=== PATIENT | female | born 1945 | race Caucasian/White ===

== ENCOUNTER 2016-04-22 11:14 | Inpatient (IN) | payer OTHER, MEDICARE ==
[~2016-04-22] VITALS: Ht 162.6 cm; Wt 59.0 kg
[~2016-04-22 11:14] MED LIST: ALBUTEROL0.09 MG/A1 INH; AMOXIL 875 MG875 MG PO; ATIVAN0.5 MG PO; ATORVASTATIN CA20 MG PO; CALCIUM CARBO1250 MG PO; CAPOTEN12.5 MG PO; CARDIZEM 180 M180 MG PO; CEFAZOLIN1 GM IV; COUMADIN 5 MG TA5 MG PO; FARXIGA10 MG PO; GLUCOPHAGE500 MG PO; K-DUR 20MEQ TA20 MEQ PO; LANOXIN-DIGO0.125 MG PO; MAGNESIUM OXID400 MG PO; MORPHINE ER PO; MS CONTIN15 M1 PO; ONGLYZA5 MG PO; PERCOCET 325 MG1 TA2 PO; PERCOCET 325 MG1 TAB PO; PHOS-NAK1 PDR PO; PREDNISONE 10MG10 M1 PO; PRINIVIL 5MG5 MG PO; REQUIP1 M1 PO; ROCALTROL0.25 MCG PO; SPIRIVA 18 MCG18 MCG INH; TESSALON PERLE100 MG PO; TOPCARE OMEPRAZ20 MG PO; TYLENOL TAB 32325 MG PO; VITAMIN D1000 IU PO
--- NOTE | 2016-04-22 11:32 | NUR ---
PT STATES SHE FELL FROM BED TO FLOOR AT EARLY THIS AM, (0400), UNABLE TO GET UP DUE TO EXTREME WEAKNESS. ALSO C/O SORE THROAT. 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 HAS IMPLANTED PORT IN R CHEST, CURRENTLY RECEIVING CHEMOTHERAPY AT [facility]. ON 02 AT 3L NASAL CANULA.
--- NOTE | 2016-04-22 11:46 | NUR ---
PT TO ROOM, ASSISTED TO CHANGE AND ONTO STRETCHER, PT STATES THAT SHE HAS NO COMPLAINTS BESIDES SHE FEELS VERY WEAK. PT GOES TO CHEMO EVERY THURSDAY, DENIES GETTING HURT WHEN SHE FELL THIS AM. IS O2 DEPENDENT ON 3L AND O2 SAT IS 100 % ON NASAL CANULA. FAMILY WITH PT .
--- NOTE | 2016-04-22 11:48 | NUR ---
DENIES CP/ABD/URINARY SYMPTOMS.
--- NOTE | 2016-04-22 11:56 | ED GENERAL ADULT ---
History of Present Illness General Chief Complaint: Fall Stated Complaint: FALL; SORE THROAT Source: patient, family Exam Limitations: no limitations Vital Signs & Intake/Output Vital Signs & Intake/Output Vital Signs Date Time Temp Pulse Resp B/P Pulse O2 O2 Flow FiO2 Ox Delivery Rate 04/22 1417 100.8 108 20 113/67 97 Nasal 2.0L Cannula 04/22 1415 101.8 04/22 1415 97 Nasal 3.0L Cannula 04/22 1135 99.7 127 24 105/67 94 Nasal 2.0L Cannula Allergies Coded Allergies: adhesive tape (BLISTERS 05/17/15) heparin (UNKNOWN 05/17/15) Reconcile Medications Acetaminophen (Tylenol Arthritis) 650 MG TABLET.ER 1 TAB PO PRN PAIN ( Reported) Albuterol Sulfate (Proair Hfa) 90 MCG HFA.AER.AD 2 PUF INH Q4-6 PRN PRN SOB ( Reported) Atorvastatin Calcium (Lipitor) 20 MG TABLET 1 TAB PO DAILY CHOLESTEROL ( Reported) Calcitriol 0.25 MCG CAPSULE 1 CAP PO DAILY LOW VIT D AND CALCIUM (Reported) Calcium Carbonate (Calcium) 600 MG (1,500 MG) TABLET 1 TAB PO DAILY SUPPLEMENT (Reported) Cholecalciferol (Vitamin D3) (Vitamin D3) 2,000 UNIT CAPSULE 1 CAP PO DAILY SUPPLEMENT (Reported) Dapagliflozin Propanediol (Farxiga) 10 MG TABLET 1 TAB PO DAILY DM (Reported) Fentanyl 50 MCG/HOUR PATCH.TD72 1 PAT TOP Q3D PAIN (Reported) Hydrocodone/Chlorphen P-Stirex (Hydrocodone-Chlorphen ER Susp) 10 MG-8 MG/5 ML MANDO.ER.12H 5 ML PO Q6H PRN COUGH (Reported) Lisinopril 5 MG TABLET 1 TAB PO DAILY BP (Reported) Lorazepam 0.5 MG TABLET 1 TAB PO TID PRN SLEEP (Reported) Metformin HCl 1,000 MG TABLET 1 TAB PO BID DM (Reported) Morphine Sulfate (Ms Contin) 15 MG TABLET.ER 1 TAB PO BID PAIN (Reported) Naproxen Sodium (Aleve) 220 MG CAPSULE 2 CAP PO PRN PAIN (Reported) Oxycodone HCl/Acetaminophen (Oxycodone-Acetaminophen 10-325) 10 MG-325 MG TABLET 1 TAB PO Q6H PRN PAIN (Reported) Pantoprazole Sodium 40 MG TABLET.DR 1 TAB PO DAILY GI (Reported) Potassium Chloride 20 MEQ TAB.ER.PRT 1 TAB PO DAILY LOW POTASSIUM (Reported) Ropinirole HCl (Requip) 1 MG TABLET 1 TAB PO BID RESTLESS LEGS (Reported) Saxagliptin (Onglyza) 5 MG TABLET 1 TAB PO DAILY DM (Reported) Tiotropium [place] (Spiriva) 18 MCG CAP.W.DEV 1 CAP INH DAILY COPD (Reported) Triage Note: PT STATES SHE FELL FROM BED TO FLOOR AT EARLY THIS AM, (0400), UNABLE TO GET UP DUE TO EXTEMEM WEAKNESS. PMH: STAGE 4 LUNG CA WITH METS TO BONE AND LIVER. Triage Nurses Notes Reviewed? yes Onset: Gradual Duration: day(s): (3) Timing: remote history Injury Environment: home Severity: moderate Severity Numbers: 6 No Modifying Factors: none HPI: Patient is a 70-year-old female with history of lung cancer currently undergoing chemotherapy therapy presenting to the emergency department with chief complaint of generalized weakness, fall out of bed early this morning and sore throat. She reports that she's been feeling achy and weak over the past 3 days. She reports positive chills, unsure about any fevers. Denies any nausea or vomiting. No abdominal pain. She works as she got up to use the bathroom early this morning and isn't sure if she just tripped and fell or if she slid down and fell. She couldn't get up for 3 hours. Her family member found her on the ground. Denies any head injury or loss of consciousness. Denies any upper or lower extremity pain. She reports that she just felt too weak to get off the ground. Her throat has been achy for the past several days. Worse with swallowing. Denies taking anything to help with the sore throat besides Tylenol. This Tylenol doesn't help the sore throat or the weakness. Denies any diarrhea. Slight decrease in by mouth intake. Denies any urinary symptoms. (ELADIO STOKES) Past History Travel History Traveled to [place] past 21 day No Medical History Any Pertinent Medical History? 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 No (ELADIO STOKES) Review of Systems Review of Systems Constitutional: Reports: see HPI, chills, malaise, weakness. Comments Review of systems: See HPI, All other systems negative. Constitutional, no weight loss HEENT: No visual changes no congestion Cardiovascular: No chest pain ,palpitation , orthopnea or ankle swelling Skin, no jaundice no rashes Respiratory: No dyspnea cough sputum or hemoptysis GI: No nausea no vomiting : No dysuria No hematuria Muscle skeletal: no back pain, no neck pain, Neurologic: No numbness no confusion, no headaches Psych: No stress anxiety or depression,. Heme/endocrine: No bruising no bleeding no polyuria or polydipsia Immunology: No splenectomy or history of AIDS (ELADIO STOKES) Physical Exam Physical Exam General Appearance: alert, awake, comfortable, thin, fatigued Comments: Well-developed well-nourished person in no acute distress HEENT: extraocular motion intact, no nystagmus. Pupils equally round and reactive to light and accommodation. Nose is atraumatic. External auditory canal and Tympanic membranes clear. Pharynx moderately erythematous with injection, mild tonsillar enlargement without exudate. Pharynx secretions without difficulty. Uvula midline.. No swelling or edema. No pain to palpation over entire scalp. No step-off or bogginess noted to palpation. Neck: Supple, mild anterior cervical lymphadenopathy, normal range of motion without pain or tenderness, no C-spine tenderness fall range of motion. Back: Nontender, no CVA tenderness. Full range of motion Cardiovascular: Regular rate and rhythms no murmurs rubs or gallops, normal JVP Respiratory: Chest nontender. No respiratory distress.diminished lung sounds on the left, diminished lung sounds on the right base to auscultation Abdomen: Soft, nontender nondistended, no appreciable organomegaly. Normal bowel sounds. No ascites, no rebound or guarding. Extremity: No edema, no calf tenderness to palpation, normal and equal pulses. Full range of motion of all extremities without difficulty. Muscular strength is 3 out of 5 while laying in the stretcher. Neuro: Alert oriented x3, motor sensory normal, cranial nerves II through XII grossly intact. Cerebellar testing is unremarkable. Skin: No appreciable rash on exposed skin, skin is warm and dry. Psych: Mood and affect is normal, memory and judgment is normal. Core Measures ACS in differential dx? Yes CVA/TIA Diagnosis: No Severe Sepsis Present: No BC x2: Yes NS/LR Started: Yes Septic Shock Present: No (LETICIA DIAL,ELADIO) Progress Differential Diagnoses I considered the following diagnoses in my evaluation of the patient: Strep, viral syndrome, influenza, dehydration, pneumonia, bronchitis, sinusitis, dehydration Plan of Care: Orders Procedure Date/time Status Regular Diet 04/23 D Active OXYGEN SETUP (GEN) 04/22 1457 Active Saline Lock 04/22 1457 Active Admit to inpatient 04/22 1457 Active Vital Signs 04/22 1457 Active Activity/Ambulation 04/22 1457 Active Code Status 04/22 1457 Active Patient Data 04/22 1438 Active PT Evaluate & Treat 04/22 1346 Active BLOOD CULTURE 04/22 1326 Active Intake & Output 04/22 1241 Active MISTAKE 04/22 1156 Active Telemetry/Postdoctoral Scholar 04/22 1156 Active RAPID VIRAL INFLUENZA A 04/22 1156 Complete THROAT CULTURE W/QUICK STREP 04/22 1156 Complete URINALYSIS 04/22 1156 Complete TROPONIN LEVEL 04/22 1156 Complete COMPREHENSIVE METABOLIC PANEL 04/22 1156 Complete CREATINE PHOSPHOKINASE 04/22 1156 Complete CBC WITHOUT DIFFERENTIAL 04/22 1156 Complete EKG 04/22 1139 Active Laboratory Tests 04/22/16 1456: Urinalysis MOD H, Urine Color YEL, Urine Clarity CLEAR, Urine pH 6.0, Ur Specific [place] 1.025, Urine Protein TRACE H, Urine Ketones 15 H, Urine Nitrite NEG, Urine Bilirubin NEG@ICTO, Urine Urobilinogen 1.0, Ur Leukocyte Esterase NEG, Ur Microscopic SEDIMENT EXAMINED, Urine RBC RARE, Ur Epithelial Cells MOD H, Urine Mucus FEW, Urine Hemoglobin TRACE-INTACT, Urine Glucose 250 H 04/22/16 1231: Anion Gap 10, Estimated GFR > 60, BUN/Creatinine Ratio 31.7 H, Glucose 176 H, Calcium 7.1 L, Total Bilirubin 3.1 H, AST 31, ALT 31, Alkaline Phosphatase 288 H, Creatine Kinase 45, Troponin I 0.02, Total Protein 5.9 L, Albumin 2.7 L, Globulin 3.2, Albumin/Globulin Ratio 0.8 L, CBC w Diff MAN DIFF ORDERED, RBC 2.88 L, MCV 93.5, MCH 32.3 H, RDW 19.1 H, MPV 8.8, Gran % 74.1, Lymphocytes % 7.1 L, Monocytes % 3.0, Eosinophils % 15.2 H, Basophils % 0.6, Absolute Granulocytes 1.3 L, Segmented Neutrophils 60, Band Neutrophils 10 H, Absolute Lymphocytes 0.1 L, Lymphocytes 12 L, Monocytes 2, Absolute Monocytes 0.1 L, Eosinophils 15 H, Absolute Eosinophils 0.3, Absolute Basophils 0, Metamyelocytes 1, Platelet Estimate DECREASED, Hypochromic-Microcytic 2+, Poikilocytosis 2+, Anisocytosis 2+, PUBS MCHC 34.5 Microbiology 04/22 1435 BLOOD: Blood Culture - RECD 04/22 1432 BLOOD: Blood Culture - RECD Diagnostic Imaging: Viewed by Me: Radiology Read. Discussed w/RAD: Radiology Read. Radiology Impression: PATIENT: LUDY QUEEN PRESENT AGE: 70 PATIENT ACCOUNT NO: [id number] : 47 LOCATION: [facility] ORDERING PHYSICIAN: ELADIO DIAL SERVICE DATE: 04/22/16 EXAM TYPE: RAD - XRY-PORTABLE CHEST XRAY EXAMINATION: XR PORTABLE CHEST CLINICAL INFORMATION: Syncope. History of bronchogenic small cell cancer. COMPARISON: PET/CT 02/05/2016. TECHNIQUE: Portable AP view of the chest was obtained. FINDINGS: There is a new rounded 7 cm maximal dimension mass identified in the left upper lung field laterally with associated volume loss and shift of the mediastinum towards the left. The potential includes rounded consolidation and evolving pneumonia and/or atelectasis, however given the patient's history a recurrent soft tissue mass is also possible. CT imaging preferably with intravenous contrast would be helpful versus bronchoscopy to further evaluate, possibly a mucous plug with associated atelectasis. Right lung is mildly hyperexpanded and clear. There is more of a patchy opacity involving the remaining left lung field with subtle blunting of the left costophrenic angle also etiology indeterminate. No aggressive appearing osseous lesions are seen. A single-lumen implantable catheter is identified on the right side with its tip at the SVC right atrial junction unchanged compared with the previous PET scan. IMPRESSION: Volume loss of left hemithorax with a 7 cm rounded density in the left upper lung field. PA and lateral views versus and or CT imaging or bronchoscopy is recommended to further evaluate. Initial ED EKG: sinus tachycardia at 125 bpm Comments: 04/22/2016 1:18:26 PMOn arrival patient started on IV hydration, she appears to be dry. Will assess for influenza, strep. bloodwork drawn.. Patient resting comfortably. currently undergoing chemotherapy, patient is immune compromised. 04/22/2016 2:09:23 PM patient and family members informed of bloodwork results. Patient is a max assist of 2 to sit up bedside which is lower than baseline. PT consult ordered. Spoke with physical therapist, which they are unsure if she will be evaluated today. Started on by mouth amoxicillin for positive strep throat. 04/22/2016 3:18:47 PM patient informed of all of her results, imaging studies. She was informed about the new density noted on chest x-ray. Patient is likely septic, neutropenic and has bandemia, patient will be admitted for IV and a back , IV hydration. Blood cultures needs return. (ELADIO STOKES) Departure Departure Time of Disposition: 6 Disposition: STILL A PATIENT Condition: Stable Clinical Impression Primary Impression: Neutropenic Qualifiers: Neutropenia type: unspecified Qualified Code: D70.9 - Neutropenia, unspecified Secondary Impressions: Bandemia, Strep throat Referrals: MARY KNOX MD (PCP/Family) Departure Forms: Customer Survey General Discharge Information Admission Note Spoke With: MARY KNOX MD Documentation of Exam: Documentation of any treatments & extenuating circumstances including Concerns Regarding Discharge (functional status, medication knowledge or non-compliance, living conditions, etc.) that warrant an admission rather than observation: Patient meets criteria for sepsis, requiring antibiotics, blood cultures return, IV hydration, physical therapy consultation secondary to weakness. Discharge at this time would be medically harmful. Patient is immunocompromised. (ELADIO STOKES) PA/FAMILY PROGRAM SPECIALIST Co-Sign Statement Statement: ED Attending supervision documentation- x I saw and evaluated the patient. I have also reviewed all the pertinent lab results and diagnostic results. I agree with the findings and the plan of care as documented in the PA's/FAMILY PROGRAM SPECIALIST's documentation. [] I have reviewed the ED Record and agree with the PA's/FAMILY PROGRAM SPECIALIST's documentation. [] Additions or exceptions (if any) to the PAs/FAMILY PROGRAM SPECIALIST's note and plan are summarized below: [] (CHIDI OWENS,JOE) Critical Care Note Critical Care Note Critical Care Time: 30-74 min (ELADIO STOKES)
[2016-04-22 12:38] LABS: ABSOLUTE BASOPHIL COUNT 0 /CUMM (0.0-0.2); ABSOLUTE EOSINOPHIL COUNT 0.3 /CUMM (0.0-0.7); ABSOLUTE GRANULOCYTE CT 1.3 /CUMM (1.4-6.5); ABSOLUTE LYMPH COUNT 0.1 /CUMM (1.2-3.4); ABSOLUTE MONOCYTE COUNT 0.1 /CUMM (0.10-0.60); BASOPHIL % 0.6 % (0.0-2.0); EOSINOPHIL % 15.2 % (0-5); GRANULOCYTE % 74.1 % (42.2-75.2); MEAN CORPUSCULAR HGB 32.3 PG (27.0-31.0); MEAN CORPUSCULAR HGB CONC 34.5 G/DL (33.0-37.0); MEAN CORPUSCULAR VOLUME 93.5 FL (81.0-99.0); MEAN PLATELET VOLUME 8.8 FL (7.4-10.4); PLATELET COUNT 70 /CUMM (130-400); RBC DISTRIBUTION WIDTH 19.1 % (11.5-14.5); RED BLOOD CELL CT 2.88 /CUMM (4.20-5.40); WHITE BLOOD CELL COUNT 1.7 /CUMM (4.8-10.8)
--- NOTE | 2016-04-22 12:42 | NUR ---
PORT CATH ACCESS TO RIGHT CHEST WALL WITH 0.75 INCH NEEDED. FLUIDS INFUSING, THROAT CULTURE AND FLU SWAB SENT
[2016-04-22] MEDS ORDERED: CALCIUM600 M2 PO (12:53)
[2016-04-22] MEDS ORDERED: METFORMIN HCL1000 M1 PO (12:57)
[2016-04-22] MEDS ORDERED: LORAZEPAM0.5 M1 PO (12:57)
[2016-04-22] MEDS ORDERED: FARXIGA10 M1 PO (12:58)
[2016-04-22] MEDS ORDERED: HYDROCODONE-CH115 ML PO (12:58)
[2016-04-22] MEDS ORDERED: PANTOPRAZOLE SO40 M1 PO (12:59)
[2016-04-22] MEDS ORDERED: OXYCODONE-ACET1 EAC1 PO (12:59)
[2016-04-22] MEDS ORDERED: FENTANYL1 EAC3 TOP (12:59)
[2016-04-22] MEDS ORDERED: ONGLYZA5 M1 PO (13:00)
[2016-04-22] MEDS ORDERED: TYLENOL ARTHRI650 M1 PO (13:01)
[2016-04-22] MEDS ORDERED: PROAIR HFA8.5 GM INH (13:02)
[2016-04-22] MEDS ORDERED: LIPITOR20 M2 PO (13:02)
[2016-04-22] MEDS ORDERED: ALEVE220 M1 PO (13:02)
[2016-04-22] MEDS ORDERED: CALCITRIOL0.25 MC1 PO (13:03)
[2016-04-22] MEDS ORDERED: MS CONTIN15 M2 PO (13:04)
[2016-04-22] MEDS ORDERED: VITAMIN D32000 UNIT PO (13:04)
[2016-04-22] MEDS ORDERED: LISINOPRIL5 M1 PO (13:04)
[2016-04-22] MEDS ORDERED: POTASSIUM CHLO20 ME2 PO (13:05)
[2016-04-22] MEDS ORDERED: SPIRIVA18 MCG INH (13:05)
--- NOTE | 2016-04-22 13:27 | RADIOLOGY REPORT ---
EXAMINATION: XR PORTABLE CHEST CLINICAL INFORMATION: Syncope. History of bronchogenic small cell cancer. COMPARISON: PET/CT 02/05/2016. TECHNIQUE: Portable AP view of the chest was obtained. FINDINGS: There is a new rounded 7 cm maximal dimension mass identified in the left upper lung field laterally with associated volume loss and shift of the mediastinum towards the left. The potential includes rounded consolidation and evolving pneumonia and/or atelectasis, however given the patient's history a recurrent soft tissue mass is also possible. CT imaging preferably with intravenous contrast would be helpful versus bronchoscopy to further evaluate, possibly a mucous plug with associated atelectasis. Right lung is mildly hyperexpanded and clear. There is more of a patchy opacity involving the remaining left lung field with subtle blunting of the left costophrenic angle also etiology indeterminate. No aggressive appearing osseous lesions are seen. A single-lumen implantable catheter is identified on the right side with its tip at the SVC right atrial junction unchanged compared with the previous PET scan. IMPRESSION: Volume loss of left hemithorax with a 7 cm rounded density in the left upper lung field. PA and lateral views versus and or CT imaging or bronchoscopy is recommended to further evaluate.
--- NOTE | 2016-04-22 14:18 | NUR ---
PT ASSISTED UP ON STRETCHER, AWARE THAT SHE IS BEING ADMITTED, PT TESTED POSITIVE FOR STREP THROAT, COMPLAINS OF HEADACHE AT THIS TIME, TEMP 100.8. MEDICATED WITH 650 MG PO TYLENOL PER ORDER AND AMOXIL 500 MG PO.
--- NOTE | 2016-04-22 15:39 | NUR ---
ASSUMED CARE OF PT AT THIS TIME. PT ASSISTED UP TO BEDSIDE COMMODE, PT HAS SOFT FORMED BOWEL MOVMENT. PT ASSISTED BACK INTO BED. PT OFFERS NO OTHER COMPLAINTS AT THIS TIME. PT SINUS TACH ON MONITOR.
--- NOTE | 2016-04-22 15:46 | History & Physical ---
See Addendum HEATH OWENS,SHAUN 04/22/16 1545: General Information and HPI MD Statement: I have seen and personally examined LUDY QUEEN and documented this H&P. The patient is a 70 year old F who presented with a patient stated chief complaint of fall and weakness. 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 Patient reports that for the past few days she has felt increased weakness, and stated that today when she had a mechanical fall she was not able to pick herself up. Patient denies any palpitation, diaphoresis, seizure-like activity, vertigo, tinnitus headache, loss of consciousness, postictal confusion, focal neurological deficit or bladder from/urinary incontinence. She reports a 3 day history of sore throat, increased weakness, decreased appetite and chills. She reports that her grandson recently in the past week had an upper respiratory infection which she believes was a sore throat. Patient also reports intermittent episodes of diarrhea or denies any blood in stool. Patient also denies any chest pain, increased shortness of breath, cough , nausea, vomiting, abdominal pain, joint pain or dysuria. Of note patient is followed by Dr. Lucero (oncology) and her next chemotherapy session. was scheduled for . Allergies/Medications Allergies: Coded Allergies: adhesive tape (BLISTERS 05/17/15) heparin (UNKNOWN 05/17/15) Home Med list Acetaminophen (Tylenol Arthritis) 650 MG TABLET.ER 1 TAB PO PRN PAIN ( Reported) Albuterol Sulfate (Proair Hfa) 90 MCG HFA.AER.AD 2 PUF INH Q4-6 PRN PRN SOB ( Reported) Atorvastatin Calcium (Lipitor) 20 MG TABLET 1 TAB PO DAILY CHOLESTEROL ( Reported) Calcitriol 0.25 MCG CAPSULE 1 CAP PO DAILY LOW VIT D AND CALCIUM (Reported) Calcium Carbonate (Calcium) 600 MG (1,500 MG) TABLET 1 TAB PO DAILY SUPPLEMENT (Reported) Cholecalciferol (Vitamin D3) (Vitamin D3) 2,000 UNIT CAPSULE 1 CAP PO DAILY SUPPLEMENT (Reported) Dapagliflozin Propanediol (Farxiga) 10 MG TABLET 1 TAB PO DAILY DM (Reported) Fentanyl 50 MCG/HOUR PATCH.TD72 1 PAT TOP Q3D PAIN (Reported) Hydrocodone/Chlorphen P-Stirex (Hydrocodone-Chlorphen ER Susp) 10 MG-8 MG/5 ML MANDO.ER.12H 5 ML PO Q6H PRN COUGH (Reported) Lisinopril 5 MG TABLET 1 TAB PO DAILY BP (Reported) Lorazepam 0.5 MG TABLET 1 TAB PO TID PRN SLEEP (Reported) Metformin HCl 1,000 MG TABLET 1 TAB PO BID DM (Reported) Morphine Sulfate (Ms Contin) 15 MG TABLET.ER 1 TAB PO BID PAIN (Reported) Naproxen Sodium (Aleve) 220 MG CAPSULE 2 CAP PO PRN PAIN (Reported) Oxycodone HCl/Acetaminophen (Oxycodone-Acetaminophen 10-325) 10 MG-325 MG TABLET 1 TAB PO Q6H PRN PAIN (Reported) Pantoprazole Sodium 40 MG TABLET.DR 1 TAB PO DAILY GI (Reported) Potassium Chloride 20 MEQ TAB.ER.PRT 1 TAB PO DAILY LOW POTASSIUM (Reported) Ropinirole HCl (Requip) 1 MG TABLET 1 TAB PO BID RESTLESS LEGS (Reported) Saxagliptin (Onglyza) 5 MG TABLET 1 TAB PO DAILY DM (Reported) Tiotropium [place] (Spiriva) 18 MCG CAP.W.DEV 1 CAP INH DAILY COPD (Reported) Past History Travel History Traveled to [place] past 21 day No Medical History Neurological: NONE EENT: NONE Cardiovascular: hypertension Respiratory: COPD, O2 DEPENDENT AT 3L Gastrointestinal: diverticulitis, GERD, SMALL BOWEL OBSTRUCTION Hepatic: NONE Renal: NONE Musculoskeletal: NONE Psychiatric: NONE Endocrine: diabetes Blood Disorders: NONE Cancer(s): history of left upper lobectomy for adenocarcinoma in 2012, with recurrence diagnosed in December 2014 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 Needs Assist: dressing, bathing. Ambulation: walker Review of Systems Review of Systems Constitutional: Reports: see HPI. EENTM: Denies: double vision, visual changes. Cardiovascular: Denies: palpitations, peripheral edema, syncope. Respiratory: Denies: cough, hemoptysis, wheezing. GI: Reports: diarrhea. Denies: constipation, distention. Genitourinary: Denies: dysuria, frequency, hematuria. Musculoskeletal: Denies: joint pain. Skin: Denies: erythema. Neurological/Psychological: Denies: depressed, dementia, emotional problems. Hematologic/Endocrine: Denies: bleeding, polyuria, polydipsia. Immunologic/Allergic: Reports: no symptoms. Exam & Diagnostic Data Last 24 Hrs of Vital Signs/I&O Vital Signs Date Time Temp Pulse Resp B/P Pulse O2 O2 Flow FiO2 Ox Delivery Rate 04/22 1921 Nasal 3.0L Cannula 04/22 1900 93 Nasal 3.0L Cannula 04/22 1806 Nasal 3.0L Cannula 04/22 1805 99.1 124 20 110/62 92 04/22 1717 100.7 121 16 110/65 95 Nasal 3.0L Cannula 04/22 1601 100.7 04/22 1547 100.7 04/22 1417 100.8 108 20 113/67 97 Nasal 2.0L Cannula 04/22 1415 101.8 04/22 1415 97 Nasal 3.0L Cannula 04/22 1135 99.7 127 24 105/67 94 Nasal 2.0L Cannula Intake & Output 04/22 1600 04/22 0800 04/22 0000 Intake Total 1000 Output Total Balance 1000 Intake, IV 1000 Patient 58.967 kg Weight Physical Exam General Appearance Alert, Oriented X3, Cooperative Skin No Significant Lesion HEENT EOMI, Mucous Membr. moist/pink, mild sclera icterus Neck Supple, No JVD Lymphatic Cervical nl Cardiovascular Regular Rate, Normal S1, Normal S2 Lungs decreased breath sounds on the right lung sanchez Abdomen Normal Bowel Sounds, Soft Neurological Normal Speech, Strength at 5/5 X4 Ext, Normal Tone, Sensation Intact Extremities No Clubbing, No Cyanosis, brisk capillary refill of extremities Vascular Pulses Symmetrical Assessment/Plan Assessment: This is a 70-year-old lady with a past medical history of adenocarcinoma status post left lobectomy and on chemotherapy therapy presents after a mechanical fall and is found to have a positive strep throat result. Prior to the mechanical fall patient's head about 3 days history of weakness chills and sore throat. Impression and plan #Sepsis Patient meets criteria for sepsis (tachycardic, febrile, with an identifiable source of infection from her throat). These is always a concern for MRSA with Port-A-Cath patient presenting with sepsis, however there is no sign of exit site infection during inspection and we do have an identifiable source of infection (group A strep). This is a chemotherapy patient therefore neutropenic fever as well as a concern. Patient is currently not neutropenic, therefore no coverage for gram-negative Pseudomonas, or Neupogen is warranted. Plan We'll start IV Unasyn for group A strep coverage, no need for a broader coverage as the source of infection is known. Neutropenic droplet precaution for 24 hours Will monitor for any impending neutropenia via CBC in the morning Will trend lactic levels Will follow-up with blood cultures Adequate IV hydration, with strict ins and outs to prevent any pulmonary edema as patient is a high risk due to lobectomy. ID on board (appreciated) #Acute pharyngitis Secondary to strep infection as evidenced by positive test, throat pain and fevers, Plan Unasyn antibiotic #Mechanical fall Most likely secondary to increased weakness due to 3 day history of bacterial infection. Will consider PT eval tomorrow morning #History of lung malignancy Patient scheduled for therapy on . oncology office is already aware of patient's admission and will follow with the consult. #Pancytopenia Most likely secondary to chemotherapy. We'll continue to trend CBC. Will avoid heparin in the setting of the thrombocytopenia #COPD TRC nebs O2 supplementation to keep sats above 90% #Transaminitis possibly secondary to sepsis or liver metastases #Elevated bilirubin Possibly secondary to liver metastases #History of hypertension Will hold off oral medications for now #History of diabetes NovoLog sliding scale Accu-Cheks 3 times a day and attempt As Ranked By This Provider Problem List: 1. Strep throat Core Measures/Miscellaneous Acute Coronary Syndrome ACS Diagnosis: No Cerebrovascular Accident CVA/TIA Diagnosis: No Congestive Heart Failure CHF Diagnosis: No Venous Thromboembolism VTE Risk Factors: Acute medical illness, Age > 40 VTE Prophylaxis Ordered Inpt: Mechanical (ALPS/TEDS) No Mech VTE prophylaxis d/t: No contraindications No VTE Pharm Prophylaxis d/t: VTE low risk (thrombocytopenia) VTE Diagnosis: No VTE Type: NONE VTE Confirmed by (Test): NONE Severe Sepsis Severe Sepsis Present: No BC x2: Yes Lactic Acid x2: Yes NS/LR Started: Yes Septic Shock Septic Shock Present: No Miscellaneous Documentation Attending Case Discussed With: MARY KNOX MD Primary Care Physician: MARY KNOX MD Patient sees these Specialists oncology Level of Patient Care: Telemetry Consults Needed: Consulting Specialty: Hematology/Oncology (heme) NICHOLEABE 04/22/16 1642: Resident Review Statement Resident Statement: examined this patient, discussed with seo intern, agreed with seo intern, reviewed images, amended to note Other Findings: 70 year with past medical history of stage IV lung cancer with metastasis to the liver continue on chemotherapy 3 weeks on 1 week off, hypertension, hyperlipidemia, COPD on 2 L oxygen, GERD and hospital with chief complaint of weakness and fall. She reported that in the morning she fell near her bed due to extreme weakness and could not stand up. Patient also reports of sore throat since Thursday, her grandson was [place] at that time. Patient denies any fever but reports chills. She has intermittent diarrhea. She denies chest pain, nausea, vomiting, joint pain, ear pain. Vital signs on admission fever of 101, DC 127, RR 24, BP 105/67, saturation 94% on 2 L Alert and oriented 3 Skin : No redness in the Port-A-Cath on the right side HEENT Atraumatic, PERRLA, EOMI, possible oral thrush on the tongue Neck Supple, No JVD, No thryomegaly Lymphatic Cervical nl Cardiovascular tachycardia, Normal S1, Normal S2 Lungs severely decreased breath sound on the right side Abdomen Normal Bowel Sounds, Soft, No Tenderness, No Hepatospenomegaly, No Masses Neurological Normal Gait, Normal Speech, Strength at 5/5 X4 Ext, Sensation Intact Extremities No Clubbing, No Cyanosis, No Edema,Normal Pulses WBC 1.7(ANC mopre than 1100),20% bands, hemoglobin 9.3, platelets 70, bilirubin 3, elevated alkaline phosphatase, troponin within normal limits EKG showed sinus tachycardia, no acute ST-T changes(RDI monitoring showed continuous trigemy) CXR did not show any acute pneumonia Flu negative Rapid strep positive Assessment and plan #moderate Neutropenia with sepsis due to strep infection/tachycardia -Patient received amoxicillin oral we will continue with Unasyn IV -Check lactic acid now and 3 hours later -1 liter normal saline and IV hydration 100 mL/h -Follow-up blood cultures and urine cultures -Neutropenic precausions if pateint more severe neutropenia -CBC daily -Admit to telemetry due to tachycardia with cardiology consult -ID consult -Acetaminophen for fever #Lung cancer stage IV on chemotherapy -She gets chemotherapy every -Oncology is notified #COPD -TRC nebs -keep O2 saturation over 92% #Elevated bilirubin/LFTS -Possible due to mass versus sepsis -INR and increase tomorrow -Watch for bleeding #Pancytopenia -Possibly due to chemotherapy -DVT prophylaxis only Alps for now #Hypertension/diabetes -No oral medications for now -Sliding scale insulin, diabetic diet, fingersticks Chronic pain from the cancer and the back -Continue fentanyl patch and oxycodone unwitnessed fall and being on the floor for long time -check CPK DVT prophylaxis Alps, full code, diabetic diet, fentanyl patch and oxycodone for pain
--- NOTE | 2016-04-22 15:48 | NUR ---
PHARMACY CALLED FOR MEDS
--- NOTE | 2016-04-22 15:52 | NUR ---
BED CANCEL DUE TO CHANGE OF FLOOR
--- NOTE | 2016-04-22 16:03 | NUR ---
CONSISTENT CARB 3 TRAY ORDERED FOR PT AT THIS TIME
--- NOTE | 2016-04-22 16:54 | NUR ---
PT MEDICATED PER EMAR AT THIS TIME. PT DOES NOT WANT FENANTLY PATCH AT THIS TIME.
--- NOTE | 2016-04-22 17:24 | NUR ---
DR HORN AT BEDSIDE FOR EVAL. PER . PT WILL BE ON DROPLET PERCAUTIONS FOR [address] NURSE ON [address] [place] [address] AWARE AND REPORT GIVEN.
--- NOTE | 2016-04-22 17:33 | NUR ---
[facility] CALLED FOR PT TRANSPORT
--- NOTE | 2016-04-22 17:39 | Cons- Cardiology ---
General Information and HPI Consulting Request Date of Consult: 04/22/16 Requested By: MARY KNOX MD Reason for Consult: premature ventricular contractions History of Present Illness: The patient is a 70-year-old female with history of metastatic lung cancer who presented with complaint of recent sore throat with weakness, aches, and poor p.o. intake. Earlier this morning she fell out of bed. She was brought to the emergency department where she was found to have evidence of streptococcal pharyngitis and possible sepsis. She was noted to have frequent premature ventricular contractions, with episodes of trigeminy. She had a recurrence of metastatic lung cancer 15 months prior to admission, which was treated with radiation and chemotherapy. She continues to receive chemotherapy on a 3 week on/off regimen via a Port-A-Cath. She is noted to be febrile, and to have sinus tachycardia. No chest pain. No palpitations. No syncope. No orthopnea. Allergies/Medications Allergies: Coded Allergies: adhesive tape (BLISTERS 05/17/15) heparin (UNKNOWN 05/17/15) Home Med List: Acetaminophen (Tylenol Arthritis) 650 MG TABLET.ER 1 TAB PO PRN PAIN ( Reported) Albuterol Sulfate (Proair Hfa) 90 MCG HFA.AER.AD 2 PUF INH Q4-6 PRN PRN SOB ( Reported) Atorvastatin Calcium (Lipitor) 20 MG TABLET 1 TAB PO DAILY CHOLESTEROL ( Reported) Calcitriol 0.25 MCG CAPSULE 1 CAP PO DAILY LOW VIT D AND CALCIUM (Reported) Calcium Carbonate (Calcium) 600 MG (1,500 MG) TABLET 1 TAB PO DAILY SUPPLEMENT (Reported) Cholecalciferol (Vitamin D3) (Vitamin D3) 2,000 UNIT CAPSULE 1 CAP PO DAILY SUPPLEMENT (Reported) Dapagliflozin Propanediol (Farxiga) 10 MG TABLET 1 TAB PO DAILY DM (Reported) Fentanyl 50 MCG/HOUR PATCH.TD72 1 PAT TOP Q3D PAIN (Reported) Hydrocodone/Chlorphen P-Stirex (Hydrocodone-Chlorphen ER Susp) 10 MG-8 MG/5 ML MANDO.ER.12H 5 ML PO Q6H PRN COUGH (Reported) Lisinopril 5 MG TABLET 1 TAB PO DAILY BP (Reported) Lorazepam 0.5 MG TABLET 1 TAB PO TID PRN SLEEP (Reported) Metformin HCl 1,000 MG TABLET 1 TAB PO BID DM (Reported) Morphine Sulfate (Ms Contin) 15 MG TABLET.ER 1 TAB PO BID PAIN (Reported) Naproxen Sodium (Aleve) 220 MG CAPSULE 2 CAP PO PRN PAIN (Reported) Oxycodone HCl/Acetaminophen (Oxycodone-Acetaminophen 10-325) 10 MG-325 MG TABLET 1 TAB PO Q6H PRN PAIN (Reported) Pantoprazole Sodium 40 MG TABLET.DR 1 TAB PO DAILY GI (Reported) Potassium Chloride 20 MEQ TAB.ER.PRT 1 TAB PO DAILY LOW POTASSIUM (Reported) Ropinirole HCl (Requip) 1 MG TABLET 1 TAB PO BID RESTLESS LEGS (Reported) Saxagliptin (Onglyza) 5 MG TABLET 1 TAB PO DAILY DM (Reported) Tiotropium [place] (Spiriva) 18 MCG CAP.W.DEV 1 CAP INH DAILY COPD (Reported) Current Medications: Current Medications Sig/Olga Start time Last Medication Dose Route Stop Time Status Admin Acetaminophen 650 MG ONCE ONE 04/22 2114 UNVr 04/22 PO 04/22 2115 211 Acetaminophen 500 MG Q6P PRN 04/22 1545 AC PO Acetaminophen 0 .STK-MED ONE 04/22 1411 DC PO Acetaminophen 650 MG ONCE ONE 04/22 1345 DC 04/22 PO 04/22 1346 1415 Albuterol Sulfate 3 ML Q4P PRN 04/22 1930 AC INH Amoxicillin 0 .STK-MED ONE 04/22 1422 DC PO Amoxicillin 500 MG ONCE ONE 04/22 1415 DC 04/22 PO 04/22 1416 1423 Ampicillin Sodium/ 0 .STK-MED ONE 04/22 1639 DC Sulbactam Sodium .ROUTE Ampicillin Sodium/ 1,500 MG Q6 04/22 1600 AC 04/22 Sulbactam Sodium IV 1654 Sodium Chloride 100 ML Atorvastatin Calcium 20 MG DAILY@1700 04/23 1700 AC PO Calcitriol 0.25 MCG DAILY 04/23 1000 AC PO Calcium Carbonate 1,250 MG DAILY 04/23 1000 AC PO Fentanyl Citrate 50 MCG Q3D 04/22 1545 AC TOP Guaifenesin 10 ML Q6P PRN 04/22 1545 AC PO Influenza Virus 0.5 ML ONCE ONE 04/22 1830 DC Vaccine IM 04/22 1831 Insulin Aspart 0 TIDAC 04/22 1700 AC SC Lorazepam 0.5 MG TID PRN 04/22 1545 AC PO 04/29 1544 Morphine Sulfate 15 MG BID 04/22 1542 AC 04/22 PO 2105 Nystatin 5 ML 4 TIMES/DAY 04/22 1559 AC 04/22 PO 1654 Omeprazole 40 MG DAILY AC 04/23 0700 AC PO Oxycodone/ 1 TAB Q6P PRN 04/22 1545 AC Acetaminophen PO Ropinirole HCl 1 MG BID 04/22 2200 AC PO Sodium Chloride 250 ML BOLUS ONE 04/22 2115 UNVr 04/22 IV 04/22 2214 2112 Sodium Chloride 1,000 ML Q10H 04/22 1600 AC 04/22 IV 1804 Sodium Chloride 500 ML BOLUS ONE 04/22 1600 DC 04/22 IV 04/22 1659 1654 Sodium Chloride 1,000 ML BOLUS ONE 04/22 1430 DC 04/22 IV 04/22 1629 1445 Sodium Chloride 1,000 ML BOLUS ONE 04/22 1200 DC 04/22 IV 04/22 1359 1236 Review of Systems Review of Systems: No rash. No tremor. No melena. No hemoptysis. All other systems are reviewed and are noted to be negative. 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 Needs Assist: dressing, bathing. Ambulation: walker Exam & Diagnostic Data Vital Signs and I&O Vital Signs Date Time Temp Pulse Resp B/P Pulse O2 O2 Flow FiO2 Ox Delivery Rate 04/22 2111 102.0 04/22 192 Nasal 3.0L Cannula 04/22 190 93 Nasal 3.0L Cannula 04/22 1805 Nasal 3.0L Cannula 04/22 1804 99.1 124 20 110/62 92 04/22 1717 100.7 121 16 110/65 95 Nasal 3.0L Cannula 04/22 1601 100.7 04/22 1547 100.7 04/22 1417 100.8 108 20 113/67 97 Nasal 2.0L Cannula 04/22 1415 101.8 04/22 1415 97 Nasal 3.0L Cannula 04/22 1135 99.7 127 24 105/67 94 Nasal 2.0L Cannula Intake & Output 04/22 1600 04/22 0800 04/22 0000 04/21 1600 04/21 0800 04/21 0000 Intake Total 1000 Output Total Balance 1000 Intake, IV 1000 Patient 130 lb Weight Physical Exam: Gen: The patient is in no acute distress HEENT: Normal nose, ears, and oropharynx. Pupils equal bilaterally. Conjunctiva normal. Neck: Supple with no JVD, no masses, and no thyromegaly Lungs: Clear to auscultation with normal respiratory effort Heart: tachycardic, S1, S2, 1/6 systolic murmur. 1+ peripheral edema, 2+ pulses in the lower extremities bilaterally Abdomen: Soft, nontender, no masses. No hepatomegaly. No splenomegaly Extremities: No clubbing or cyanosis. Normal muscle strength in the upper and lower extremities. Skin: Normal skin turgor with no skin ulcers or lesions noted. Neuro: Cranial nerves intact. Sensation intact Psych: Alert and oriented 3 with appropriate affect Labs/Madhu Results: Laboratory Tests 04/22 04/22 1553 1456 Chemistry Lactic Acid (0.7 - 2.1 mmol/L) 1.3 Urines Urinalysis MOD H Urine Color (YEL,AMB,STR) YEL Urine Clarity (CLEAR) CLEAR Urine pH (5.0 - 8.0) 6.0 Ur Specific [place] (1.001 - 1.035) 1.025 Urine Protein (NEG,<30 MG/DL) TRACE H Urine Ketones (NEG) 15 H Urine Nitrite (NEG) NEG Urine Bilirubin (NEG) NEG@ICTO Urine Urobilinogen (0.1 - 1.0 EU/dl) 1.0 Ur Leukocyte Esterase (NEG) NEG Ur Microscopic SEDIMENT EXAMINED Urine RBC (0 - 5 /HPF) RARE Ur Epithelial Cells (NONE,FEW) MOD H Urine Mucus (FEW,NONE) FEW Urine Hemoglobin (NEG) TRACE-INTACT Urine Glucose (N MG/DL) 250 H 04/22 1231 Chemistry Sodium (137 - 145 mmol/L) 139 Potassium (3.5 - 5.1 mmol/L) 4.1 Chloride (98 - 107 mmol/L) 102 Carbon Dioxide (22 - 30 mmol/L) 27 Anion Gap (5 - 16) 10 BUN (7 - 17 mg/dL) 19 H Creatinine (0.5 - 1.0 mg/dL) 0.6 Estimated GFR (>60 ml/min) > 60 BUN/Creatinine Ratio (7 - 25 %) 31.7 H Glucose (65 - 99 mg/dL) 176 H Calcium (8.4 - 10.2 mg/dL) 7.1 L Total Bilirubin (0.2 - 1.3 mg/dL) 3.1 H AST (14 - 36 U/L) 31 ALT (9 - 52 U/L) 31 Alkaline Phosphatase (<127 U/L) 288 H Creatine Kinase (30 - 135 U/L) 45 Troponin I (< 0.11 ng/ml) 0.02 Total Protein (6.3 - 8.2 g/dL) 5.9 L Albumin (3.5 - 5.0 g/dL) 2.7 L Globulin (1.9 - 4.2 gm/dL) 3.2 Albumin/Globulin Ratio (1.1 - 2.2 %) 0.8 L Hematology CBC w Diff MAN DIFF ORDERED WBC (4.8 - 10.8 /CUMM) 1.7 L RBC (4.20 - 5.40 /CUMM) 2.88 L Hgb (12.0 - 16.0 G/DL) 9.3 L Hct (37 - 47 %) 27.0 L MCV (81.0 - 99.0 FL) 93.5 MCH (27.0 - 31.0 PG) 32.3 H RDW (11.5 - 14.5 %) 19.1 H Plt Count (130 - 400 /CUMM) 70 L MPV (7.4 - 10.4 FL) 8.8 Gran % (42.2 - 75.2 %) 74.1 Lymphocytes % (20.5 - 51.1 %) 7.1 L Monocytes % (1.7 - 9.3 %) 3.0 Eosinophils % (0 - 5 %) 15.2 H Basophils % (0.0 - 2.0 %) 0.6 Absolute Granulocytes (1.4 - 6.5 /CUMM) 1.3 L Segmented Neutrophils (42.2 - 75.2 %) 60 Band Neutrophils (0.0 - 5.0 %) 10 H Absolute Lymphocytes (1.2 - 3.4 /CUMM) 0.1 L Lymphocytes (20.5 - 51.1 %) 12 L Monocytes (1.7 - 9.3 %) 2 Absolute Monocytes (0.10 - 0.60 /CUMM) 0.1 L Eosinophils (0 - 5.0 %) 15 H Absolute Eosinophils (0.0 - 0.7 /CUMM) 0.3 Absolute Basophils (0.0 - 0.2 /CUMM) 0 Metamyelocytes (0.0 - 1.0 %) 1 Platelet Estimate (ADEQUATE) DECREASED Hypochromic-Microcytic 2+ Poikilocytosis 2+ Anisocytosis 2+ PUBS MCHC (33.0 - 37.0 G/DL) 34.5 Diagnostic Data EKG Results EKG tracing from April 22, 2016 is independently reviewed, and reveals sinus tachycardia 124 with low voltage CXR Results chest x-ray April 22, 2016: Volume loss of left hemithorax with a 7 cm rounded density in the left upper lung field. PA and lateral views versus and or CT imaging or bronchoscopy is recommended to further evaluate. Other Results echocardiogram April 09, 2015: Normal size left ventricle. Normal left ventricular ejection fraction visually estimated at >55 Trace mitral regurgitation. Mild aortic stenosis. Mild aortic stenosis. Mild tricuspid regurgitation. Right ventricular systolic pressure estimated to be elevated at 62 mmHg. Assessment/Plan Assessment/Plan Assessment: 1. Metastatic lung cancer 2. Hypertension 3. Neutropenia 4. Streptococcal pharyngitis with possible sepsis 5. sinus tachycardia, likely secondary to sepsis 6. Premature ventricular contractions recommendations: * Antibiotic therapy as per ID * IV fluid * Sinus tachycardia is likely secondary to sepsis and infection. would treat with IV fluids and avoid medical therapy at this time. * Check a magnesium level, and supplement if needed. * No treatment is needed for premature ventricular contractions Consult Acknowledgment - Thank you for your consult request.
[2016-04-22 18:05] VITALS: BP 110/62
--- NOTE | 2016-04-22 18:13 | Admission Certification ---
Admission Certification Certification Statement - As attending physician, I certify that at the time of - admission, based on clinical presentation, severity of - symptoms, need for further diagnostic testing and - therapeutic interventions, and risk of adverse outcomes - without in-hospital treatment, in my clinical assessment, - this patient requires an acute hospital stay for a minimum - of two nights or longer. I have also considered psychsocial - factors such as support system, advanced age, financial - issues, cognitive issues, and failed out-patient treatments, - past re-admission history, safety of patient, and lack of - compliance as applicable. Specific rationale supporting this admission is: Weakness, fall, sore throat with strep in a patient with a low white count secondary to the chemotherapy, anemia, failure to thrive
--- NOTE | 2016-04-22 18:15 | Cons- Infect Disease ---
General Information and HPI Consulting Request Date of Consult: 04/22/16 Requested By: MARY KNOX MD Reason for Consult: Positive strep throat Source of Information: patient, family, old records History of Present Illness: This is a 70-year-old woman with COPD, maintained on 3 L of oxygen, adenocarcinoma of the lung, status post left upper lobectomy 3 years prior to admission, with a recurrence 15 months prior to admission, treated with radiation therapy and chemotherapy, which she continues to receive, currently on a three week on/one week off regimen, most recently 5 days prior to admission, via a Port-A-Cath that was inserted in her right upper chest at the time of her recurrence, with a PET scan 3 months prior to admission revealing enlarging mediastinal adenopathy, enlarging hepatic masses, abnormal upper retroperitoneal lymph nodes and abnormal nodularity in the left adrenal gland, all suspicious for metastatic disease, last hospitalized one year prior to admission with pneumococcal/Staph aureus pneumonia, treated with a four-week course of IV Cefazolin, admitted today after a fall at home this morning, from which she could not get up, and a three-day history of sore throat, decreased po intake and increased weakness without any increased shortness of breath, cough, chest pain, GI or symptoms. On admission she was febrile to 101.8. Laboratory data revealed a white blood cell of 1.7, with 1300 neutrophils, with some polys containing vacuoles, H&H 9 and 27, platelets 70,000, BUN/creatinine 19 and 0.6, bilirubin 3.1, alk phosphatase 288. Urinalysis rare RBCs. Chest x-ray revealed a new rounded 7 cm mass in the left upper lung field with associated volume loss and shift of the mediastinum towards the left, with a patchy opacity involving the remaining left lung field. She was given a dose of Amoxicillin and then changed to Unasyn. Presently she notes improvement in her sore throat. She does note increased respiratory distress with exertion and when her oxygen is off but denies any chest pain or cough. She does report diarrhea which is a chronic problem and pruritus which has been a problem "on and off". Allergies/Medications Allergies: Coded Allergies: adhesive tape (BLISTERS 05/17/15) heparin (UNKNOWN 05/17/15) Home Med List: Acetaminophen (Tylenol Arthritis) 650 MG TABLET.ER 1 TAB PO PRN PAIN ( Reported) Albuterol Sulfate (Proair Hfa) 90 MCG HFA.AER.AD 2 PUF INH Q4-6 PRN PRN SOB ( Reported) Atorvastatin Calcium (Lipitor) 20 MG TABLET 1 TAB PO DAILY CHOLESTEROL ( Reported) Calcitriol 0.25 MCG CAPSULE 1 CAP PO DAILY LOW VIT D AND CALCIUM (Reported) Calcium Carbonate (Calcium) 600 MG (1,500 MG) TABLET 1 TAB PO DAILY SUPPLEMENT (Reported) Cholecalciferol (Vitamin D3) (Vitamin D3) 2,000 UNIT CAPSULE 1 CAP PO DAILY SUPPLEMENT (Reported) Dapagliflozin Propanediol (Farxiga) 10 MG TABLET 1 TAB PO DAILY DM (Reported) Fentanyl 50 MCG/HOUR PATCH.TD72 1 PAT TOP Q3D PAIN (Reported) Hydrocodone/Chlorphen P-Stirex (Hydrocodone-Chlorphen ER Susp) 10 MG-8 MG/5 ML MANDO.ER.12H 5 ML PO Q6H PRN COUGH (Reported) Lisinopril 5 MG TABLET 1 TAB PO DAILY BP (Reported) Lorazepam 0.5 MG TABLET 1 TAB PO TID PRN SLEEP (Reported) Metformin HCl 1,000 MG TABLET 1 TAB PO BID DM (Reported) Morphine Sulfate (Ms Contin) 15 MG TABLET.ER 1 TAB PO BID PAIN (Reported) Naproxen Sodium (Aleve) 220 MG CAPSULE 2 CAP PO PRN PAIN (Reported) Oxycodone HCl/Acetaminophen (Oxycodone-Acetaminophen 10-325) 10 MG-325 MG TABLET 1 TAB PO Q6H PRN PAIN (Reported) Pantoprazole Sodium 40 MG TABLET.DR 1 TAB PO DAILY GI (Reported) Potassium Chloride 20 MEQ TAB.ER.PRT 1 TAB PO DAILY LOW POTASSIUM (Reported) Ropinirole HCl (Requip) 1 MG TABLET 1 TAB PO BID RESTLESS LEGS (Reported) Saxagliptin (Onglyza) 5 MG TABLET 1 TAB PO DAILY DM (Reported) Tiotropium Mertzon (Spiriva) 18 MCG CAP.W.DEV 1 CAP INH DAILY COPD (Reported) Past History Travel History Traveled to [place] past 21 day No Medical History Neurological: NONE EENT: NONE Cardiovascular: hypertension Respiratory: COPD, O2 DEPENDENT AT 3L Gastrointestinal: diverticulitis, GERD, SMALL BOWEL OBSTRUCTION Hepatic: NONE Renal: NONE Musculoskeletal: NONE Psychiatric: NONE Endocrine: diabetes Blood Disorders: NONE Cancer(s): adenocarcinoma in 2012, with recurrence diagnosed in December 2014 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 Needs Assist: dressing, bathing. Ambulation: walker Review of Systems Review of Systems Constitutional: Reports: weakness. Denies: chills. EENTM: Reports: epistaxis. Cardiovascular: Denies: chest pain, peripheral edema. Respiratory: Reports: short of breath. Denies: cough. GI: Reports: diarrhea. Denies: abdominal pain, nausea, vomiting. Genitourinary: Reports: no symptoms. Skin: Reports: rash. All Other Systems: Reviewed and Negative Exam & Diagnostic Data Last 24 Hrs of Vital Signs/I&O Vital Signs Date Time Temp Pulse Resp B/P Pulse O2 O2 Flow FiO2 Ox Delivery Rate 04/22 1717 100.7 121 16 110/65 95 Nasal 3.0L Cannula 04/22 1601 100.7 04/22 1547 100.7 04/22 1417 100.8 108 20 113/67 97 Nasal 2.0L Cannula 04/22 1415 101.8 04/22 1415 97 Nasal 3.0L Cannula 04/22 1135 99.7 127 24 105/67 94 Nasal 2.0L Cannula Intake & Output 04/22 1600 04/22 0800 02 0000 Intake Total 1000 Output Total Balance 1000 Intake, IV 1000 Patient 130 lb Weight Physical Exam Other Physical Findings: She is awake and alert, chronically ill-appearing, but in no acute distress. MAXIMUM TEMPERATURE 101.8. Skin reveals excoriations over the left upper quadrant. HEENT exam mild erythema of the uvula and pharynx, with no exudate; inner lip laceration with no vesicles or ulcerations. Neck is supple with no adenopathy. Lungs decreased breath sounds on the left. Heart regular rhythm with a 1/6 systolic ejection murmur. Abdomen is soft, nontender with positive bowel sounds. Back no CVA tenderness. Extremities 1+ edema both lower extremities. Neuro is without focality. Last 24 Hours of Lab Results: Laboratory Tests 04/22 04/22 1553 1456 Chemistry Lactic Acid (0.7 - 2.1 mmol/L) 1.3 Urines Urinalysis MOD H Urine Color (YEL,AMB,STR) YEL Urine Clarity (CLEAR) CLEAR Urine pH (5.0 - 8.0) 6.0 Ur Specific [place] (1.001 - 1.035) 1.025 Urine Protein (NEG,<30 MG/DL) TRACE H Urine Ketones (NEG) 15 H Urine Nitrite (NEG) NEG Urine Bilirubin (NEG) NEG@ICTO Urine Urobilinogen (0.1 - 1.0 EU/dl) 1.0 Ur Leukocyte Esterase (NEG) NEG Ur Microscopic SEDIMENT EXAMINED Urine RBC (0 - 5 /HPF) RARE Ur Epithelial Cells (NONE,FEW) MOD H Urine Mucus (FEW,NONE) FEW Urine Hemoglobin (NEG) TRACE-INTACT Urine Glucose (N MG/DL) 250 H 04/22 1231 Chemistry Sodium (137 - 145 mmol/L) 139 Potassium (3.5 - 5.1 mmol/L) 4.1 Chloride (98 - 107 mmol/L) 102 Carbon Dioxide (22 - 30 mmol/L) 27 Anion Gap (5 - 16) 10 BUN (7 - 17 mg/dL) 19 H Creatinine (0.5 - 1.0 mg/dL) 0.6 Estimated GFR (>60 ml/min) > 60 BUN/Creatinine Ratio (7 - 25 %) 31.7 H Glucose (65 - 99 mg/dL) 176 H Calcium (8.4 - 10.2 mg/dL) 7.1 L Total Bilirubin (0.2 - 1.3 mg/dL) 3.1 H AST (14 - 36 U/L) 31 ALT (9 - 52 U/L) 31 Alkaline Phosphatase (<127 U/L) 288 H Creatine Kinase (30 - 135 U/L) 45 Troponin I (< 0.11 ng/ml) 0.02 Total Protein (6.3 - 8.2 g/dL) 5.9 L Albumin (3.5 - 5.0 g/dL) 2.7 L Globulin (1.9 - 4.2 gm/dL) 3.2 Albumin/Globulin Ratio (1.1 - 2.2 %) 0.8 L Hematology CBC w Diff MAN DIFF ORDERED WBC (4.8 - 10.8 /CUMM) 1.7 L RBC (4.20 - 5.40 /CUMM) 2.88 L Hgb (12.0 - 16.0 G/DL) 9.3 L Hct (37 - 47 %) 27.0 L MCV (81.0 - 99.0 FL) 93.5 MCH (27.0 - 31.0 PG) 32.3 H RDW (11.5 - 14.5 %) 19.1 H Plt Count (130 - 400 /CUMM) 70 L MPV (7.4 - 10.4 FL) 8.8 Gran % (42.2 - 75.2 %) 74.1 Lymphocytes % (20.5 - 51.1 %) 7.1 L Monocytes % (1.7 - 9.3 %) 3.0 Eosinophils % (0 - 5 %) 15.2 H Basophils % (0.0 - 2.0 %) 0.6 Absolute Granulocytes (1.4 - 6.5 /CUMM) 1.3 L Segmented Neutrophils (42.2 - 75.2 %) 60 Band Neutrophils (0.0 - 5.0 %) 10 H Absolute Lymphocytes (1.2 - 3.4 /CUMM) 0.1 L Lymphocytes (20.5 - 51.1 %) 12 L Monocytes (1.7 - 9.3 %) 2 Absolute Monocytes (0.10 - 0.60 /CUMM) 0.1 L Eosinophils (0 - 5.0 %) 15 H Absolute Eosinophils (0.0 - 0.7 /CUMM) 0.3 Absolute Basophils (0.0 - 0.2 /CUMM) 0 Metamyelocytes (0.0 - 1.0 %) 1 Platelet Estimate (ADEQUATE) DECREASED Hypochromic-Microcytic 2+ Poikilocytosis 2+ Anisocytosis 2+ PUBS MCHC (33.0 - 37.0 G/DL) 34.5 Last 24 Hours of Madhu Results: Quick strep April 22 positive Rapid flu swab April 22 negative Blood cultures 2 April 22 pending Diagnostic Data Recent Imaging Findings: Chest x-ray, personally reviewed, reveals a new rounded 7 cm mass in the left upper lung field with associated volume loss and shift of the mediastinum towards the left, with a patchy opacity involving the remaining left lung field. Assessment/Plan Assessment/Plan Impression: This is a 70-year-old woman with metastatic adenocarcinoma of the lung, to the liver and bone, on chemotherapy for the past year and last given 5 days prior to admission, admitted after a fall at home this morning with a history of several days of sore throat, decreased po intake and weakness, found to be febrile with leukopenia, but not neutropenia, with a positive quick strep and with a chest x- ray revealing volume loss of left hemithorax with a 7 cm rounded density in the left upper lung field. Her fever is likely secondary to strep pharyngitis, and her fall is likely secondary to weakness due to her fever and decreased po intake. She is not currently neutropenic, now 5 days status post chemotherapy, but her white blood cell count will need to be followed closely as she may become so. The chest x-ray findings suggest the possibility of a recurrence, though her recent PET scan did not suggest this; therefore pneumonia must also be considered. Her elevated bilirubin may be secondary to sepsis, with the elevated alkaline phosphatase possibly secondary to metastatic disease in the liver or bone, with no GI symptoms or abdominal tenderness to suggest a biliary process. Her thrombocytopenia is likely secondary to the recent chemotherapy, but could also be second to infection. Suggestion: 1. Would recommend a CT of the chest with IV contrast (and include the abdomen and pelvis as this was apparently planned in the next few weeks) 2. Droplet precautions for 24 hours 3. Would continue Unasyn at a dose of 1.5 g IV every 8 hours Consult Acknowledgment - Thank you for your consult request.
--- NOTE | 2016-04-22 18:17 | PN- Att Addend ---
Attending Addendum Attending Brief Note 70-year-old white female with metastatic lung cancer on chemotherapy and has been feeling well for a few days, weak achy old not eating or drinking much. Earlier this morning she fell off the bed and she was brought after to the emergency room for evaluation and she has strep throat when she has leukopenia she was tachycardic also little anemic has a fever. All cultures were obtained even check the lactic acid. Patient was admitted to telemetry to monitor her heart rate would have also cardiology consultation and infectious disease consultation to assess antibiotic treatment in a patient who is immunocompromised. Chest x-ray showed her abnormal chest mass. Laboratory Tests 04/22 04/22 1553 1456 Chemistry Lactic Acid (0.7 - 2.1 mmol/L) 1.3 Urines Urinalysis MOD H Urine Color (YEL,AMB,STR) YEL Urine Clarity (CLEAR) CLEAR Urine pH (5.0 - 8.0) 6.0 Ur Specific [place] (1.001 - 1.035) 1.025 Urine Protein (NEG,<30 MG/DL) TRACE H Urine Ketones (NEG) 15 H Urine Nitrite (NEG) NEG Urine Bilirubin (NEG) NEG@ICTO Urine Urobilinogen (0.1 - 1.0 EU/dl) 1.0 Ur Leukocyte Esterase (NEG) NEG Ur Microscopic SEDIMENT EXAMINED Urine RBC (0 - 5 /HPF) RARE Ur Epithelial Cells (NONE,FEW) MOD H Urine Mucus (FEW,NONE) FEW Urine Hemoglobin (NEG) TRACE-INTACT Urine Glucose (N MG/DL) 250 H 04/22 1231 Chemistry Sodium (137 - 145 mmol/L) 139 Potassium (3.5 - 5.1 mmol/L) 4.1 Chloride (98 - 107 mmol/L) 102 Carbon Dioxide (22 - 30 mmol/L) 27 Anion Gap (5 - 16) 10 BUN (7 - 17 mg/dL) 19 H Creatinine (0.5 - 1.0 mg/dL) 0.6 Estimated GFR (>60 ml/min) > 60 BUN/Creatinine Ratio (7 - 25 %) 31.7 H Glucose (65 - 99 mg/dL) 176 H Calcium (8.4 - 10.2 mg/dL) 7.1 L Total Bilirubin (0.2 - 1.3 mg/dL) 3.1 H AST (14 - 36 U/L) 31 ALT (9 - 52 U/L) 31 Alkaline Phosphatase (<127 U/L) 288 H Creatine Kinase (30 - 135 U/L) 45 Troponin I (< 0.11 ng/ml) 0.02 Total Protein (6.3 - 8.2 g/dL) 5.9 L Albumin (3.5 - 5.0 g/dL) 2.7 L Globulin (1.9 - 4.2 gm/dL) 3.2 Albumin/Globulin Ratio (1.1 - 2.2 %) 0.8 L Hematology CBC w Diff MAN DIFF ORDERED WBC (4.8 - 10.8 /CUMM) 1.7 L RBC (4.20 - 5.40 /CUMM) 2.88 L Hgb (12.0 - 16.0 G/DL) 9.3 L Hct (37 - 47 %) 27.0 L MCV (81.0 - 99.0 FL) 93.5 MCH (27.0 - 31.0 PG) 32.3 H RDW (11.5 - 14.5 %) 19.1 H Plt Count (130 - 400 /CUMM) 70 L MPV (7.4 - 10.4 FL) 8.8 Gran % (42.2 - 75.2 %) 74.1 Lymphocytes % (20.5 - 51.1 %) 7.1 L Monocytes % (1.7 - 9.3 %) 3.0 Eosinophils % (0 - 5 %) 15.2 H Basophils % (0.0 - 2.0 %) 0.6 Absolute Granulocytes (1.4 - 6.5 /CUMM) 1.3 L Segmented Neutrophils (42.2 - 75.2 %) 60 Band Neutrophils (0.0 - 5.0 %) 10 H Absolute Lymphocytes (1.2 - 3.4 /CUMM) 0.1 L Lymphocytes (20.5 - 51.1 %) 12 L Monocytes (1.7 - 9.3 %) 2 Absolute Monocytes (0.10 - 0.60 /CUMM) 0.1 L Eosinophils (0 - 5.0 %) 15 H Absolute Eosinophils (0.0 - 0.7 /CUMM) 0.3 Absolute Basophils (0.0 - 0.2 /CUMM) 0 Metamyelocytes (0.0 - 1.0 %) 1 Platelet Estimate (ADEQUATE) DECREASED Hypochromic-Microcytic 2+ Poikilocytosis 2+ Anisocytosis 2+ PUBS MCHC (33.0 - 37.0 G/DL) 34.5
--- NOTE | 2016-04-22 22:59 | NUR ---
Discussed with patient regarding the flu shot, pt believes we should ask Oncologist. Asked pt about using port, Patient states it is "ok for us to continue to use".
[2016-04-23 00:02] VITALS: BP 96/46
[2016-04-23 08:00] VITALS: BP 100/50
--- NOTE | 2016-04-23 08:04 | PN- Housestaff ---
Subjective Follow-up For: Streptococcal throat infection Neutropenia Hyperbilirubinemia Hypomagnesemia Complaints: no complaints Tele-Events Since Last Visit: Normal sinus rhythm, tachycardia, bigeminy, trigeminy, PVCs Subjective: Patient is seen and examined at the bedside. She was not having any active complaints. She was feeling comfortable, denies of any fever,, nausea, vomiting, abdominal pain. Review of Systems Constitutional: Reports: weakness. Denies: fever. EENTM: Denies: no symptoms. Cardiovascular: Denies: chest pain, edema, orthopena, palpitations, peripheral edema. Respiratory: Denies: cough, hemoptysis, orthopnea, short of breath, sputum production. Gastrointestinal: Denies: abdominal pain, bloating, constipation, diarrhea, distention, bowel incontinence, melena, nausea. Genitourinary: Denies: discharge, dysuria, frequency, hematuria, hesitation, nocturia. Musculoskeletal: Denies: back pain, gout, joint pain, joint swelling, muscle pain, muscle stiffness. Skin: Denies: no symptoms. Neurological/Psychological: Reports: anxiety, depressed. Objective Last 24 Hrs of Vital Signs/I&O Vital Signs Date Time Temp Pulse Resp B/P Pulse O2 O2 Flow FiO2 Ox Delivery Rate 04/23 0804 94 Nasal 4.0L Cannula 04/23 799 95 Nasal 4.0L Cannula 04/23 799 98.2 112 18 100/50 92 Nasal 5.0L Cannula 04/23 0621 89 Nasal 3.0L Cannula 04/23 0002 98.3 60 16 96/46 94 Nasal 3.0L Cannula 04/23 0000 Nasal 3.0L Cannula 04/22 2230 99.7 04/22 2112 102.0 04/22 1921 Nasal 3.0L Cannula 04/22 1900 93 Nasal 3.0L Cannula 04/22 1806 Nasal 3.0L Cannula 04/22 1805 99.1 124 20 110/62 92 04/22 1717 100.7 121 16 110/65 95 Nasal 3.0L Cannula 04/22 1601 100.7 04/22 1547 100.7 Intake & Output 04/23 1600 04/23 0800 04/23 0000 Intake Total 800 Output Total 150 Balance 800 -150 Intake, IV 800 Output, Urine 150 Patient 58.967 kg Weight Physical Exam General Appearance: Alert, Oriented X3, Cooperative, No Acute Distress Skin: No Rashes, No Breakdown, lost of hair on forehead HEENT: Atraumatic, PERRLA, EOMI Neck: Supple, No JVD, No thryomegaly Cardiovascular: Normal S1, Normal S2, tachycardia, irregular Lungs: bilateral crepts and decrease air entry, sign of lobectomy scar on left side Abdomen: Soft, No Tenderness Neurological: Normal Speech Extremities: No Clubbing, No Cyanosis, No Edema Vascular: Normal Pulses, Pulses Symmetrical Assessment/Plan Assessment: Patient is a 70-year-old female with a history that is significant past medical history of COPD on 3 liters of oxygen , adenocarcinoma of lung, status post left upper lobectomy 3 years prior to the admission with a recurrence 15 months prior to admission, treated with radiation therapy and chemotherapy, which she continues to receive, currently on a three week on/one week off regimen, most recently 5 days prior to admission, via a Port-A-Cath that was inserted in her right upper chest at the time of her recurrence, with a PET scan 3 months prior to admission revealing enlarging mediastinal adenopathy, enlarging hepatic masses, abnormal upper retroperitoneal lymph nodes and abnormal nodularity in the left adrenal gland, all suspicious for metastatic disease, last hospitalized one year prior to admission with pneumococcal/Staph aureus pneumonia, treated with a four-week course of IV Cefazolin, admitted with hx of sore throat, poor PO intake, fall at home and increased weakness. Vital Signs -temperature 98.2, pulse 112, respiration 18, blood pressure 100/50, SPO 92% Problem list - Streptococcal throat infection Neutropenia with fever Pancytopenia Adenocarcinoma of the lung, status post left upper lung lobectomy, with IV chemotherapy for 3 weeks/ 1 week off. Hypomagnesemia Pertinent labs- WBC-0.9,Mg -1.6, Calcium -7.1,alb- 2.3 Plan - * It seems that the patient is developing neutropenia and probably she comes with a neutropenia with fever. * Follow up blood cultures are negative * We will repeat blood culture if patient develop fever again * Disccussed with ID, we may need to epps antibiotics to treat grm neg for Neutropenic fever. * We placed the consult for Oncology and updated about the results of CT chest and Abd. * Discussed with Dr. Lucero, we started patient on the Neupogen 5mcg/kg- 300mcg IV daily. * We will discuss the finding of CT abd to radiologist to know exactly the cause of hyperbilirubinemia, we are suspecting it can be intrahepatic or extrahepatic obstruction of CBD, if she really needs stenting. * DVt PPX -ALPS * Code status - full code Problem List: 1. Strep throat 2. Neutropenic 3. Lung cancer Pain Ratin Pain Location: none Pain Goal: Remain pain free Pain Plan: mild Tomorrow's Labs & Rationales: cbc,bep, magnisium DVT/Prophylaxis: mechanical Consulting Request: Consulting Specialty: Hematology/Oncology (heme)
--- NOTE | 2016-04-23 08:40 | NUR ---
Physical Therapy. PT consult received and chart reviewed. Pt currently CELINE at CT scan. PT will f/u as appropriate.
[2016-04-23 08:54] LABS: ABSOLUTE BASOPHIL COUNT 0 /CUMM (0.0-0.2); ABSOLUTE EOSINOPHIL COUNT 0.1 /CUMM (0.0-0.7); ABSOLUTE GRANULOCYTE CT 0.7 /CUMM (1.4-6.5); ABSOLUTE LYMPH COUNT 0.1 /CUMM (1.2-3.4); ABSOLUTE MONOCYTE COUNT 0.1 /CUMM (0.10-0.60); BASOPHIL % 0 % (0.0-2.0); EOSINOPHIL % 9.2 % (0-5); GRANULOCYTE % 74.7 % (42.2-75.2); HEMATOCRIT 23.8 % (37-47); MEAN CORPUSCULAR HGB 32.2 PG (27.0-31.0); MEAN CORPUSCULAR VOLUME 94.5 FL (81.0-99.0); MEAN PLATELET VOLUME 10.1 FL (7.4-10.4); RBC DISTRIBUTION WIDTH 19.2 % (11.5-14.5); RED BLOOD CELL CT 2.52 /CUMM (4.20-5.40)
[2016-04-23 09:02] LABS: PLATELET COUNT 44 /CUMM (130-400); WHITE BLOOD CELL COUNT 0.9 /CUMM (4.8-10.8)
--- NOTE | 2016-04-23 10:10 | PN- Cardiology ---
Subjective Subjective: The patient just returned from CT scan. She remains asymptomatic from a cardiac standpoint. He continues to have mild resting sinus tachycardia. Continued ventricular ectopy noted. Objective Vital Signs and I&Os Vital Signs Date Time Temp Pulse Resp B/P Pulse O2 O2 Flow FiO2 Ox Delivery Rate 04/23 803 94 Nasal 4.0L Cannula 04/23 799 98.2 112 18 100/50 92 Nasal 5.0L Cannula 04/23 620 89 Nasal 3.0L Cannula 04/23 0002 98.3 60 16 96/46 94 Nasal 3.0L Cannula 04/23 0000 Nasal 3.0L Cannula 04/22 2230 99.7 04/22 2111 102.0 04/22 1921 Nasal 3.0L Cannula 04/22 1900 93 Nasal 3.0L Cannula 04/22 1806 Nasal 3.0L Cannula 04/22 180 99.1 124 20 110/62 92 04/22 1717 100.7 121 16 110/65 95 Nasal 3.0L Cannula 04/22 1601 100.7 04/22 1547 100.7 04/22 1417 100.8 108 20 113/67 97 Nasal 2.0L Cannula 04/22 1415 101.8 04/22 1415 97 Nasal 3.0L Cannula 04/22 1135 99.7 127 24 105/67 94 Nasal 2.0L Cannula Intake & Output 04/23 1600 04/23 0700 04/23 0000 04/22 1600 04/22 0804/22 0000 Intake Total 800 1000 Output Total 150 Balance 800 -150 1000 Intake, IV 800 1000 Output, Urine 150 Patient 130 lb 130 lb Weight Physical Exam: General: Frail appearing elderly female. No acute distress. Alert and oriented HEENT: Normal Neck: Supple with no JVD, no masses, and no thyromegaly, carotids normal bilaterally Lungs: Clear to auscultation and percussion bilaterally Heart: tachycardic, S1, S2, 1/6 systolic murmur. Abdomen: Soft, nontender, no masses. No hepatomegaly. No splenomegaly Extremities: No clubbing or cyanosis. Trace 1+ edema Skin: Normal Neuro: Nonfocal Current Medications: Current Medications Sig/Olga Start time Last Medication Dose Route Stop Time Status Admin Acetaminophen 650 MG ONCE ONE 04/22 2114 DC 04/22 PO 02/07 2116 2112 Acetaminophen 500 MG Q6P PRN 04/22 1545 AC PO Acetaminophen 0 .STK-MED ONE 04/22 1411 DC PO Acetaminophen 650 MG ONCE ONE 04/22 1345 DC 04/22 PO 04/22 1346 1415 Albuterol Sulfate 3 ML Q4P PRN 04/22 1930 AC 04/23 INH 0620 Amoxicillin 0 .STK-MED ONE 04/22 1422 DC PO Amoxicillin 500 MG ONCE ONE 04/22 1415 DC 04/22 PO 04/22 1416 1423 Ampicillin Sodium/ 0 .STK-MED ONE 04/22 1639 DC Sulbactam Sodium .ROUTE Ampicillin Sodium/ 1,500 MG Q6 04/22 1600 AC 04/23 Sulbactam Sodium IV 0600 Sodium Chloride 100 ML Atorvastatin Calcium 20 MG DAILY@1700 04/23 1700 AC PO Calcitriol 0.25 MCG DAILY 04/23 1000 AC 04/23 PO 0935 Calcium Carbonate 1,250 MG DAILY 04/23 1000 AC 04/23 PO 0935 Fentanyl Citrate 50 MCG Q3D 04/22 1545 AC TOP Guaifenesin 10 ML Q6P PRN 04/22 1545 AC PO Influenza Virus 0.5 ML ONCE ONE 04/22 1830 DC Vaccine IM 04/22 1831 Insulin Aspart 0 TIDAC 04/22 1700 AC SC Lorazepam 0.5 MG TID PRN 04/22 1545 AC PO 04/29 1544 Magnesium Sulfate 1 GM ONCE ONE 04/23 0145 DC 04/23 N/A 1 UNIT IV 04/23 0344 0300 Magnesium Sulfate 1 GM ONCE ONE 04/22 2345 DC 04/23 N/A 1 UNIT IV 04/23 0144 0025 Magnesium Sulfate 2 GM ONCE ONE 04/22 2330 CAN Dextrose/Water 250 ML IV 04/23 0329 Morphine Sulfate 15 MG BID 04/22 1542 AC 04/23 PO 0937 Nystatin 5 ML 4 TIMES/DAY 04/22 1559 AC 04/23 PO 0933 Omeprazole 40 MG DAILY AC 04/23 0700 AC 04/23 PO 0726 Oxycodone/ 1 TAB Q6P PRN 04/22 1545 AC Acetaminophen PO Ropinirole HCl 1 MG BID 04/22 2200 AC PO Sodium Chloride 250 ML BOLUS ONE 04/22 2115 DC 04/22 IV 04/22 2214 2112 Sodium Chloride 1,000 ML Q10H 04/22 1600 AC 04/23 IV 0300 Sodium Chloride 500 ML BOLUS ONE 04/22 1600 DC 04/22 IV 04/22 1659 1654 Sodium Chloride 1,000 ML BOLUS ONE 04/22 1430 DC / IV 04/22 1629 1445 Sodium Chloride 1,000 ML BOLUS ONE 04/22 1200 DC / IV 04/22 1359 1236 Results Last 48 Hrs of Labs/Mics: Laboratory Tests 04/23/16 0800: Anion Gap 12, Estimated GFR > 60, BUN/Creatinine Ratio 26.3 H, Total Bilirubin 2.2 H, Direct Bilirubin 1.8 H, AST 22, ALT 32, Alkaline Phosphatase 216 H, Total Protein 5.2 L, Albumin 2.3 L, PT 25.0 H, INR 2.40 H, CBC w Diff MAN DIFF ORDERED, RBC 2.52 L, MCV 94.5, MCH 32.2 H, RDW 19.2 H, MPV 10.1, Gran % 74.7, Lymphocytes % 9.7 L, Monocytes % 6.4, Eosinophils % 9.2 H, Basophils % 0 L, Absolute Granulocytes 0.7 L, Segmented Neutrophils 50, Band Neutrophils 6 H, Absolute Lymphocytes 0.1 L, Lymphocytes 22, Monocytes 14 H, Absolute Monocytes 0.1 L, Eosinophils 8 H, Absolute Eosinophils 0.1, Absolute Basophils 0, Platelet Estimate DECREASED, Normocytic RBCs VERIFIED, Normochromic RBCs VERIFIED, PUBS MCHC 34.0 04/23/16 0014: Lactic Acid 1.6 04/22/16 1553: Lactic Acid 1.3 04/22/16 1456: Urinalysis MOD H, Urine Color YEL, Urine Clarity CLEAR, Urine pH 6.0, Ur Specific [place] 1.025, Urine Protein TRACE H, Urine Ketones 15 H, Urine Nitrite NEG, Urine Bilirubin NEG@ICTO, Urine Urobilinogen 1.0, Ur Leukocyte Esterase NEG, Ur Microscopic SEDIMENT EXAMINED, Urine RBC RARE, Ur Epithelial Cells MOD H, Urine Mucus FEW, Urine Hemoglobin TRACE-INTACT, Urine Glucose 250 H 04/22/16 1231: Anion Gap 10, Estimated GFR > 60, BUN/Creatinine Ratio 31.7 H, Glucose 176 H, Calcium 7.1 L, Magnesium 0.6 *L, Total Bilirubin 3.1 H, AST 31, ALT 31, Alkaline Phosphatase 288 H, Creatine Kinase 45, Troponin I 0.02, Total Protein 5.9 L, Albumin 2.7 L, Globulin 3.2, Albumin/Globulin Ratio 0.8 L, CBC w Diff MAN DIFF ORDERED, RBC 2.88 L, MCV 93.5, MCH 32.3 H, RDW 19.1 H, MPV 8.8, Gran % 74.1, Lymphocytes % 7.1 L, Monocytes % 3.0, Eosinophils % 15.2 H, Basophils % 0.6, Absolute Granulocytes 1.3 L, Segmented Neutrophils 60, Band Neutrophils 10 H, Absolute Lymphocytes 0.1 L, Lymphocytes 12 L, Monocytes 2, Absolute Monocytes 0.1 L, Eosinophils 15 H, Absolute Eosinophils 0.3, Absolute Basophils 0, Metamyelocytes 1, Platelet Estimate DECREASED, Hypochromic- Microcytic 2+, Poikilocytosis 2+, Anisocytosis 2+, PUBS MCHC 34.5 Assessment/Plan Assessment/Plan Assessment: 1. Ventricular ectopy 2. Resting sinus tachycardia 2. Lung cancer with metastatic disease 4. Hypertension 5. Neutropenia, anemia, thrombocytopenia 6. Streptococcal pharyngitis with possible sepsis 7. Marked hypomagnesemia-aggressively replete, recheck levels today. Recommendations: -Continue current supportive medical care -Continue on telemetry for now. -Aggressively replete magnesium with follow-up levels today -Further plans after magnesium repleted Continue telemetry? Yes
--- NOTE | 2016-04-23 13:03 | CT SCAN REPORT ---
EXAMINATION: CT CHEST, ABDOMEN AND PELVIS WITH CONTRAST CLINICAL INFORMATION: Sepsis. Neutropenia. COMPARISON: Chest x-ray 04/22/2016. CT scan of the chest, abdomen and pelvis 09/27/2015. TECHNIQUE: Multidetector volumetric imaging was performed from the thoracic inlet through the pubic symphysis following administration of 94 mL of Optiray 320 intravenous contrast. Sagittal and coronal reformatted images were obtained on the technologist's workstation. Axial MIP volume rendering provided. DLP: 364.74 mGy-cm. FINDINGS: CHEST: BLENDER: There are surgical clips in the left suprahilar region. There is new opacity in the left mid and upper zones compared to the prior CT scan, and demonstrated on the more recent plain films. There is volume loss with mediastinal shift to the left. LUNGS: There is extensive consolidation/mass in the left hemithorax, particularly in the left upper zone, extending to the hilum. There are suture lines and clips consistent with prior left upper lobectomy. There are new ground-glass opacities in the right upper lobe in multiple regions. MEDIASTINUM: The mediastinum is slightly shifted to the left secondary to left upper lobectomy. There is a Port-A-Cath from the right anterior chest wall, with tip at the right atrium. The central airways are patent. The thyroid gland appears normal. There has been interval increase in the size of the precarinal lymph node, now measuring 1.8 cm, increased from 0.9 cm on the prior study. More superiorly there has been interval increase in size up to 0.7 cm lymph node which now measures 1.6 cm in transverse diameter. The right epicardial lymph node is unchanged in size. There is trace pericardial effusion. PLEURA: There is a small left pleural effusion, new compared to the prior CT scan. CHEST WALL/AXILLA: There is new increased density in the subcutaneous soft tissues diffusely in the chest. There has also been loss of subcutaneous fat diffusely. ABDOMEN/PELVIS: LIVER, GALLBLADDER, BILIARY TREE: There has been significant interval increase in the areas of heterogenous density in both lobes of the liver, consistent with worsening metastatic disease. The liver is increased in size compared the prior study. The gallbladder is contracted and surrounded by fluid. PANCREAS: Unremarkable. SPLEEN: The spleen has homogenous density. ADRENAL GLANDS: There has been interval increase in the size of the adrenal glands bilaterally. KIDNEYS AND URETERS: The kidneys are normal in size, shape, and attenuation. No hydronephrosis or hydroureter or calculi seen. There is mild perinephric fluid around the right kidney. BLADDER: The bladder is poorly visualized due to significant beam hardening artifact from the right total hip replacement. GASTROINTESTINAL TRACT: The stomach and small bowel are unremarkable. The appendix is not discretely identified. The study redemonstrates extensive diverticulosis changes in the sigmoid colon. ABDOMINAL WALL: There are sequelae of prior laparotomy. There is increased density in the subcutaneous fat diffusely. There has also been loss of subcutaneous fat. LYMPH NODES: There is increase in the retroperitoneal lymphadenopathy. There is increased density in the mesenteric and intra-abdominal fat, consistent with ascitic changes. VASCULAR: There are atheromatous calcifications of the aorta. PELVIC VISCERA: There is some free fluid in the pelvis. The pelvis is not well visualized due to beam hardening artifact from the right total hip replacement. OSSEOUS STRUCTURES: There has been slight interval increase in the sclerotic focus in the right iliac bone, now measuring 2.2 cm. There are stable changes from the right total hip arthroplasty. There are multilevel degenerative changes in the thoracic and lumbar spine. IMPRESSION: 1. There is a large area of opacity in the left upper lobe, which may be consistent with infiltrate or large mass. There is a small pleural effusion. 2. There has been interval increase in the size of multiple mediastinal lymph nodes. 3. There are new ground-glass opacities in the right upper lobe in multiple areas, most likely related to small airways associated inflammation/infection. 4. There has been interval increase in the size of the liver with increase in the areas of heterogenous density, consistent with worsening metastatic disease. 5. There is now diffuse increased density in the subcutaneous and intra-abdominal fat, consistent with developing anasarca. 6. There has been interval increase in the size of the adrenal lesions bilaterally, and increase in the right iliac bone area of sclerosis consistent with metastases.
--- NOTE | 2016-04-23 15:19 | PN- Infect Dx ---
Subjective Subjective: MAXIMUM TEMPERATURE 102. She still complains of a sore throat but is able to eat. She notes minimal hemoptysis with no complaints of shortness of breath or chest pain. She has no GI or symptoms. Objective Last 24 Hrs of Vital Signs/I&O Vital Signs Date Time Temp Pulse Resp B/P Pulse O2 O2 Flow FiO2 Ox Delivery Rate 04/23 803 94 Nasal 4.0L Cannula 04/23 799 95 Nasal 4.0L Cannula 04/23 799 98.2 112 18 100/50 92 Nasal 5.0L Cannula 04/23 0621 89 Nasal 3.0L Cannula 04/23 0002 98.3 60 16 96/46 94 Nasal 3.0L Cannula 04/23 0000 Nasal 3.0L Cannula 04/22 2230 99.7 04/22 2112 102.0 04/22 1921 Nasal 3.0L Cannula 04/22 1900 93 Nasal 3.0L Cannula 04/22 1806 Nasal 3.0L Cannula 04/22 1805 99.1 124 20 110/62 92 04/22 1717 100.7 121 16 110/65 95 Nasal 3.0L Cannula 04/22 1601 100.7 04/22 1547 100.7 Intake & Output 04/23 1600 04/23 0000 Intake Total 800 Output Total 150 Balance 800 -150 Intake, IV 800 Output, Urine 150 Patient 130 lb Weight Physical Exam Other Physical Findings: She appears comfortable in no acute distress HEENT decreased erythema of the pharynx with no exudate Lungs rhonchi on the right and crackles on the left Heart regular rhythm with 1/6 systolic ejection murmur Abdomen is soft, nontender with positive bowel sounds Extremities trace edema both lower extremities Results Last 24 Hours of Lab Results: Laboratory Tests 04/23 04/23 04/22 08 0014 1553 Chemistry Sodium (137 - 145 mmol/L) 142 Potassium (3.5 - 5.1 mmol/L) 3.8 Chloride (98 - 107 mmol/L) 106 Carbon Dioxide (22 - 30 mmol/L) 24 Anion Gap (5 - 16) 12 BUN (7 - 17 mg/dL) 21 H Creatinine (0.5 - 1.0 mg/dL) 0.8 Estimated GFR (>60 ml/min) > 60 BUN/Creatinine Ratio (7 - 25 %) 26.3 H Lactic Acid (0.7 - 2.1 mmol/L) 1.6 1.3 Magnesium (1.6 - 2.3 mg/dL) 1.6 Total Bilirubin (0.2 - 1.3 mg/dL) 2.2 H Direct Bilirubin (< 0.4 mg/dL) 1.8 H AST (14 - 36 U/L) 22 ALT (9 - 52 U/L) 32 Alkaline Phosphatase (<127 U/L) 216 H Total Protein (6.3 - 8.2 g/dL) 5.2 L Albumin (3.5 - 5.0 g/dL) 2.3 L Coagulation PT (9.4 - 12.5 SEC) 25.0 H INR (0.90 - 1.19) 2.40 H Hematology CBC w Diff MAN DIFF ORDERED WBC (4.8 - 10.8 /CUMM) 0.9 *L RBC (4.20 - 5.40 /CUMM) 2.52 L Hgb (12.0 - 16.0 G/DL) 8.1 L Hct (37 - 47 %) 23.8 L MCV (81.0 - 99.0 FL) 94.5 MCH (27.0 - 31.0 PG) 32.2 H RDW (11.5 - 14.5 %) 19.2 H Plt Count (130 - 400 /CUMM) 44 L MPV (7.4 - 10.4 FL) 10.1 Gran % (42.2 - 75.2 %) 74.7 Lymphocytes % (20.5 - 51.1 %) 9.7 L Monocytes % (1.7 - 9.3 %) 6.4 Eosinophils % (0 - 5 %) 9.2 H Basophils % (0.0 - 2.0 %) 0 L Absolute Granulocytes (1.4 - 6.5 /CUMM) 0.7 L Segmented Neutrophils (42.2 - 75.2 %) 50 Band Neutrophils (0.0 - 5.0 %) 6 H Absolute Lymphocytes (1.2 - 3.4 /CUMM) 0.1 L Lymphocytes (20.5 - 51.1 %) 22 Monocytes (1.7 - 9.3 %) 14 H Absolute Monocytes (0.10 - 0.60 /CUMM) 0.1 L Eosinophils (0 - 5.0 %) 8 H Absolute Eosinophils (0.0 - 0.7 /CUMM) 0.1 Absolute Basophils (0.0 - 0.2 /CUMM) 0 Platelet Estimate (ADEQUATE) DECREASED Normocytic RBCs VERIFIED Normochromic RBCs VERIFIED PUBS MCHC (33.0 - 37.0 G/DL) 34.0 04/22 1456 Urines Urinalysis MOD H Urine Color (YEL,AMB,STR) YEL Urine Clarity (CLEAR) CLEAR Urine pH (5.0 - 8.0) 6.0 Ur Specific [place] (1.001 - 1.035) 1.025 Urine Protein (NEG,<30 MG/DL) TRACE H Urine Ketones (NEG) 15 H Urine Nitrite (NEG) NEG Urine Bilirubin (NEG) NEG@ICTO Urine Urobilinogen (0.1 - 1.0 EU/dl) 1.0 Ur Leukocyte Esterase (NEG) NEG Ur Microscopic SEDIMENT EXAMINED Urine RBC (0 - 5 /HPF) RARE Ur Epithelial Cells (NONE,FEW) MOD H Urine Mucus (FEW,NONE) FEW Urine Hemoglobin (NEG) TRACE-INTACT Urine Glucose (N MG/DL) 250 H Last 24 Hours of [place] Results: Blood cultures April 22 negative Recent Imaging Studies: CT of the chest, abdomen and pelvis with IV contrast from today reveals extensive consolidation/mass in the left hemithorax, particularly the left upper zone, with new ground glass opacities in the right upper lobe; interval increase in the size of multiple mediastinal lymph nodes; new small left pleural effusion ; significant increase in the size of the liver with increase in the areas of heterogeneous density consistent with worsening metastatic disease; contracted gallbladder surrounded by fluid; interval increase in the size of the adrenal lesions bilaterally and increase in the right iliac bone area of sclerosis Assessment/Plan Impression: Stable on Unasyn Day 1 of treatment for strep pharyngitis, with temperatures down so far today but with white blood cell count also decreased, now neutropenic, with H&H and platelets also decreased secondary to her recent chemotherapy (last given 5 days prior to admission). Her CT findings suggest progression of her metastatic disease, with the left upper lobe consolidation/ mass noted, though cannot rule out a component of pneumonia. If her fevers recur her antibiotic regimen will need to be broadened as she is now neutropenic. Her bilirubin and alkaline phosphatase remain elevated, but are decreased from admission, and are of unclear significance with no GI symptoms and with CT scan negative for any obvious biliary process. Suggestion: 1. Await Oncology evaluation 2. Obtain a sputum culture if possible 3. Discontinue droplet precautions 4. Continue Unasyn, but if spikes a fever will need to cover her more broadly, for example with Vancomycin and Ceftazidime, and consider further evaluation, for example right upper quadrant ultrasound, to further evaluate the biliary tree
[2016-04-23 15:30] VITALS: BP 102/46; BP 82/58
--- NOTE | 2016-04-23 17:14 | Cons- Oncology ---
General Information and HPI Consulting Request Date of Consult: 04/23/16 Requested By: MARY KNOX MD Reason for Consult: neutropenic fever Source of Information: patient, old records Exam Limitations: no limitations History of Present Illness: Mrs. Francois is a 70-year-old female with metastatic small cell lung cancer, COPD on 3L NC normally, who presented to the hospital after a fall, weakness, and sore throat. She states she has been feeling relatively stable until about 3 days ago when she had more weakness and fatigue. She started having some sore throat resulting in decreased appetite and oral intake. After she fell, she presented to the hospital for further evaluation. On admission, her blood work revealed WBC of 1.7 with 1300 for her ANC. He had a hemoglobin of 9 with hematocrit of 27. She was febrile with temperature of 101.8. CXR demonstrated volume loss of left hemithorax with a 7 cm rounded density in the left upper lung field. CT of the chest, abdomen, pelvis demonstrate "large area of opacity in the left upper lobe, which may be consistent with infiltrate or large mass. There is a small pleural effusion. There has been interval increase in the size of multiple mediastinal lymph nodes. There are new ground-glass opacities in the right upper lobe in multiple areas, most likely related to small airways associated inflammation/infection. There has been interval increase in the size of the liver with increase in the areas of heterogenous density, consistent with worsening metastatic disease. There is now diffuse increased density in the subcutaneous and intra-abdominal fat, consistent with developing anasarca. There has been interval increase in the size of the adrenal lesions bilaterally, and increase in the right iliac bone area of sclerosis consistent with metastases." She was admitted and treated with IVF and Unasyn. She is now afebrile. Her WBC has decrease to 0.9. Her hemoglobin is 8.1. Platelet count is 44,000. Allergies/Medications Allergies: Coded Allergies: adhesive tape (BLISTERS 05/17/15) heparin (UNKNOWN 05/17/15) Home Med List: Acetaminophen (Tylenol Arthritis) 650 MG TABLET.ER 1 TAB PO PRN PAIN ( Reported) Albuterol Sulfate (Proair Hfa) 90 MCG HFA.AER.AD 2 PUF INH Q4-6 PRN PRN SOB ( Reported) Atorvastatin Calcium (Lipitor) 20 MG TABLET 1 TAB PO DAILY CHOLESTEROL ( Reported) Calcitriol 0.25 MCG CAPSULE 1 CAP PO DAILY LOW VIT D AND CALCIUM (Reported) Calcium Carbonate (Calcium) 600 MG (1,500 MG) TABLET 1 TAB PO DAILY SUPPLEMENT (Reported) Cholecalciferol (Vitamin D3) (Vitamin D3) 2,000 UNIT CAPSULE 1 CAP PO DAILY SUPPLEMENT (Reported) Dapagliflozin Propanediol (Farxiga) 10 MG TABLET 1 TAB PO DAILY DM (Reported) Fentanyl 50 MCG/HOUR PATCH.TD72 1 PAT TOP Q3D PAIN (Reported) Hydrocodone/Chlorphen P-Stirex (Hydrocodone-Chlorphen ER Susp) 10 MG-8 MG/5 ML MANDO.ER.12H 5 ML PO Q6H PRN COUGH (Reported) Lisinopril 5 MG TABLET 1 TAB PO DAILY BP (Reported) Lorazepam 0.5 MG TABLET 1 TAB PO TID PRN SLEEP (Reported) Metformin HCl 1,000 MG TABLET 1 TAB PO BID DM (Reported) Morphine Sulfate (Ms Contin) 15 MG TABLET.ER 1 TAB PO BID PAIN (Reported) Naproxen Sodium (Aleve) 220 MG CAPSULE 2 CAP PO PRN PAIN (Reported) Oxycodone HCl/Acetaminophen (Oxycodone-Acetaminophen 10-325) 10 MG-325 MG TABLET 1 TAB PO Q6H PRN PAIN (Reported) Pantoprazole Sodium 40 MG TABLET.DR 1 TAB PO DAILY GI (Reported) Potassium Chloride 20 MEQ TAB.ER.PRT 1 TAB PO DAILY LOW POTASSIUM (Reported) Ropinirole HCl (Requip) 1 MG TABLET 1 TAB PO BID RESTLESS LEGS (Reported) Saxagliptin (Onglyza) 5 MG TABLET 1 TAB PO DAILY DM (Reported) Tiotropium [place] (Spiriva) 18 MCG CAP.W.DEV 1 CAP INH DAILY COPD (Reported) Current Medications: Current Medications Sig/Olga Start time Last Medication Dose Route Stop Time Status Admin Acetaminophen 650 MG ONCE ONE 04/22 2114 DC 04/22 PO 04/22 Acetaminophen 500 MG Q6P PRN 04/22 1545 AC PO Albuterol Sulfate 3 ML Q4P PRN 04/22 1930 AC 04/23 INH 0620 Ampicillin Sodium/ 1,500 MG Q6 04/22 1600 AC 04/23 Sulbactam Sodium IV 1255 Sodium Chloride 100 ML Atorvastatin Calcium 20 MG DAILY@1700 04/23 1700 AC PO Calcitriol 0.25 MCG DAILY 04/23 1000 AC 04/23 PO 0935 Calcium Carbonate 1,250 MG DAILY 04/23 1000 AC 04/23 PO 0935 Fentanyl Citrate 50 MCG Q3D 04/22 1545 AC TOP Filgrastim 300 MCG DAILY 04/24 1000 AC SC Filgrastim 300 MCG DAILY 04/23 1515 DC IV Guaifenesin 10 ML Q6P PRN 04/22 1545 AC PO Influenza Virus 0.5 ML ONCE ONE 04/22 1830 DC Vaccine IM 04/22 1831 Insulin Aspart 0 TIDAC 04/22 1700 AC 04/23 SC 1255 Lorazepam 0.5 MG TID PRN 04/22 1545 AC PO 04/29 1544 Magnesium Sulfate 1 GM ONCE ONE 04/23 1345 AC Dextrose/Water 100 ML IV 04/23 1744 Magnesium Sulfate 1 GM ONCE ONE 04/23 0145 DC 04/23 N/A 1 UNIT IV 04/23 0344 0300 Magnesium Sulfate 1 GM ONCE ONE 04/22 2345 DC 04/23 N/A 1 UNIT IV 04/23 0144 0025 Magnesium Sulfate 2 GM ONCE ONE 04/22 2330 CAN Dextrose/Water 250 ML IV 04/23 0329 Morphine Sulfate 15 MG BID 04/22 1542 AC 04/23 PO 0937 Nystatin 5 ML 4 TIMES/DAY 04/22 1559 AC 04/23 PO 1257 Omeprazole 40 MG DAILY AC 04/23 0700 AC 04/23 PO 0726 Oxycodone/ 1 TAB Q6P PRN 04/22 1545 AC Acetaminophen PO Ropinirole HCl 1 MG BID 04/22 2200 AC 04/23 PO 0937 Sodium Chloride 250 ML BOLUS ONE 04/22 2115 DC 04/22 IV 04/22 2214 2112 Sodium Chloride 1,000 ML Q10H 04/22 1600 AC 04/23 IV 1255 Review of Systems Review of Systems Constitutional: Reports: fever, weakness. Denies: chills. Cardiovascular: Denies: chest pain, peripheral edema. Respiratory: Reports: short of breath, wheezing. Denies: cough, hemoptysis, sputum production. GI: Reports: abdominal pain, nausea. Denies: bloating, constipation, diarrhea, distention, melena, bloody stool. Musculoskeletal: Reports: back pain. Neurological/Psychological: Reports: weakness. Denies: confusion, headache. Hematologic/Endocrine: Denies: bleeding. Immunologic/Allergic: Denies: lymphadenopathy. All Other Systems: Reviewed and Negative Past History Travel History Traveled to [place] past 21 day No Medical History Blood Transfusion Hx: Yes Neurological: NONE EENT: NONE Cardiovascular: hypertension Respiratory: COPD, O2 DEPENDENT AT 3L Gastrointestinal: diverticulitis, GERD, SMALL BOWEL OBSTRUCTION Hepatic: NONE Renal: NONE Musculoskeletal: NONE Psychiatric: NONE Endocrine: diabetes Blood Disorders: NONE Cancer(s): adenocarcinoma in 2012, with recurrence diagnosed in December 2014 [employer]ICE [employer]SEM[employer]ER/Reproductive: NONE Surgical History Surgical History: hip replacement (right hip September 2013), hysterectomy, status post left upper lobectomy December 2012 status post lysis of adhesions for small bowel obstruction March 2012 Family History Relations & Conditions If Any: Relation not specified for: Diabetes mellitus FH: breast cancer Psychosocial History Where Do You Live? Home Services at Home: None Smoking Status: Former Smoker ETOH Use: denies use Functional Ability ADLs Independent: eating, toileting. Needs Assist: dressing, bathing. Ambulation: walker Exam & Diagnostic Data Vital Signs and I&O Vital Signs Date Time Temp Pulse Resp B/P Pulse O2 O2 Flow FiO2 Ox Delivery Rate 04/23 1530 98.3 114 20 102/46 93 Nasal 4.0L Cannula 04/23 0804 94 Nasal 4.0L Cannula 04/23 08 95 Nasal 4.0L Cannula 04/23 08 98.2 112 18 100/50 92 Nasal 5.0L Cannula 04/23 0621 89 Nasal 3.0L Cannula 04/23 0002 98.3 60 16 96/46 94 Nasal 3.0L Cannula 04/23 0000 Nasal 3.0L Cannula 04/22 2230 99.7 04/22 2112 102.0 04/22 1921 Nasal 3.0L Cannula 04/22 1900 93 Nasal 3.0L Cannula 04/22 1806 Nasal 3.0L Cannula 04/22 1805 99.1 124 20 110/62 92 04/22 1717 100.7 121 16 110/65 95 Nasal 3.0L Cannula Intake & Output 04/23 1600 04/23 0800 04/23 0000 Intake Total 1400 800 Output Total 450 150 Balance 950 800 -150 Intake, IV 800 800 Intake, Oral 600 Output, Urine 450 150 Patient 58.967 kg Weight Physical Exam General Appearance: no apparent distress, alert, awake, comfortable Head: atraumatic Eyes: Bilateral: PERRL, pale conjunctivae. Ears, Nose, Throat: normal pharynx, normal ENT inspection Neck: normal inspection Respiratory: chest non-tender, decreased breath sounds (MARISELA) Cardiovascular: regular rate/rhythm, murmur Gastrointestinal: normal bowel sounds, soft, non-tender, no organomegaly Back: normal inspection Extremities: pedal edema (1+) Neurologic/Psych: alert, oriented x 3 Skin: warm/dry Lymphatic: no anterior cervical rancho Last 48 Hours of Lab Results: Laboratory Tests 04/23 04/23 04/22 0800 0014 1553 Chemistry Sodium (137 - 145 mmol/L) 142 Potassium (3.5 - 5.1 mmol/L) 3.8 Chloride (98 - 107 mmol/L) 106 Carbon Dioxide (22 - 30 mmol/L) 24 Anion Gap (5 - 16) 12 BUN (7 - 17 mg/dL) 21 H Creatinine (0.5 - 1.0 mg/dL) 0.8 Estimated GFR (>60 ml/min) > 60 BUN/Creatinine Ratio (7 - 25 %) 26.3 H Lactic Acid (0.7 - 2.1 mmol/L) 1.6 1.3 Magnesium (1.6 - 2.3 mg/dL) 1.6 Total Bilirubin (0.2 - 1.3 mg/dL) 2.2 H Direct Bilirubin (< 0.4 mg/dL) 1.8 H AST (14 - 36 U/L) 22 ALT (9 - 52 U/L) 32 Alkaline Phosphatase (<127 U/L) 216 H Total Protein (6.3 - 8.2 g/dL) 5.2 L Albumin (3.5 - 5.0 g/dL) 2.3 L Coagulation PT (9.4 - 12.5 SEC) 25.0 H INR (0.90 - 1.19) 2.40 H Hematology CBC w Diff MAN DIFF ORDERED WBC (4.8 - 10.8 /CUMM) 0.9 *L RBC (4.20 - 5.40 /CUMM) 2.52 L Hgb (12.0 - 16.0 G/DL) 8.1 L Hct (37 - 47 %) 23.8 L MCV (81.0 - 99.0 FL) 94.5 MCH (27.0 - 31.0 PG) 32.2 H RDW (11.5 - 14.5 %) 19.2 H Plt Count (130 - 400 /CUMM) 44 L MPV (7.4 - 10.4 FL) 10.1 Gran % (42.2 - 75.2 %) 74.7 Lymphocytes % (20.5 - 51.1 %) 9.7 L Monocytes % (1.7 - 9.3 %) 6.4 Eosinophils % (0 - 5 %) 9.2 H Basophils % (0.0 - 2.0 %) 0 L Absolute Granulocytes (1.4 - 6.5 /CUMM) 0.7 L Segmented Neutrophils (42.2 - 75.2 %) 50 Band Neutrophils (0.0 - 5.0 %) 6 H Absolute Lymphocytes (1.2 - 3.4 /CUMM) 0.1 L Lymphocytes (20.5 - 51.1 %) 22 Monocytes (1.7 - 9.3 %) 14 H Absolute Monocytes (0.10 - 0.60 /CUMM) 0.1 L Eosinophils (0 - 5.0 %) 8 H Absolute Eosinophils (0.0 - 0.7 /CUMM) 0.1 Absolute Basophils (0.0 - 0.2 /CUMM) 0 Platelet Estimate (ADEQUATE) DECREASED Normocytic RBCs VERIFIED Normochromic RBCs VERIFIED PUBS MCHC (33.0 - 37.0 G/DL) 34.0 04/22 04/22 1456 1231 Chemistry Sodium (137 - 145 mmol/L) 139 Potassium (3.5 - 5.1 mmol/L) 4.1 Chloride (98 - 107 mmol/L) 102 Carbon Dioxide (22 - 30 mmol/L) 27 Anion Gap (5 - 16) 10 BUN (7 - 17 mg/dL) 19 H Creatinine (0.5 - 1.0 mg/dL) 0.6 Estimated GFR (>60 ml/min) > 60 BUN/Creatinine Ratio (7 - 25 %) 31.7 H Glucose (65 - 99 mg/dL) 176 H Calcium (8.4 - 10.2 mg/dL) 7.1 L Magnesium (1.6 - 2.3 mg/dL) 0.6 *L Total Bilirubin (0.2 - 1.3 mg/dL) 3.1 H AST (14 - 36 U/L) 31 ALT (9 - 52 U/L) 31 Alkaline Phosphatase (<127 U/L) 288 H Creatine Kinase (30 - 135 U/L) 45 Troponin I (< 0.11 ng/ml) 0.02 Total Protein (6.3 - 8.2 g/dL) 5.9 L Albumin (3.5 - 5.0 g/dL) 2.7 L Globulin (1.9 - 4.2 gm/dL) 3.2 Albumin/Globulin Ratio (1.1 - 2.2 %) 0.8 L Hematology CBC w Diff MAN DIFF ORDERED WBC (4.8 - 10.8 /CUMM) 1.7 L RBC (4.20 - 5.40 /CUMM) 2.88 L Hgb (12.0 - 16.0 G/DL) 9.3 L Hct (37 - 47 %) 27.0 L MCV (81.0 - 99.0 FL) 93.5 MCH (27.0 - 31.0 PG) 32.3 H RDW (11.5 - 14.5 %) 19.1 H Plt Count (130 - 400 /CUMM) 70 L MPV (7.4 - 10.4 FL) 8.8 Gran % (42.2 - 75.2 %) 74.1 Lymphocytes % (20.5 - 51.1 %) 7.1 L Monocytes % (1.7 - 9.3 %) 3.0 Eosinophils % (0 - 5 %) 15.2 H Basophils % (0.0 - 2.0 %) 0.6 Absolute Granulocytes (1.4 - 6.5 /CUMM) 1.3 L Segmented Neutrophils (42.2 - 75.2 %) 60 Band Neutrophils (0.0 - 5.0 %) 10 H Absolute Lymphocytes (1.2 - 3.4 /CUMM) 0.1 L Lymphocytes (20.5 - 51.1 %) 12 L Monocytes (1.7 - 9.3 %) 2 Absolute Monocytes (0.10 - 0.60 /CUMM) 0.1 L Eosinophils (0 - 5.0 %) 15 H Absolute Eosinophils (0.0 - 0.7 /CUMM) 0.3 Absolute Basophils (0.0 - 0.2 /CUMM) 0 Metamyelocytes (0.0 - 1.0 %) 1 Platelet Estimate (ADEQUATE) DECREASED Hypochromic-Microcytic 2+ Poikilocytosis 2+ Anisocytosis 2+ PUBS MCHC (33.0 - 37.0 G/DL) 34.5 Urines Urinalysis MOD H Urine Color (YEL,AMB,STR) YEL Urine Clarity (CLEAR) CLEAR Urine pH (5.0 - 8.0) 6.0 Ur Specific [place] (1.001 - 1.035) 1.025 Urine Protein (NEG,<30 MG/DL) TRACE H Urine Ketones (NEG) 15 H Urine Nitrite (NEG) NEG Urine Bilirubin (NEG) NEG@ICTO Urine Urobilinogen (0.1 - 1.0 EU/dl) 1.0 Ur Leukocyte Esterase (NEG) NEG Ur Microscopic SEDIMENT EXAMINED Urine RBC (0 - 5 /HPF) RARE Ur Epithelial Cells (NONE,FEW) MOD H Urine Mucus (FEW,NONE) FEW Urine Hemoglobin (NEG) TRACE-INTACT Urine Glucose (N MG/DL) 250 H Imaging/Other Studies: CT chest/abdomen/pelvis 04/23/2015: 1. There is a large area of opacity in the left upper lobe, which may be consistent with infiltrate or large mass. There is a small pleural effusion. 2. There has been interval increase in the size of multiple mediastinal lymph nodes. 3. There are new ground-glass opacities in the right upper lobe in multiple areas, most likely related to small airways associated inflammation/infection. 4. There has been interval increase in the size of the liver with increase in the areas of heterogenous density, consistent with worsening metastatic disease. 5. There is now diffuse increased density in the subcutaneous and intra- abdominal fat, consistent with developing anasarca. 6. There has been interval increase in the size of the adrenal lesions bilaterally, and increase in the right iliac bone area of sclerosis consistent with metastases. Assessment/Plan Assessment: Ms. 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 Imaging demonstrated progression of disease. She does have elevation of her bilirubin and alkaline phosphatase. This suggest a liver etiology. Less likely would be biliary obstruction. She does not seem to have ductal dilation on CT scan. She is getting ultrasound of her abdomen for evaluation of obstruction in the biliary trees. She is also noted to have fever with sore throat. She is on antibiotic with Unasyn at the moment. ID is following patient. She has been afebrile since first admitted. Sore throat is still present. Her neutropenia has worsen. She should be started on filgastrim 5 mcg/kg (300 mcg) daily until ANC >1500. Given weakness and worsening metastatic disease especially small cell, she should have MRI of the brain to rule out new metastatic disease. I have discussed that her disease has progressed and that we will need to stop current therapy and switch. She and her want to try everything. I discussed the balance between quality and quantity of her incurable disease. They want to pursue more therapy at the moment. I told her we will discuss it once she recovers and is discharged. Recommendations: 1. Start filgastrim 5 mcg/kg daily 2. Continue antibiotics as per ID 3. MRI of brain with contrast 4. Review radiology regarding any biliary involvement Problem List: 1. Bandemia 2. Strep throat 3. Sepsis 4. Neutropenic fever Other Findings/Comments: Please call [phone] with any questions or concerns. Consult Acknowledgment - Thank you for your consult request.
--- NOTE | 2016-04-23 23:14 | ULTRASOUND REPORT ---
EXAMINATION: US ABDOMEN LIMITED CLINICAL INFORMATION: Hyperbilirubinemia. Multiple metastases to the liver. Evaluate for ductal obstruction.. COMPARISON: CT from 04/23/2016. TECHNIQUE: Real-time imaging of the right upper quadrant abdominal viscera. FINDINGS: PANCREAS: Normal. LIVER: Multiple masses are again seen throughout the liver. This corresponds to the appearance on CT, consistent with extensive metastatic disease. No intrahepatic biliary ductal dilatation. GALLBLADDER: The gallbladder is contracted. There is no evidence of stones, sludge, polyps, wall thickening or pericholecystic fluid. COMMON BILE DUCT: Normal in caliber measuring 0.3 cm in diameter. RIGHT KIDNEY: Normal. No hydronephrosis. No renal calculi or focal parenchymal lesions. The kidney measures 9.5 cm in maximum dimension. FREE FLUID: None. IMPRESSION: Metastatic lesions throughout the liver. No intrahepatic or extrahepatic biliary ductal dilatation.
[2016-04-23 23:16] VITALS: BP 83/51
--- NOTE | 2016-04-24 08:08 | PN- Housestaff ---
Subjective Follow-up For: Streptococcal throat infection Neutropenia Hyperbilirubinemia Hypomagnesemia Complaints: no complaints Tele-Events Since Last Visit: Normal sinus rhythm, tachycardia HR-113, bigeminy, trigeminy, PVCs Subjective: Patient is seen and examined at the bedside. She was not having any active complaints. On further asking, she was still anorexic, and having the pain in the throat. Review of Systems Constitutional: Reports: malaise, weakness. Denies: chills, diaphoresis, fever. EENTM: Denies: no symptoms. Cardiovascular: Reports: palpitations. Denies: chest pain, edema, orthopena, peripheral edema. Respiratory: Reports: short of breath. Denies: cough, hemoptysis, orthopnea, sputum production, stridor. Gastrointestinal: Denies: abdominal pain, bloating, constipation, diarrhea, distention, bowel incontinence, melena, nausea, bloody stool. Genitourinary: Denies: no symptoms. Musculoskeletal: Denies: no symptoms. Skin: Denies: no symptoms. Neurological/Psychological: Reports: anxiety, depressed. Objective Last 24 Hrs of Vital Signs/I&O Vital Signs Date Time Temp Pulse Resp B/P Pulse O2 O2 Flow FiO2 Ox Delivery Rate 04/24 899 98.0 118 20 82/40 94 Nasal 4.0L Cannula 04/24 805 94 Nasal 4.0L Cannula 04/24 799 93 Nasal 4.0L Cannula 04/24 0000 Nasal 3.0L Cannula 04/23 2316 98.3 110 20 83/51 94 Nasal 4.0L Cannula 04/23 1530 98.3 114 20 102/46 93 Nasal 4.0L Cannula Intake & Output 04/24 1600 04/24 0800 04/24 0000 Intake Total 1380 800 400 Output Total 400 400 Balance 1380 400 0 Intake, IV 900 700 300 Intake, Oral 480 100 100 Output, Urine 400 400 Physical Exam General Appearance: Alert, Oriented X3, Cooperative, No Acute Distress Skin: petechiae all over the body HEENT: Atraumatic, PERRLA, EOMI Neck: Supple, No JVD Cardiovascular: Normal S1, Normal S2, tachycardia and murmur Lungs: bilateral crepts both inspiratory and expiratory Abdomen: Soft, No Tenderness, hepatomegaly, hard consistensy Neurological: Normal Speech Extremities: No Clubbing, No Cyanosis, No Edema Vascular: Normal Pulses Assessment/Plan Assessment: Patient is a 70-year-old female with a history that is significant past medical history of COPD on 3 liters of oxygen , adenocarcinoma of lung, status post left upper lobectomy 3 years prior to the admission with a recurrence 15 months prior to admission, treated with radiation therapy and chemotherapy, which she continues to receive, currently on a three week on/one week off regimen, most recently 5 days prior to admission, via a Port-A-Cath that was inserted in her right upper chest at the time of her recurrence, with a PET scan 3 months prior to admission revealing enlarging mediastinal adenopathy, enlarging hepatic masses, abnormal upper retroperitoneal lymph nodes and abnormal nodularity in the left adrenal gland, all suspicious for metastatic disease, last hospitalized one year prior to admission with pneumococcal/Staph aureus pneumonia, treated with a four-week course of IV Cefazolin, admitted with hx of sore throat, poor PO intake, fall at home and increased weakness. Vital Signs -temperature 98.0, pulse 118, respiration 20, blood pressure 82/40, SPO 94% Recheck blood pressure-right arm 100/60, left arm 80/50. Patient does not have any symptoms of dizziness, nausea and vomiting, chest pain Problem list - Streptococcal throat infection Neutropenia with fever Pancytopenia Adenocarcinoma of the lung, status post left upper lung lobectomy, with IV chemotherapy for 3 weeks/ 1 week off. Hypomagnesemia Pertinent labs- WBC-3.6,Mg -1.4, K-3.5 Plan - * Discussed with oncologist, according to him, if CBC show rising trends than we can discharge pt and he will follow up her as an outpatient * According to Dr Jung, we will keep her, as patient is still feeling anorexic, weak and having pain in throat. * Follow up blood cultures are negative * We will repeat blood culture if patient develop fever again * we will watch for fever. * we replaced Mg and K by 800mg MgO2 and 80 Meq of K. * USg showed no any signs of cholestatsis. * We will repeat CBC, BEp, Mg,K tmr. * we will follow MRI brain * DVt PPX -ALPS * Code status - full code Problem List: 1. Strep throat 2. Diabetes mellitus type 2 3. Lung cancer Pain Ratin Pain Location: none Pain Goal: Remain pain free Pain Plan: mild Tomorrow's Labs & Rationales: cbc,bep, mag DVT/Prophylaxis: mechanical, pharmacological Consulting Request: Consulting Specialty: Hematology/Oncology (heme) Consulting Specialty: Hematology/Oncology (heme)
[2016-04-24 09:00] VITALS: BP 82/40
[2016-04-24 09:18] LABS: ABSOLUTE BASOPHIL COUNT 0 /CUMM (0.0-0.2); ABSOLUTE EOSINOPHIL COUNT 0.4 /CUMM (0.0-0.7); ABSOLUTE GRANULOCYTE CT 2.6 /CUMM (1.4-6.5); ABSOLUTE LYMPH COUNT 0.3 /CUMM (1.2-3.4); ABSOLUTE MONOCYTE COUNT 0.3 /CUMM (0.10-0.60); BASOPHIL % 0 % (0.0-2.0); EOSINOPHIL % 11.4 % (0-5); HEMATOCRIT 24.5 % (37-47); MEAN CORPUSCULAR HGB 32.6 PG (27.0-31.0); MEAN CORPUSCULAR HGB CONC 33.9 G/DL (33.0-37.0); MEAN CORPUSCULAR VOLUME 95.9 FL (81.0-99.0); MEAN PLATELET VOLUME 10.3 FL (7.4-10.4); PLATELET COUNT 61 /CUMM (130-400); RBC DISTRIBUTION WIDTH 20.1 % (11.5-14.5); RED BLOOD CELL CT 2.56 /CUMM (4.20-5.40)
--- NOTE | 2016-04-24 09:22 | PN- Oncology ---
Subjective Subjective: She feels a little better today. She denies any new symptoms. She has no fever or chills. Review of Systems: Constitutional: Reports: fever, weakness. Denies: chills. Cardiovascular: Denies: chest pain, peripheral edema. Respiratory: Reports: short of breath, wheezing. Denies: cough, hemoptysis, sputum production. GI: Reports: abdominal pain, nausea. Musculoskeletal: Reports: back pain. Neurological/Psychological: Reports: weakness. Hematologic/Endocrine: Denies: bleeding. Immunologic/Allergic: Denies: lymphadenopathy. All Other Systems: Reviewed and Negative Objective Vital Signs and I&Os Vital Signs Date Time Temp Pulse Resp B/P Pulse O2 O2 Flow FiO2 Ox Delivery Rate 04/24 899 98.0 118 20 82/40 94 Nasal 4.0L Cannula 04/24 805 94 Nasal 4.0L Cannula 04/24 799 93 Nasal 4.0L Cannula 04/24 0000 Nasal 3.0L Cannula 04/23 2316 98.3 110 20 83/51 94 Nasal 4.0L Cannula 04/23 1530 98.3 114 20 102/46 93 Nasal 4.0L Cannula Intake & Output 04/24 1600 04/24 0800 04/24 0000 04/23 1600 04/23 0800 04/23 0000 Intake Total 387 980 4487 800 Output Total 400 400 450 150 Balance 400 0 950 800 -150 Intake, IV 700 300 800 800 Intake, Oral 100 100 600 Output, Urine 400 400 450 150 Patient 58.967 kg Weight Physical Exam: General Appearance: no apparent distress, alert, awake, comfortable Head: atraumatic Eyes: Bilateral: PERRL, pale conjunctivae. Respiratory: chest non-tender, decreased breath sounds (MARISELA) Cardiovascular: regular rate/rhythm, murmur Gastrointestinal: normal bowel sounds, soft, non-tender, no organomegaly Back: normal inspection Extremities: pedal edema (1+) Neurologic/Psych: alert, oriented x 3 Skin: warm/dry Lymphatic: no anterior cervical rancho Current Medications: Current Medications Sig/Olga Start time Last Medication Dose Route Stop Time Status Admin Acetaminophen 500 MG Q6P PRN 04/22 1545 AC PO Albuterol Sulfate 3 ML Q4P PRN 04/22 1930 AC 04/24 INH 0804 Ampicillin Sodium/ 1,500 MG Q6 04/22 1600 AC 04/24 Sulbactam Sodium IV 0600 Sodium Chloride 100 ML Atorvastatin Calcium 20 MG DAILY@1700 04/23 1700 AC 04/23 PO 2153 Calcitriol 0.25 MCG DAILY 04/23 1000 AC 04/23 PO 0935 Calcium Carbonate 1,250 MG DAILY 04/23 1000 AC 04/23 PO 0935 Fentanyl Citrate 50 MCG Q3D 04/22 1545 AC TOP Filgrastim 300 MCG DAILY 04/24 1000 AC SC Filgrastim 300 MCG DAILY 04/23 1515 DC IV Guaifenesin 10 ML Q6P PRN 04/22 1545 AC PO Insulin Aspart 0 TIDAC 04/22 1700 AC 04/23 SC 1255 Lorazepam 0.5 MG TID PRN 04/22 1545 AC PO 04/29 1544 Magnesium Sulfate 1 GM ONCE ONE 04/23 1345 DC 04/23 Dextrose/Water 100 ML IV 04/23 1744 1725 Morphine Sulfate 15 MG BID 04/22 1542 AC 04/23 PO 2154 Nystatin 5 ML 4 TIMES/DAY 04/22 1559 AC 04/23 PO 2154 Omeprazole 40 MG DAILY AC 04/23 0700 AC 04/24 PO 0652 Oxycodone/ 1 TAB Q6P PRN 04/22 1545 AC Acetaminophen PO Ropinirole HCl 1 MG BID 04/22 2200 AC 04/23 PO 2152 Sodium Chloride 1,000 ML Q10H 04/22 1600 AC 04/24 IV 0823 Results Last 24 Hours of Lab Results: Laboratory Tests 04/24 04/23 0828 1800 Chemistry Sodium Pending Potassium Pending Chloride Pending Carbon Dioxide Pending Anion Gap Pending BUN Pending Creatinine Pending BUN/Creatinine Ratio Pending Magnesium Pending Cancelled Hematology CBC w Diff Pending WBC Pending RBC Pending Hgb Pending Hct Pending MCV Pending MCH Pending RDW Pending Plt Count Pending MPV Pending PUBS MCHC Pending Recent Imaging Studies: US abdomen 04/23/2016: Metastatic lesions throughout the liver. No intrahepatic or extrahepatic biliary ductal dilatation. Assessment/Plan Assessment/Recommendations: Ms. 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 Imaging demonstrated progression of disease. US of the abdomen demonstrated no intra- or extrahepatic ductal dilatation. She is on Unasyn and filgastrim. She is overall improving. ANC is pending today. This should be continued until ANC >1500. Recommendations: 1. Continue filgastrim 5 mcg/kg daily until ANC >1500 2. Continue antibiotics as per ID 3. MRI of brain with contrast pending 4. Follow up after discharge to discuss next option Problem List: 1. Neutropenic fever 2. Lung cancer 3. COPD (chronic obstructive pulmonary disease)
--- NOTE | 2016-04-24 09:22 | NUR ---
0015 PT SLEEPING WOKE UP AGITATED . WANTS TO LEAVE AGAINST MEDICAL ADVICE.HAS IV NS SALINE ON GOING AT 100ML/HR.PATIENT TOOK IV OUT.NOT IN DISTRESS AT THIS TIME.PATIENT REMOVED BUSINESS INFORMATION ANALYST AND TREW IT.FLATBED OWNER OPERATOR PAOLO AND SECURITY CALLED.ORDERS GIVEN FOR IM ATIVAN 2MG.ATIVAN GIVEN WITH GOOD EFFECT.A SITTER SENT BY NURSING IMAGING CLERK.STEP FATHER CAME IN AT 0100 AND STAYED WITH PATIENT FOR [id number]. 0630 PATIENT FULLY AWAKE, AGITATED WANTS LEAVE AGAINST MEDICAL ADVICE.RESIDENT KAYLEN CAME TO SEE PATIENT EXPLAINED TO RISK INVOLVED WITH LEAVING A.M.A.NEW ORDERS GIVEN FOR ORAL ANTIBIOTICS.PATIENT LEFT THE FLOOR WITH SECURITY AT 0705
[2016-04-24 09:48] LABS: WHITE BLOOD CELL COUNT 3.6 /CUMM (4.8-10.8)
--- NOTE | 2016-04-24 10:36 | PN- Cardiology ---
Subjective Subjective: The patient reports that she is feeling mostly well. No chest pain. No palpitations. No diaphoresis. No lightheadedness or dizziness. No nausea or vomiting. She was noted to have severe hypomagnesemia, which has been repleted. She continues to have frequent premature ventricular contractions on telemetry. Objective Vital Signs and I&Os Vital Signs Date Time Temp Pulse Resp B/P Pulse O2 O2 Flow FiO2 Ox Delivery Rate 04/24 899 98.0 118 20 82/40 94 Nasal 4.0L Cannula 04/24 805 94 Nasal 4.0L Cannula 04/24 799 93 Nasal 4.0L Cannula 04/24 0000 Nasal 3.0L Cannula 04/23 2316 98.3 110 20 83/51 94 Nasal 4.0L Cannula 04/23 1530 98.3 114 20 102/46 93 Nasal 4.0L Cannula Intake & Output 04/24 1600 04/24 0800 04/24 0000 04/23 1600 04/23 0000 Intake Total 004 797 3015 800 Output Total 400 400 450 150 Balance 400 0 950 800 -150 Intake, IV 700 300 800 800 Intake, Oral 100 100 600 Output, Urine 400 400 450 150 Patient 130 lb Weight Physical Exam: Gen: The patient is in no acute distress HEENT: Normal nose, ears, and oropharynx. Pupils equal bilaterally. Conjunctiva normal. Neck: Supple with no JVD, no masses, and no thyromegaly Lungs: Clear to auscultation with normal respiratory effort Heart: tachycardic, S1, S2, 1/6 systolic murmur. 1+ peripheral edema, 2+ pulses in the lower extremities bilaterally Abdomen: Soft, nontender, no masses. No hepatomegaly. No splenomegaly Extremities: No clubbing or cyanosis. Normal muscle strength in the upper and lower extremities. Skin: Normal skin turgor with no skin ulcers or lesions noted. Neuro: Cranial nerves intact. Sensation intact Current Medications: Current Medications Sig/Olga Start time Last Medication Dose Route Stop Time Status Admin Acetaminophen 500 MG Q6P PRN 04/22 1545 AC PO Albuterol Sulfate 3 ML Q4P PRN 04/22 1930 AC 04/24 INH 0804 Ampicillin Sodium/ 1,500 MG Q6 04/22 1600 AC 04/24 Sulbactam Sodium IV 0600 Sodium Chloride 100 ML Atorvastatin Calcium 20 MG DAILY@1700 04/23 1700 AC 04/23 PO 2153 Calcitriol 0.25 MCG DAILY 04/23 1000 AC 04/24 PO 0922 Calcium Carbonate 1,250 MG DAILY 04/23 1000 AC 04/24 PO 0922 Fentanyl Citrate 50 MCG Q3D 04/22 1545 AC TOP Filgrastim 300 MCG DAILY 04/24 1000 AC 04/24 SC 0922 Filgrastim 300 MCG DAILY 04/23 1515 DC IV Guaifenesin 10 ML Q6P PRN 04/22 1545 AC PO Insulin Aspart 0 TIDAC 04/22 1700 AC 04/23 SC 1255 Lorazepam 0.5 MG TID PRN 04/22 1545 AC PO 04/29 1544 Magnesium Sulfate 1 GM ONCE ONE 04/23 1345 DC 04/23 Dextrose/Water 100 ML IV 04/23 1744 1725 Morphine Sulfate 15 MG BID 04/22 1542 AC 04/24 PO 0930 Nystatin 5 ML 4 TIMES/DAY 04/22 1559 AC 04/24 PO 0939 Omeprazole 40 MG DAILY AC 04/23 0700 AC 04/24 PO 0652 Oxycodone/ 1 TAB Q6P PRN 04/22 1545 AC Acetaminophen PO Ropinirole HCl 1 MG BID 04/22 2200 AC 04/24 PO 0922 Sodium Chloride 1,000 ML Q10H 04/22 1600 AC 04/24 IV 0823 Results Last 48 Hrs of Labs/Mics: Laboratory Tests 04/24/16 0828: Anion Gap 12, Estimated GFR > 60, BUN/Creatinine Ratio 31.3 H, Magnesium 1.4 L , CBC w Diff MAN DIFF ORDERED, RBC 2.56 L, MCV 95.9, MCH 32.6 H, RDW 20.1 H, MPV 10.3, Gran % 72.0, Lymphocytes % 8.6 L, Monocytes % 8.0, Eosinophils % 11.4 H, Basophils % 0 L, Absolute Granulocytes 2.6, Segmented Neutrophils 71, Band Neutrophils 1, Absolute Lymphocytes 0.3 L, Lymphocytes 8 L, Monocytes 9, Absolute Monocytes 0.3, Eosinophils 11 H, Absolute Eosinophils 0.4, Absolute Basophils 0, Platelet Estimate DECREASED, Normocytic RBCs VERIFIED, Normochromic RBCs VERIFIED, PUBS MCHC 33.9 04/23/16 1800: Magnesium Cancelled 04/23/16 0800: Anion Gap 12, Estimated GFR > 60, BUN/Creatinine Ratio 26.3 H, Magnesium 1.6, Total Bilirubin 2.2 H, Direct Bilirubin 1.8 H, AST 22, ALT 32, Alkaline Phosphatase 216 H, Total Protein 5.2 L, Albumin 2.3 L, PT 25.0 H, INR 2.40 H, CBC w Diff MAN DIFF ORDERED, RBC 2.52 L, MCV 94.5, MCH 32.2 H, RDW 19.2 H, MPV 10.1, Gran % 74.7, Lymphocytes % 9.7 L, Monocytes % 6.4, Eosinophils % 9.2 H, Basophils % 0 L, Absolute Granulocytes 0.7 L, Segmented Neutrophils 50, Band Neutrophils 6 H, Absolute Lymphocytes 0.1 L, Lymphocytes 22, Monocytes 14 H, Absolute Monocytes 0.1 L, Eosinophils 8 H, Absolute Eosinophils 0.1, Absolute Basophils 0, Platelet Estimate DECREASED, Normocytic RBCs VERIFIED, Normochromic RBCs VERIFIED, PUBS MCHC 34.0 04/23/16 0014: Lactic Acid 1.6 04/22/16 1553: Lactic Acid 1.3 04/22/16 1456: Urinalysis MOD H, Urine Color YEL, Urine Clarity CLEAR, Urine pH 6.0, Ur Specific [place] 1.025, Urine Protein TRACE H, Urine Ketones 15 H, Urine Nitrite NEG, Urine Bilirubin NEG@ICTO, Urine Urobilinogen 1.0, Ur Leukocyte Esterase NEG, Ur Microscopic SEDIMENT EXAMINED, Urine RBC RARE, Ur Epithelial Cells MOD H, Urine Mucus FEW, Urine Hemoglobin TRACE-INTACT, Urine Glucose 250 H 04/22/16 1231: Anion Gap 10, Estimated GFR > 60, BUN/Creatinine Ratio 31.7 H, Glucose 176 H, Calcium 7.1 L, Magnesium 0.6 *L, Total Bilirubin 3.1 H, AST 31, ALT 31, Alkaline Phosphatase 288 H, Creatine Kinase 45, Troponin I 0.02, Total Protein 5.9 L, Albumin 2.7 L, Globulin 3.2, Albumin/Globulin Ratio 0.8 L, CBC w Diff MAN DIFF ORDERED, RBC 2.88 L, MCV 93.5, MCH 32.3 H, RDW 19.1 H, MPV 8.8, Gran % 74.1, Lymphocytes % 7.1 L, Monocytes % 3.0, Eosinophils % 15.2 H, Basophils % 0.6, Absolute Granulocytes 1.3 L, Segmented Neutrophils 60, Band Neutrophils 10 H, Absolute Lymphocytes 0.1 L, Lymphocytes 12 L, Monocytes 2, Absolute Monocytes 0.1 L, Eosinophils 15 H, Absolute Eosinophils 0.3, Absolute Basophils 0, Metamyelocytes 1, Platelet Estimate DECREASED, Hypochromic- Microcytic 2+, Poikilocytosis 2+, Anisocytosis 2+, PUBS MCHC 34.5 Assessment/Plan Assessment/Plan Assessment: 1. Metastatic lung cancer 2. Hypertension 3. Neutropenia 4. Streptococcal pharyngitis with possible sepsis 5. Sinus tachycardia, likely secondary to sepsis 6. Premature ventricular contractions 7. Hypomagnesemia, improving plan: * Since the patient continues to have frequent premature ventricular contractions despite improving hypomagnesemia, recommend performing an echocardiogram to check left ventricular function. * Start oral magnesium supplementation. * Continue telemetry monitoring. Continue telemetry? Yes
--- NOTE | 2016-04-24 12:23 | PN- Att Addend ---
Attending Addendum Attending Brief Note Patient still weak, appetite is poor still having throat discomfort the patient is febrile her white count is up in the three thousands after started treatment recommended by oncologist. Appreciate oncology's input and recommendations, will get an MRI of the head follow-up the liver functions and CBC. Reassess in the morning is stable maybe start disposition plans. Check with infectious diseases to see how long she needs to Unasyn IV Current Medications Sig/Olga Start time Last Medication Dose Route Stop Time Status Admin Acetaminophen 500 MG Q6P PRN 04/22 1545 AC PO Albuterol Sulfate 3 ML Q4P PRN 04/22 1930 AC 04/24 INH 0804 Ampicillin Sodium/ 1,500 MG Q6 04/22 1600 AC 04/24 Sulbactam Sodium IV 1204 Sodium Chloride 100 ML Atorvastatin Calcium 20 MG DAILY@1700 04/23 1700 AC 04/23 PO 2153 Calcitriol 0.25 MCG DAILY 04/23 1000 AC 04/24 PO 0922 Calcium Carbonate 1,250 MG DAILY 04/23 1000 AC 04/24 PO 0922 Fentanyl Citrate 50 MCG Q3D 04/22 1545 AC TOP Filgrastim 300 MCG DAILY 04/24 1000 AC 04/24 SC 0922 Filgrastim 300 MCG DAILY 04/23 1515 DC IV Guaifenesin 10 ML Q6P PRN 04/22 1545 AC PO Insulin Aspart 0 TIDAC 04/22 1700 AC 04/24 SC 1203 Lorazepam 0.5 MG TID PRN 04/22 1545 AC PO 04/29 1544 Magnesium Sulfate 1 GM ONCE ONE 04/23 1345 DC 04/23 Dextrose/Water 100 ML IV 04/23 1744 1725 Morphine Sulfate 15 MG BID 04/22 1542 AC 04/24 PO 0930 Nystatin 5 ML 4 TIMES/DAY 04/22 1559 AC 04/24 PO 0939 Omeprazole 40 MG DAILY AC 04/23 0700 AC 04/24 PO 0652 Oxycodone/ 1 TAB Q6P PRN 04/22 1545 AC Acetaminophen PO Ropinirole HCl 1 MG BID 04/22 2200 AC 04/24 PO 0922 Sodium Chloride 1,000 ML Q10H 04/22 1600 AC 04/24 IV 0823 Laboratory Tests 04/24/16 0828: Anion Gap 12, Estimated GFR > 60, BUN/Creatinine Ratio 31.3 H, Magnesium 1.4 L , CBC w Diff MAN DIFF ORDERED, RBC 2.56 L, MCV 95.9, MCH 32.6 H, RDW 20.1 H, MPV 10.3, Gran % 72.0, Lymphocytes % 8.6 L, Monocytes % 8.0, Eosinophils % 11.4 H, Basophils % 0 L, Absolute Granulocytes 2.6, Segmented Neutrophils 71, Band Neutrophils 1, Absolute Lymphocytes 0.3 L, Lymphocytes 8 L, Monocytes 9, Absolute Monocytes 0.3, Eosinophils 11 H, Absolute Eosinophils 0.4, Absolute Basophils 0, Platelet Estimate DECREASED, Normocytic RBCs VERIFIED, Normochromic RBCs VERIFIED, PUBS MCHC 33.9 04/23/16 1800: Magnesium Cancelled Vital Signs Date Time Temp Pulse Resp B/P Pulse O2 O2 Flow FiO2 Ox Delivery Rate 04/24 899 98.0 118 20 82/40 94 Nasal 4.0L Cannula 04/24 805 94 Nasal 4.0L Cannula 04/24 799 93 Nasal 4.0L Cannula 04/24 0000 Nasal 3.0L Cannula 04/23 2316 98.3 110 20 83/51 94 Nasal 4.0L Cannula 04/23 1530 98.3 114 20 102/46 93 Nasal 4.0L Cannula Intake & Output 04/24 1600 04/24 0800 04/24 0000 Intake Total 800 400 Output Total 400 400 Balance 400 0 Intake, IV 700 300 Intake, Oral 100 100 Output, Urine 400 400
[2016-04-24 15:30] VITALS: BP 100/60
[2016-04-24 16:18] VITALS: BP 98/58
--- NOTE | 2016-04-24 20:31 | MRI REPORT ---
EXAMINATION: MR BRAIN WITHOUT AND WITH CONTRAST CLINICAL INFORMATION: Lung carcinoma. Metastases. Weakness and lethargy. COMPARISON: CT scan of the chest 04/05/2015. FDG PET/CT scan 02/05/2016. TECHNIQUE: MRI of the brain was obtained using routine sequences before and after the intravenous administration of 6 mL of Gadavist. FINDINGS: Patient motion degrades image quality therefore the diagnostic accuracy of this examination is limited. Postcontrast images reveal no abnormal parenchymal or leptomeningeal enhancement. There is no intracranial mass effect or midline shift. No abnormal extra-axial collection. Lateral and third ventricles are normal. No hydrocephalus. Midline structures including the cervicomedullary junction are normal. Bone marrow signal intensity is normal. There are a few scattered nonspecific foci of T2 FLAIR signal hyperintensity within the periventricular white matter. There is no acute territorial infarct. No pathological magnetic susceptibility artifact. Intracranial vascular flow voids including the major dural venous sinuses are preserved. There is no mastoid or middle ear effusion. There is trivial mucosal thickening within the ethmoid air cells. Globes and orbits are symmetric. IMPRESSION: Patient motion degrades image quality therefore the diagnostic accuracy of this examination is limited. There is no abnormal intracranial mass or enhancement to suggest the presence of intracranial metastatic disease. There are a few scattered chronic small vessel ischemic changes within the periventricular white matter. No evidence of acute territorial infarct or hemorrhage.
[2016-04-24 23:32] VITALS: BP 96/60
--- NOTE | 2016-04-25 07:27 | PN- Housestaff ---
Assessment/Plan Assessment: Patient is a 70-year-old female with a history that is significant past medical history of COPD on 3 liters of oxygen , adenocarcinoma of lung, status post left upper lobectomy 3 years prior to the admission with a recurrence 15 months prior to admission, treated with radiation therapy and chemotherapy, which she continues to receive, currently on a three week on/one week off regimen, most recently 5 days prior to admission, via a Port-A-Cath that was inserted in her right upper chest at the time of her recurrence, with a PET scan 3 months prior to admission revealing enlarging mediastinal adenopathy, enlarging hepatic masses, abnormal upper retroperitoneal lymph nodes and abnormal nodularity in the left adrenal gland, all suspicious for metastatic disease, last hospitalized one year prior to admission with pneumococcal/Staph aureus pneumonia, treated with a four-week course of IV Cefazolin, admitted with hx of sore throat, poor PO intake, fall at home and increased weakness. Vital Signs -temperature 98.0, pulse 118, respiration 20, blood pressure 82/40, SPO 94% Recheck blood pressure-right arm 100/60, left arm 80/50. Patient does not have any symptoms of dizziness, nausea and vomiting, chest pain Problem list - Streptococcal throat infection Neutropenia with fever Pancytopenia Adenocarcinoma of the lung, status post left upper lung lobectomy, with IV chemotherapy for 3 weeks/ 1 week off. Hypomagnesemia Pertinent labs- WBC-3.6,Mg -1.4, K-3.5 Plan - * Discussed with oncologist, according to him, if CBC show rising trends than we can discharge pt and he will follow up her as an outpatient * According to Dr Jung, we will keep her, as patient is still feeling anorexic, weak and having pain in throat. * Follow up blood cultures are negative * We will repeat blood culture if patient develop fever again * we will watch for fever. * we replaced Mg and K by 800mg MgO2 and 80 Meq of K. * USg showed no any signs of cholestatsis. * We will repeat CBC, BEp, Mg,K tmr. * we will follow MRI brain * DVt PPX -ALPS * Code status - full code Consulting Request: Consulting Specialty: Hematology/Oncology (heme)
[2016-04-25 08:10] LABS: ABSOLUTE BASOPHIL COUNT 0 /CUMM (0.0-0.2); ABSOLUTE EOSINOPHIL COUNT 0.4 /CUMM (0.0-0.7); ABSOLUTE LYMPH COUNT 0.2 /CUMM (1.2-3.4); ABSOLUTE MONOCYTE COUNT 0.4 /CUMM (0.10-0.60); HEMATOCRIT 20.5 % (37-47); MEAN CORPUSCULAR VOLUME 95.4 FL (81.0-99.0); MEAN PLATELET VOLUME 10.4 FL (7.4-10.4); PLATELET COUNT 53 /CUMM (130-400); RED BLOOD CELL CT 2.15 /CUMM (4.20-5.40); WHITE BLOOD CELL COUNT 3.6 /CUMM (4.8-10.8)
[2016-04-25 08:30] VITALS: BP 98/60
[2016-04-25 08:32] LABS: ABSOLUTE GRANULOCYTE CT 2.7 /CUMM (1.4-6.5); BASOPHIL % 0.1 % (0.0-2.0); EOSINOPHIL % 10.1 % (0-5); GRANULOCYTE % 73.9 % (42.2-75.2); MEAN CORPUSCULAR HGB 32.4 PG (27.0-31.0); RBC DISTRIBUTION WIDTH 20.4 % (11.5-14.5)
--- NOTE | 2016-04-25 08:43 | PN- Housestaff ---
Subjective Follow-up For: Streptococcal throat infection Neutropenia -recovered Hyperbilirubinemia Hypomagnesemia Complaints: generalized weakness, pain in the throat, Tele-Events Since Last Visit: Sinus tachycardia, Heart rate between 101-120, PVCs, bigeminy, trigeminy Subjective: Patient is seen and examined at the bedside. She was complaining of generalized weakness, pain in the throat. On examination, there was no any thrush. She denies of any fever, nausea, vomiting, shortness of breath, pain abdomen, diarrhea, dysuria Review of Systems Constitutional: Reports: malaise, weakness. Denies: chills, diaphoresis, fever. EENTM: Denies: no symptoms. Cardiovascular: Denies: chest pain, edema, orthopena, palpitations, peripheral edema. Respiratory: Denies: cough, hemoptysis, orthopnea, short of breath, sputum production, stridor. Gastrointestinal: Denies: abdominal pain, bloating, constipation, diarrhea, distention, bowel incontinence, melena, nausea, bloody stool. Genitourinary: Denies: no symptoms. Musculoskeletal: Denies: no symptoms. Skin: Denies: no symptoms. Neurological/Psychological: Reports: anxiety, depressed. Objective Last 24 Hrs of Vital Signs/I&O Vital Signs Date Time Temp Pulse Resp B/P Pulse O2 O2 Flow FiO2 Ox Delivery Rate 04/25 1622 98.2 120 20 122/72 95 Nasal 4.0L Cannula 04/25 0830 97.0 118 20 98/60 94 Nasal 4.0L Cannula 04/25 0801 95 Nasal 4.0L Cannula 04/25 0800 94 Nasal 4.0L Cannula 04/25 0000 93 Nasal 4.0L Cannula 04/24 2332 97.9 112 20 96/60 94 Nasal 4.0L Cannula 04/24 2147 94 Nasal 4.0L Cannula Intake & Output 04/25 1600 10 0800 04/25 0000 Intake Total 6123 406 7319 Output Total 200 200 Balance 1200 -80 895 Intake, Blood 200 Product Intake, IV 100 570 Intake, Oral 900 120 525 Output, Urine 200 200 Patient 58.967 kg Weight Physical Exam General Appearance: Alert, Oriented X3, Cooperative, No Acute Distress Skin: No Breakdown, generalized petechieae HEENT: Atraumatic, PERRLA, EOMI Neck: Supple, No JVD Cardiovascular: Normal S1, Normal S2, murmur, tachycardia, Lungs: bilateral crepts Abdomen: Soft, No Tenderness Neurological: Normal Speech Extremities: No Clubbing, No Cyanosis, No Edema Vascular: Normal Pulses, Pulses Symmetrical Assessment/Plan Assessment: Patient is a 70-year-old female with a history that is significant past medical history of COPD on 3 liters of oxygen , adenocarcinoma of lung, status post left upper lobectomy 3 years prior to the admission with a recurrence 15 months prior to admission, treated with radiation therapy and chemotherapy, which she continues to receive, currently on a three week on/one week off regimen, most recently 5 days prior to admission, via a Port-A-Cath that was inserted in her right upper chest at the time of her recurrence, with a PET scan 3 months prior to admission revealing enlarging mediastinal adenopathy, enlarging hepatic masses, abnormal upper retroperitoneal lymph nodes and abnormal nodularity in the left adrenal gland, all suspicious for metastatic disease, last hospitalized one year prior to admission with pneumococcal/Staph aureus pneumonia, treated with a four-week course of IV Cefazolin, admitted with hx of sore throat, poor PO intake, fall at home and increased weakness. Vital Signs -temperature 98.2, pulse 120, respiration 20, blood pressure 122/72, SPO 95% Problem list - Streptococcal throat infection Neutropenia with fever Pancytopenia Adenocarcinoma of the lung, status post left upper lung lobectomy, with IV chemotherapy for 3 weeks/ 1 week off. Hypomagnesemia Pertinent labs- WBC-3.6,Mg -1.4, K-4.3, Hb-7, Plan - * Discussed with oncologist, according to him, if CBC show rising trends than we can discharge pt and he will follow up her as an outpatient. * Today Hb-7.0, we discussed to onco/fausto, advised tranfuse 1 unit PRBC.We will recheck Hb after transfusion. * Follow up blood cultures are negative * We will repeat blood culture if patient develop fever again * we will watch for fever. * we replaced Mg, Inj Magnisium 1gm IV today, followed by MgO 400mg BID. * We will repeat CBC, BEP,LFT, Mg,K tmr. * MRI brain -There are a few scattered chronic small vessel ischemic changes within the periventricular white matter. No evidence of acute territorial infarct or hemorrhage.There is no abnormal intracranial mass or enhancement to suggest the presence of intracranial metastatic disease. * DVt PPX -ALPS * Code status - full code Problem List: 1. Diabetes mellitus type 2 2. Strep throat 3. Lung cancer Pain Ratin Pain Location: none Pain Goal: Remain pain free Pain Plan: mild Tomorrow's Labs & Rationales: cbc,bep,lft,magnisium DVT/Prophylaxis: mechanical Consulting Request: Consulting Specialty: Hematology/Oncology (heme)
--- NOTE | 2016-04-25 09:39 | PN- Oncology ---
Subjective Subjective: She continues to feel weak. Mostly generalized weakness. She has no fever or chills. Review of Systems: Constitutional: Reports: fever, weakness. Denies: chills. Cardiovascular: Denies: chest pain, peripheral edema. Respiratory: Reports: short of breath. Denies: cough, sputum production. GI: Reports: abdominal pain, nausea. Musculoskeletal: Reports: back pain. Neurological/Psychological: Reports: weakness. All Other Systems: Reviewed and Negative Objective Vital Signs and I&Os Vital Signs Date Time Temp Pulse Resp B/P Pulse O2 O2 Flow FiO2 Ox Delivery Rate 04/25 0801 95 Nasal 4.0L Cannula 04/25 08 94 Nasal 4.0L Cannula 04/25 0000 93 Nasal 4.0L Cannula 04/24 2332 97.9 112 20 96/60 94 Nasal 4.0L Cannula 04/24 2147 94 Nasal 4.0L Cannula 04/24 1618 98.1 112 20 98/58 94 Nasal 4.0L Cannula 04/24 1600 Nasal 4.0L Cannula 04/24 1530 100/60 Intake & Output 04/25 1600 04/25 0800 04/25 0000 04/24 1600 04/24 0800 04/24 0000 Intake Total 120 1095 1380 800 400 Output Total 200 200 400 400 Balance -80 895 1380 400 0 Intake, IV 570 900 700 300 Intake, Oral 120 525 480 100 100 Output, Urine 200 200 400 400 Physical Exam: General Appearance: no apparent distress, alert, awake, comfortable Eyes: Bilateral: PERRL, pale conjunctivae. Respiratory: chest non-tender, decreased breath sounds (MARISELA) Cardiovascular: regular rate/rhythm, murmur Gastrointestinal: normal bowel sounds, soft, non-tender, no organomegaly Extremities: pedal edema (1+) Neurologic/Psych: alert, oriented x 3 Current Medications: Current Medications Sig/Olga Start time Last Medication Dose Route Stop Time Status Admin Acetaminophen 500 MG Q6P PRN 04/22 1545 AC PO Albuterol Sulfate 3 ML Q4P PRN 04/22 1930 AC 04/25 INH 0800 Ampicillin Sodium/ 1,500 MG Q6 04/22 1600 AC 04/25 Sulbactam Sodium IV 0700 Sodium Chloride 100 ML Atorvastatin Calcium 20 MG DAILY@1700 04/23 1700 AC 04/24 PO 1612 Calcitriol 0.25 MCG DAILY 04/23 1000 AC 04/24 PO 0922 Calcium Carbonate 1,250 MG DAILY 04/23 1000 AC 04/24 PO 0922 Fentanyl Citrate 50 MCG Q3D 04/22 1545 AC TOP Filgrastim 300 MCG DAILY 04/24 1000 DC 04/24 SC 0922 Guaifenesin 10 ML Q6P PRN 04/22 1545 AC PO Insulin Aspart 0 TIDAC 04/22 1700 AC 04/24 SC 1617 Lorazepam 0.5 MG TID PRN 04/22 1545 AC 04/24 PO 04/29 1544 1801 Magnesium Oxide 800 MG ONCE ONE 04/24 1515 DC 04/24 PO 04/24 1516 1612 Magnesium Sulfate 1 GM Q2H 04/25 0915 AC Dextrose/Water 100 ML IV 04/25 1314 Morphine Sulfate 15 MG BID 04/22 1542 AC 04/24 PO 2216 Nystatin 5 ML 4 TIMES/DAY 04/22 1559 AC 04/24 PO 2216 Omeprazole 40 MG DAILY AC 04/23 0700 AC 04/25 PO 0825 Oxycodone/ 1 TAB Q6P PRN 04/22 1545 AC Acetaminophen PO Patient Medication 1 ED .STK-MED ONE 04/24 1341 DC Teaching ED 04/24 1342 Potassium Chloride 40 MEQ ONCE ONE 04/24 1515 DC 04/24 PO 04/24 1516 1612 Ropinirole HCl 1 MG BID 04/22 2200 AC 04/24 PO 2215 Sodium Chloride 1,000 ML Q10H 04/22 1600 DC 04/24 IV 2220 Results Last 24 Hours of Lab Results: Laboratory Tests 04/25 0700 Chemistry Sodium (137 - 145 mmol/L) 140 Potassium (3.5 - 5.1 mmol/L) 4.3 Chloride (98 - 107 mmol/L) 107 Carbon Dioxide (22 - 30 mmol/L) 27 Anion Gap (5 - 16) 6 BUN (7 - 17 mg/dL) 26 H Creatinine (0.5 - 1.0 mg/dL) 0.7 Estimated GFR (>60 ml/min) > 60 BUN/Creatinine Ratio (7 - 25 %) 37.1 H Magnesium (1.6 - 2.3 mg/dL) 1.4 L Hematology CBC w Diff MAN DIFF ORDERED WBC (4.8 - 10.8 /CUMM) 3.6 L RBC (4.20 - 5.40 /CUMM) 2.15 L Hgb (12.0 - 16.0 G/DL) 7.0 *L Hct (37 - 47 %) 20.5 L MCV (81.0 - 99.0 FL) 95.4 MCH (27.0 - 31.0 PG) 32.4 H RDW (11.5 - 14.5 %) 20.4 H Plt Count (130 - 400 /CUMM) 53 L MPV (7.4 - 10.4 FL) 10.4 Gran % (42.2 - 75.2 %) 73.9 Lymphocytes % (20.5 - 51.1 %) 4.8 L Monocytes % (1.7 - 9.3 %) 11.1 H Eosinophils % (0 - 5 %) 10.1 H Basophils % (0.0 - 2.0 %) 0.1 Absolute Granulocytes (1.4 - 6.5 /CUMM) 2.7 Absolute Lymphocytes (1.2 - 3.4 /CUMM) 0.2 L Absolute Monocytes (0.10 - 0.60 /CUMM) 0.4 Absolute Eosinophils (0.0 - 0.7 /CUMM) 0.4 Absolute Basophils (0.0 - 0.2 /CUMM) 0 Platelet Estimate (ADEQUATE) DECREASED Hypochromic-Microcytic 2+ Poikilocytosis 1+ Anisocytosis 2+ Ovalocytes 1+ PUBS MCHC (33.0 - 37.0 G/DL) 34.0 Recent Imaging Studies: MRI Brain 04/24/2016: Patient motion degrades image quality therefore the diagnostic accuracy of this examination is limited. There is no abnormal intracranial mass or enhancement to suggest the presence of intracranial metastatic disease. There are a few scattered chronic small vessel ischemic changes within the periventricular white matter. No evidence of acute territorial infarct or hemorrhage. Assessment/Plan Assessment/Recommendations: Ms. 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 Blood cultures have been negative. Imaging demonstrated progression of disease. US of the abdomen demonstrated no intra- or extrahepatic ductal dilatation. She is on Unasyn and filgastrim. ANC is improved. She can stop filgastrim. She is more anemic today. She should be transfused with pRBC. Recommendations: 1. Discontinue filgastrim 5 mcg/kg daily 2. Continue antibiotics as per ID 3. Transfuse pRBC 4. Follow up after discharge to discuss next option Please call [phone] with any questions. Problem List: 1. Neutropenic fever 2. Thrombocytopenia 3. Anemia 4. Lung cancer
--- NOTE | 2016-04-25 11:34 | PN- Cardiology ---
Subjective Subjective: Clinically, the patient seems to be doing somewhat better. She denies any new specific issues. She has had no shortness of breath, chest pain, or palpitations. On the monitor, she continues to have episodes of unifocal ventricular ectopy with brief episodes of bigeminy, etc. Objective Vital Signs and I&Os Vital Signs Date Time Temp Pulse Resp B/P Pulse O2 O2 Flow FiO2 Ox Delivery Rate 04/25 0830 97.0 118 20 98/60 94 Nasal 4.0L Cannula 04/25 0801 95 Nasal 4.0L Cannula 04/25 08 94 Nasal 4.0L Cannula 04/25 0000 93 Nasal 4.0L Cannula 04/24 2332 97.9 112 20 96/60 94 Nasal 4.0L Cannula 04/24 2147 94 Nasal 4.0L Cannula 04/24 1618 98.1 112 20 98/58 94 Nasal 4.0L Cannula 04/24 1600 Nasal 4.0L Cannula 04/24 1530 100/60 Intake & Output 04/25 1600 04/25 0800 04/25 0000 04/24 1600 04/24 0800 04/24 0000 Intake Total 120 1095 1380 800 400 Output Total 200 200 400 400 Balance -80 895 1380 400 0 Intake, IV 570 900 700 300 Intake, Oral 120 525 480 100 100 Output, Urine 200 200 400 400 Physical Exam: General: Frail appearing elderly female. No acute distress. Alert and oriented HEENT: Normal Neck: Supple with no JVD, no masses, and no thyromegaly, carotids normal bilaterally Lungs: Clear to auscultation and percussion bilaterally Heart: tachycardic, irregular, S1, S2, 1/6 systolic murmur. Abdomen: Soft, nontender, no masses. No hepatomegaly. No splenomegaly Extremities: No clubbing or cyanosis. Trace 1+ edema Skin: Normal Neuro: Nonfocal Current Medications: Current Medications Sig/Olga Start time Last Medication Dose Route Stop Time Status Admin Acetaminophen 500 MG Q6P PRN 04/22 1545 AC PO Albuterol Sulfate 3 ML Q4P PRN 04/22 1930 AC 04/25 INH 0800 Ampicillin Sodium/ 1,500 MG Q6 04/22 1600 AC 04/25 Sulbactam Sodium IV 0700 Sodium Chloride 100 ML Atorvastatin Calcium 20 MG DAILY@1700 04/23 1700 AC 04/24 PO 1612 Calcitriol 0.25 MCG DAILY 04/23 1000 AC 04/25 PO 0948 Calcium Carbonate 1,250 MG DAILY 04/23 1000 AC 04/25 PO 0948 Fentanyl Citrate 50 MCG Q3D 04/22 1545 AC TOP Filgrastim 300 MCG DAILY 04/24 1000 DC 04/24 SC 0922 Guaifenesin 10 ML Q6P PRN 04/22 1545 AC PO Insulin Aspart 0 TIDAC 04/22 1700 AC 04/24 SC 1617 Lorazepam 0.5 MG TID PRN 04/22 1545 AC 04/24 PO 04/29 1544 1801 Magnesium Oxide 800 MG ONCE ONE 04/24 1515 DC 04/24 PO 04/24 1516 1612 Magnesium Sulfate 1 GM Q2H 04/25 0915 AC Dextrose/Water 100 ML IV 04/25 1314 Morphine Sulfate 15 MG BID 04/22 1542 AC 04/25 PO 0948 Nystatin 5 ML 4 TIMES/DAY 04/22 1559 AC 04/25 PO 0948 Omeprazole 40 MG DAILY AC 04/23 0700 AC 04/25 PO 0825 Oxycodone/ 1 TAB Q6P PRN 04/22 1545 AC Acetaminophen PO Patient Medication 1 ED .STK-MED ONE 04/24 1341 DC Teaching ED 04/24 1342 Potassium Chloride 40 MEQ ONCE ONE 04/24 1515 DC 04/24 PO 04/24 1516 1612 Ropinirole HCl 1 MG BID 04/22 2200 AC 04/25 PO 0948 Sodium Chloride 1,000 ML Q10H 04/22 1600 DC 04/24 IV 2220 Results Last 48 Hrs of Labs/Mics: Laboratory Tests 04/25/16 0700: Anion Gap 6, Estimated GFR > 60, BUN/Creatinine Ratio 37.1 H, Magnesium 1.4 L, CBC w Diff MAN DIFF ORDERED, RBC 2.15 L, MCV 95.4, MCH 32.4 H, RDW 20.4 H, MPV 10.4, Gran % 73.9, Lymphocytes % 4.8 L, Monocytes % 11.1 H, Eosinophils % 10.1 H, Basophils % 0.1, Absolute Granulocytes 2.7, Absolute Lymphocytes 0.2 L , Absolute Monocytes 0.4, Absolute Eosinophils 0.4, Absolute Basophils 0, Platelet Estimate DECREASED, Hypochromic-Microcytic 2+, Poikilocytosis 1+, Anisocytosis 2+, Ovalocytes 1+, PUBS MCHC 34.0 04/24/16 0828: Anion Gap 12, Estimated GFR > 60, BUN/Creatinine Ratio 31.3 H, Magnesium 1.4 L , CBC w Diff MAN DIFF ORDERED, RBC 2.56 L, MCV 95.9, MCH 32.6 H, RDW 20.1 H, MPV 10.3, Gran % 72.0, Lymphocytes % 8.6 L, Monocytes % 8.0, Eosinophils % 11.4 H, Basophils % 0 L, Absolute Granulocytes 2.6, Segmented Neutrophils 71, Band Neutrophils 1, Absolute Lymphocytes 0.3 L, Lymphocytes 8 L, Monocytes 9, Absolute Monocytes 0.3, Eosinophils 11 H, Absolute Eosinophils 0.4, Absolute Basophils 0, Platelet Estimate DECREASED, Normocytic RBCs VERIFIED, Normochromic RBCs VERIFIED, PUBS MCHC 33.9 04/23/16 1800: Magnesium Cancelled Assessment/Plan Assessment/Plan Assessment: 1. Ventricular ectopy 2. Resting sinus tachycardia 2. Lung cancer with metastatic disease 4. Hypertension 5. Neutropenia, anemia, thrombocytopenia 6. Streptococcal pharyngitis with possible sepsis 7. Marked hypomagnesemia-aggressively replete, magnesium level today is down to 1.4. 8. Worsening anemia 9. Probable coronary artery disease with coronary artery calcification noted on chest CT Recommendations: -Continue current supportive medical care -Continue on telemetry for now. The patient's ectopy seems somewhat worse today. Likely aggravated by persistent hypomagnesemia and worsening anemia. -In view of the patient's likely underlying coronary artery disease with coronary calcification noted on chest CT previously, try to maintain hematocrit greater than or equal to 25 if possible -Aggressively replete magnesium. I agree with repeating IV magnesium today. Subsequently, I would start the patient on 400 mg of magnesium oxide twice daily. The patient's initial magnesium of 0.6 would indicate severe total body depletion and the patient will likely need close monitoring of her magnesium levels while here in the hospital and long-term supplementation. -Further plans after magnesium repleted Continue telemetry? No
--- NOTE | 2016-04-25 12:24 | PN- Infect Dx ---
Subjective Subjective: Afebrile. She complains of shakiness and weakness. She also complains of dysphagia and burning of her lips. Objective Last 24 Hrs of Vital Signs/I&O Vital Signs Date Time Temp Pulse Resp B/P Pulse O2 O2 Flow FiO2 Ox Delivery Rate 04/25 0830 97.0 118 20 98/60 94 Nasal 4.0L Cannula 04/25 0801 95 Nasal 4.0L Cannula 04/25 0800 94 Nasal 4.0L Cannula 04/25 0000 93 Nasal 4.0L Cannula 04/24 2332 97.9 112 20 96/60 94 Nasal 4.0L Cannula 04/24 2147 94 Nasal 4.0L Cannula 04/24 1618 98.1 112 20 98/58 94 Nasal 4.0L Cannula 04/24 1600 Nasal 4.0L Cannula 04/24 1530 100/60 Intake & Output 04/25 1600 04/25 0800 04/25 0000 Intake Total 120 1095 Output Total 200 200 Balance -80 895 Intake, IV 570 Intake, Oral 120 525 Output, Urine 200 200 Physical Exam Other Physical Findings: She appears weak and chronically ill but in no acute distress HEENT no pharyngeal or uvular erythema; no evidence of thrush Lungs crackles on the left and at the right base, improved from previous exam Heart regular rhythm with a 1/6 systolic ejection murmur Extremities 1-2+ edema both lower extremities Results Last 24 Hours of Lab Results: Laboratory Tests 04/25 0700 Chemistry Sodium (137 - 145 mmol/L) 140 Potassium (3.5 - 5.1 mmol/L) 4.3 Chloride (98 - 107 mmol/L) 107 Carbon Dioxide (22 - 30 mmol/L) 27 Anion Gap (5 - 16) 6 BUN (7 - 17 mg/dL) 26 H Creatinine (0.5 - 1.0 mg/dL) 0.7 Estimated GFR (>60 ml/min) > 60 BUN/Creatinine Ratio (7 - 25 %) 37.1 H Magnesium (1.6 - 2.3 mg/dL) 1.4 L Hematology CBC w Diff MAN DIFF ORDERED WBC (4.8 - 10.8 /CUMM) 3.6 L RBC (4.20 - 5.40 /CUMM) 2.15 L Hgb (12.0 - 16.0 G/DL) 7.0 *L Hct (37 - 47 %) 20.5 L MCV (81.0 - 99.0 FL) 95.4 MCH (27.0 - 31.0 PG) 32.4 H RDW (11.5 - 14.5 %) 20.4 H Plt Count (130 - 400 /CUMM) 53 L MPV (7.4 - 10.4 FL) 10.4 Gran % (42.2 - 75.2 %) 73.9 Lymphocytes % (20.5 - 51.1 %) 4.8 L Monocytes % (1.7 - 9.3 %) 11.1 H Eosinophils % (0 - 5 %) 10.1 H Basophils % (0.0 - 2.0 %) 0.1 Absolute Granulocytes (1.4 - 6.5 /CUMM) 2.7 Absolute Lymphocytes (1.2 - 3.4 /CUMM) 0.2 L Absolute Monocytes (0.10 - 0.60 /CUMM) 0.4 Absolute Eosinophils (0.0 - 0.7 /CUMM) 0.4 Absolute Basophils (0.0 - 0.2 /CUMM) 0 Platelet Estimate (ADEQUATE) DECREASED Hypochromic-Microcytic 2+ Poikilocytosis 1+ Anisocytosis 2+ Ovalocytes 1+ PUBS MCHC (33.0 - 37.0 G/DL) 34.0 Last 24 Hours of Madhu Results: Blood cultures 2 April 22 remain negative Recent Imaging Studies: MRI of the head April 24 no evidence of metastatic disease Assessment/Plan Impression: Remains weak, likely secondary to her severe anemia, status post chemotherapy, last given 8 days ago, with white blood cell count increasing on Neupogen, which is to be discontinued today. She remains afebrile on Unasyn Day 3 of treatment for strep pharyngitis, with persistent dysphagia, possibly secondary to candidiasis, for which she is on Nystatin, with no evidence for thrush at this time. Her CT findings suggest progression of her metastatic disease, with the left upper lobe consolidation/mass noted, though cannot rule out a component of pneumonia. She will need to receive a total of 10 days of treatment for the strep pharyngitis. Suggestion: 1. Repeat liver enzymes including alk phosphatase 2. Discontinue Unasyn 3. Begin Augmentin 500 mg po every 12 hours for 4 more days, after which can change to Penicillin 250 mg po every 6 hours for 3 additional days to complete her 10 day course Jennifer Sullivan MD will be covering me until May 05
[2016-04-25 16:22] VITALS: BP 122/72
[2016-04-25 20:32] LABS: ABSOLUTE BASOPHIL COUNT 0 /CUMM (0.0-0.2); ABSOLUTE EOSINOPHIL COUNT 0.8 /CUMM (0.0-0.7); ABSOLUTE GRANULOCYTE CT 3.2 /CUMM (1.4-6.5); ABSOLUTE LYMPH COUNT 0.3 /CUMM (1.2-3.4); ABSOLUTE MONOCYTE COUNT 0.4 /CUMM (0.10-0.60); BASOPHIL % 0.1 % (0.0-2.0); MEAN CORPUSCULAR HGB 31.8 PG (27.0-31.0); MEAN CORPUSCULAR HGB CONC 33.8 G/DL (33.0-37.0); MEAN CORPUSCULAR VOLUME 94.1 FL (81.0-99.0); MEAN PLATELET VOLUME 10.6 FL (7.4-10.4); PLATELET COUNT 56 /CUMM (130-400); RED BLOOD CELL CT 2.65 /CUMM (4.20-5.40); WHITE BLOOD CELL COUNT 4.7 /CUMM (4.8-10.8)
[2016-04-25 20:37] LABS: EOSINOPHIL % 16.6 % (0-5)
[2016-04-26 01:03] VITALS: BP 90/58
[2016-04-26 07:49] VITALS: BP 92/58
--- NOTE | 2016-04-26 08:38 | PN- Att Addend ---
Attending Addendum Attending Brief Note Covering Attn Note Feels lousy , weak recdeived 1 unit if PRBC ON mg supplements . Still has bigemineys S1 S2 n Lungs bilater ronchi and crackles. Plan ct with current mgt .
--- NOTE | 2016-04-26 09:24 | PN- Housestaff ---
Subjective Follow-up For: Streptococcal throat infection Neutropenia -recovered Hyperbilirubinemia Hypomagnesemia Complaints: patient is complaining of generalized weakness, sometimes difficulty in the breathing and pain in the throat Tele-Events Since Last Visit: Him that there was normal sinus rhythm with heart rate of 102 to 107, PVCs, trigeminy, bigeminy Subjective: Patient is seen and examined at the bedside. She was complaining of generalized weakness, throat pain, difficulty in the breathing. She denies of any fever, nausea, vomiting, constipation, diarrhea. Review of Systems Constitutional: Reports: weakness. Denies: chills, diaphoresis, fever, malaise. EENTM: Reports: throat pain. Cardiovascular: Denies: chest pain, edema, orthopena, palpitations, peripheral edema. Respiratory: Reports: short of breath. Denies: cough, hemoptysis, orthopnea, sputum production, stridor. Gastrointestinal: Denies: abdominal pain, bloating, constipation, diarrhea, distention, bowel incontinence, melena, nausea. Genitourinary: Denies: discharge, dysuria, frequency, hematuria, hesitation, nocturia, pain. Musculoskeletal: Denies: back pain, gout, joint pain, joint swelling, muscle pain, muscle stiffness. Skin: Denies: no symptoms. Neurological/Psychological: Reports: anxiety, depressed. Objective Last 24 Hrs of Vital Signs/I&O Vital Signs Date Time Temp Pulse Resp B/P Pulse O2 O2 Flow FiO2 Ox Delivery Rate 04/26 1347 98.1 04/26 0800 95 Nasal 4.0L Cannula 04/26 0749 98.5 107 18 92/58 95 04/26 0103 98.5 106 18 90/58 97 Nasal Cannula 04/26 0000 Nasal 4.0L Cannula 04/25 1622 98.2 120 20 122/72 95 Nasal 4.0L Cannula Intake & Output 04/26 1600 04/26 0800 04/26 0000 Intake Total 480 200 800 Output Total 200 400 Balance 280 -200 800 Intake, IV 0 200 Intake, Oral 480 200 600 Number 2 0 Bowel Movements Output, Urine 200 400 Physical Exam General Appearance: Alert, Oriented X3, Cooperative, Mild Distress Skin: Generalized red petechieae HEENT: Atraumatic, PERRLA, EOMI Neck: Supple, No JVD Cardiovascular: Normal S1, Normal S2 Lungs: bilateral crepts with decrease air entry Abdomen: Soft, No Tenderness Neurological: Normal Speech Extremities: No Clubbing, No Cyanosis, No Edema Assessment/Plan Assessment: Patient is a 70-year-old female with a history that is significant past medical history of COPD on 3 liters of oxygen , adenocarcinoma of lung, status post left upper lobectomy 3 years prior to the admission with a recurrence 15 months prior to admission, treated with radiation therapy and chemotherapy, which she continues to receive, currently on a three week on/one week off regimen, most recently 5 days prior to admission, via a Port-A-Cath that was inserted in her right upper chest at the time of her recurrence, with a PET scan 3 months prior to admission revealing enlarging mediastinal adenopathy, enlarging hepatic masses, abnormal upper retroperitoneal lymph nodes and abnormal nodularity in the left adrenal gland, all suspicious for metastatic disease, last hospitalized one year prior to admission with pneumococcal/Staph aureus pneumonia, treated with a four-week course of IV Cefazolin, admitted with hx of sore throat, poor PO intake, fall at home and increased weakness. MRI brain - There are a few scattered chronic small vessel ischemic changes within the periventricular white matter. No evidence of acute territorial infarct or hemorrhage.There is no abnormal intracranial mass or enhancement to suggest the presence of intracranial metastatic disease. Vital Signs -temperature 98.2, pulse 120, respiration 20, blood pressure 122/72, SPO 95% Problem list - Streptococcal throat infection Neutropenia with fever Pancytopenia Adenocarcinoma of the lung, status post left upper lung lobectomy, with IV chemotherapy for 3 weeks/ 1 week off. Hypomagnesemia Pertinent labs- WBC-8.3,Mg -1.2, K-3.4, Hb-9, Plan - * Discussed with oncologist, according to him, if CBC show rising trends than we can discharge pt and he will follow up her as an outpatient. * Today Hb-9.0, we will continue to monitor it. * Follow up blood cultures are negative * we will watch for fever. * We'll continue Augmentin for strep infection for total 7 days * We will repeat blood culture if patient develop fever again * we replaced Mg, Inj Magnisium 2 gm IV today, please continue MgO 400mg BID. * Alkaline phosphatase is continues to showing rising trend, probably it may be secondary to bone involvement * Today. Granulocytes are very low only 6.4 percent and monocytes are very high 71.4 percent. Patient is asymptomatic and afebrile. we'll repeat the CBC tomorrow and if still shows low granulocytes, then we will talk to oncologist * We will repeat CBC, BEP,LFT, Mg,K tmr. * DVt PPX -ALPS * Code status - full code Problem List: 1. Strep throat 2. Neutropenic 3. Bandemia 4. Lung cancer 5. COPD (chronic obstructive pulmonary disease) 6. Diabetes mellitus type 2 7. Hyperbilirubinemia Pain Ratin Pain Location: Generalized body Pain Goal: Remain pain free Pain Plan: mild - moderate Tomorrow's Labs & Rationales: cbc, BEP, magnesium DVT/Prophylaxis: mechanical, pharmacological Consulting Request: Consulting Specialty: Hematology/Oncology (heme)
[2016-04-26 14:06] LABS: ABSOLUTE BASOPHIL COUNT 0 /CUMM (0.0-0.2); ABSOLUTE EOSINOPHIL COUNT 1.5 /CUMM (0.0-0.7); ABSOLUTE GRANULOCYTE CT 0.5 /CUMM (1.4-6.5); ABSOLUTE LYMPH COUNT 0.3 /CUMM (1.2-3.4); ABSOLUTE MONOCYTE COUNT 5.9 /CUMM (0.10-0.60); BASOPHIL % 0.1 % (0.0-2.0); EOSINOPHIL % 18.2 % (0-5); HEMATOCRIT 27.6 % (37-47); MEAN CORPUSCULAR HGB 31.6 PG (27.0-31.0); MEAN CORPUSCULAR HGB CONC 33.8 G/DL (33.0-37.0); MEAN CORPUSCULAR VOLUME 93.3 FL (81.0-99.0); RBC DISTRIBUTION WIDTH 19.8 % (11.5-14.5); RED BLOOD CELL CT 2.96 /CUMM (4.20-5.40)
[2016-04-26 14:55] LABS: GRANULOCYTE % 6.4 % (42.2-75.2)
[2016-04-26 14:56] LABS: WHITE BLOOD CELL COUNT 8.3 /CUMM (4.8-10.8)
[2016-04-26 15:04] LABS: PLATELET COUNT 61 /CUMM (130-400)
[2016-04-26 16:21] VITALS: BP 108/64
[2016-04-27 00:06] VITALS: BP 100/50
[2016-04-27 08:15] LABS: ABSOLUTE BASOPHIL COUNT 0 /CUMM (0.0-0.2); ABSOLUTE EOSINOPHIL COUNT 1.6 /CUMM (0.0-0.7); ABSOLUTE GRANULOCYTE CT 9.9 /CUMM (1.4-6.5); ABSOLUTE LYMPH COUNT 0.4 /CUMM (1.2-3.4); ABSOLUTE MONOCYTE COUNT 0.2 /CUMM (0.10-0.60); BASOPHIL % 0 % (0.0-2.0); EOSINOPHIL % 13.4 % (0-5); HEMATOCRIT 27.3 % (37-47); MEAN CORPUSCULAR HGB 31.9 PG (27.0-31.0); MEAN CORPUSCULAR VOLUME 93.8 FL (81.0-99.0); RBC DISTRIBUTION WIDTH 19.6 % (11.5-14.5); RED BLOOD CELL CT 2.91 /CUMM (4.20-5.40); WHITE BLOOD CELL COUNT 12.2 /CUMM (4.8-10.8)
--- NOTE | 2016-04-27 08:18 | PN- Att Addend ---
Attending Addendum Attending Brief Note Covering attending note. Patient resting comfortably in bed. Having some loose BMs 2-3 times a day most likely secondary to magnesium No chest pain no palpitations. Vital Signs Date Time Temp Pulse Resp B/P Pulse O2 O2 Flow FiO2 Ox Delivery Rate 04/27 08 Nasal 3.0L Cannula 04/27 0006 98.8 116 18 100/50 96 Nasal 2.0L Cannula 04/27 0000 Nasal 3.0L Cannula 04/26 1825 95 Nasal 4.0L Cannula 04/26 1621 98.4 113 18 108/64 94 Nasal 4.0L Cannula 04/26 1600 94 Nasal 4.0L Cannula 04/26 1347 98.1 Intake & Output 04/27 1600 04/27 0800 04/27 0000 Intake Total 150 680 Output Total 300 350 Balance -150 330 Intake, IV 0 200 Intake, Oral 150 480 Number 0 4 Bowel Movements Output, Urine 300 350 Patient looks chronically ill neck is supple S1-S2 is normal Lungs shows crackles at both bases Abdomen is soft nontender bowel sounds are present Assessment #1 acute strep pharyngitis patient is neutropenic Recommendations start Augmentin 500 mg every 12 hours for 4 days and then change to penicillin 250 every 6 hours freshen 3 days. But to go magnesia with skipping beats patient repeated with the magnesium supplements. Progression of metastatic lung disease.
[2016-04-27 08:45] VITALS: BP 100/58
[2016-04-27 09:30] LABS: GRANULOCYTE % 81.3 % (42.2-75.2)
[2016-04-27 09:31] LABS: PLATELET COUNT 59 /CUMM (130-400)
--- NOTE | 2016-04-27 11:18 | PN- Housestaff ---
Subjective Follow-up For: Streptococcal throat infection Neutropenia -recovered Hyperbilirubinemia Hypomagnesemia Hypokalemia Resting sinus tachycardia Tele-Events Since Last Visit: Sinus tachycardia 104-120 Subjective: Patient was seen and examined this morning, vitals are stable except for the heart rate which continue to be rapid 112. Patient denied any chest pain, shortness of breath. She reported abdominal pain on and off, denied nausea or vomiting, had 3 episodes of diarrhea last night which was negative for Clostridium difficile toxin. Patient denied any urinary symptoms. Review of Systems Constitutional: Reports: see HPI. Objective Last 24 Hrs of Vital Signs/I&O Vital Signs Date Time Temp Pulse Resp B/P Pulse O2 O2 Flow FiO2 Ox Delivery Rate 04/27 1141 95 Nasal 3.0L Cannula 04/27 0845 98.8 105 20 100/58 95 Nasal 3.0L Cannula 04/27 0800 Nasal 3.0L Cannula 04/27 0006 98.8 116 18 100/50 96 Nasal 2.0L Cannula 04/27 0000 Nasal 3.0L Cannula 04/26 1825 95 Nasal 4.0L Cannula 04/26 1621 98.4 113 18 108/64 94 Nasal 4.0L Cannula 04/26 1600 94 Nasal 4.0L Cannula Intake & Output 04/27 1600 04/27 0800 04/27 0000 Intake Total 665 150 680 Output Total 240 300 350 Balance 425 -150 330 Intake, IV 0 200 Intake, Oral 665 150 480 Number 2 0 4 Bowel Movements Output, Urine 240 300 350 Physical Exam General Appearance: Alert, Oriented X3, Cooperative, No Acute Distress Skin: No Rashes HEENT: Atraumatic, PERRLA, EOMI, Mucous Membr. moist/pink Cardiovascular: Regular Rate, Normal S1, Normal S2, No Murmurs Lungs: Clear to Auscultation, Normal Air Movement Abdomen: Normal Bowel Sounds, Soft, No Tenderness Neurological: Normal Speech, Strength at 5/5 X4 Ext, Normal Tone, Sensation Intact, Cranial Nerves 3-12 NL, Reflexes 2+ Extremities: No Clubbing, No Cyanosis, Normal Pulses, +1 bilateral pitting edema Assessment/Plan Assessment: Patient is a 70-year-old female with a history that is significant past medical history of COPD on 3 liters of oxygen , adenocarcinoma of lung, status post left upper lobectomy 3 years prior to the admission with a recurrence 15 months prior to admission, treated with radiation therapy and chemotherapy, which she continues to receive, currently on a three week on/one week off regimen, most recently 5 days prior to admission, via a Port-A-Cath that was inserted in her right upper chest at the time of her recurrence, with a PET scan 3 months prior to admission revealing enlarging mediastinal adenopathy, enlarging hepatic masses, abnormal upper retroperitoneal lymph nodes and abnormal nodularity in the left adrenal gland, all suspicious for metastatic disease, last hospitalized one year prior to admission with pneumococcal/Staph aureus pneumonia, treated with a four-week course of IV Cefazolin, admitted with hx of sore throat, poor PO intake, fall at home and increased weakness. MRI brain - There are a few scattered chronic small vessel ischemic changes within the periventricular white matter. No evidence of acute territorial infarct or hemorrhage.There is no abnormal intracranial mass or enhancement to suggest the presence of intracranial metastatic disease. Problem list - Streptococcal throat infection Neutropenia with fever Pancytopenia Adenocarcinoma of the lung, status post left upper lung lobectomy, with IV chemotherapy for 3 weeks/ 1 week off. Hypomagnesemia Plan - * Continue Augmentin 5 mg twice a day to finish course of 3 days then will switch to penicillin 250 mg po every 6 hours for 3 additional days to complete her 10 day course * Patient remained to be afebrile MAXIMUM TEMPERATURE 98.8, WBC today 12.2 * Cultures pending * we will watch for fever. * We will repeat blood culture if patient develop fever again * Continue MgO 400mg BID * Magnesium today is 1.4, 1 dose of magnesium sulfate 1 g in D5 W once was ordered * Alkaline phosphatase today 415, 409, 329, continues to showing rising trend, probably it may be secondary to bone involvement * T granulocytes improved significantly 81.3 gonzalez. Granulocytes are very low only 6.4 percent and monocytes are very high 81.3 * We will repeat CBC, BEP,LFT, Mg,K tmr. * DVt PPX -ALPS * Code status - full code Problem List: 1. History of - hypertension 2. Strep throat 3. Neutropenic 4. Lung cancer Pain Ratin Pain Location: Abdominal pain Pain Goal: Pain 4 or less Pain Plan: Moderate pain pathway Tomorrow's Labs & Rationales: CBC, CMP, LFT, magnesium Consulting Request: Consulting Specialty: Hematology/Oncology (heme)
[2016-04-27 16:16] VITALS: BP 110/66
[2016-04-28 00:09] VITALS: BP 108/58
--- NOTE | 2016-04-28 07:40 | PN- Housestaff ---
Subjective Follow-up For: Streptococcal throat infection Neutropenia -recovered Hyperbilirubinemia Hypomagnesemia Complaints: generalized weakness Tele-Events Since Last Visit: Normal sinus rhythm, heart rate is between 100-120, bigeminy/trigeminy Subjective: Patient is seen and examined at the bedside. She was complaining of generalized weakness.She denies of any fever, nausea, vomiting, constipation, diarrhea. Review of Systems Constitutional: Reports: malaise, weakness. Denies: chills, diaphoresis, fever. EENTM: Denies: no symptoms. Cardiovascular: Denies: chest pain, edema, orthopena, palpitations. Respiratory: Denies: cough, hemoptysis, orthopnea, short of breath, sputum production. Gastrointestinal: Denies: abdominal pain, bloating, constipation, diarrhea, distention, bowel incontinence, melena, nausea, bloody stool. Genitourinary: Denies: discharge, dysuria, frequency, hematuria, hesitation. Musculoskeletal: Reports: back pain, joint pain, joint swelling. Denies: gout, muscle pain, muscle stiffness. Skin: Denies: no symptoms. Neurological/Psychological: Reports: anxiety, depressed, dementia. Objective Last 24 Hrs of Vital Signs/I&O Vital Signs Date Time Temp Pulse Resp B/P Pulse O2 O2 Flow FiO2 Ox Delivery Rate 04/28 0851 99 Nasal 3.0L Cannula 04/28 0813 98.0 108 18 100/56 96 Nasal 3.0L Cannula 04/28 0800 Nasal 3.0L Cannula 04/28 0009 98.5 111 18 108/58 96 Room Air 04/28 0000 94 Nasal 3.0L Cannula 04/27 2133 96 Nasal 3.0L Cannula Intake & Output 04/28 1600 04/28 0800 04/28 0000 Intake Total 612 076 4141 Output Total 300 725 575 Balance 405 -300 490 Intake, IV 125 360 Intake, Oral 705 300 705 Number 4 1 Bowel Movements Output, Urine 300 725 575 Physical Exam General Appearance: Alert, Oriented X3, Cooperative, No Acute Distress Skin: No Rashes, No Breakdown HEENT: Atraumatic, PERRLA, EOMI Neck: Supple, No JVD Cardiovascular: Normal S1, Normal S2, murmur, tachycardia Lungs: bilateral crepts Abdomen: Soft, No Tenderness Neurological: Normal Speech Extremities: No Clubbing, No Cyanosis, No Edema Vascular: Normal Pulses, Pulses Symmetrical Assessment/Plan Assessment: Patient is a 70-year-old female with a history that is significant past medical history of COPD on 3 liters of oxygen , adenocarcinoma of lung, status post left upper lobectomy 3 years prior to the admission with a recurrence 15 months prior to admission, treated with radiation therapy and chemotherapy, which she continues to receive, currently on a three week on/one week off regimen, most recently 5 days prior to admission, via a Port-A-Cath that was inserted in her right upper chest at the time of her recurrence, with a PET scan 3 months prior to admission revealing enlarging mediastinal adenopathy, enlarging hepatic masses, abnormal upper retroperitoneal lymph nodes and abnormal nodularity in the left adrenal gland, all suspicious for metastatic disease, last hospitalized one year prior to admission with pneumococcal/Staph aureus pneumonia, treated with a four-week course of IV Cefazolin, admitted with hx of sore throat, poor PO intake, fall at home and increased weakness. MRI brain - There are a few scattered chronic small vessel ischemic changes within the periventricular white matter. No evidence of acute territorial infarct or hemorrhage.There is no abnormal intracranial mass or enhancement to suggest the presence of intracranial metastatic disease. Problem list - Streptococcal throat infection Neutropenia with fever Pancytopenia Adenocarcinoma of the lung, status post left upper lung lobectomy, with IV chemotherapy for 3 weeks/ 1 week off. Hypomagnesemia Plan - * Discharge today * We will stop antibiotics as patient completed the course for 5 days and her WBC increased to 15.9. * we will watch for fever. * We will repeat blood culture if patient develop fever again * We will continue MgO 400mg BID * Magnesium today is 1.7, 1 dose of magnesium sulfate 1 g in D5 W once was given * Alkaline phosphatase is 415, 409, 329, continues to showing rising trend, probably it may be secondary to bone involvement * We will repeat CBC, BEP,LFT, Mg,K tmr. * DVt PPX -ALPS * Code status - full code Problem List: 1. Hyperbilirubinemia 2. Strep throat 3. Neutropenic Pain Ratin Pain Location: Generalized body Pain Goal: Remain pain free Pain Plan: Moderate to severe Tomorrow's Labs & Rationales: none DVT/Prophylaxis: mechanical, pharmacological Consulting Request: Consulting Specialty: Hematology/Oncology (heme)
[2016-04-28 07:52] LABS: ABSOLUTE BASOPHIL COUNT 0 /CUMM (0.0-0.2); ABSOLUTE EOSINOPHIL COUNT 1.3 /CUMM (0.0-0.7); ABSOLUTE GRANULOCYTE CT 13.8 /CUMM (1.4-6.5); ABSOLUTE LYMPH COUNT 0.5 /CUMM (1.2-3.4); ABSOLUTE MONOCYTE COUNT 0.4 /CUMM (0.10-0.60); BASOPHIL % 0 % (0.0-2.0); GRANULOCYTE % 86.7 % (42.2-75.2); HEMATOCRIT 27.5 % (37-47); MEAN CORPUSCULAR HGB 31.8 PG (27.0-31.0); MEAN CORPUSCULAR HGB CONC 33.5 G/DL (33.0-37.0); MEAN CORPUSCULAR VOLUME 94.8 FL (81.0-99.0); MEAN PLATELET VOLUME 9.4 FL (7.4-10.4); PLATELET COUNT 63 /CUMM (130-400); RBC DISTRIBUTION WIDTH 20.1 % (11.5-14.5); WHITE BLOOD CELL COUNT 15.9 /CUMM (4.8-10.8)
[2016-04-28 08:13] VITALS: BP 100/56
--- NOTE | 2016-04-28 09:10 | PN- Oncology ---
Subjective Subjective: She still feels a little weak. She has had some diarrhea since starting the magnesium. She denies any fever or chills. She has no new pain. Breathing is stable. Review of Systems Constitutional: Reports: weakness. Denies: chills, fever. EENTM: Denies: blurred vision. Cardiovascular: Denies: chest pain. Respiratory: Reports: short of breath. Gastrointestinal: Reports: diarrhea. Genitourinary: Denies: dysuria. Musculoskeletal: Reports: back pain. Skin: Denies: rash. Hematologic/Endocrine: Denies: bruising, bleeding. All Other Systems: Reviewed and Negative Objective Vital Signs and I&Os Vital Signs Date Time Temp Pulse Resp B/P Pulse O2 O2 Flow FiO2 Ox Delivery Rate 04/28 0851 99 Nasal 3.0L Cannula 04/28 08 98.0 108 18 100/56 96 Nasal 3.0L Cannula 04/28 0800 Nasal 3.0L Cannula 04/28 0009 98.5 111 18 108/58 96 Room Air 04/28 0000 94 Nasal 3.0L Cannula 04/27 2133 96 Nasal 3.0L Cannula 04/27 1616 98.3 114 20 110/66 95 Nasal 3.0L Cannula 04/27 1141 95 Nasal 3.0L Cannula Intake & Output 04/28 1600 04/28 0800 04/28 0000 04/27 1600 04/27 0800 04/27 0000 Intake Total 425 1065 665 150 680 Output Total 725 575 240 300 350 Balance -300 490 425 -150 330 Intake, IV 125 360 0 200 Intake, Oral 300 705 665 150 480 Number 1 2 0 4 Bowel Movements Output, Urine 725 575 240 300 350 Physical Exam: General Appearance: no apparent distress, alert, awake, comfortable Eyes: Bilateral: PERRL, pale conjunctivae. Respiratory: chest non-tender, decreased breath sounds (MARISELA) Cardiovascular: regular rate/rhythm, murmur Gastrointestinal: normal bowel sounds, soft, non-tender, no organomegaly Extremities: pedal edema (1+) Neurologic/Psych: alert, oriented x 3 Current Medications: Current Medications Sig/Olga Start time Last Medication Dose Route Stop Time Status Admin Acetaminophen 500 MG Q6P PRN 04/22 1545 AC PO Albuterol Sulfate 3 ML Q4P PRN 04/22 1930 AC 04/27 INH 2132 Amoxicillin/ 500 MG Q12 04/25 1359 AC 04/27 Clavulanate Potassium PO 04/28 1800 2129 Atorvastatin Calcium 20 MG DAILY@1700 04/23 1700 AC 04/27 PO 1631 Calcitriol 0.25 MCG DAILY 04/23 1000 AC 04/27 PO 0900 Calcium Carbonate 1,250 MG DAILY 04/23 1000 AC 04/27 PO 0900 Fentanyl Citrate 50 MCG Q3D 04/22 1545 AC 04/25 TOP 1549 Guaifenesin 10 ML Q6P PRN 04/22 1545 AC PO Insulin Aspart 0 TIDAC 04/22 1700 AC 04/28 SC 0821 Lorazepam 0.5 MG TID PRN 04/22 1545 AC 04/24 PO 04/29 1544 1801 Magnesium Oxide 400 MG BID 04/25 1529 AC 04/27 PO 0900 Magnesium Sulfate 1 GM ONCE ONE 04/28 0745 AC 04/28 Dextrose/Water 100 ML IV 04/28 1144 0821 Magnesium Sulfate 1 GM Q2H 04/27 2200 DC 04/28 Dextrose/Water 100 ML IV 04/28 0159 0130 Magnesium Sulfate 1 GM ONCE ONE 04/27 1445 DC 04/27 Dextrose/Water 100 ML IV 04/27 1844 1631 Morphine Sulfate 15 MG BID 04/22 1542 AC 04/25 PO 0948 Omeprazole 40 MG DAILY AC 04/23 0700 AC 04/28 PO 0618 Oxycodone/ 1 TAB Q6P PRN 04/22 1545 AC 04/27 Acetaminophen PO 2007 Potassium Chloride 40 MEQ ONCE ONE 04/27 1445 DC 04/27 PO 04/27 1446 1631 Ropinirole HCl 1 MG BID 04/22 2200 AC 04/27 PO 2129 Results Last 24 Hours of Lab Results: Laboratory Tests 04/28 0630 Chemistry Sodium (137 - 145 mmol/L) 138 Potassium (3.5 - 5.1 mmol/L) 4.0 Chloride (98 - 107 mmol/L) 102 Carbon Dioxide (22 - 30 mmol/L) 30 Anion Gap (5 - 16) 6 BUN (7 - 17 mg/dL) 13 Creatinine (0.5 - 1.0 mg/dL) 0.6 Estimated GFR (>60 ml/min) > 60 BUN/Creatinine Ratio (7 - 25 %) 21.7 Magnesium (1.6 - 2.3 mg/dL) 1.7 Total Bilirubin (0.2 - 1.3 mg/dL) 2.0 H Direct Bilirubin (< 0.4 mg/dL) 1.4 H AST (14 - 36 U/L) 24 ALT (9 - 52 U/L) 35 Alkaline Phosphatase (<127 U/L) 402 H Total Protein (6.3 - 8.2 g/dL) 4.8 L Albumin (3.5 - 5.0 g/dL) 2.1 L Hematology CBC w Diff MAN DIFF ORDERED WBC (4.8 - 10.8 /CUMM) 15.9 H RBC (4.20 - 5.40 /CUMM) 2.90 L Hgb (12.0 - 16.0 G/DL) 9.2 L Hct (37 - 47 %) 27.5 L MCV (81.0 - 99.0 FL) 94.8 MCH (27.0 - 31.0 PG) 31.8 H RDW (11.5 - 14.5 %) 20.1 H Plt Count (130 - 400 /CUMM) 63 L MPV (7.4 - 10.4 FL) 9.4 Gran % (42.2 - 75.2 %) 86.7 H Lymphocytes % (20.5 - 51.1 %) 2.9 L Monocytes % (1.7 - 9.3 %) 2.4 Eosinophils % (0 - 5 %) 8.0 H Basophils % (0.0 - 2.0 %) 0 L Absolute Granulocytes (1.4 - 6.5 /CUMM) 13.8 H Segmented Neutrophils (42.2 - 75.2 %) 78 H Band Neutrophils (0.0 - 5.0 %) 12 H Absolute Lymphocytes (1.2 - 3.4 /CUMM) 0.5 L Lymphocytes (20.5 - 51.1 %) 1 L Monocytes (1.7 - 9.3 %) 2 Absolute Monocytes (0.10 - 0.60 /CUMM) 0.4 Eosinophils (0 - 5.0 %) 4 Absolute Eosinophils (0.0 - 0.7 /CUMM) 1.3 Absolute Basophils (0.0 - 0.2 /CUMM) 0 Metamyelocytes (0.0 - 1.0 %) 2 H Myelocytes (0 - 0 %) 1 H Platelet Estimate (ADEQUATE) DECREASED Polychromasia 1+ Anisocytosis 1+ PUBS MCHC (33.0 - 37.0 G/DL) 33.5 Assessment/Plan Assessment/Recommendations: Ms. 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 Blood cultures have been negative. Imaging demonstrated progression of disease. US of the abdomen demonstrated no intra- or extrahepatic ductal dilatation. Her ANC has recovered. Platelet is improving. She is now on Augmentin. She is afebrile. Diarrhea is likely from antibiotic and magnesium. If persistent, would check C. diff. Recommendations: 1. Continue antibiotics as per ID 2. Follow up after discharge to discuss next option Please call [phone] with any questions. Problem List: 1. Neutropenic fever 2. Lung cancer 3. Thrombocytopenia
--- NOTE | 2016-04-28 09:15 | ECHOCARDIOGRAM REPORT ---
LUDY QUEEN Age: 70 : 1945 Gender: F Exam Date: 04/24/2016 16:39 Exam Location: [place] Ht (in): 64 Wt (lb): 130 BSA: 1.64 BP: 100 / 60 Ordering Physician: ALEJANDRA GONZALES M Referring Physician: Nolan Garcia MD Technologist: Yolanda Wallis RUST Room Number: [id number] Indications: ARRHYTHMIAS Rhythm: Sinus Technical Quality: Good FINDINGS Left Ventricle Normal size left ventricle. Normal left ventricular ejection fraction visually estimated at >60%. Normal left ventricular wall motion. Right Ventricle Normal right ventricular size and function. Right Atrium Normal right atrial size. Left Atrium Normal left atrial size. Mitral Valve Mitral valve thickened. Mild mitral regurgitation. Mild mitral annular calcification. Aortic Valve Diffuse thickening (sclerosis) of the aortic valve cusps without reduced excursion. Mild aortic regurgitation. Mild aortic stenosis. Tricuspid Valve Tricuspid valve not well visualized, grossly normal. Mild tricuspid regurgitation. No evidence of pulmonary hypertension. Right ventricular systolic pressure estimated to be elevated at 48 mmHg. Pulmonic Valve Pulmonic valve not well visualized, grossly normal. Trace pulmonic regurgitation. Pericardium Small pericardial effusion. Great Vessels Normal size aortic root and proximal ascending aorta. CONCLUSIONS Normal size left ventricle. Normal left ventricular ejection fraction visually estimated at > 60%. Mild mitral regurgitation. Mild aortic regurgitation. Right ventricular systolic pressure estimated to be elevated at 48 mmHg. Small pericardial effusion. Nolan Garcia M.D. (Electronically Signed) Final Date: 28 April 2016 09:14 MEASUREMENTS (Male / Female) Normal Values 2D ECHO LV Diastolic Diameter PLAX 4.9 cm 4.2 - 5.9 / 3.9 - 5.3 cm LV Systolic Diameter PLAX 2.9 cm 2.1 - 4.0 cm LV Fractional Shortening PLAX 40.8 % 25 - 46 % LV Ejection Fraction 2D Teich 71.4 % IVS Diastolic Thickness 1.0 cm LVPW Diastolic Thickness 0.8 cm LV Relative Wall Thickness 0.4 RV Internal Dim ED PLAX 2.9 cm 1.9 - 3.8 cm LVOT Diameter 1.8 cm Aortic Root Diameter 2.6 cm LA Systolic Diameter LX 3.8 cm 3.0 - 4.0 / 2.7 - 3.8 cm LA Volume 39.3 cm 18 - 58 / 22 - 52 cm LA Volume Index 24.0 cm/m 16 - 28 cm/m Ascending Aorta Diameter 2.6 cm DOPPLER AV Peak Velocity 200.0 cm/s AV Peak Gradient 16.0 mmHg AV Mean Velocity 139.0 cm/s AV Mean Gradient 9.0 mmHg AV Velocity Time Integral 37.8 cm LVOT Peak Velocity 186.0 cm/s LVOT Peak Gradient 13.8 mmHg LVOT Mean Velocity 126.0 cm/s LVOT Mean Gradient 7.0 mmHg LVOT Velocity Time Integral 32.8 cm LVOT Stroke Volume 83.5 cm AV Area Cont Eq vti 2.2 cm AV Area Cont Eq pk 2.4 cm MV Peak Velocity 129.0 cm/s MV Peak Gradient 6.7 mmHg MV Mean Velocity 85.2 cm/s MV Mean Gradient 3.0 mmHg Mitral E Point Velocity 123.0 cm/s Mitral A Point Velocity 109.0 cm/s Mitral E to A Ratio 1.1 MV PHT Velocity 125.0 cm/s MV Deceleration Summers 927.0 cm/s MV Pressure Half Time 40.5 ms MV Area PHT 5.4 cm MV Deceleration Time 166.0 ms TR Peak Velocity 327.0 cm/s TR Peak Gradient 42.8 mmHg Right Atrial Pressure 5.0 mmHg Pulmonary Artery Systolic Pressu 47.8 mmHg Right Ventricular Systolic Press 47.8 mmHg PV Peak Velocity 116.0 cm/s PV Peak Gradient 5.4 mmHg PV Mean Velocity 77.8 cm/s PV Mean Gradient 3.0 mmHg PV Velocity Time Integral 21.8 cm LV E' Lateral Velocity 14.0 cm/s Mitral E to LV E' Lateral Ratio 8.8 LV E' Septal Velocity 9.5 cm/s Mitral E to LV E' Septal Ratio 12.9
--- NOTE | 2016-04-28 10:08 | PN- Cardiology ---
Subjective Subjective: The patient reports that she is feeling well. No recent chest pain. No palpitations. He continues to have sinus tachycardia, and occasional premature ventricular contractions. Objective Vital Signs and I&Os Vital Signs Date Time Temp Pulse Resp B/P Pulse O2 O2 Flow FiO2 Ox Delivery Rate 04/28 0851 99 Nasal 3.0L Cannula 04/28 08 98.0 108 18 100/56 96 Nasal 3.0L Cannula 04/28 0800 Nasal 3.0L Cannula 04/28 0009 98.5 111 18 108/58 96 Room Air 04/28 0000 94 Nasal 3.0L Cannula 04/27 2133 96 Nasal 3.0L Cannula 04/27 1616 98.3 114 20 110/66 95 Nasal 3.0L Cannula 04/27 1141 95 Nasal 3.0L Cannula Intake & Output 04/28 1600 04/28 0800 04/28 0000 04/27 1600 04/27 0800 04/27 0000 Intake Total 425 1065 665 150 680 Output Total 725 575 240 300 350 Balance -300 490 425 -150 330 Intake, IV 125 360 0 200 Intake, Oral 300 705 665 150 480 Number 1 2 0 4 Bowel Movements Output, Urine 725 575 240 300 350 Physical Exam: Gen: The patient is in no acute distress HEENT: Normal nose, ears, and oropharynx. Pupils equal bilaterally. Conjunctiva normal. Neck: Supple with no JVD, no masses, and no thyromegaly Lungs: Clear to auscultation with normal respiratory effort Heart: tachycardic, S1, S2, 1/6 systolic murmur. 1+ peripheral edema, 2+ pulses in the lower extremities bilaterally Abdomen: Soft, nontender, no masses. No hepatomegaly. No splenomegaly Extremities: No clubbing or cyanosis. Normal muscle strength in the upper and lower extremities. Skin: Normal skin turgor with no skin ulcers or lesions noted. Neuro: Cranial nerves intact. Sensation intact Current Medications: Current Medications Sig/Olga Start time Last Medication Dose Route Stop Time Status Admin Acetaminophen 500 MG Q6P PRN 04/22 1545 AC PO Albuterol Sulfate 3 ML Q4P PRN 04/22 1930 AC 04/27 INH 2132 Amoxicillin/ 500 MG Q12 04/25 1359 AC 04/28 Clavulanate Potassium PO 04/28 1800 0936 Atorvastatin Calcium 20 MG DAILY@1700 04/23 1700 AC 04/27 PO 1631 Calcitriol 0.25 MCG DAILY 04/23 1000 AC 04/28 PO 0936 Calcium Carbonate 1,250 MG DAILY 04/23 1000 AC 04/28 PO 0936 Fentanyl Citrate 50 MCG Q3D 04/22 1545 AC 04/25 TOP 1549 Guaifenesin 10 ML Q6P PRN 04/22 1545 AC PO Insulin Aspart 0 TIDAC 04/22 1700 AC 04/28 SC 0821 Lorazepam 0.5 MG TID PRN 04/22 1545 AC 04/24 PO 04/29 1544 1801 Magnesium Oxide 400 MG BID 04/25 1529 AC 04/27 PO 0900 Magnesium Sulfate 1 GM ONCE ONE 04/28 0745 AC 04/28 Dextrose/Water 100 ML IV 04/28 1144 0821 Magnesium Sulfate 1 GM Q2H 04/27 2200 DC 04/28 Dextrose/Water 100 ML IV 04/28 0159 0130 Magnesium Sulfate 1 GM ONCE ONE 04/27 1445 DC 04/27 Dextrose/Water 100 ML IV 04/27 1844 1631 Morphine Sulfate 15 MG BID 04/22 1542 04/25 PO 0948 Omeprazole 40 MG DAILY AC 04/23 0700 AC 04/28 PO 0618 Oxycodone/ 1 TAB Q6P PRN 04/22 1545 AC 04/28 Acetaminophen PO 0939 Potassium Chloride 40 MEQ ONCE ONE 04/27 1445 DC 04/27 PO 04/27 1446 1631 Ropinirole HCl 1 MG BID 04/22 2200 AC 04/28 PO 0936 Results Last 48 Hrs of Labs/Mics: Laboratory Tests 04/28/16 0630: Anion Gap 6, Estimated GFR > 60, BUN/Creatinine Ratio 21.7, Magnesium 1.7, Total Bilirubin 2.0 H, Direct Bilirubin 1.4 H, AST 24, ALT 35, Alkaline Phosphatase 402 H, Total Protein 4.8 L, Albumin 2.1 L, CBC w Diff MAN DIFF ORDERED, RBC 2.90 L, MCV 94.8, MCH 31.8 H, RDW 20.1 H, MPV 9.4, Gran % 86.7 H, Lymphocytes % 2.9 L, Monocytes % 2.4, Eosinophils % 8.0 H, Basophils % 0 L, Absolute Granulocytes 13.8 H, Segmented Neutrophils 78 H, Band Neutrophils 12 H, Absolute Lymphocytes 0.5 L, Lymphocytes 1 L, Monocytes 2, Absolute Monocytes 0.4, Eosinophils 4, Absolute Eosinophils 1.3, Absolute Basophils 0, Metamyelocytes 2 H, Myelocytes 1 H, Platelet Estimate DECREASED, Polychromasia 1+, Anisocytosis 1+, PUBS MCHC 33.5 04/27/16 0550: Anion Gap 6, Estimated GFR > 60, BUN/Creatinine Ratio 20.0, Magnesium 1.4 L, Total Bilirubin 2.2 H, Direct Bilirubin 1.8 H, AST 33, ALT 35, Alkaline Phosphatase 415 H, Total Protein 4.9 L, Albumin 2.2 L, CBC w Diff MAN DIFF ORDERED, RBC 2.91 L, MCV 93.8, MCH 31.9 H, RDW 19.6 H, MPV 9.0, Gran % 81.3 H, Lymphocytes % 3.5 L, Monocytes % 1.8, Eosinophils % 13.4 H, Basophils % 0 L, Absolute Granulocytes 9.9 H, Segmented Neutrophils 63, Band Neutrophils 23 H, Absolute Lymphocytes 0.4 L, Lymphocytes 5 L, Monocytes 3, Absolute Monocytes 0.2, Eosinophils 6 H, Absolute Eosinophils 1.6, Absolute Basophils 0, Nucleated RBCs 1 H, Poikilocytosis 1+, Anisocytosis 2+, PUBS MCHC 34.0 04/26/16 1319: Anion Gap 6, Estimated GFR > 60, BUN/Creatinine Ratio 25.7 H, Magnesium 1.2 L, Total Bilirubin 1.8 H, Direct Bilirubin 1.4 H, AST 50 H, ALT 35, Alkaline Phosphatase 409 H, Total Protein 5.1 L, Albumin 2.3 L, CBC w Diff MAN DIFF ORDERED, RBC 2.96 L, MCV 93.3, MCH 31.6 H, RDW 19.8 H, MPV 10.0, Gran % 6.4 L, Lymphocytes % 3.9 L, Monocytes % 71.4 H, Eosinophils % 18.2 H, Basophils % 0.1, Absolute Granulocytes 0.5 L, Segmented Neutrophils 66, Band Neutrophils 14 H, Absolute Lymphocytes 0.3 L, Lymphocytes 10 L, Monocytes 5, Absolute Monocytes 5.9 H, Eosinophils 5, Absolute Eosinophils 1.5, Absolute Basophils 0, Poikilocytosis 1+, Anisocytosis 2+, PUBS MCHC 33.8 Microbiology 04/26 2249 STOOL: Clostridium difficile Toxin A & B - COMP Recent Imaging Studies: Echocardiogram: Normal size left ventricle. Normal left ventricular ejection fraction visually estimated at > 60%. Mild mitral regurgitation. Mild aortic regurgitation. Right ventricular systolic pressure estimated to be elevated at 48 mmHg. Small pericardial effusion. Assessment/Plan Assessment/Plan Assessment: 1. Metastatic lung cancer 2. Hypertension 3. Neutropenia 4. Streptococcal pharyngitis with possible sepsis 5. Sinus tachycardia 6. Premature ventricular contractions 7. Hypomagnesemia, improved 8. Frequent premature ventricular contractions 9. Normal ejection fraction on echocardiogram a small pericardial effusion plan: * Cardiac status is stable. * Okay to discontinue telemetry. Continue telemetry? No
--- NOTE | 2016-04-28 11:46 | Patient Discharge Instructions ---
Discharge Instructions General Discharge Information You were seen/treated for: Streptococcal throat infection Neutropenia/low WBC count Special Instructions: Please follow-up with your PCP within a week of discharge or symptoms get worse including fever and throat pain Please follow-up with your oncologist for further management of lung cancer Please take the all the medication as advised Diet Continue normal diet: No (HEART HEALTHY DIET) Activity Full Activity/No Limits: No ( TOLERATED) Activity Self Limited: No Acute Coronary Syndrome Inclusion Criteria At DC or during hospital stay patient has or had the following: ACS DIAGNOSIS No Discharge Core Measures Meds if any: Prescribed or Continued at Discharge ANDRÉS/ARB if EF <40% No Meds if any: NOT Prescribed or Continued at Discharge Congestive Heart Failure Inclusion Criteria At DC or during hospital stay patient has or had the following: CHF DIAGNOSIS No Discharge Core Measures Meds if any: Prescribed or Continued at Discharge Meds if any: NOT Prescribed or Continued at Discharge Cerebrovascular accident Inclusion Criteria At DC or during hospital stay patient has or had the following: CVA/TIA Diagnosis No Discharge Core Measures Meds if any: Prescribed or Continued at Discharge Meds if any: NOT Prescribed or Continued at Discharge Venous thromboembolism Inclusion Criteria VTE Diagnosis No VTE Type NONE VTE Confirmed by (Test) NONE Discharge Core Measures - Per Current guidelines, there needs to be overlap - treatment for the first 5 days of Warfarin therapy. - If discharged on Warfarin prior to 5 days of - overlap therapy, the patient will need to be - assessed for post discharge needs including - *Post discharge parental anticoagulation - *Warfarin and/or parental anticoagulation education - *Follow up date to check INR post discharge At least 5 days overlap therapy as Inpatient No Meds if any: Prescribed or Continued at Discharge Warfarin No Note: Overlap Therapy is Warfarin and Anticoagulant Meds if any: NOT Prescribed or Continued at Discharge
--- NOTE | 2016-04-28 12:53 | PN- Att Addend ---
Attending Addendum Attending Brief Note Patient is sitting comfortably at edge of the bed and looks brighter. She is febrile here at finishing antibiotics but her white count is up the patient is stable for discharge today is positional home with home care and therapy to follow closely with oncologist and myself did see the CMR . Intake & Output 04/28 1600 04/27 04004/26 0400 Intake Total 425 1065 815 680 680 800 Output Total 725 575 540 350 600 Balance -300 490 275 330 80 800 Intake, IV 125 360 0 200 0 200 Intake, Oral 300 705 815 480 680 600 Number 1 2 4 2 Bowel Movements Output, Urine 725 575 540 350 600 Laboratory Tests 04/28/16 0630: Anion Gap 6, Estimated GFR > 60, BUN/Creatinine Ratio 21.7, Magnesium 1.7, Total Bilirubin 2.0 H, Direct Bilirubin 1.4 H, AST 24, ALT 35, Alkaline Phosphatase 402 H, Total Protein 4.8 L, Albumin 2.1 L, CBC w Diff MAN DIFF ORDERED, RBC 2.90 L, MCV 94.8, MCH 31.8 H, RDW 20.1 H, MPV 9.4, Gran % 86.7 H, Lymphocytes % 2.9 L, Monocytes % 2.4, Eosinophils % 8.0 H, Basophils % 0 L, Absolute Granulocytes 13.8 H, Segmented Neutrophils 78 H, Band Neutrophils 12 H, Absolute Lymphocytes 0.5 L, Lymphocytes 1 L, Monocytes 2, Absolute Monocytes 0.4, Eosinophils 4, Absolute Eosinophils 1.3, Absolute Basophils 0, Metamyelocytes 2 H, Myelocytes 1 H, Platelet Estimate DECREASED, Polychromasia 1+, Anisocytosis 1+, PUBS MCHC 33.5 04/27/16 0550: Anion Gap 6, Estimated GFR > 60, BUN/Creatinine Ratio 20.0, Magnesium 1.4 L, Total Bilirubin 2.2 H, Direct Bilirubin 1.8 H, AST 33, ALT 35, Alkaline Phosphatase 415 H, Total Protein 4.9 L, Albumin 2.2 L, CBC w Diff MAN DIFF ORDERED, RBC 2.91 L, MCV 93.8, MCH 31.9 H, RDW 19.6 H, MPV 9.0, Gran % 81.3 H, Lymphocytes % 3.5 L, Monocytes % 1.8, Eosinophils % 13.4 H, Basophils % 0 L, Absolute Granulocytes 9.9 H, Segmented Neutrophils 63, Band Neutrophils 23 H, Absolute Lymphocytes 0.4 L, Lymphocytes 5 L, Monocytes 3, Absolute Monocytes 0.2, Eosinophils 6 H, Absolute Eosinophils 1.6, Absolute Basophils 0, Nucleated RBCs 1 H, Poikilocytosis 1+, Anisocytosis 2+, PUBS MCHC 34.0 04/26/16 1319: Anion Gap 6, Estimated GFR > 60, BUN/Creatinine Ratio 25.7 H, Magnesium 1.2 L, Total Bilirubin 1.8 H, Direct Bilirubin 1.4 H, AST 50 H, ALT 35, Alkaline Phosphatase 409 H, Total Protein 5.1 L, Albumin 2.3 L, CBC w Diff MAN DIFF ORDERED, RBC 2.96 L, MCV 93.3, MCH 31.6 H, RDW 19.8 H, MPV 10.0, Gran % 6.4 L, Lymphocytes % 3.9 L, Monocytes % 71.4 H, Eosinophils % 18.2 H, Basophils % 0.1, Absolute Granulocytes 0.5 L, Segmented Neutrophils 66, Band Neutrophils 14 H, Absolute Lymphocytes 0.3 L, Lymphocytes 10 L, Monocytes 5, Absolute Monocytes 5.9 H, Eosinophils 5, Absolute Eosinophils 1.5, Absolute Basophils 0, Poikilocytosis 1+, Anisocytosis 2+, PUBS MCHC 33.8 04/26/16 0630: Stool Occult Blood NEGATIVE 04/25/16 1931: CBC w Diff NO MAN DIFF REQ, RBC 2.65 L, MCV 94.1, MCH 31.8 H, RDW 20.0 H, MPV 10.6 H, Gran % 69.0, Lymphocytes % 5.6 L, Monocytes % 8.7, Eosinophils % 16.6 H, Basophils % 0.1, Absolute Granulocytes 3.2, Absolute Lymphocytes 0.3 L, Absolute Monocytes 0.4, Absolute Eosinophils 0.8, Absolute Basophils 0, PUBS MCHC 33.8 Microbiology 04/26 2249 STOOL: Clostridium difficile Toxin A & B - COMP Microbiology 04/26 2249 STOOL: Clostridium difficile Toxin A & B - COMP
--- NOTE | 2016-04-28 21:51 | Discharge Summary ---
See Addendum Visit Information Visit Dates Admission Date: 04/22/16 Discharge Date: 04/28/16 Hospital Course Course Attending Physician: MARY KNOX MD Primary Care Physician: MARY KNOX MD Consulting Request: Consulting Specialty: Hematology/Oncology (heme) Hospital Course: Patient is a 70-year-old female with a history that is significant past medical history of COPD on 3 liters of oxygen , adenocarcinoma of lung, status post left upper lobectomy 3 years prior to the admission with a recurrence 15 months prior to admission, treated with radiation therapy and chemotherapy, which she continues to receive, currently on a three week on/one week off regimen, most recently 5 days prior to admission, via a Port-A-Cath that was inserted in her right upper chest at the time of her recurrence, with a PET scan 3 months prior to admission revealing enlarging mediastinal adenopathy, enlarging hepatic masses, abnormal upper retroperitoneal lymph nodes and abnormal nodularity in the left adrenal gland, all suspicious for metastatic disease, last hospitalized one year prior to admission with pneumococcal/Staph aureus pneumonia, treated with a four-week course of IV Cefazolin, admitted with hx of sore throat, poor PO intake, fall at home and increased weakness. Vital signs at the time of admission temperature 99.7, pulse 127, respiratory rate 24, blood pressure 105/67, SPO2 94% on 2 liters of nasal cannula Streptococcal sore throat On evaluation, we found that the patient was having positive streptococcal sore throat infection. We took the ID consult and an started him on IV Unasyn followed by the tablet Augmentin for total 7 days. Hypomagnesemia with bigeminy/trigeminy on EKG - The episode the patient in the telemetry and gave IV and by mouth magnesium with a target of 2. At the time of admission. Her magnesium level was 0.6 and at the time of discharge was 1.7. We advised to take tablet magnesium 400 milligrams twice a day and follow-up with the PCP for further evaluation and management Neutropenia At the time of admission her WBC count, was 1.7 which dropped down to 0.9. We took oncology consultation and they advised to give her Neupogen. It helped her and her count rises to 15.9 at the time of discharge.We took serial blood cultures, but they were negative. Hyperbilirubinemia - We did the CT scan of ABd and pelvis, to r/o infection and during this time we found her GB is contracted. We followed it up by doing USG RUQ, which didnt showed any intra/extra hepatic obstruction of CBD. It seems that his bilirubin can be due to compression of intrahepatic ducts secondary to the metastasis and increased alkaline phosphatase may be secondary to bony involvement. Lung cancer with metastasis- We evaluated the patient by doing MRI brain to see if there is any metastasis, which shows there is no any intracranial mass or enhancement is suggestive of intracranial metastatic disease. According to Dr. Mccoy, he will follow the patient as an outpatient for further management of her lung cancer. Allergies: Coded Allergies: adhesive tape (BLISTERS 05/17/15) heparin (UNKNOWN 05/17/15) Pertinent Lab Results: MRI brain - There are a few scattered chronic small vessel ischemic changes within the periventricular white matter. No evidence of acute territorial infarct or hemorrhage.There is no abnormal intracranial mass or enhancement to suggest the presence of intracranial metastatic disease. Disposition Summary Disposition Principal Diagnosis: Streptococcal throat infection Neutropenia Pancytopenia Hyperbilirubinemia Hypomagnesemia Additional Diagnosis: Adenocarcinoma of the lung, status post left upper lung lobectomy, with IV chemotherapy for 3 weeks/ 1 week off. COPD on 3 liters of oxygen Discharge Disposition: home or self care Discharge Instructions General Discharge Information Code Status: Full Code Patient's Diet: Regular diet Patient's Activity: As tolerated Follow-Up Instructions/Appts: Please follow-up with your PCP within a week of discharge or symptoms get worse including fever and throat pain Please follow-up with your oncologist for further management of lung cancer Please take the all the medication as advised Medications at Discharge Discharge Medications: Continue taking these medications: Ropinirole HCl (Requip) 1 MG TABLET 1 Tablet ORAL TWICE DAILY Comments: Last Taken: 04/28/16 Time: 9AM Calcium Carbonate (Calcium) 600 MG (1,500 MG) TABLET 1 Tablet ORAL DAILY Comments: Last Taken: 04/28/16 Time: 9AM Metformin HCl (Metformin HCl) 1,000 MG TABLET 1 Tablet ORAL TWICE DAILY Qty = 180 Comments: NOT GIVEN IN HOSPITAL Lorazepam (Lorazepam) 0.5 MG TABLET 1 Tablet ORAL THREE TIMES DAILY as needed for SLEEP Qty = 60 Comments: Last Taken: 04/24/16 Time: 6PM Hydrocodone/Chlorphen P-Stirex (Hydrocodone-Chlorphen ER Susp) 10 MG-8 MG/5 ML MANDO.ER.12H 5 Milliliters ORAL Q6H as needed for COUGH Qty = 230 Comments: NOT GIVEN IN HOSPITAL Dapagliflozin Propanediol (Farxiga) 10 MG TABLET 1 Tablet ORAL DAILY Qty = 30 Comments: NOT GIVEN IN HOSPITAL Oxycodone HCl/Acetaminophen (Oxycodone-Acetaminophen 10-325) 10 MG-325 MG TABLET 1 Tablet ORAL Q6H as needed for PAIN Qty = 120 Comments: Last Taken: 04/28/16 Time: 9:30AM Pantoprazole Sodium (Pantoprazole Sodium) 40 MG TABLET.DR 1 Tablet ORAL DAILY Qty = 90 Comments: Last Taken: 04/28/16 Time: 6AM Fentanyl (Fentanyl) 50 MCG/HOUR PATCH.TD72 1 Patch On the skin Every 3 days Qty = 10 Comments: Last Taken: 04/28/16 Time: 1600 Saxagliptin (Onglyza) 5 MG TABLET 1 Tablet ORAL DAILY Qty = 90 Comments: NOT GIVEN IN HOSPITAL Acetaminophen (Tylenol Arthritis) 650 MG TABLET.ER 1 Tablet ORAL as needed for PAIN Comments: Last Taken: 04/22/16 Time: 9PM Naproxen Sodium (Aleve) 220 MG CAPSULE 2 Capsule ORAL as needed for PAIN Comments: NOT GIVEN IN HOSPITAL Albuterol Sulfate (Proair Hfa) 90 MCG HFA.AER.AD 2 Puff Inhale through mouth EVERY 4-6 HOURS NEEDED as needed for SOB Comments: Last Taken: 04/27/16 Time: 9:30PM NEBULIZER Atorvastatin Calcium (Lipitor) 20 MG TABLET 1 Tablet ORAL DAILY Comments: Last Taken: 04/27/16 Time: 4:30PM Calcitriol (Calcitriol) 0.25 MCG CAPSULE 1 Capsule ORAL DAILY Comments: Last Taken: 04/28/16 Time: 9AM Cholecalciferol (Vitamin D3) (Vitamin D3) 2,000 UNIT CAPSULE 1 Capsule ORAL DAILY Comments: NOT GIVEN IN HOSPITAL Lisinopril (Lisinopril) 5 MG TABLET 1 Tablet ORAL DAILY Comments: NOT GIVEN IN HOSPITAL Morphine Sulfate (Ms Contin) 15 MG TABLET.ER 1 Tablet ORAL TWICE DAILY Comments: Last Taken: 04/25/16 Time: 10AM Potassium Chloride (Potassium Chloride) 20 MEQ TAB.ER.PRT 1 Tablet ORAL DAILY Comments: Last Taken: 04/27/16 Time: 4:30PM PT GIVEN 40MEQ Tiotropium [place] (Spiriva) 18 MCG CAP.W.DEV 1 Capsule Inhale through mouth DAILY Comments: NOT GIVEN IN HOSPITAL Copies To: SARAH BETH OWENS,IRVIN Attending MD Review Statement Documenting Attending: MARY KNOX MD
== END 2016-04-28 15:15 | disposition home health service (06) | DRG 152 ==
LOC: ENRESERVTM → CANRESERV → ENRESERVDT → ERH 11:14 → 1NO 14:57 → ERHI 14:57 → EDBEDREQTM 16:05 → EDBEDREQ 16:05 → 1NO 17:51
PROVIDERS: Internal Medicine; Physician Assistant; Student in an Organized Health Care Education/Training Program; ADMIT Internal Medicine
PROC: 30233N1 Transfusion of Nonautologous Red Blood Cells into Peripheral Vein, Percutaneous Approach (ICD-10-PCS; principal; 2016-04-25)
DX: J02.0 Streptococcal pharyngitis (principal); D61.810 Antineoplastic chemotherapy induced pancytopenia; C78.7 Secondary malignant neoplasm of liver and intrahepatic bile duct; C79.70 Secondary malignant neoplasm of unspecified adrenal gland; C79.51 Secondary malignant neoplasm of bone; D70.9 Neutropenia, unspecified; E83.42 Hypomagnesemia; C34.12 Malignant neoplasm of upper lobe, left bronchus or lung; I10 Essential (primary) hypertension; E78.5 Hyperlipidemia, unspecified; J44.9 Chronic obstructive pulmonary disease, unspecified; K21.9 Gastro-esophageal reflux disease without esophagitis; E11.9 Type 2 diabetes mellitus without complications; Z79.84 Long term (current) use of oral hypoglycemic drugs; D69.59 Other secondary thrombocytopenia; T45.1X5A Adverse effect of antineoplastic and immunosuppressive drugs, initial encounter; R62.7 Adult failure to thrive; I49.3 Ventricular premature depolarization; R13.10 Dysphagia, unspecified
CPT/HCPCS: 1NP; 70552; 36415; 70553; 74177; 81001; 82436; 86920; 87040; 87804; 87804-59; 93005; 93010; 93306; 97110-GO; 97116-GO; 97161-GP; 97530-GO; 99291; A9579; J1442; J2997; J3490; J7040; J7060; P9016; Q2036

== ENCOUNTER 2016-04-30 14:01 | Inpatient (IN) | payer OTHER, MEDICARE ==
[~2016-04-30] VITALS: Ht 162.6 cm; Wt 66.8 kg
[~2016-04-30 14:01] MED LIST changes: +ALEVE220 M1 PO; +CALCITRIOL0.25 MC1 PO; +CALCIUM600 M2 PO; +FARXIGA10 M1 PO; +FENTANYL1 EAC3 TOP; +HYDROCODONE-CH115 ML PO; +LIPITOR20 M2 PO; +LISINOPRIL5 M1 PO; +LORAZEPAM0.5 M1 PO; +METFORMIN HCL1000 M1 PO; +MS CONTIN15 M2 PO; +ONGLYZA5 M1 PO; +OXYCODONE-ACET1 EAC1 PO; +PANTOPRAZOLE SO40 M1 PO; +POTASSIUM CHLO20 ME2 PO; +PROAIR HFA8.5 GM INH; +SPIRIVA18 MCG INH; +TYLENOL ARTHRI650 M1 PO; +VITAMIN D32000 UNIT PO
--- NOTE | 2016-04-30 14:29 | ED GENERAL ADULT ---
History of Present Illness General Chief Complaint: General Adult Stated Complaint: WEAKNESS, ?DEHYDRATED, LEGS SWOLLEN Source: patient, family, old records Exam Limitations: no limitations Vital Signs & Intake/Output Vital Signs & Intake/Output Vital Signs Date Time Temp Pulse Resp B/P Pulse O2 O2 Flow FiO2 Ox Delivery Rate 05/02 0400 94 Nasal 3.0L Cannula 05/02 0000 94 Nasal 3.0L Cannula 05/02 0000 98.5 106 20 108/54 94 Nasal 3.0L Cannula 05/01 2000 95 Nasal 3.0L Cannula 05/01 1600 94 Nasal 3.0L Cannula 05/01 1600 100.1 112 19 92/48 93 Nasal 3.0L Cannula 05/01 1332 Nasal 3.0L Cannula 05/01 1332 94 Nasal 3.0L Cannula 05/01 1200 94 Nasal 3.0L Cannula ED Intake and Output 05/02 0000 05/01 1200 Intake Total 1652 1270 Output Total 420 480 Balance 1232 790 Intake, IV 932 1270 Intake, Oral 720 0 Number 1 Bowel Movements Output, Urine 420 480 Patient 147 lb Weight Allergies Coded Allergies: adhesive tape (BLISTERS 05/17/15) heparin (UNKNOWN 05/17/15) Reconcile Medications Acetaminophen (Tylenol Arthritis) 650 MG TABLET.ER 1 TAB PO PRN PAIN ( Reported) Albuterol Sulfate (Proair Hfa) 90 MCG HFA.AER.AD 2 PUF INH Q4-6 PRN PRN SOB ( Reported) Atorvastatin Calcium (Lipitor) 20 MG TABLET 1 TAB PO DAILY CHOLESTEROL ( Reported) Calcitriol 0.25 MCG CAPSULE 1 CAP PO DAILY LOW VIT D AND CALCIUM (Reported) Calcium Carbonate (Calcium) 600 MG (1,500 MG) TABLET 1 TAB PO DAILY SUPPLEMENT (Reported) Cholecalciferol (Vitamin D3) (Vitamin D3) 2,000 UNIT CAPSULE 1 CAP PO DAILY SUPPLEMENT (Reported) Dapagliflozin Propanediol (Farxiga) 10 MG TABLET 1 TAB PO DAILY DM (Reported) Fentanyl 50 MCG/HOUR PATCH.TD72 1 PAT TOP Q3D PAIN (Reported) Hydrocodone/Chlorphen P-Stirex (Hydrocodone-Chlorphen ER Susp) 10 MG-8 MG/5 ML MANDO.ER.12H 5 ML PO Q6H PRN COUGH (Reported) Lisinopril 5 MG TABLET 1 TAB PO DAILY BP (Reported) Lorazepam 0.5 MG TABLET 1 TAB PO TID PRN SLEEP (Reported) Metformin HCl 1,000 MG TABLET 1 TAB PO BID DM (Reported) Morphine Sulfate (Ms Contin) 15 MG TABLET.ER 1 TAB PO BID PAIN (Reported) Naproxen Sodium (Aleve) 220 MG CAPSULE 2 CAP PO PRN PAIN (Reported) Oxycodone HCl/Acetaminophen (Oxycodone-Acetaminophen 10-325) 10 MG-325 MG TABLET 1 TAB PO Q6H PRN PAIN (Reported) Pantoprazole Sodium 40 MG TABLET.DR 1 TAB PO DAILY GI (Reported) Potassium Chloride 20 MEQ TAB.ER.PRT 1 TAB PO DAILY LOW POTASSIUM (Reported) Ropinirole HCl (Requip) 1 MG TABLET 1 TAB PO BID RESTLESS LEGS (Reported) Saxagliptin (Onglyza) 5 MG TABLET 1 TAB PO DAILY DM (Reported) Tiotropium [place] (Spiriva) 18 MCG CAP.W.DEV 1 CAP INH DAILY COPD (Reported) Triage Note: PER PT AND SENT IN FOR READMIT BY [facility], PT TOO WEAK TO BE AT HOME. NOT EATING HYPOTENSIVE AND DEHYDRATED Triage Nurses Notes Reviewed? yes Onset: Gradual Duration: worse persistent since (3 days) Timing: recent history Injury Environment: home Severity: moderate Severity Numbers: 7 No Modifying Factors: none HPI: Patient is a 70-year-old female presenting to the emergency department with chief complaint of generalized malaise, fatigue and weakness that have been getting worse over the past 3 days. She was recently discharged from the hospital. She was admitted for approximately one week for neutropenic fever, strep throat. She was given IV antibiotics. She reports that she did not feel well and he discharged her bed was told that she should improve every day. Per family she's been unable to get out of bed for the past 3 days. She usually is ambulatory throughout the house without any assistance. She has not gotten her chemotherapy while she was admitted to the hospital. Patient reports that the sore throat has improved. Denies any fevers or chills but reports malaise. Denies any urinary frequency urgency or dysuria. No sputum production. She does report increasing enlarged from a swelling bilaterally. Denies chest pain. (ELADIO STOKES) Past History Travel History Traveled to [place] past 21 day No Medical History Any Pertinent Medical History? 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 No (ELADIO STOKES) Review of Systems Review of Systems Constitutional: Reports: malaise, weakness. Comments Review of systems: See HPI, All other systems negative. Constitutional, no chills weight loss HEENT: No visual changes no sore throat no congestion Cardiovascular: No chest pain ,palpitation , orthopnea or ankle swelling Skin, no jaundice no rashes Respiratory: No cough sputum or hemoptysis GI: NO DIARRHEA : No dysuria No hematuria Muscle skeletal: no back pain, no neck pain, Neurologic: No numbness no confusion no coles Psych: No stress anxiety or depression,. Heme/endocrine: No bruising no bleeding no polyuria or polydipsia Immunology: No splenectomy or history of AIDS (ELADIO STOKES) Physical Exam Physical Exam General Appearance: alert, awake, comfortable, thin Comments: THIN person in no acute distress HEENT: Pupils equally round and reactive to light and accommodation. Nose is atraumatic. External auditory canal and Tympanic membranes clear. Pharynx normal. No swelling or edema. Very dry oral mucosa. Neck: Supple, no lymphadenopathy, normal range of motion without pain or tenderness Back: Nontender, no CVA tenderness. Cardiovascular: Tachycardic rate and regular rhythms no murmurs rubs or gallops, normal JVP Respiratory: Chest nontender. No respiratory distress.diminished breath sounds to auscultation bilaterally, more so diminished on left. Nasal cannula in place. Abdomen: Soft, diffuse tenderness without rebound or guarding, nondistended, no appreciable organomegaly. Normal bowel sounds. No ascites Extremity: 2+ pitting edema in the lower extremity as bilaterally. No calf Pain. Pedal pulses are 2+ bilaterally. Muscular strength is 3 out of 5 while seated on the stretcher in all extremities. Neuro: Alert oriented x3, cranial nerves II through XII grossly intact. Skin: No appreciable rash on exposed skin, skin is warm and dry. Psych: Mood and affect is normal, memory and judgment is normal. Core Measures ACS in differential dx? No CVA/TIA Diagnosis: No Severe Sepsis Present: No Septic Shock Present: Yes BC x2: Yes Lactic Acid: Yes IV ABX Broad Spectrum: Yes Focused Exam Completed: Yes NS/LR 30ml/kg w/in 3hrs: Yes (INFUSING SLOWLY DUE TO POSITIO) Comment: IV fluids were infusing slowly once initiated, patient does have lower extremity edema we were ruling out fluid overload, CHF. Recent EF is good on echo. IV fluids initiated again afterwards. (LETICIA DIAL,ELADIO) Progress Differential Diagnoses I considered the following diagnoses in my evaluation of the patient: Pneumonia , CHF, dependent edema, viral syndrome, influenza, dehydration, failure to thrive, metastatic disease, anasarca Plan of Care: Orders Procedure Date/time Status ICU LAB BUNDLE 05/02 0500 Complete CBC WITHOUT DIFFERENTIAL 05/02 0500 Complete Hair, Insertion/Removal/Asses 05/01 1608 Active RT: Reevaluation 05/01 1331 Active RT: Evaluation 05/01 1331 Active Lab Add-on Test 05/01 1232 Active Lab Add-on Test 05/01 0855 Active PRE-ALBUMIN 05/01 0430 Complete LDH (LACT ACID DEHYDROGENASE) 05/01 0430 Complete THERAPIST ORDERS 05/01 UNK Complete Therapeutic Activities 05/01 UNK Complete PT EVAL LOW COMPLEX 20 MIN 05/01 UNK Complete Change service to 05/01 UNK Active NUTRITIONAL CONSULT 05/01 UNK Active Current Medications Sig/Olga Start time Last Medication Dose Stop Time Status Admin Insulin Aspart 0 TIDAC 05/01 1200 AC (NovoLOG) Lorazepam 0.5 MG TIDPRN PRN 04/30 2330 AC (Ativan) 05/07 2329 Oxycodone/ 1 TAB Q6P PRN 04/30 2330 AC Acetaminophen (Percocet) Acetaminophen 650 MG Q6P PRN 04/30 2115 AC (Tylenol) Laboratory Tests 05/02/16 0435: Anion Gap 5, Estimated GFR > 60, Glucose 103 H, Calcium 7.5 L, Phosphorus 3.6, Magnesium 1.5 L, Total Bilirubin 2.0 H, AST 29, ALT 30, Albumin 2.0 L, CBC w Diff MAN DIFF ORDERED, RBC 2.57 L, MCV 95.3, MCH 32.1 H, RDW 19.1 H, MPV 9.0, Gran % 86.5 H, Lymphocytes % 2.9 L, Monocytes % 6.0, Eosinophils % 4.5, Basophils % 0.1, Absolute Granulocytes 14.0 H, Segmented Neutrophils 85 H, Band Neutrophils 7 H, Absolute Lymphocytes 0.5 L, Lymphocytes 3 L, Monocytes 1 L, Absolute Monocytes 1.0 H, Eosinophils 3, Absolute Eosinophils 0.7, Absolute Basophils 0, Metamyelocytes 1, Platelet Estimate DECREASED, Polychromasia 1+, Poikilocytosis 1+, Ovalocytes 1+, PUBS MCHC 33.7, Fld Total RBCs Counted 100 05/01/16 0945: Fluid WBC 58 H, Fld Total RBCs Counted 139 H 05/01/16 0945: Lymphocytes 26, % Normal PMNs 14, Misc Hematology Test 54, Fluid Glucose 87, Fluid Total Protein < 2.0, Fluid Albumin < 1.0, Fluid LDH 593, Fluid Amylase < 30 Microbiology 05/01 1110 STOOL: Clostridium difficile Toxin A & B - COMP 05/01 944 BODY FLUID: Body Fluid Culture - RES 05/01 944 BODY FLUID: Gram Stain - RES Patient seen and evaluated with JAYRO Huang. Patient represents with not feeling well, low-grade fever and low blood pressure. Suspect sepsis patient will be admitted to the ICU. (VANIA OWENS,EMILIA) Diagnostic Imaging: Viewed by Me: Radiology Read. Discussed w/RAD: Radiology Read. Radiology Impression: PRESENT AGE: 70 PATIENT ACCOUNT NO: [id number] : 47 LOCATION: [facility] ORDERING PHYSICIAN: ELADIO DIAL SERVICE DATE: 0 EXAM TYPE: RAD - XRY-PORTABLE CHEST XRAY EXAMINATION: XR PORTABLE CHEST CLINICAL INFORMATION: Shortness of breath. COMPARISON: CT chest from 04/23/2016 TECHNIQUE: Portable AP view of the chest was obtained. FINDINGS: There is a right-sided port tip extending to the cavoatrial junction. There are postsurgical changes in the left hemithorax with near complete opacification of the left hemithorax and leftward mediastinal shift, unchanged from the prior CT. The right lung appears grossly clear. No evidence of right-sided pleural effusion or pneumothorax. The osseous structures are not ideally assessed but no acute osseous abnormalities are evident. IMPRESSION: No convincing change from the prior CT of 04/23/2016 with both postsurgical change as well as near complete opacification with volume loss in the left hemithorax., PANCREAS: Pancreas is atrophic. SPLEEN: Unremarkable. ADRENAL GLANDS: Enlargement of the adrenals bilaterally. Left adrenal nodule measuring 1.7 cm. Right adrenal gland is mildly enlarged as well. These are similar to the prior PET/CT exam of 2015. KIDNEYS AND URETERS: The kidneys are normal in size, shape, and attenuation. No hydronephrosis, hydroureter, or calculi seen. No perinephric stranding. BLADDER: Obscured by streak artifact from the right hip total hip replacement. GASTROINTESTINAL TRACT: Diverticulosis of left colon sigmoid. No diverticulitis. No bowel wall thickening or edema. No bowel obstruction. The appendix is not seen. The small bowel loops are normal. Moderate volume of abdominal ascites. The abdominal ascites is new since the PET/CT exam of 2015. ABDOMINAL WALL: There is generalized anasarca. No ventral wall hernia. LYMPH NODES: Stable retroperitoneal lymph nodes. Largest near the left renal pedicle measuring 1.6 cm transverse. This measured 1.5 cm on prior CAT scan. VASCULAR: Vascular wall calcifications of the aorta and iliac arteries. Normal enhancement of the splenic vein and portal vein. PELVIC VISCERA: Pelvis obscured by streak artifact from right hip replacement. OSSEOUS STRUCTURES: Vacuum disc phenomenon L2-L3 with central depression of the inferior endplate of L2 is chronic in appearance. Mild degenerative facet joint arthrosis at lower lumbar spine. Degenerative lipping at the anterior endplates of the lower thoracic vertebrae. Status post right hip replacement. IMPRESSION: 1. Increasing metastatic disease of liver. 2. Moderate volume of abdominal ascites which is new since prior exam. Generalized anasarca. 3. Small left pleural effusion. 4. Enlargement of the adrenal glands bilateral similar to prior PET/CT study of . 5. Diverticulosis of left colon. No acute change of the bowel. DICTATED BY: JOCELYN SCHNEIDER MD Initial ED EKG: SINUS TACHYCARDIA AT 117 BPM, pvc Prior EKG: unchanged Comments: On arrival patient is afebrile, hypotensive, she reports that she has not been eating or drinking over the past 3 days since being discharged. Every time she tries to eat or drink she was vomiting up the food. She does have reproducible pain on exam with no rebound or guarding. We will assess a CBC, CMP, flu swab, chest x-ray. Patient will also have repeat CT of the abdomen. Patient medicated with IV fluids. Patient for CT scan. Blood pressure still 80 /60. Patient will likely need to go to the ICU for hypotension, Sirs. Pending CT scan. Spoke with Dr. Kerr, he will admit the patient. Emilia Majano MD Evaluated the Patient As Well as agrees with plan. No source of infection at this time. White blood cell count is trending up. Lactic acid is positive. Patient is hypotensive. 04/30/2016 6:59:48 PMPatient may need IV pressors/central line blood pressure does not respond to fluids. Patient still infusing second liter. She was taken off fluids well. Again. (ELDAIO STOKES) Differential Diagnoses I considered the following diagnoses in my evaluation of the patient: (VANIA OWENS,EMILIA) Departure Departure Time of Disposition: 1708 Disposition: STILL A PATIENT Condition: Stable Clinical Impression Primary Impression: SIRS (systemic inflammatory response syndrome) Referrals: MARY KERR MD (PCP/Family) Departure Forms: Customer Survey General Discharge Information Admission Note Spoke With: MARY KERR MD Documentation of Exam: Documentation of any treatments & extenuating circumstances including Concerns Regarding Discharge (functional status, medication knowledge or non-compliance, living conditions, etc.) that warrant an admission rather than observation: Patient requiring IV antibiotic, blood cultures return, pending labs, infectious disease consultation, GI consultation secondary to metastasis to liver, (ELADIO STOKES) 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 I have also reviewed all the pertinent lab results and diagnostic results. I agree with the findings and the plan of care as documented in the PA's/BLOW MOLD OPERATOR's documentation. [X] I have reviewed the ED Record and agree with the PA's/BLOW MOLD OPERATOR's documentation. [] Additions or exceptions (if any) to the PAs/BLOW MOLD OPERATOR's note and plan are summarized below: [] (VANIA OWENS,EMILIA) Critical Care Note Critical Care Note Critical Care Time: 75-104 min (LETICIA DIAL,ELADIO)
[2016-04-30 14:42] LABS: ABSOLUTE BASOPHIL COUNT 0.2 /CUMM (0.0-0.2); ABSOLUTE EOSINOPHIL COUNT 0.8 /CUMM (0.0-0.7); ABSOLUTE GRANULOCYTE CT 15.2 /CUMM (1.4-6.5); ABSOLUTE LYMPH COUNT 0.5 /CUMM (1.2-3.4); ABSOLUTE MONOCYTE COUNT 2.3 /CUMM (0.10-0.60); BASOPHIL % 0.9 % (0.0-2.0); EOSINOPHIL % 4.3 % (0-5); GRANULOCYTE % 80.3 % (42.2-75.2); HEMATOCRIT 29.9 % (37-47); MEAN CORPUSCULAR HGB 31.6 PG (27.0-31.0); MEAN CORPUSCULAR HGB CONC 33.4 G/DL (33.0-37.0); MEAN CORPUSCULAR VOLUME 94.6 FL (81.0-99.0); MEAN PLATELET VOLUME 9.3 FL (7.4-10.4); PLATELET COUNT 87 /CUMM (130-400); RBC DISTRIBUTION WIDTH 19.3 % (11.5-14.5); RED BLOOD CELL CT 3.16 /CUMM (4.20-5.40); WHITE BLOOD CELL COUNT 18.9 /CUMM (4.8-10.8)
--- NOTE | 2016-04-30 15:10 | RADIOLOGY REPORT ---
EXAMINATION: XR PORTABLE CHEST CLINICAL INFORMATION: Shortness of breath. COMPARISON: CT chest from 04/23/2016 TECHNIQUE: Portable AP view of the chest was obtained. FINDINGS: There is a right-sided port tip extending to the cavoatrial junction. There are postsurgical changes in the left hemithorax with near complete opacification of the left hemithorax and leftward mediastinal shift, unchanged from the prior CT. The right lung appears grossly clear. No evidence of right-sided pleural effusion or pneumothorax. The osseous structures are not ideally assessed but no acute osseous abnormalities are evident. IMPRESSION: No convincing change from the prior CT of 04/23/2016 with both postsurgical change as well as near complete opacification with volume loss in the left hemithorax.
--- NOTE | 2016-04-30 18:10 | CT SCAN REPORT ---
EXAMINATION: CT ABDOMEN AND PELVIS WITH CONTRAST CLINICAL INFORMATION: Fever. Pain. COMPARISON: Ultrasound abdomen 04/23/2016. PET/CT 02/05/2016. TECHNIQUE: Multidetector volumetric imaging was performed of the abdomen and pelvis before and after the IV administration of 95 mL of Optiray 320 intravenous contrast. Sagittal and coronal reformatted images were obtained on the technologist's workstation. DLP: 346.28 mGy-cm FINDINGS: LUNG BASES: Small left pleural effusion. Pacemaker lead at base of right ventricle. Small pericardial calcifications along the left side of the heart. LIVER, GALLBLADDER, AND BILIARY TREE: Extensive metastatic lesions throughout the liver. The size and number of the lesions have increased since PET/CT exam of 02/05/2016. For example, there is a lesion in the mid left lobe of the liver measuring 3 cm, image 130 (3). This previously measured 2.4 cm. The largest lesion is seen in the posterior right lobe of the liver measuring 6 cm transverse. This previously measured 4.5 cm. There is no intrahepatic bile duct dilatation. Gallbladder is contracted. No bile duct dilatation. PANCREAS: Pancreas is atrophic. SPLEEN: Unremarkable. ADRENAL GLANDS: Enlargement of the adrenals bilaterally. Left adrenal nodule measuring 1.7 cm. Right adrenal gland is mildly enlarged as well. These are similar to the prior PET/CT exam of 02/05/2016. KIDNEYS AND URETERS: The kidneys are normal in size, shape, and attenuation. No hydronephrosis, hydroureter, or calculi seen. No perinephric stranding. BLADDER: Obscured by streak artifact from the right hip total hip replacement. GASTROINTESTINAL TRACT: Diverticulosis of left colon sigmoid. No diverticulitis. No bowel wall thickening or edema. No bowel obstruction. The appendix is not seen. The small bowel loops are normal. Moderate volume of abdominal ascites. The abdominal ascites is new since the PET/CT exam of 02/05/2016. ABDOMINAL WALL: There is generalized anasarca. No ventral wall hernia. LYMPH NODES: Stable retroperitoneal lymph nodes. Largest near the left renal pedicle measuring 1.6 cm transverse. This measured 1.5 cm on prior CAT scan. VASCULAR: Vascular wall calcifications of the aorta and iliac arteries. Normal enhancement of the splenic vein and portal vein. PELVIC VISCERA: Pelvis obscured by streak artifact from right hip replacement. OSSEOUS STRUCTURES: Vacuum disc phenomenon L2-L3 with central depression of the inferior endplate of L2 is chronic in appearance. Mild degenerative facet joint arthrosis at lower lumbar spine. Degenerative lipping at the anterior endplates of the lower thoracic vertebrae. Status post right hip replacement. IMPRESSION: 1. Increasing metastatic disease of liver. 2. Moderate volume of abdominal ascites which is new since prior exam. Generalized anasarca. 3. Small left pleural effusion. 4. Enlargement of the adrenal glands bilateral similar to prior PET/CT study of 02/05/2016. 5. Diverticulosis of left colon. No acute change of the bowel.
--- NOTE | 2016-04-30 19:05 | Admission Certification ---
Admission Certification Certification Statement - As attending physician, I certify that at the time of - admission, based on clinical presentation, severity of - symptoms, need for further diagnostic testing and - therapeutic interventions, and risk of adverse outcomes - without in-hospital treatment, in my clinical assessment, - this patient requires an acute hospital stay for a minimum - of two nights or longer. I have also considered psychsocial - factors such as support system, advanced age, financial - issues, cognitive issues, and failed out-patient treatments, - past re-admission history, safety of patient, and lack of - compliance as applicable. Specific rationale supporting this admission is: Generalized weakness , leg edema, fever and durty urine leukocytosis
--- NOTE | 2016-04-30 19:10 | PN- Att Addend ---
Attending Addendum Attending Brief Note 70-year-old female status post lung cancer with recent admission with low white count. Neck fever strep throat that improved and maintained very weak at home the visiting nurse noted some leg edema, also that the urine was dark and cloudy. Comes back to the emergency room with a low-grade fever, low blood pressure and white count much elevated compared to the discharge and will be admitted pancultured gently hydrated. ID input for antibiotic treatment Laboratory Tests 04/30 04/30 1705 1430 Chemistry Sodium (137 - 145 mmol/L) 135 L Potassium (3.5 - 5.1 mmol/L) 4.1 Chloride (98 - 107 mmol/L) 97 L Carbon Dioxide (22 - 30 mmol/L) 29 Anion Gap (5 - 16) 8 BUN (7 - 17 mg/dL) 14 Creatinine (0.5 - 1.0 mg/dL) 0.6 Estimated GFR (>60 ml/min) > 60 BUN/Creatinine Ratio (7 - 25 %) 23.3 Glucose (65 - 99 mg/dL) 122 H Lactic Acid (0.7 - 2.1 mmol/L) 2.4 H Calcium (8.4 - 10.2 mg/dL) 7.8 L Total Bilirubin (0.2 - 1.3 mg/dL) 2.8 H AST (14 - 36 U/L) 56 H ALT (9 - 52 U/L) 29 Alkaline Phosphatase (<127 U/L) 473 H Troponin I (< 0.11 ng/ml) < 0.01 Total Protein (6.3 - 8.2 g/dL) 5.3 L Albumin (3.5 - 5.0 g/dL) 2.3 L Globulin (1.9 - 4.2 gm/dL) 3.0 Albumin/Globulin Ratio (1.1 - 2.2 %) 0.8 L Amylase (30 - 110 U/L) < 30 L Lipase (23 - 300 U/L) 92 Hematology CBC w Diff MAN DIFF ORDERED WBC (4.8 - 10.8 /CUMM) 18.9 H RBC (4.20 - 5.40 /CUMM) 3.16 L Hgb (12.0 - 16.0 G/DL) 10.0 L Hct (37 - 47 %) 29.9 L MCV (81.0 - 99.0 FL) 94.6 MCH (27.0 - 31.0 PG) 31.6 H RDW (11.5 - 14.5 %) 19.3 H Plt Count (130 - 400 /CUMM) 87 L MPV (7.4 - 10.4 FL) 9.3 Gran % (42.2 - 75.2 %) 80.3 H Lymphocytes % (20.5 - 51.1 %) 2.4 L Monocytes % (1.7 - 9.3 %) 12.1 H Eosinophils % (0 - 5 %) 4.3 Basophils % (0.0 - 2.0 %) 0.9 Absolute Granulocytes (1.4 - 6.5 /CUMM) 15.2 H Segmented Neutrophils (42.2 - 75.2 %) 78 H Band Neutrophils (0.0 - 5.0 %) 8 H Absolute Lymphocytes (1.2 - 3.4 /CUMM) 0.5 L Lymphocytes (20.5 - 51.1 %) 2 L Monocytes (1.7 - 9.3 %) 6 Absolute Monocytes (0.10 - 0.60 /CUMM) 2.3 H Eosinophils (0 - 5.0 %) 6 H Absolute Eosinophils (0.0 - 0.7 /CUMM) 0.8 Absolute Basophils (0.0 - 0.2 /CUMM) 0.2 Anisocytosis 1+ PUBS MCHC (33.0 - 37.0 G/DL) 33.4 Urines Urine Color (YEL,AMB,STR) KALEY Urine Clarity (CLEAR) HAZY H Urine pH (5.0 - 8.0) 5.5 Ur Specific [place] (1.001 - 1.035) >= 1.030 Urine Protein (NEG,<30 MG/DL) 30 H Urine Ketones (NEG) NEG Urine Nitrite (NEG) POS H Urine Bilirubin (NEG) POS@ICTO H Urine Urobilinogen (0.1 - 1.0 EU/dl) 1.0 Ur Leukocyte Esterase (NEG) NEG Ur Microscopic SEDIMENT EXAMINED Urine RBC (0 - 5 /HPF) RARE Ur Epithelial Cells (NONE,FEW) MANY H Urine Hemoglobin (NEG) NEG Urine Glucose (N MG/DL) NEG Vital Signs Date Time Temp Pulse Resp B/P Pulse O2 O2 Flow FiO2 Ox Delivery Rate 04/30 1842 90/52 04/30 1801 99.7 04/30 1800 99.7 88/58 04/30 1730 100.2 04/30 1652 100.2 118 20 84/54 97 Nasal 3.0L Cannula 04/30 1409 96.9 122 24 89/56 91 Nasal 3.0L Cannula Laboratory Tests 04/30/16 1705: Urine Color KALEY, Urine Clarity HAZY H, Urine pH 5.5, Ur Specific [place] >= 1.030, Urine Protein 30 H, Urine Ketones NEG, Urine Nitrite POS H, Urine Bilirubin POS@ICTO H, Urine Urobilinogen 1.0, Ur Leukocyte Esterase NEG, Ur Microscopic SEDIMENT EXAMINED, Urine RBC RARE, Ur Epithelial Cells MANY H, Urine Hemoglobin NEG, Urine Glucose NEG 04/30/16 1430: Anion Gap 8, Estimated GFR > 60, BUN/Creatinine Ratio 23.3, Glucose 122 H, Lactic Acid 2.4 H, Calcium 7.8 L, Total Bilirubin 2.8 H, AST 56 H, ALT 29, Alkaline Phosphatase 473 H, Troponin I < 0.01, Total Protein 5.3 L, Albumin 2.3 L, Globulin 3.0, Albumin/Globulin Ratio 0.8 L, Amylase < 30 L, Lipase 92, CBC w Diff MAN DIFF ORDERED, RBC 3.16 L, MCV 94.6, MCH 31.6 H, RDW 19.3 H, MPV 9.3, Gran % 80.3 H, Lymphocytes % 2.4 L, Monocytes % 12.1 H, Eosinophils % 4.3, Basophils % 0.9, Absolute Granulocytes 15.2 H, Segmented Neutrophils 78 H, Band Neutrophils 8 H, Absolute Lymphocytes 0.5 L, Lymphocytes 2 L, Monocytes 6, Absolute Monocytes 2.3 H, Eosinophils 6 H, Absolute Eosinophils 0.8, Absolute Basophils 0.2, Anisocytosis 1+, PUBS MCHC 33.4 Microbiology Date/Time Procedure - Status Source Growth 04/30 1453 Blood Culture - RECD BLOOD Orders Procedure Date/time Status Admit to inpatient 04/30 1819 Active LACTIC ACID 04/30 1725 Active Add-on Test (ER Only) 04/30 1512 Active EKG 04/30 1512 Active BLOOD CULTURE 04/30 1439 Active TROPONIN LEVEL 04/30 1430 Complete RAPID VIRAL INFLUENZA A 04/30 1425 Complete URINALYSIS 04/30 1425 Complete LIPASE 04/30 1425 Complete LACTIC ACID 04/30 1425 Complete COMPREHENSIVE METABOLIC PANEL 04/30 1425 Complete CBC WITHOUT DIFFERENTIAL 04/30 1425 Complete AMYLASE 04/30 1425 Complete
--- NOTE | 2016-04-30 21:11 | History & Physical ---
See Addendum General Information and HPI MD Statement: I have seen and personally examined LUDY QUEEN and documented this H&P. The patient is a 70 year old F who presented with a patient stated chief complaint of [weakness]. Source of Information: patient, family, old records Exam Limitations: no limitations History of Present Illness: Patient is a 70-year-old female with a history that is significant past medical history of COPD on 3 liters of oxygen , adenocarcinoma of lung, status post left upper lobectomy 3 years prior to the admission with a recurrence 15 months prior to admission, treated with radiation therapy and chemotherapy, which she continues to receive, currently on a three week on/one week off regimen, most recently 2 weeks prior to admission, via a Port-A-Cath that was inserted in her right upper chest at the time of her recurrence. Patient was recently discharged from the hospital 3 days ago, she was treated for neutropenic fever due to strep throat by IV Unasyn that was changed to by mouth Augmentin, her WBC count was 0.9 and the day of discharge was 15. Patient stated that since the discharge she didn't feel well, and she stated that she was too weak to carry on with her usual activity and she needed her family to help her to get out from the bed. She stated that her lower extremity and upper extremity edema she noticed that before she was discharged from the hospital, and she reports it is getting worse over the past 3 days and she reported increase in her abdominal girth, she reports decreased appetite, and she vomited 2 time, and she has decreased urine output. Patient reports loose stool without any bleeding, she states she has this for a long time. She is scheduled to get her chemotherapy tomorrow. Patient deny any chest pain, change in her breathing status, cough, abdominal pain, bloody bowel movement, hemoptysis, hematuria, dysuria, back pain, headache , change in vision or hearing. In the ED patient has fever of 100.2, patient received 2 L of IV fluid bolus, 1 dose of IV ceftriaxone, had WBC count showed leukocytosis with bandemia, CAT scan of the abdomen shows increased metastasis of the liver with moderate abdominal ascites that is new. Latest echocardiogram was done on this month that showed ejection fraction more than 60%, RSVP =48. Allergies/Medications Allergies: Coded Allergies: adhesive tape (BLISTERS 05/17/15) heparin (UNKNOWN 05/17/15) Home Med list Acetaminophen (Tylenol Arthritis) 650 MG TABLET.ER 1 TAB PO PRN PAIN ( Reported) Albuterol Sulfate (Proair Hfa) 90 MCG HFA.AER.AD 2 PUF INH Q4-6 PRN PRN SOB ( Reported) Atorvastatin Calcium (Lipitor) 20 MG TABLET 1 TAB PO DAILY CHOLESTEROL ( Reported) Calcitriol 0.25 MCG CAPSULE 1 CAP PO DAILY LOW VIT D AND CALCIUM (Reported) Calcium Carbonate (Calcium) 600 MG (1,500 MG) TABLET 1 TAB PO DAILY SUPPLEMENT (Reported) Cholecalciferol (Vitamin D3) (Vitamin D3) 2,000 UNIT CAPSULE 1 CAP PO DAILY SUPPLEMENT (Reported) Dapagliflozin Propanediol (Farxiga) 10 MG TABLET 1 TAB PO DAILY DM (Reported) Fentanyl 50 MCG/HOUR PATCH.TD72 1 PAT TOP Q3D PAIN (Reported) Hydrocodone/Chlorphen P-Stirex (Hydrocodone-Chlorphen ER Susp) 10 MG-8 MG/5 ML MANDO.ER.12H 5 ML PO Q6H PRN COUGH (Reported) Lisinopril 5 MG TABLET 1 TAB PO DAILY BP (Reported) Lorazepam 0.5 MG TABLET 1 TAB PO TID PRN SLEEP (Reported) Metformin HCl 1,000 MG TABLET 1 TAB PO BID DM (Reported) Morphine Sulfate (Ms Contin) 15 MG TABLET.ER 1 TAB PO BID PAIN (Reported) Naproxen Sodium (Aleve) 220 MG CAPSULE 2 CAP PO PRN PAIN (Reported) Oxycodone HCl/Acetaminophen (Oxycodone-Acetaminophen 10-325) 10 MG-325 MG TABLET 1 TAB PO Q6H PRN PAIN (Reported) Pantoprazole Sodium 40 MG TABLET.DR 1 TAB PO DAILY GI (Reported) Potassium Chloride 20 MEQ TAB.ER.PRT 1 TAB PO DAILY LOW POTASSIUM (Reported) Ropinirole HCl (Requip) 1 MG TABLET 1 TAB PO BID RESTLESS LEGS (Reported) Saxagliptin (Onglyza) 5 MG TABLET 1 TAB PO DAILY DM (Reported) Tiotropium [place] (Spiriva) 18 MCG CAP.W.DEV 1 CAP INH DAILY COPD (Reported) Past History Travel History Traveled to [place] past 21 day No Medical History Neurological: NONE EENT: NONE Cardiovascular: hypertension Respiratory: COPD, O2 DEPENDENT AT 3L Gastrointestinal: diverticulitis, GERD, SMALL BOWEL OBSTRUCTION Hepatic: NONE Renal: NONE Musculoskeletal: NONE Psychiatric: NONE Endocrine: diabetes Blood Disorders: NONE Cancer(s): adenocarcinoma in 2012, with recurrence diagnosed in December 2014 [employer]/Reproductive: NONE History of MRSA: No History of VRE: No History of CDIFF: No Surgical History Surgical History: hip replacement (right hip September 2013), hysterectomy, status post left upper lobectomy December 2012 status post lysis of adhesions for small bowel obstruction March 2012 Past Family/Social History Family History Relations & Conditions if any Relation not specified for: Diabetes mellitus FH: breast cancer Psychosocial History Services at Home: None Functional Ability ADLs Independent: eating, toileting. Needs Assist: dressing, bathing. Ambulation: walker Review of Systems Review of Systems Constitutional: Reports: see HPI. Cardiovascular: Reports: see HPI. Respiratory: Reports: see HPI. GI: Reports: see HPI. Genitourinary: Reports: see HPI. Exam & Diagnostic Data Last 24 Hrs of Vital Signs/I&O Vital Signs Date Time Temp Pulse Resp B/P Pulse O2 O2 Flow FiO2 Ox Delivery Rate 04/30 2120 99.1 101 20 82/50 94 Nasal 3.0L Cannula 04/30 1935 88/52 04/30 1842 90/52 04/30 1801 99.7 04/30 1800 99.7 88/58 04/30 1730 100.2 04/30 1652 100.2 118 20 84/54 97 Nasal 3.0L Cannula 04/30 1409 96.9 122 24 89/56 91 Nasal 3.0L Cannula Physical Exam General Appearance Alert, Oriented X3, Cooperative HEENT PERRLA, EOMI, Pale Neck Supple Cardiovascular Regular Rate, Normal S1, Normal S2 Lungs Clear to Auscultation, Normal Air Movement, Right Port cath note, clean Abdomen Normal Bowel Sounds, Soft, No Tenderness Extremities +2 bilateral lower extremity edema., upper extremity edema more on the right side Diagnostic Data EKG Results Normal sinus rhythm, PVC, no significant change compared with the previous. CXR Results IMPRESSION: No convincing change from the prior CT of 04/23/2016 with both postsurgical change as well as near complete opacification with volume loss in the left hemithorax. Other Results EXAMINATION: CT ABDOMEN AND PELVIS WITH CONTRAST: IMPRESSION: 1. Increasing metastatic disease of liver. 2. Moderate volume of abdominal ascites which is new since prior exam. Generalized anasarca. 3. Small left pleural effusion. 4. Enlargement of the adrenal glands bilateral similar to prior PET/CT study of 02/05/2016. 5. Diverticulosis of left colon. No acute change of the bowel Assessment/Plan Assessment: Patient is a 70-year-old female with a history that is significant past medical history of COPD on 3 liters of oxygen , adenocarcinoma of lung, status post left upper lobectomy 3 years prior to the admission with a recurrence 15 months prior to admission, treated with radiation therapy and chemotherapy. Problem list: -Septic shock. -Hypotension most likely secondary to the underlying ascites -Anasarca most likely due to increase metastasis of the liver. 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 -Leukocytosis with bandemia ? SBP. -Chronic anemia , Thrombocytopenia. -Transaminitis, elevated INR -Hyponatremia Plan: -Admit the patient to the ICU -Vitals every shift, strict FILIPPO's -US-Paracentesis to rule out SBP. -Panculture, continue IV ceftriaxone for now. -IV albumin with 150 mL/h normal saline -Keep blood pressure above SBP 85 -IV magnesium, recheck the level in morning. -Hold off home medication of lisinopril -Hold metformin, Accu-Chek, insulin sliding scale -Repeat ICU bundle and CBC in the morning for evaluation. -Pain pathway -Gastroenterology consultation in A.m -Oncology consultation in A.m -DVT prophylaxis: Alps -Patient agree for central line if needed. -DNI. As Ranked By This Provider Problem List: 1. Lung cancer 2. Thrombocytopenia 3. Anemia Core Measures/Miscellaneous Acute Coronary Syndrome ACS Diagnosis: No Cerebrovascular Accident CVA/TIA Diagnosis: No Congestive Heart Failure CHF Diagnosis: No Venous Thromboembolism VTE Risk Factors: Acute medical illness, Age > 40, Cancer/chemo/oth therapy VTE Prophylaxis Ordered Inpt: Mechanical (ALPS/TEDS) [facility] prophylaxis d/t: No contraindications No VTE Pharm Prophylaxis d/t: Platelets below ref range VTE Diagnosis: No VTE Type: NONE VTE Confirmed by (Test): NONE Severe Sepsis Severe Sepsis Present: No BC x2: Yes Lactic Acid x2: Yes Comment: IV fluids were infusing slowly once initiated, patient does have lower extremity edema we were ruling out fluid overload, CHF. Recent EF is good on echo. IV fluids initiated again afterwards. Septic Shock Septic Shock Present: Yes BC x2: Yes Lactic Acid: Yes IV ABX Broad Spectrum: Yes Focused Exam Completed: Yes NS/LR 30ml/kg w/in 3hrs: Yes (INFUSING SLOWLY DUE TO POSITIO) Miscellaneous Documentation Attending Case Discussed With: MARY KNOX MD Primary Care Physician: MARY KNOX MD Patient sees these Specialists Oncology Level of Patient Care: Critical Care (CRI)
[2016-04-30 21:30] LABS: PT 20.2 SEC (9.4-12.5); PTT 44 SEC (25-37)
[2016-04-30 23:00] VITALS: BP 98/54
[2016-05-01 05:01] LABS: ABSOLUTE BASOPHIL COUNT 0 /CUMM (0.0-0.2); ABSOLUTE EOSINOPHIL COUNT 0.6 /CUMM (0.0-0.7); ABSOLUTE GRANULOCYTE CT 13.8 /CUMM (1.4-6.5); ABSOLUTE LYMPH COUNT 0.2 /CUMM (1.2-3.4); ABSOLUTE MONOCYTE COUNT 0.7 /CUMM (0.10-0.60); BASOPHIL % 0.1 % (0.0-2.0); EOSINOPHIL % 3.9 % (0-5); GRANULOCYTE % 89.6 % (42.2-75.2); HEMATOCRIT 25.5 % (37-47); MEAN CORPUSCULAR HGB 31.6 PG (27.0-31.0); MEAN CORPUSCULAR HGB CONC 33.3 G/DL (33.0-37.0); MEAN CORPUSCULAR VOLUME 95.2 FL (81.0-99.0); MEAN PLATELET VOLUME 9.2 FL (7.4-10.4); PLATELET COUNT 82 /CUMM (130-400); RBC DISTRIBUTION WIDTH 19.3 % (11.5-14.5); RED BLOOD CELL CT 2.67 /CUMM (4.20-5.40); WHITE BLOOD CELL COUNT 15.4 /CUMM (4.8-10.8)
[2016-05-01 08:00] VITALS: BP 92/50
--- NOTE | 2016-05-01 08:02 | PN- Resident CRCU ---
Subjective HPI/CRCU Issues: No acute events overnight. Patient seen and examined this morning. She continues to feel weak. She has no new complaints. Objective Vital Signs & I&O Last 8 Hrs of Vitals and I&O: Vital Signs Date Time Temp Pulse Resp B/P Pulse O2 O2 Flow FiO2 Ox Delivery Rate 05/01 0800 100.2 114 18 92/50 92 Nasal 3.0L Cannula 05/01 0400 93 Nasal 3.0L Cannula 05/01 0000 95 Nasal 3.0L Cannula 04/30 2330 95 Nasal 3.0L Cannula 04/30 2300 98.3 104 12 98/54 95 Nasal 3.0L Cannula 04/30 2121 99.1 101 20 82/50 94 Nasal 3.0L Cannula 04/30 1935 88/52 04/30 1842 90/52 04/30 1801 99.7 04/30 1800 99.7 88/58 04/30 1730 100.2 04/30 1652 100.2 118 20 84/54 97 Nasal 3.0L Cannula 04/30 1409 96.9 122 24 89/56 91 Nasal 3.0L Cannula Exam General Appearance: no apparent distress, alert, awake, comfortable Ears, Nose, Throat: moist mucus membranes Respiratory: lungs clear Cardiovascular: tachycardia Gastrointestinal: soft, non-tender, distention, positive bowel sounds Extremities: bilateral lower extremities with 1+ edema Cranial Nerves: no gross focal deficits noted Current Medications: Current Medications Sig/Olga Start time Last Medication Dose Route Stop Time Status Admin Acetaminophen 650 MG Q6P PRN 04/30 2115 AC PO Acetaminophen 0 .STK-MED ONE 04/30 1716 DC IV Acetaminophen 1,000 MG ONCE ONE 04/30 171 DC 04/30 N/A 1 UNIT IV 04/30 172 1730 Albumin Human 25 GM ONCE ONE 04/30 2245 DC 05/01 IV 04/30 2246 0015 Atorvastatin Calcium 20 MG DAILY 05/01 1000 AC 05/01 PO 1039 Calcitriol 0.25 MCG DAILY 05/01 1000 AC 05/01 PO 1039 Calcium Carbonate 1,250 MG DAILY 05/01 1000 AC 05/01 PO 1039 Ceftriaxone Sodium 1,000 MG 1800 05/01 1800 AC IV Ceftriaxone Sodium 0 .STK-MED ONE 04/30 171 DC .ROUTE Ceftriaxone Sodium 1,000 MG ONCE ONE 04/30 1700 DC 04/30 IV 04/30 1701 1801 Cholecalciferol 2,000 IU DAILY 05/01 1000 AC 05/01 PO 1038 Insulin Aspart 0 TIDAC 05/01 1200 AC SC Insulin Aspart 0 TIDAC 05/01 0800 CAN SC Insulin Human Regular 0 Q6 04/30 2359 DC 05/01 SC 0535 Lidocaine 1 ML .STK-MED ONE 05/01 0959 DC ID 05/01 1000 Lorazepam 0.5 MG TIDPRN PRN 04/30 2330 AC PO 05/07 2329 Magnesium Sulfate 1 GM Q2H 05/01 1030 AC 05/01 Dextrose/Water 100 ML IV 05/01 1429 1209 Magnesium Sulfate 1 GM Q1H 04/30 2315 DC 05/01 Dextrose/Water 100 ML IV 05/01 0114 0043 Morphine Sulfate 15 MG BID 05/01 1000 AC 05/01 PO 1057 Oxycodone HCl 10 MG Q6P PRN 04/30 2115 DC PO Oxycodone/ 1 TAB Q6P PRN 04/30 2330 AC Acetaminophen PO Oxycodone/ 1 TAB Q6P PRN 04/30 2115 DC Acetaminophen PO Potassium Chloride 40 MEQ ONCE ONE 05/01 0845 DC 05/01 PO 05/01 0846 1039 Ropinirole HCl 1 MG BID 05/01 1000 AC 05/01 PO 1038 Sodium Chloride 1,000 ML ONCE ONE 04/30 2230 DC 04/30 IV 05/01 0509 2244 Sodium Chloride 1,000 ML BOLUS ONE 04/30 2215 CAN IV 05/01 0014 Sodium Chloride 1,000 ML BOLUS ONE 04/30 1700 DC 04/30 IV 04/30 1859 1714 Sodium Chloride 1,000 ML BOLUS ONE 04/30 1700 DC 04/30 IV 04/30 1859 1940 Tiotropium [place] 1 PUF DAILY 05/01 1000 AC 05/01 INH 1040 Results Results: Laboratory Tests 05/01 05/01 05/01 04/30 0945 0945 0430 2300 Chemistry Sodium (137 - 145 mmol/L) 137 Potassium (3.5 - 5.1 mmol/L) 3.6 Chloride (98 - 107 mmol/L) 102 Carbon Dioxide (22 - 30 mmol/L) 29 Anion Gap (5 - 16) 6 BUN (7 - 17 mg/dL) 12 Creatinine (0.5 - 1.0 mg/dL) 0.7 Estimated GFR (>60 ml/min) > 60 Glucose (65 - 99 mg/dL) 74 Lactic Acid (0.7 - 2.1 mmol/L) 1.1 Calcium (8.4 - 10.2 mg/dL) 7.2 L Phosphorus (2.5 - 4.5 mg/dL) 3.8 Magnesium (1.6 - 2.3 mg/dL) 1.5 L Total Bilirubin (0.2 - 1.3 mg/dL) 2.2 H AST (14 - 36 U/L) 47 H ALT (9 - 52 U/L) 32 Lactate Dehydrogenase (313 - 618 U/L) 2065 H Albumin (3.5 - 5.0 g/dL) 2.2 L Prealbumin (17.6 - 36.0 mg/dL) 4.7 L Hematology CBC w Diff MAN DIFF ORDERED WBC (4.8 - 10.8 /CUMM) 15.4 H RBC (4.20 - 5.40 /CUMM) 2.67 L Hgb (12.0 - 16.0 G/DL) 8.5 L Hct (37 - 47 %) 25.5 L MCV (81.0 - 99.0 FL) 95.2 MCH (27.0 - 31.0 PG) 31.6 H RDW (11.5 - 14.5 %) 19.3 H Plt Count (130 - 400 /CUMM) 82 L MPV (7.4 - 10.4 FL) 9.2 Gran % (42.2 - 75.2 %) 89.6 H Lymphocytes % (20.5 - 51.1 %) 1.6 L Monocytes % (1.7 - 9.3 %) 4.8 Eosinophils % (0 - 5 %) 3.9 Basophils % (0.0 - 2.0 %) 0.1 Absolute Granulocytes (1.4 - 6.5 /CUMM) 13.8 H Segmented Neutrophils (42.2 - 75.2 %) 81 H Band Neutrophils (0.0 - 5.0 %) 9 H Absolute Lymphocytes (1.2 - 3.4 /CUMM) 0.2 L Lymphocytes (%) 26 2 L Monocytes (1.7 - 9.3 %) 2 Absolute Monocytes (0.10 - 0.60 /CUMM) 0.7 H Eosinophils (0 - 5.0 %) 6 H Absolute Eosinophils (0.0 - 0.7 /CUMM) 0.6 Absolute Basophils (0.0 - 0.2 /CUMM) 0 % Normal PMNs (%) 14 Platelet Estimate (ADEQUATE) DECREASED Polychromasia 1+ Poikilocytosis 1+ Basophilic Stippling 1+ Ovalocytes 1+ Stomatocytes FEW PUBS MCHC (33.0 - 37.0 G/DL) 33.3 Misc Hematology Test (%) 54 Other Body Source Fluid WBC (0 - 5 /CUMM) 58 H Fld Total RBCs Counted (0 /CUMM) 139 H 100 Fluid Glucose (mg/dL) 87 Fluid Total Protein (g/dL) < 2.0 Fluid Albumin (g/dL) < 1.0 Fluid LDH (U/L) 593 Fluid Amylase (U/L) < 30 04/30 04/30 1705 1430 Chemistry Sodium (137 - 145 mmol/L) 135 L Potassium (3.5 - 5.1 mmol/L) 4.1 Chloride (98 - 107 mmol/L) 97 L Carbon Dioxide (22 - 30 mmol/L) 29 Anion Gap (5 - 16) 8 BUN (7 - 17 mg/dL) 14 Creatinine (0.5 - 1.0 mg/dL) 0.6 Estimated GFR (>60 ml/min) > 60 BUN/Creatinine Ratio (7 - 25 %) 23.3 Glucose (65 - 99 mg/dL) 122 H Lactic Acid (0.7 - 2.1 mmol/L) 2.4 H Calcium (8.4 - 10.2 mg/dL) 7.8 L Phosphorus (2.5 - 4.5 mg/dL) 4.2 Magnesium (1.6 - 2.3 mg/dL) 1.2 L Total Bilirubin (0.2 - 1.3 mg/dL) 2.8 H AST (14 - 36 U/L) 56 H ALT (9 - 52 U/L) 29 Alkaline Phosphatase (<127 U/L) 473 H Troponin I (< 0.11 ng/ml) < 0.01 Total Protein (6.3 - 8.2 g/dL) 5.3 L Albumin (3.5 - 5.0 g/dL) 2.3 L Globulin (1.9 - 4.2 gm/dL) 3.0 Albumin/Globulin Ratio (1.1 - 2.2 %) 0.8 L Amylase (30 - 110 U/L) < 30 L Lipase (23 - 300 U/L) 92 Coagulation PT (9.4 - 12.5 SEC) 20.2 H INR (0.90 - 1.19) 1.94 H APTT (25 - 37 SEC) 44 H Hematology CBC w Diff MAN DIFF ORDERED WBC (4.8 - 10.8 /CUMM) 18.9 H RBC (4.20 - 5.40 /CUMM) 3.16 L Hgb (12.0 - 16.0 G/DL) 10.0 L Hct (37 - 47 %) 29.9 L MCV (81.0 - 99.0 FL) 94.6 MCH (27.0 - 31.0 PG) 31.6 H RDW (11.5 - 14.5 %) 19.3 H Plt Count (130 - 400 /CUMM) 87 L MPV (7.4 - 10.4 FL) 9.3 Gran % (42.2 - 75.2 %) 80.3 H Lymphocytes % (20.5 - 51.1 %) 2.4 L Monocytes % (1.7 - 9.3 %) 12.1 H Eosinophils % (0 - 5 %) 4.3 Basophils % (0.0 - 2.0 %) 0.9 Absolute Granulocytes (1.4 - 6.5 /CUMM) 15.2 H Segmented Neutrophils (42.2 - 75.2 %) 78 H Band Neutrophils (0.0 - 5.0 %) 8 H Absolute Lymphocytes (1.2 - 3.4 /CUMM) 0.5 L Lymphocytes (20.5 - 51.1 %) 2 L Monocytes (1.7 - 9.3 %) 6 Absolute Monocytes (0.10 - 0.60 /CUMM) 2.3 H Eosinophils (0 - 5.0 %) 6 H Absolute Eosinophils (0.0 - 0.7 /CUMM) 0.8 Absolute Basophils (0.0 - 0.2 /CUMM) 0.2 Anisocytosis 1+ PUBS MCHC (33.0 - 37.0 G/DL) 33.4 Urines Urine Color (YEL,AMB,STR) KALEY Urine Clarity (CLEAR) HAZY H Urine pH (5.0 - 8.0) 5.5 Ur Specific [place] (1.001 - 1.035) >= 1.030 Urine Protein (NEG,<30 MG/DL) 30 H Urine Ketones (NEG) NEG Urine Nitrite (NEG) POS H Urine Bilirubin (NEG) POS@ICTO H Urine Urobilinogen (0.1 - 1.0 EU/dl) 1.0 Ur Leukocyte Esterase (NEG) NEG Ur Microscopic SEDIMENT EXAMINED Urine RBC (0 - 5 /HPF) RARE Ur Epithelial Cells (NONE,FEW) MANY H Urine Hemoglobin (NEG) NEG Urine Glucose (N MG/DL) NEG BCx (04/30/16): NGTD Impression/Plan Impression/Problem List Impression: 70 y/o F with PMHx of metastatic small cell lung cancer on chemotherapy, COPD on 3 L NC and T2DM who presents with generalized weakness. Problem List: 1. Generalized weakness 2. Anasarca 3. Small cell lung cancer 4. Metastatic lung cancer (metastasis from lung to other site) 5. Chronic anemia 6. Hypotension 7. Sepsis 8. Liver metastases 9. Type 2 diabetes mellitus Pain Ratin Tomorrow's Labs & Rationales: CBC and ICU bundle (ICU patient) Plan Respiratory: #Metastatic small cell lung cancer: On chemotherapy with weekly paclitaxel. Disease has progressed with CT Abdomen/Pelvis demonstrating increasing metastatic disease of the liver. * Oncology following. Appreciate their recs. * Continue discussions regarding goal of care with emphasis on symptomatic management given overall poor prognosis of refractory SCLC. * Consider MRI of the spine to look for metastases if lower extremity weakness persists. #COPD: Satting well and comfortable on 3 L NC, unchanged from her prior to admission oxygen requirement. * Continue prior to admission Spiriva 1 puff daily. * Continue to provide supplemental oxygen as needed to keep SpO2 > 92%. Infectious Diseases: #Sepsis: Met SIRS criteria for sepsis on admission with tachycardia and leukocytosis. Low-grade fever with Tmax 100.2 on admission which has persisted. Leukocytosis has shown slight improvement, WBC is 15.4 today, down from 18.9 on admission. Most likely source is SBP given anasarca 2/2 liver metastases. Pneumonia is unlikely as patient has no respiratory symptoms including increased cough or oxygen requrement and no focal infiltrates on CT Chest. Received 1 dose of ceftriaxone last night. * Continue ceftriaxone 1 g IV daily. * S/p paracentesis. Follow results of peritoneal fluid studies including gram stain and culture. * C diff ordered. * F/u BCx and UCx from admission. Cardiovascular: #Hypotension: Blood pressure 80s/50s on initial presentation. Secondary to sepsis vs. dehydration. S/p 1 L NS boluses x 3 with improvement of BP to 90-100s /50s. * Can watch off IV fluids as patient started eating. * Consider starting maintenance IVF if oral intake is poor or blood pressures run low. * Hold prior to admission antihypertensives. Hematology: #Chronic anemia: Hgb 10 on admission and 8.5 this morning, which appears to be baseline for patient. * Continue to monitor H/H. Metabolic: #T2DM: Takes metformin 1000 mg PO BID and saxagliptin 5 mg PO QD. * Hold oral hyperglycemic agents while inpatient. * Accu-checks and low dose Novolog SSI TIDAC. Alimentary: Consistent carbohydrate 2 Neurological: AAO X 3. No issues. Skin: No issues. DVT/Prophylaxis: mechanical Code Status: Do Not Intubate
--- NOTE | 2016-05-01 09:23 | Cons- Oncology ---
General Information and HPI Consulting Request Date of Consult: 05/01/16 Requested By: MARY KNOX MD Reason for Consult: lung cancer Source of Information: patient, old records Exam Limitations: no limitations History of Present Illness: Mrs. Francois is a 70-year-old female with metastatic small cell lung cancer, COPD on 3L NC normally, who presented to the hospital with general weakness and failure to thrive. She was recently hospitalized from 04/22 to 04/28 for neutropenic fever. This was felt to be likely from streptococcal pharyngitis. After discharge, she continued to feel weak. She reported decreased appetite, lower extremity edema, and abdominal distension. She had some loose stool but no diarrhea. Due to the severe deconditioning and weakness, the visiting nurse advised her to go back to the hospital. In the ED she was noted to be hypotensive, had leukocytosis, and low grade fever of 100.2. She was started on IVF and antibiotics. She was admitted to the ICU for further management. Currently she feels about the same with generalized weakness. She has no fever overnight. She underwent CT scan of the abdomen which demonstrated increasing liver disease and ascites. Allergies/Medications Allergies: Coded Allergies: adhesive tape (BLISTERS 05/17/15) heparin (UNKNOWN 05/17/15) Home Med List: Acetaminophen (Tylenol Arthritis) 650 MG TABLET.ER 1 TAB PO PRN PAIN ( Reported) Albuterol Sulfate (Proair Hfa) 90 MCG HFA.AER.AD 2 PUF INH Q4-6 PRN PRN SOB ( Reported) Atorvastatin Calcium (Lipitor) 20 MG TABLET 1 TAB PO DAILY CHOLESTEROL ( Reported) Calcitriol 0.25 MCG CAPSULE 1 CAP PO DAILY LOW VIT D AND CALCIUM (Reported) Calcium Carbonate (Calcium) 600 MG (1,500 MG) TABLET 1 TAB PO DAILY SUPPLEMENT (Reported) Cholecalciferol (Vitamin D3) (Vitamin D3) 2,000 UNIT CAPSULE 1 CAP PO DAILY SUPPLEMENT (Reported) Dapagliflozin Propanediol (Farxiga) 10 MG TABLET 1 TAB PO DAILY DM (Reported) Fentanyl 50 MCG/HOUR PATCH.TD72 1 PAT TOP Q3D PAIN (Reported) Hydrocodone/Chlorphen P-Stirex (Hydrocodone-Chlorphen ER Susp) 10 MG-8 MG/5 ML MANDO.ER.12H 5 ML PO Q6H PRN COUGH (Reported) Lisinopril 5 MG TABLET 1 TAB PO DAILY BP (Reported) Lorazepam 0.5 MG TABLET 1 TAB PO TID PRN SLEEP (Reported) Metformin HCl 1,000 MG TABLET 1 TAB PO BID DM (Reported) Morphine Sulfate (Ms Contin) 15 MG TABLET.ER 1 TAB PO BID PAIN (Reported) Naproxen Sodium (Aleve) 220 MG CAPSULE 2 CAP PO PRN PAIN (Reported) Oxycodone HCl/Acetaminophen (Oxycodone-Acetaminophen 10-325) 10 MG-325 MG TABLET 1 TAB PO Q6H PRN PAIN (Reported) Pantoprazole Sodium 40 MG TABLET.DR 1 TAB PO DAILY GI (Reported) Potassium Chloride 20 MEQ TAB.ER.PRT 1 TAB PO DAILY LOW POTASSIUM (Reported) Ropinirole HCl (Requip) 1 MG TABLET 1 TAB PO BID RESTLESS LEGS (Reported) Saxagliptin (Onglyza) 5 MG TABLET 1 TAB PO DAILY DM (Reported) Tiotropium [place] (Spiriva) 18 MCG CAP.W.DEV 1 CAP INH DAILY COPD (Reported) Current Medications: Current Medications Sig/Olga Start time Last Medication Dose Route Stop Time Status Admin Acetaminophen 650 MG Q6P PRN 04/30 2115 AC PO Acetaminophen 0 .STK-MED ONE 04/30 1717 DC IV Acetaminophen 1,000 MG ONCE ONE 04/30 1715 DC 04/30 N/A 1 UNIT IV 04/30 1729 1730 Albumin Human 25 GM ONCE ONE 04/30 2245 DC 05/01 IV 04/30 2246 0015 Atorvastatin Calcium 20 MG DAILY 05/01 1000 AC PO Calcitriol 0.25 MCG DAILY 05/01 1000 AC PO Calcium Carbonate 1,250 MG DAILY 05/01 1000 AC PO Ceftriaxone Sodium 1,000 MG 1800 05/01 1800 AC IV Ceftriaxone Sodium 0 .STK-MED ONE 04/30 1717 DC .ROUTE Ceftriaxone Sodium 1,000 MG ONCE ONE 04/30 1700 DC 04/30 IV 04/30 1701 1801 Cholecalciferol 2,000 IU DAILY 05/01 1000 AC PO Insulin Aspart 0 TIDAC 05/01 0800 CAN SC Insulin Human Regular 0 Q6 04/30 2359 AC 05/01 SC 0535 Lorazepam 0.5 MG TIDPRN PRN 04/30 2330 AC PO 05/07 2329 Magnesium Sulfate 1 GM Q1H 04/30 2315 DC 05/01 Dextrose/Water 100 ML IV 05/01 0114 0043 Morphine Sulfate 15 MG BID 05/01 1000 AC PO Oxycodone HCl 10 MG Q6P PRN 04/30 2115 DC PO Oxycodone/ 1 TAB Q6P PRN 04/30 2330 AC Acetaminophen PO Oxycodone/ 1 TAB Q6P PRN 04/30 2115 DC Acetaminophen PO Ropinirole HCl 1 MG BID 05/01 1000 AC PO Sodium Chloride 1,000 ML ONCE ONE 04/30 2230 DC 04/30 IV 05/01 0509 2244 Sodium Chloride 1,000 ML BOLUS ONE 04/30 2215 CAN IV 05/01 0014 Sodium Chloride 1,000 ML BOLUS ONE 04/30 1700 DC 04/30 IV 04/30 1859 1714 Sodium Chloride 1,000 ML BOLUS ONE 04/30 1700 DC 04/30 IV 04/30 1859 1940 Tiotropium [place] 1 PUF DAILY 05/01 1000 AC INH Review of Systems Review of Systems Constitutional: Reports: fever, weakness. Denies: chills. EENTM: Denies: blurred vision, double vision. Cardiovascular: Reports: palpitations, peripheral edema. Denies: chest pain. Respiratory: Reports: cough, short of breath. Denies: hemoptysis. GI: Reports: abdominal pain, bloating, distention, nausea. Denies: diarrhea, bloody stool, changes in stool, vomiting. Genitourinary: Denies: dysuria. Musculoskeletal: Denies: back pain. Hematologic/Endocrine: Denies: bruising, bleeding. Immunologic/Allergic: Denies: lymphadenopathy. All Other Systems: Reviewed and Negative Past History Travel History Traveled to [place] past 21 day No Medical History Blood Transfusion Hx: No Neurological: NONE EENT: NONE Cardiovascular: HYPOTENSION Respiratory: COPD, O2 DEPENDENT AT 3L Gastrointestinal: diverticulitis, GERD, SMALL BOWEL OBSTRUCTION Hepatic: NONE Renal: NONE Musculoskeletal: NONE Psychiatric: NONE Endocrine: diabetes Blood Disorders: NONE Cancer(s): adenocarcinoma in 2012, with recurrence diagnosed in December 2014 MAITRE D'/Reproductive: NONE Surgical History Surgical History: hip replacement (right hip September 2013), hysterectomy, status post left upper lobectomy December 2012 status post lysis of adhesions for small bowel obstruction March 2012 Family History Relations & Conditions If Any: Relation not specified for: Diabetes mellitus FH: breast cancer Psychosocial History Where Do You Live? Home Services at Home: Smoking Status: Former Smoker Functional Ability ADLs Independent: eating, toileting. Needs Assist: dressing, bathing. Ambulation: walker Exam & Diagnostic Data Vital Signs and I&O Vital Signs Date Time Temp Pulse Resp B/P Pulse O2 O2 Flow FiO2 Ox Delivery Rate 05/01 0400 93 Nasal 3.0L Cannula 05/01 0000 95 Nasal 3.0L Cannula 04/30 2330 95 Nasal 3.0L Cannula 04/30 2300 98.3 104 12 98/54 95 Nasal 3.0L Cannula 04/30 2121 99.1 101 20 82/50 94 Nasal 3.0L Cannula 04/30 1935 88/52 04/30 1842 90/52 04/30 1801 99.7 04/30 1800 99.7 88/58 04/30 1730 100.2 04/30 1652 100.2 118 20 84/54 97 Nasal 3.0L Cannula 04/30 1409 96.9 122 24 89/56 91 Nasal 3.0L Cannula Intake & Output 05/01 1600 05/01 0800 05/01 0000 Intake Total 1270 325 Output Total 480 180 Balance 790 145 Intake, IV 1270 325 Intake, Oral 0 Output, Urine 480 180 Patient 66.848 kg 66.678 kg Weight Physical Exam General Appearance: no apparent distress, alert, awake, comfortable Head: atraumatic Eyes: Bilateral: PERRL. Ears, Nose, Throat: normal pharynx, normal ENT inspection Neck: supple Respiratory: normal breath sounds, chest non-tender, quiet respiration, crackles Cardiovascular: edema, tachycardia Gastrointestinal: normal bowel sounds, soft, no organomegaly, distention Extremities: 1+ bilateral lower extremity edema Neurologic/Psych: no motor/sensory deficits, awake, alert, oriented x 3 Cranial Nerves: normal hearing, normal speech Skin: warm/dry Last 48 Hours of Lab Results: Laboratory Tests 05/01 04/30 0430 2300 Chemistry Sodium (137 - 145 mmol/L) 137 Potassium (3.5 - 5.1 mmol/L) 3.6 Chloride (98 - 107 mmol/L) 102 Carbon Dioxide (22 - 30 mmol/L) 29 Anion Gap (5 - 16) 6 BUN (7 - 17 mg/dL) 12 Creatinine (0.5 - 1.0 mg/dL) 0.7 Estimated GFR (>60 ml/min) > 60 Glucose (65 - 99 mg/dL) 74 Lactic Acid (0.7 - 2.1 mmol/L) 1.1 Calcium (8.4 - 10.2 mg/dL) 7.2 L Phosphorus (2.5 - 4.5 mg/dL) 3.8 Magnesium (1.6 - 2.3 mg/dL) 1.5 L Total Bilirubin (0.2 - 1.3 mg/dL) 2.2 H AST (14 - 36 U/L) 47 H ALT (9 - 52 U/L) 32 Albumin (3.5 - 5.0 g/dL) 2.2 L Hematology CBC w Diff MAN DIFF ORDERED WBC (4.8 - 10.8 /CUMM) 15.4 H RBC (4.20 - 5.40 /CUMM) 2.67 L Hgb (12.0 - 16.0 G/DL) 8.5 L Hct (37 - 47 %) 25.5 L MCV (81.0 - 99.0 FL) 95.2 MCH (27.0 - 31.0 PG) 31.6 H RDW (11.5 - 14.5 %) 19.3 H Plt Count (130 - 400 /CUMM) 82 L MPV (7.4 - 10.4 FL) 9.2 Gran % (42.2 - 75.2 %) 89.6 H Lymphocytes % (20.5 - 51.1 %) 1.6 L Monocytes % (1.7 - 9.3 %) 4.8 Eosinophils % (0 - 5 %) 3.9 Basophils % (0.0 - 2.0 %) 0.1 Absolute Granulocytes (1.4 - 6.5 /CUMM) 13.8 H Segmented Neutrophils (42.2 - 75.2 %) 81 H Band Neutrophils (0.0 - 5.0 %) 9 H Absolute Lymphocytes (1.2 - 3.4 /CUMM) 0.2 L Lymphocytes (20.5 - 51.1 %) 2 L Monocytes (1.7 - 9.3 %) 2 Absolute Monocytes (0.10 - 0.60 /CUMM) 0.7 H Eosinophils (0 - 5.0 %) 6 H Absolute Eosinophils (0.0 - 0.7 /CUMM) 0.6 Absolute Basophils (0.0 - 0.2 /CUMM) 0 Platelet Estimate (ADEQUATE) DECREASED Polychromasia 1+ Poikilocytosis 1+ Basophilic Stippling 1+ Ovalocytes 1+ Stomatocytes FEW PUBS MCHC (33.0 - 37.0 G/DL) 33.3 Other Body Source Fld Total RBCs Counted (%) 100 04/30 04/30 1705 1430 Chemistry Sodium (137 - 145 mmol/L) 135 L Potassium (3.5 - 5.1 mmol/L) 4.1 Chloride (98 - 107 mmol/L) 97 L Carbon Dioxide (22 - 30 mmol/L) 29 Anion Gap (5 - 16) 8 BUN (7 - 17 mg/dL) 14 Creatinine (0.5 - 1.0 mg/dL) 0.6 Estimated GFR (>60 ml/min) > 60 BUN/Creatinine Ratio (7 - 25 %) 23.3 Glucose (65 - 99 mg/dL) 122 H Lactic Acid (0.7 - 2.1 mmol/L) 2.4 H Calcium (8.4 - 10.2 mg/dL) 7.8 L Phosphorus (2.5 - 4.5 mg/dL) 4.2 Magnesium (1.6 - 2.3 mg/dL) 1.2 L Total Bilirubin (0.2 - 1.3 mg/dL) 2.8 H AST (14 - 36 U/L) 56 H ALT (9 - 52 U/L) 29 Alkaline Phosphatase (<127 U/L) 473 H Troponin I (< 0.11 ng/ml) < 0.01 Total Protein (6.3 - 8.2 g/dL) 5.3 L Albumin (3.5 - 5.0 g/dL) 2.3 L Globulin (1.9 - 4.2 gm/dL) 3.0 Albumin/Globulin Ratio (1.1 - 2.2 %) 0.8 L Amylase (30 - 110 U/L) < 30 L Lipase (23 - 300 U/L) 92 Coagulation PT (9.4 - 12.5 SEC) 20.2 H INR (0.90 - 1.19) 1.94 H APTT (25 - 37 SEC) 44 H Hematology CBC w Diff MAN DIFF ORDERED WBC (4.8 - 10.8 /CUMM) 18.9 H RBC (4.20 - 5.40 /CUMM) 3.16 L Hgb (12.0 - 16.0 G/DL) 10.0 L Hct (37 - 47 %) 29.9 L MCV (81.0 - 99.0 FL) 94.6 MCH (27.0 - 31.0 PG) 31.6 H RDW (11.5 - 14.5 %) 19.3 H Plt Count (130 - 400 /CUMM) 87 L MPV (7.4 - 10.4 FL) 9.3 Gran % (42.2 - 75.2 %) 80.3 H Lymphocytes % (20.5 - 51.1 %) 2.4 L Monocytes % (1.7 - 9.3 %) 12.1 H Eosinophils % (0 - 5 %) 4.3 Basophils % (0.0 - 2.0 %) 0.9 Absolute Granulocytes (1.4 - 6.5 /CUMM) 15.2 H Segmented Neutrophils (42.2 - 75.2 %) 78 H Band Neutrophils (0.0 - 5.0 %) 8 H Absolute Lymphocytes (1.2 - 3.4 /CUMM) 0.5 L Lymphocytes (20.5 - 51.1 %) 2 L Monocytes (1.7 - 9.3 %) 6 Absolute Monocytes (0.10 - 0.60 /CUMM) 2.3 H Eosinophils (0 - 5.0 %) 6 H Absolute Eosinophils (0.0 - 0.7 /CUMM) 0.8 Absolute Basophils (0.0 - 0.2 /CUMM) 0.2 Anisocytosis 1+ PUBS MCHC (33.0 - 37.0 G/DL) 33.4 Urines Urine Color (YEL,AMB,STR) KALEY Urine Clarity (CLEAR) HAZY H Urine pH (5.0 - 8.0) 5.5 Ur Specific [place] (1.001 - 1.035) >= 1.030 Urine Protein (NEG,<30 MG/DL) 30 H Urine Ketones (NEG) NEG Urine Nitrite (NEG) POS H Urine Bilirubin (NEG) POS@ICTO H Urine Urobilinogen (0.1 - 1.0 EU/dl) 1.0 Ur Leukocyte Esterase (NEG) NEG Ur Microscopic SEDIMENT EXAMINED Urine RBC (0 - 5 /HPF) RARE Ur Epithelial Cells (NONE,FEW) MANY H Urine Hemoglobin (NEG) NEG Urine Glucose (N MG/DL) NEG Imaging/Other Studies: Abdomen/pelvis CT 04/30/2016: 1. Increasing metastatic disease of liver. 2. Moderate volume of abdominal ascites which is new since prior exam. Generalized anasarca. 3. Small left pleural effusion. 4. Enlargement of the adrenal glands bilateral similar to prior PET/CT study of 02/05/2016. 5. Diverticulosis of left colon. No acute change of the bowel. Assessment/Plan Assessment: Ms. Francois is a 70-year-old female with history of metastatic small cell lung cancer who presents with failure to thrive and decondition. On admission she was noted to have low grade fever, leukocytosis with 9% bands, and elevated bilirubin. CT of the abdomen and pelvis demonstrated progression of liver disease. She has progressed through her recent treatment of weekly paclitaxel. Given her progression of disease, she will need a change of therapy. I discussed the overall prognosis of refractory SCLC with the patient. She understands that her disease is progressing. She wants to get stronger again to get therapy again. I discussed that if she does not improve much it will be difficult to give her therapy. I explained that we may need to think about a change in goals of care to more symptom management. For now, we will focus on treating infectious etiology and optimizing her condition. Leukocytosis may be related to infectious etiology. Recommendations: 1. Continue antibiotic coverage 2. Follow up blood cultures 3. If persistent lower extremity weakness, consider MRI spines for metastatic evaluation Problem List: 1. Hyperbilirubinemia 2. Sepsis 3. Lung cancer Other Findings/Comments: Please call [phone] with any questions or concerns. Consult Acknowledgment - Thank you for your consult request.
--- NOTE | 2016-05-01 12:08 | PN- Att Addend ---
Attending Addendum Attending Brief Note Patient in ICU, pressure still on the low side area patient was seen by oncology and recommendations were given. Findings of the abdominal CT were noted with some no anasarca and also had leg edema patient is very deconditioned very weak. Infectious disease consultation was requested. The cultures were obtained. Temp max was 100.6. No other new changes on physical continue monitoring vital signs labs and follow the recommendations from the consultants Current Medications Sig/Olga Start time Last Medication Dose Route Stop Time Status Admin Acetaminophen 650 MG Q6P PRN 04/30 2114 AC PO Acetaminophen 0 .STK-MED ONE 04/30 171 DC IV Acetaminophen 1,000 MG ONCE ONE 04/30 1715 DC 04/30 N/A 1 UNIT IV 04/30 1729 1730 Albumin Human 25 GM ONCE ONE 04/30 2245 DC 05/01 IV 04/30 2246 0015 Atorvastatin Calcium 20 MG DAILY 05/01 1000 AC 05/01 PO 1039 Calcitriol 0.25 MCG DAILY 05/01 1000 AC 05/01 PO 1039 Calcium Carbonate 1,250 MG DAILY 05/01 1000 AC 05/01 PO 1039 Ceftriaxone Sodium 1,000 MG 1800 05/01 1800 AC IV Ceftriaxone Sodium 0 .STK-MED ONE 04/30 1717 DC .ROUTE Ceftriaxone Sodium 1,000 MG ONCE ONE 04/30 1700 DC 04/30 IV 04/30 1701 1801 Cholecalciferol 2,000 IU DAILY 05/01 1000 AC 05/01 PO 1038 Insulin Aspart 0 TIDAC 05/01 1200 AC SC Insulin Aspart 0 TIDAC 05/01 0800 CAN SC Insulin Human Regular 0 Q6 04/30 2359 DC 05/01 SC 0535 Lidocaine 1 ML .STK-MED ONE 05/01 0959 DC ID 05/01 1000 Lorazepam 0.5 MG TIDPRN PRN 04/30 2330 AC PO 05/07 2329 Magnesium Sulfate 1 GM Q2H 05/01 1030 AC 05/01 Dextrose/Water 100 ML IV 05/01 1429 1041 Magnesium Sulfate 1 GM Q1H 04/30 2315 DC 05/01 Dextrose/Water 100 ML IV 05/01 0114 0043 Morphine Sulfate 15 MG BID 05/01 1000 AC 05/01 PO 1057 Oxycodone HCl 10 MG Q6P PRN 04/30 211 DC PO Oxycodone/ 1 TAB Q6P PRN 04/30 2330 AC Acetaminophen PO Oxycodone/ 1 TAB Q6P PRN 04/30 2115 DC Acetaminophen PO Potassium Chloride 40 MEQ ONCE ONE 05/01 0845 DC 05/01 PO 05/01 0846 1039 Ropinirole HCl 1 MG BID 05/01 1000 AC 05/01 PO 1038 Sodium Chloride 1,000 ML ONCE ONE 04/30 2230 DC 04/30 IV 05/01 0509 2244 Sodium Chloride 1,000 ML BOLUS ONE 04/30 2215 CAN IV 05/01 0014 Sodium Chloride 1,000 ML BOLUS ONE 04/30 1700 DC 04/30 IV 04/30 1859 1714 Sodium Chloride 1,000 ML BOLUS ONE 04/30 1700 DC 04/30 IV 04/30 1859 1940 Tiotropium [place] 1 PUF DAILY 05/01 1000 AC 05/01 INH 1040 Laboratory Tests 05/01/16 0945: Fluid WBC 58 H, Fld Total RBCs Counted 139 H 05/01/16 0945: Lymphocytes 26, % Normal PMNs 14, Misc Hematology Test 54, Fluid Glucose 87, Fluid Total Protein < 2.0, Fluid Albumin < 1.0, Fluid LDH 593, Fluid Amylase < 30 05/01/16 0430: Anion Gap 6, Estimated GFR > 60, Glucose 74, Calcium 7.2 L, Phosphorus 3.8, Magnesium 1.5 L, Total Bilirubin 2.2 H, AST 47 H, ALT 32, Albumin 2.2 L, Prealbumin 4.7 L, CBC w Diff MAN DIFF ORDERED, RBC 2.67 L, MCV 95.2, MCH 31.6 H, RDW 19.3 H, MPV 9.2, Gran % 89.6 H, Lymphocytes % 1.6 L, Monocytes % 4.8, Eosinophils % 3.9, Basophils % 0.1, Absolute Granulocytes 13.8 H, Segmented Neutrophils 81 H, Band Neutrophils 9 H, Absolute Lymphocytes 0.2 L, Lymphocytes 2 L, Monocytes 2, Absolute Monocytes 0.7 H, Eosinophils 6 H, Absolute Eosinophils 0.6, Absolute Basophils 0, Platelet Estimate DECREASED, Polychromasia 1+, Poikilocytosis 1+, Basophilic Stippling 1+, Ovalocytes 1+, Stomatocytes FEW, PUBS MCHC 33.3, Fld Total RBCs Counted 100 04/30/16 2300: Lactic Acid 1.1 02/15/17 1705: Urine Color KALEY, Urine Clarity HAZY H, Urine pH 5.5, Ur Specific [place] >= 1.030, Urine Protein 30 H, Urine Ketones NEG, Urine Nitrite POS H, Urine Bilirubin POS@ICTO H, Urine Urobilinogen 1.0, Ur Leukocyte Esterase NEG, Ur Microscopic SEDIMENT EXAMINED, Urine RBC RARE, Ur Epithelial Cells MANY H, Urine Hemoglobin NEG, Urine Glucose NEG 04/30/16 1430: Anion Gap 8, Estimated GFR > 60, BUN/Creatinine Ratio 23.3, Glucose 122 H, Lactic Acid 2.4 H, Calcium 7.8 L, Phosphorus 4.2, Magnesium 1.2 L, Total Bilirubin 2.8 H, AST 56 H, ALT 29, Alkaline Phosphatase 473 H, Troponin I < 0.01, Total Protein 5.3 L, Albumin 2.3 L, Globulin 3.0, Albumin/Globulin Ratio 0.8 L, Amylase < 30 L, Lipase 92, PT 20.2 H, INR 1.94 H, APTT 44 H, CBC w Diff MAN DIFF ORDERED, RBC 3.16 L, MCV 94.6, MCH 31.6 H, RDW 19.3 H, MPV 9.3, Gran % 80.3 H, Lymphocytes % 2.4 L, Monocytes % 12.1 H, Eosinophils % 4.3, Basophils % 0.9, Absolute Granulocytes 15.2 H, Segmented Neutrophils 78 H, Band Neutrophils 8 H, Absolute Lymphocytes 0.5 L, Lymphocytes 2 L, Monocytes 6, Absolute Monocytes 2.3 H, Eosinophils 6 H, Absolute Eosinophils 0.8, Absolute Basophils 0.2, Anisocytosis 1+, PUBS MCHC 33.4 Microbiology Date/Time Procedure - Status Source Growth 05/01 1110 Clostridium difficile Toxin A & B - RECD STOOL 05/01 0945 Body Fluid Culture - RECD BODY FLUID 05/01 0945 Gram Stain - RECD BODY FLUID 04/30 2300 Surveillance Culture - RECD UPPER RESP 04/30 2011 Urine Culture - COLB URINE ROUT 04/30 1453 Blood Culture - RES BLOOD 04/30 1445 Blood Culture - RES BLOOD 04/30 1425 Blood Culture - CAN BLOOD Cancelled: Cancelled via OE: NEED ONE FROM PORT 04/30 142 Blood Culture - CAN BLOOD Cancelled: Cancelled via OE: NEED ONE FROM PORT Vital Signs Date Time Temp Pulse Resp B/P Pulse O2 O2 Flow FiO2 Ox Delivery Rate 05/01 0800 100.2 114 18 92/50 92 Nasal 3.0L Cannula 05/01 0400 93 Nasal 3.0L Cannula 05/01 0000 95 Nasal 3.0L Cannula 04/30 2330 95 Nasal 3.0L Cannula 04/30 2300 98.3 104 12 98/54 95 Nasal 3.0L Cannula 04/30 2121 99.1 101 20 82/50 94 Nasal 3.0L Cannula 04/30 1935 88/52 04/30 1842 90/52 04/30 1801 99.7 04/30 1800 99.7 88/58 04/30 1730 100.2 04/30 1652 100.2 118 20 84/54 97 Nasal 3.0L Cannula 04/30 1409 96.9 122 24 89/56 91 Nasal 3.0L Cannula Intake & Output 05/01 1600 05/01 0800 05/01 0000 Intake Total 1270 325 Output Total 480 180 Balance 790 145 Intake, IV 1270 325 Intake, Oral 0 Output, Urine 480 180 Patient 147 lb 147 lb Weight
--- NOTE | 2016-05-01 15:45 | ULTRASOUND REPORT ---
EXAMINATION: DIAGNOSTIC PARACENTESIS CLINICAL INFORMATION: 70-year-old female with ascites, fever and high white blood cell count. Concern for spontaneous bacterial peritonitis. Diagnostic paracentesis requested. COMPARISON: CT abdomen pelvis 04/30/2016 TECHNIQUE: Direct ultrasound guidance using a 5 [place] Yueh Catheter. FINDINGS: Informed consent was obtained from the patient prior to the procedure. During this process, the procedure alternatives were explained, along with the intended outcome and benefits. The risks of the procedure, as well as the risk of not doing the procedure, was discussed. The patient was given the opportunity to ask questions regarding the procedure and appeared competent to make medical decisions. A signed consent form which documents this discussion was placed in the medical record. Ultrasound evaluation of the abdomen for ascites was performed. Only a tiny pocket of ascites was noted within the right upper quadrant adjacent to the liver and right kidney. The site was marked. A timeout procedure was performed. The area was prepped and draped in usual sterile fashion. Using standard interventional and sterile techniques, lidocaine was used to anesthetize the region. A 5 [place] Yueh catheter was introduced into the tiny right upper quadrant fluid collection using standard safety needle technique under direct sound guidance. Once the Yueh catheter was within the fluid collection, the internal metal needle was removed and approximately 65 mL of light yellow fluid was aspirated until aspiration ceased. The catheter was then removed. Good hemostasis was achieved using manual pressure. The patient tolerated the procedure well. A sterile dressing was placed. The patient was discharged from the department in stable condition. Sample sent for requested analysis. COMPLICATIONS: None. IMPRESSION: Successful ultrasound-guided diagnostic paracentesis yielding approximately 65 mL of light yellow fluid.
[2016-05-01 16:00] VITALS: BP 92/48
[2016-05-02] VITALS: BP 108/54
[2016-05-02 05:26] LABS: ABSOLUTE BASOPHIL COUNT 0 /CUMM (0.0-0.2); ABSOLUTE EOSINOPHIL COUNT 0.7 /CUMM (0.0-0.7); ABSOLUTE LYMPH COUNT 0.5 /CUMM (1.2-3.4); BASOPHIL % 0.1 % (0.0-2.0); EOSINOPHIL % 4.5 % (0-5); GRANULOCYTE % 86.5 % (42.2-75.2); HEMATOCRIT 24.5 % (37-47); MEAN CORPUSCULAR HGB 32.1 PG (27.0-31.0); MEAN CORPUSCULAR HGB CONC 33.7 G/DL (33.0-37.0); MEAN CORPUSCULAR VOLUME 95.3 FL (81.0-99.0); PLATELET COUNT 91 /CUMM (130-400); RBC DISTRIBUTION WIDTH 19.1 % (11.5-14.5); RED BLOOD CELL CT 2.57 /CUMM (4.20-5.40); WHITE BLOOD CELL COUNT 16.2 /CUMM (4.8-10.8)
--- NOTE | 2016-05-02 07:16 | PN- Resident CRCU ---
Subjective HPI/CRCU Issues: Patient was hypotensive to 84/50 around 4 PM yesterday and was started on 1 L of NS @ 125 cc/hr. After bag was complete, her SBP had improved to 90-110s. She had multiple PVCs throughout the day. She had a bowel movement which was guaiac positive. She continued to spike low-grade fevers yesterday evening with Tmax 100.1 but has defervesced and remains afebrile. Patient was seen and examined this morning. She continues to feel weak. She has no new complaints. Objective Vital Signs & I&O Last 8 Hrs of Vitals and I&O: Intake & Output 05/02 1600 Intake Total Output Total Balance Patient 66.848 kg Weight Exam General Appearance: no apparent distress, alert, awake, comfortable Head: atraumatic Ears, Nose, Throat: moist mucus membranes Neck: supple Respiratory: few crackles scattered throughout bilateral lung sanchez Cardiovascular: tachycardia Gastrointestinal: soft, non-tender, distention, positive bowel sounds Extremities: 1+ edema on bilateral lower extremities Cranial Nerves: grossly normal Skin: warm/dry Current Medications: Current Medications Sig/Olga Start time Last Medication Dose Route Stop Time Status Admin Acetaminophen 650 MG Q6P PRN 04/30 2115 AC PO Albuterol Sulfate 3 ML Q4P PRN 05/02 1345 AC 05/02 INH 1344 Atorvastatin Calcium 20 MG DAILY 05/01 1000 AC 05/02 PO 1008 Calcitriol 0.25 MCG DAILY 05/01 1000 AC 05/02 PO 1008 Calcium Carbonate 1,250 MG DAILY 05/01 1000 AC 05/02 PO 1008 Ceftriaxone Sodium 1,000 MG 1800 05/01 1800 DC 05/01 IV 1822 Cholecalciferol 2,000 IU DAILY 05/01 1000 AC 05/02 PO 1008 Insulin Aspart 0 TIDAC 05/01 1200 AC SC Lorazepam 0.5 MG TIDPRN PRN 04/30 2330 AC PO 05/07 2329 Magnesium Sulfate 1 GM .STK-MED ONE 05/02 0658 DC IV 05/02 0659 Magnesium Sulfate 1 GM Q2H 05/02 0615 DC 05/02 Dextrose/Water 100 ML IV 05/02 1014 0723 Magnesium Sulfate 1 GM .STK-MED ONE 05/02 0606 DC IV 05/02 0607 Morphine Sulfate 15 MG BID 05/01 1000 AC 05/02 PO 1008 Oxycodone/ 1 TAB Q6P PRN 04/30 2330 AC Acetaminophen PO Ropinirole HCl 1 MG BID 05/01 1000 AC 05/02 PO 1008 Sodium Chloride 1,000 ML Q8H 05/01 1615 DC 05/01 IV 05/02 0014 1638 Tiotropium [place] 1 PUF DAILY 05/01 1000 AC 05/02 INH 1007 Results Results: Laboratory Tests 05/02 05/01 05/01 0435 0945 0945 Chemistry Sodium (137 - 145 mmol/L) 136 L Potassium (3.5 - 5.1 mmol/L) 4.0 Chloride (98 - 107 mmol/L) 102 Carbon Dioxide (22 - 30 mmol/L) 29 Anion Gap (5 - 16) 5 BUN (7 - 17 mg/dL) 11 Creatinine (0.5 - 1.0 mg/dL) 0.7 Estimated GFR (>60 ml/min) > 60 Glucose (65 - 99 mg/dL) 103 H Calcium (8.4 - 10.2 mg/dL) 7.5 L Phosphorus (2.5 - 4.5 mg/dL) 3.6 Magnesium (1.6 - 2.3 mg/dL) 1.5 L Total Bilirubin (0.2 - 1.3 mg/dL) 2.0 H AST (14 - 36 U/L) 29 ALT (9 - 52 U/L) 30 Albumin (3.5 - 5.0 g/dL) 2.0 L Hematology CBC w Diff MAN DIFF ORDERED WBC (4.8 - 10.8 /CUMM) 16.2 H RBC (4.20 - 5.40 /CUMM) 2.57 L Hgb (12.0 - 16.0 G/DL) 8.3 L Hct (37 - 47 %) 24.5 L MCV (81.0 - 99.0 FL) 95.3 MCH (27.0 - 31.0 PG) 32.1 H RDW (11.5 - 14.5 %) 19.1 H Plt Count (130 - 400 /CUMM) 91 L MPV (7.4 - 10.4 FL) 9.0 Gran % (42.2 - 75.2 %) 86.5 H Lymphocytes % (20.5 - 51.1 %) 2.9 L Monocytes % (1.7 - 9.3 %) 6.0 Eosinophils % (0 - 5 %) 4.5 Basophils % (0.0 - 2.0 %) 0.1 Absolute Granulocytes (1.4 - 6.5 /CUMM) 14.0 H Segmented Neutrophils (42.2 - 75.2 %) 85 H Band Neutrophils (0.0 - 5.0 %) 7 H Absolute Lymphocytes (1.2 - 3.4 /CUMM) 0.5 L Lymphocytes (20.5 - 51.1 %) 3 L 26 Monocytes (1.7 - 9.3 %) 1 L Absolute Monocytes (0.10 - 0.60 /CUMM) 1.0 H Eosinophils (0 - 5.0 %) 3 Absolute Eosinophils (0.0 - 0.7 /CUMM) 0.7 Absolute Basophils (0.0 - 0.2 /CUMM) 0 Metamyelocytes (0.0 - 1.0 %) 1 % Normal PMNs (%) 14 Platelet Estimate (ADEQUATE) DECREASED Polychromasia 1+ Poikilocytosis 1+ Ovalocytes 1+ PUBS MCHC (33.0 - 37.0 G/DL) 33.7 Misc Hematology Test (%) 54 Other Body Source Fluid WBC (0 - 5 /CUMM) 58 H Fld Total RBCs Counted (%) 100 139 H Fluid Glucose (mg/dL) 87 Fluid Total Protein (g/dL) < 2.0 Fluid Albumin (g/dL) < 1.0 Fluid LDH (U/L) 593 Fluid Amylase (U/L) < 30 C diff EIA (05/01/16): Negative Peritoneal fluid Cx (05/01/16): NGTD UCx (04/30/16): NGTD BCx (04/30/16): NGTD x2 US Findings: Paracentesis US: Successful ultrasound-guided diagnostic paracentesis yielding approximately 65 mL of light yellow fluid. Impression/Plan Impression/Problem List Impression: 70 y/o F with PMHx of metastatic small cell lung cancer on chemotherapy, COPD on 3 L NC and T2DM who presents with generalized weakness. Problem List: 1. Metastatic lung cancer (metastasis from lung to other site) 2. Small cell lung cancer 3. Generalized weakness 4. Anasarca 5. Liver metastases 6. Hypotension 7. Type 2 diabetes mellitus 8. Chronic anemia Pain Ratin Tomorrow's Labs & Rationales: CBC to monitor WBC in the setting of persistent leukocytosis BMP and Mg to monitor lytes and kidney function given hypotension and poor PO intake Plan Respiratory: #Metastatic small cell lung cancer: CT Abdomen/Pelvis demonstrating increasing metastatic disease of the liver. Current presentation with generalized weakness most likely secondary to deconditioning and progressive cancer. Seen by oncology this admission. Per their assessment, patient will need change of therapy from her current regimen of weekly paclitaxel and may be a candidate for nivolumab. However she will need to improve her performance status before she can get further therapy. * Continue discussions regarding goal of care with emphasis on symptomatic management given her guarded prognosis. * Follow up with oncology as outpatient to discuss treatment options. Infectious Diseases: #COPD: Satting well and comfortable on 3 L NC, unchanged from her prior to admission oxygen requirement. * Continue prior to admission Spiriva 1 puff daily. * Continue to provide supplemental oxygen as needed to keep SpO2 > 92%. Cardiovascular: #Sepsis: Continued to spike low-grade fevers with Tmax 100.1 yesterday evening but has defervesced and remains afebrile. Leukocytosis has persisted, WBC 16.2. Infectious work-up has been negative so far. BCx, UCx and peritoneal fluid Cx negative. C diff EIA negative. No focal infiltrates on CT Chest. * Discontinue ceftriaxone. Resume antibiotic and repeat cultures if patient spikes fever. * Downgrade patient to General Medicine. Hematology: #Hypotension: BPs were running low yesterday but improved after IVF hydration. * Continue to monitor off IVF. Consider starting maintenance fluids if BP further drops. * Continue to hold prior to admission antihypertensives. Metabolic: #Chronic anemia: H/H stable. * Continue to monitor H/H. Alimentary: Consistent carbohydrate 2 Neurological: AAO X 3. No issues. Skin: No issues. DVT/Prophylaxis: mechanical Code Status: Do Not Intubate
[2016-05-02 08:00] VITALS: BP 92/50
--- NOTE | 2016-05-02 10:20 | PN- Att Addend ---
Attending Addendum Attending Brief Note Patient still very weak appetite is poor, blood pressures a little better still on the lower side. Patient is a febrile. Patient had a diagnostic paracentesis , the cultures are so far negative, she is a febrile her white count still slightly elevated. No obvious site of infection. Will transfer the patient out of the ICU continue observation, monitor off antibiotics, if she spikes a temperature reculture Current Medications Sig/Olga Start time Last Medication Dose Route Stop Time Status Admin Acetaminophen 650 MG Q6P PRN 04/30 2115 AC PO Atorvastatin Calcium 20 MG DAILY 05/01 1000 AC 05/02 PO 1008 Calcitriol 0.25 MCG DAILY 05/01 1000 AC 05/02 PO 1008 Calcium Carbonate 1,250 MG DAILY 05/01 1000 AC 05/02 PO 1008 Ceftriaxone Sodium 1,000 MG 1800 05/01 1800 DC 05/01 IV 1822 Cholecalciferol 2,000 IU DAILY 05/01 1000 AC 05/02 PO 1008 Insulin Aspart 0 TIDAC 05/01 1200 AC SC Insulin Human Regular 0 Q6 04/30 2359 DC 05/01 SC 0535 Lorazepam 0.5 MG TIDPRN PRN 04/30 2330 AC PO 05/07 2329 Magnesium Sulfate 1 GM Q2H 05/02 0615 DC 05/02 Dextrose/Water 100 ML IV 05/02 1014 0723 Magnesium Sulfate 1 GM Q2H 05/01 1030 DC 05/01 Dextrose/Water 100 ML IV 05/01 1429 1209 Morphine Sulfate 15 MG BID 05/01 1000 AC 05/02 PO 1008 Oxycodone/ 1 TAB Q6P PRN 04/30 2330 AC Acetaminophen PO Ropinirole HCl 1 MG BID 05/01 1000 AC 05/02 PO 1008 Sodium Chloride 1,000 ML Q8H 05/01 1615 DC 05/01 IV 05/02 0014 1638 Tiotropium [place] 1 PUF DAILY 05/01 1000 AC 05/02 INH 1007 Laboratory Tests 05/02/16 0435: Anion Gap 5, Estimated GFR > 60, Glucose 103 H, Calcium 7.5 L, Phosphorus 3.6, Magnesium 1.5 L, Total Bilirubin 2.0 H, AST 29, ALT 30, Albumin 2.0 L, CBC w Diff MAN DIFF ORDERED, RBC 2.57 L, MCV 95.3, MCH 32.1 H, RDW 19.1 H, MPV 9.0, Gran % 86.5 H, Lymphocytes % 2.9 L, Monocytes % 6.0, Eosinophils % 4.5, Basophils % 0.1, Absolute Granulocytes 14.0 H, Segmented Neutrophils 85 H, Band Neutrophils 7 H, Absolute Lymphocytes 0.5 L, Lymphocytes 3 L, Monocytes 1 L, Absolute Monocytes 1.0 H, Eosinophils 3, Absolute Eosinophils 0.7, Absolute Basophils 0, Metamyelocytes 1, Platelet Estimate DECREASED, Polychromasia 1+, Poikilocytosis 1+, Ovalocytes 1+, PUBS MCHC 33.7, Fld Total RBCs Counted 100 Microbiology 05/01 1110 STOOL: Clostridium difficile Toxin A & B - COMP Microbiology Date/Time Procedure - Status Source Growth 05/01 1110 Clostridium difficile Toxin A & B - COMP STOOL Vital Signs Date Time Temp Pulse Resp B/P Pulse O2 O2 Flow FiO2 Ox Delivery Rate 05/02 0800 93 Nasal 3.0L Cannula 05/02 0800 98.2 100 15 92/50 93 Nasal 3.0L Cannula 05/02 0400 94 Nasal 3.0L Cannula Intake & Output 05/02 1600 Intake Total Output Total Balance Patient 147 lb Weight Tools are negative for C. difficile
--- NOTE | 2016-05-02 12:26 | PN- Oncology ---
Subjective Subjective: She feels well. She is still weak. She denies any new pain. She reports no fever. Review of Systems: Constitutional: Reports: fever, weakness. Denies: chills. EENTM: Denies: blurred vision, double vision. Cardiovascular: Reports: peripheral edema. Denies: chest pain. Respiratory: Reports: cough, short of breath. Denies: hemoptysis. GI: Denies: diarrhea, bloody stool, changes in stool, vomiting. Genitourinary: Denies: dysuria. Musculoskeletal: Denies: back pain. Hematologic/Endocrine: Denies: bruising, bleeding. Immunologic/Allergic: Denies: lymphadenopathy. All Other Systems: Reviewed and Negative Objective Vital Signs and I&Os Vital Signs Date Time Temp Pulse Resp B/P Pulse O2 O2 Flow FiO2 Ox Delivery Rate 05/02 08 93 Nasal 3.0L Cannula 05/02 08 98.2 100 15 92/50 93 Nasal 3.0L Cannula 05/02 0400 94 Nasal 3.0L Cannula 05/02 0000 94 Nasal 3.0L Cannula 05/02 0000 98.5 106 20 108/54 94 Nasal 3.0L Cannula 05/01 2000 95 Nasal 3.0L Cannula 05/01 1600 94 Nasal 3.0L Cannula 05/01 1600 100.1 112 19 92/48 93 Nasal 3.0L Cannula 05/01 1332 Nasal 3.0L Cannula 05/01 1332 94 Nasal 3.0L Cannula Intake & Output 05/02 1600 05/02 0800 05/02 0000 05/01 1600 05/01 0800 05/01 0000 Intake Total 358 9788 545 4943 325 Output Total 235 170 250 480 180 Balance 123 872 360 790 145 Intake, IV 278 631 730 6640 325 Intake, Oral 80 320 400 0 Number 0 0 1 Bowel Movements Output, Urine 235 170 250 480 180 Patient 66.848 kg 66.848 kg 66.678 kg Weight Physical Exam: General Appearance: no apparent distress, alert, awake, comfortable Head: atraumatic Neck: supple Respiratory: normal breath sounds, chest non-tender, quiet respiration, crackles Cardiovascular: edema, tachycardia Gastrointestinal: normal bowel sounds, soft, no organomegaly, distention Extremities: 1+ bilateral lower extremity edema Neurologic/Psych: no motor/sensory deficits, awake, alert, oriented x 3 Cranial Nerves: normal hearing, normal speech Skin: warm/dry Current Medications: Current Medications Sig/Olga Start time Last Medication Dose Route Stop Time Status Admin Acetaminophen 650 MG Q6P PRN 04/30 2115 AC PO Atorvastatin Calcium 20 MG DAILY 05/01 1000 AC 05/02 PO 1008 Calcitriol 0.25 MCG DAILY 05/01 1000 AC 05/02 PO 1008 Calcium Carbonate 1,250 MG DAILY 05/01 1000 AC 05/02 PO 1008 Ceftriaxone Sodium 1,000 MG 1800 05/01 1800 DC 05/01 IV 1822 Cholecalciferol 2,000 IU DAILY 05/01 1000 AC 05/02 PO 1008 Insulin Aspart 0 TIDAC 05/01 1200 AC SC Lorazepam 0.5 MG TIDPRN PRN 04/30 2330 AC PO 05/07 2329 Magnesium Sulfate 1 GM Q2H 05/02 0615 DC 05/02 Dextrose/Water 100 ML IV 05/02 1014 0723 Magnesium Sulfate 1 GM Q2H 05/01 1030 DC 05/01 Dextrose/Water 100 ML IV 05/01 1429 1209 Morphine Sulfate 15 MG BID 05/01 1000 AC 05/02 PO 1008 Oxycodone/ 1 TAB Q6P PRN 04/30 2330 AC Acetaminophen PO Ropinirole HCl 1 MG BID 05/01 1000 AC 05/02 PO 1008 Sodium Chloride 1,000 ML Q8H 05/01 1615 DC 05/01 IV 05/02 0014 1638 Tiotropium [place] 1 PUF DAILY 05/01 1000 AC 05/02 INH 1007 Results Last 24 Hours of Lab Results: Laboratory Tests 05/02 0435 Chemistry Sodium (137 - 145 mmol/L) 136 L Potassium (3.5 - 5.1 mmol/L) 4.0 Chloride (98 - 107 mmol/L) 102 Carbon Dioxide (22 - 30 mmol/L) 29 Anion Gap (5 - 16) 5 BUN (7 - 17 mg/dL) 11 Creatinine (0.5 - 1.0 mg/dL) 0.7 Estimated GFR (>60 ml/min) > 60 Glucose (65 - 99 mg/dL) 103 H Calcium (8.4 - 10.2 mg/dL) 7.5 L Phosphorus (2.5 - 4.5 mg/dL) 3.6 Magnesium (1.6 - 2.3 mg/dL) 1.5 L Total Bilirubin (0.2 - 1.3 mg/dL) 2.0 H AST (14 - 36 U/L) 29 ALT (9 - 52 U/L) 30 Albumin (3.5 - 5.0 g/dL) 2.0 L Hematology CBC w Diff MAN DIFF ORDERED WBC (4.8 - 10.8 /CUMM) 16.2 H RBC (4.20 - 5.40 /CUMM) 2.57 L Hgb (12.0 - 16.0 G/DL) 8.3 L Hct (37 - 47 %) 24.5 L MCV (81.0 - 99.0 FL) 95.3 MCH (27.0 - 31.0 PG) 32.1 H RDW (11.5 - 14.5 %) 19.1 H Plt Count (130 - 400 /CUMM) 91 L MPV (7.4 - 10.4 FL) 9.0 Gran % (42.2 - 75.2 %) 86.5 H Lymphocytes % (20.5 - 51.1 %) 2.9 L Monocytes % (1.7 - 9.3 %) 6.0 Eosinophils % (0 - 5 %) 4.5 Basophils % (0.0 - 2.0 %) 0.1 Absolute Granulocytes (1.4 - 6.5 /CUMM) 14.0 H Segmented Neutrophils (42.2 - 75.2 %) 85 H Band Neutrophils (0.0 - 5.0 %) 7 H Absolute Lymphocytes (1.2 - 3.4 /CUMM) 0.5 L Lymphocytes (20.5 - 51.1 %) 3 L Monocytes (1.7 - 9.3 %) 1 L Absolute Monocytes (0.10 - 0.60 /CUMM) 1.0 H Eosinophils (0 - 5.0 %) 3 Absolute Eosinophils (0.0 - 0.7 /CUMM) 0.7 Absolute Basophils (0.0 - 0.2 /CUMM) 0 Metamyelocytes (0.0 - 1.0 %) 1 Platelet Estimate (ADEQUATE) DECREASED Polychromasia 1+ Poikilocytosis 1+ Ovalocytes 1+ PUBS MCHC (33.0 - 37.0 G/DL) 33.7 Other Body Source Fld Total RBCs Counted (%) 100 Assessment/Plan Assessment/Recommendations: Ms. Francois is a 70-year-old female with history of metastatic small cell lung cancer who presents with failure to thrive and decondition. On admission she was noted to have low grade fever, leukocytosis with 9% bands, and elevated bilirubin. CT of the abdomen and pelvis demonstrated progression of liver disease. She has progressed through her recent treatment of weekly paclitaxel. She is improving on antibiotic and fluid. She is still weak. This is likely from generalized decondition from hospitalization and malignancy. She will need to improve on her performance status to be able to get therapy. She will need a change in therapy but overall prognosis is poor with refractory small cell malignancy. She may be a candidate for nivolumab. Recommendations: 1. Continue antibiotic coverage 2. Follow up blood cultures 3. Continue discussion on goals of care 4. Follow up as outpatient to discuss therapy goals Please call [phone] with any questions or concerns. Problem List: 1. Liver metastases 2. Metastatic lung cancer (metastasis from lung to other site) 3. Small cell lung cancer 4. Generalized weakness
[2016-05-02 16:00] VITALS: BP 90/60
[2016-05-02 23:00] VITALS: BP 96/60
[2016-05-03 05:48] LABS: ABSOLUTE BASOPHIL COUNT 0.1 /CUMM (0.0-0.2); ABSOLUTE EOSINOPHIL COUNT 0.8 /CUMM (0.0-0.7); ABSOLUTE GRANULOCYTE CT 12.9 /CUMM (1.4-6.5); ABSOLUTE LYMPH COUNT 0.5 /CUMM (1.2-3.4); ABSOLUTE MONOCYTE COUNT 0.9 /CUMM (0.10-0.60); BASOPHIL % 0.4 % (0.0-2.0); HEMATOCRIT 22.7 % (37-47); MEAN CORPUSCULAR HGB 32.3 PG (27.0-31.0); MEAN CORPUSCULAR HGB CONC 33.7 G/DL (33.0-37.0); MEAN CORPUSCULAR VOLUME 95.8 FL (81.0-99.0); PLATELET COUNT 93 /CUMM (130-400); RBC DISTRIBUTION WIDTH 19.5 % (11.5-14.5); RED BLOOD CELL CT 2.37 /CUMM (4.20-5.40)
[2016-05-03 06:26] LABS: WHITE BLOOD CELL COUNT 15.2 /CUMM (4.8-10.8)
[2016-05-03 08:00] VITALS: BP 90/50
--- NOTE | 2016-05-03 08:17 | PN- Housestaff ---
Subjective Follow-up For: Generalized weakness Metastatic small cell lung cancer Hypotension Subjective: No acute events overnight. She remains afebrile and hemodynamically stable but continues to have low urine output. Patient seen and examined this morning. She is sitting up in bed and looks comfortable. She feels well and has no complaints. Review of Systems Constitutional: Reports: no symptoms. Objective Last 24 Hrs of Vital Signs/I&O Vital Signs Date Time Temp Pulse Resp B/P Pulse O2 O2 Flow FiO2 Ox Delivery Rate 05/03 0800 95 Nasal 3.0L Cannula 05/03 0800 99.6 100 20 90/50 95 Nasal 3.0L Cannula 05/03 0000 Nasal 3.0L Cannula 05/02 2300 98.3 94 18 96/60 96 Nasal 3.0L Cannula 05/02 1900 96 Nasal 3.0L Cannula 05/02 1600 99 Nasal 3.0L Cannula 05/02 1600 98.3 70 24 90/60 99 Nasal 3.0L Cannula 05/02 1348 93 Nasal 3.0L Cannula Intake & Output 05/03 1600 05/03 0800 05/03 0000 Intake Total 240 270 Output Total 200 150 Balance 40 120 Intake, IV 20 Intake, Oral 240 250 Number 0 Bowel Movements Output, Urine 200 150 Physical Exam General Appearance: Alert, Oriented X3, No Acute Distress Skin: Warm and Dry HEENT: Mucous Membr. moist/pink Neck: Supple Cardiovascular: Tachycardic Lungs: Clear to Auscultation Abdomen: Soft, No Tenderness, Distended, Positive Bowel Sounds Neurological: No Gross Focal Deficits Noted Extremities: No Clubbing, No Cyanosis, No Edema Current Medications: Current Medications Sig/Olga Start time Last Medication Dose Route Stop Time Status Admin Acetaminophen 650 MG Q6P PRN 04/30 2115 AC PO Albuterol Sulfate 3 ML Q4P PRN 05/02 1345 AC 05/03 INH 1126 Atorvastatin Calcium 20 MG DAILY 05/01 1000 AC 05/03 PO 1142 Calcitriol 0.25 MCG DAILY 05/01 1000 AC 05/03 PO 1143 Calcium Carbonate 1,250 MG DAILY 05/01 1000 AC 05/03 PO 1142 Cholecalciferol 2,000 IU DAILY 05/01 1000 AC 05/03 PO 1143 Insulin Aspart 0 TIDAC 05/01 1200 AC 05/02 SC 1701 Lorazepam 0.5 MG TIDPRN PRN 04/30 2330 AC PO 05/07 2329 Magnesium Oxide 400 MG ONE ONE 05/03 0845 DC 05/03 PO 05/03 0846 1142 Magnesium Oxide 400 MG ONE ONE 05/03 0830 DC 05/03 PO 05/03 0831 1141 Morphine Sulfate 15 MG BID 05/01 1000 AC 05/03 PO 1142 Oxycodone/ 1 TAB Q6P PRN 04/30 2330 AC Acetaminophen PO Ropinirole HCl 1 MG BID 05/01 1000 AC 05/03 PO 1142 Tiotropium [place] 1 PUF DAILY 05/01 1000 AC 05/03 INH 1143 Last 24 Hrs of Lab/Madhu Results Last 24 Hrs of Labs/Mics: Laboratory Tests 05/03/16 0430: Anion Gap 4 L, Estimated GFR > 60, BUN/Creatinine Ratio 18.6, Magnesium 1.6, CBC w Diff NO MAN DIFF REQ, RBC 2.37 L, MCV 95.8, MCH 32.3 H, RDW 19.5 H, MPV 9.0, Gran % 85.0 H, Lymphocytes % 3.6 L, Monocytes % 6.0, Eosinophils % 5.0, Basophils % 0.4, Absolute Granulocytes 12.9 H, Absolute Lymphocytes 0.5 L, Absolute Monocytes 0.9 H, Absolute Eosinophils 0.8, Absolute Basophils 0.1, PUBS MCHC 33.7 Assessment/Plan Assessment: 70 y/o F with PMHx of metastatic small cell lung cancer on chemotherapy, COPD on 3 L NC and T2DM who presents with generalized weakness. #Metastatic small cell lung cancer: CT Abdomen/Pelvis demonstrating increasing metastatic disease of the liver. Current presentation with generalized weakness most likely secondary to deconditioning and progressive cancer. Per oncology, patient will need change of therapy and may be a candidate for nivolumab. However she will need to improve her performance status before further therapy. * Continue discussions regarding goal of care with emphasis on symptomatic management given her guarded prognosis. * Follow up with oncology as outpatient to discuss treatment options. #Chronic anemia: Baseline Hgb 8-10. H/H with slight drop from 8.3/24.5 to 7.7/ 22.7 today. Guaiac positive stools this admission, most likely from hemorrhoids given her history. * Re-check CBC in the evening. #Hypotension: Continues to be hemodynamically stable with BPs running in the 90s /50s. * Continue to monitor off IVF. Consider starting maintenance fluids if BP further drops. Diet: Consistent Carbohydrate 3 Fluids: None Electrolytes: Replete to K > 4 and Mg > 2 DVT PPx: ALPs CODE: DNR/DNI Problem List: 1. Type 2 diabetes mellitus 2. Metastatic lung cancer (metastasis from lung to other site) 3. Small cell lung cancer 4. Hypotension 5. Chronic anemia 6. Generalized weakness Pain Ratin Pain Location: N/A Pain Goal: Remain pain free Pain Plan: None Tomorrow's Labs & Rationales: CBC to monitor H/H in the setting of anemia BMP and Mg to monitor lytes and kidney function given borderline hypotension BMP and Mg to monitor lytes and kidney function given borderline hypotension
--- NOTE | 2016-05-03 13:20 | PN- Pulmonary ---
Subjective HPI/Critical Care Issues: Subjective: No acute events overnight. She remains afebrile and hemodynamically stable but continues to have low urine output. Patient seen and examined this morning. She is sitting up in bed and looks comfortable. She feels well and has no complaints. Review of Systems Constitutional: Reports: no symptoms. Objective Current Medications: Current Medications Sig/Olga Start time Last Medication Dose Route Stop Time Status Admin Acetaminophen 650 MG Q6P PRN 04/30 2115 AC PO Albuterol Sulfate 3 ML Q4P PRN 05/02 1345 AC 05/03 INH 1126 Atorvastatin Calcium 20 MG DAILY 05/01 1000 AC 05/03 PO 1142 Calcitriol 0.25 MCG DAILY 05/01 1000 AC 05/03 PO 1143 Calcium Carbonate 1,250 MG DAILY 05/01 1000 AC 05/03 PO 1142 Cholecalciferol 2,000 IU DAILY 05/01 1000 AC 05/03 PO 1143 Insulin Aspart 0 TIDAC 05/01 1200 AC 05/02 SC 1701 Lorazepam 0.5 MG TIDPRN PRN 04/30 2330 AC PO 05/07 2329 Magnesium Oxide 400 MG ONE ONE 05/03 0845 DC 05/03 PO 05/03 0846 1142 Magnesium Oxide 400 MG ONE ONE 05/03 0830 DC 05/03 PO 05/03 0831 1141 Morphine Sulfate 15 MG BID 05/01 1000 AC 05/03 PO 1142 Oxycodone/ 1 TAB Q6P PRN 04/30 2330 AC Acetaminophen PO Ropinirole HCl 1 MG BID 05/01 1000 AC 05/03 PO 1142 Tiotropium [place] 1 PUF DAILY 05/01 1000 AC 05/03 INH 1143 Vital Signs & I&O Last 24 Hrs of Vitals and I&O: Vital Signs Date Time Temp Pulse Resp B/P Pulse O2 O2 Flow FiO2 Ox Delivery Rate 05/03 0800 95 Nasal 3.0L Cannula 05/03 0800 99.6 100 20 90/50 95 Nasal 3.0L Cannula 05/03 0000 Nasal 3.0L Cannula 05/02 2300 98.3 94 18 96/60 96 Nasal 3.0L Cannula 05/02 1900 96 Nasal 3.0L Cannula 05/02 1600 99 Nasal 3.0L Cannula 05/02 1600 98.3 70 24 90/60 99 Nasal 3.0L Cannula 05/02 1348 93 Nasal 3.0L Cannula Intake & Output 05/03 1600 05/03 0800 05/03 0000 Intake Total 240 270 Output Total 200 150 Balance 40 120 Intake, IV 20 Intake, Oral 240 250 Number 0 Bowel Movements Output, Urine 200 150 Impression/Plan Impression/Plan Impression/Plan: Physical Exam General Appearance: Alert, Oriented X3, No Acute Distress Skin: Warm and Dry HEENT: Mucous Membr. moist/pink Neck: Supple Cardiovascular: Tachycardic Lungs: Clear to Auscultation Abdomen: Soft, No Tenderness, Distended, Positive Bowel Sounds Neurological: No Gross Focal Deficits Noted Extremities: No Clubbing, No Cyanosis, No Edema IMPRESSION Ms. Francois is a 70-year-old female with history of metastatic small cell lung cancer who presents with failure to thrive and decondition. CT of the abdomen and pelvis demonstrated progression of liver disease. She has progressed through her recent treatment of weekly paclitaxel. ISSUES WOrsening malignancy New onset ascites Worsening liver failure Rec Cont current meds Not a candidate for heparin and no need to investigate new onset asicites Will follow Prog poor Stable to the floor
[2016-05-03 16:00] VITALS: BP 92/60
[2016-05-03 17:36] LABS: ABSOLUTE BASOPHIL COUNT 0 /CUMM (0.0-0.2); ABSOLUTE EOSINOPHIL COUNT 0.7 /CUMM (0.0-0.7); ABSOLUTE GRANULOCYTE CT 13.9 /CUMM (1.4-6.5); ABSOLUTE LYMPH COUNT 0.5 /CUMM (1.2-3.4); ABSOLUTE MONOCYTE COUNT 1.1 /CUMM (0.10-0.60); BASOPHIL % 0.2 % (0.0-2.0); EOSINOPHIL % 4.6 % (0-5); GRANULOCYTE % 85.7 % (42.2-75.2); HEMATOCRIT 23.8 % (37-47); MEAN CORPUSCULAR HGB CONC 33.2 G/DL (33.0-37.0); MEAN CORPUSCULAR VOLUME 96.3 FL (81.0-99.0); MEAN PLATELET VOLUME 9.1 FL (7.4-10.4); PLATELET COUNT 102 /CUMM (130-400); RBC DISTRIBUTION WIDTH 19.7 % (11.5-14.5); RED BLOOD CELL CT 2.47 /CUMM (4.20-5.40)
[2016-05-03 18:45] VITALS: BP 90/60
[2016-05-03 19:13] LABS: WHITE BLOOD CELL COUNT 16.2 /CUMM (4.8-10.8)
[2016-05-03 23:54] VITALS: BP 92/56
[2016-05-04 05:49] LABS: ABSOLUTE BASOPHIL COUNT 0 /CUMM (0.0-0.2); ABSOLUTE GRANULOCYTE CT 13.2 /CUMM (1.4-6.5); ABSOLUTE LYMPH COUNT 0.6 /CUMM (1.2-3.4); ABSOLUTE MONOCYTE COUNT 0.9 /CUMM (0.10-0.60); BASOPHIL % 0.1 % (0.0-2.0); EOSINOPHIL % 6.5 % (0-5); HEMATOCRIT 23.8 % (37-47); MEAN CORPUSCULAR HGB 32.2 PG (27.0-31.0); MEAN CORPUSCULAR HGB CONC 33.8 G/DL (33.0-37.0); MEAN CORPUSCULAR VOLUME 95.1 FL (81.0-99.0); MEAN PLATELET VOLUME 8.9 FL (7.4-10.4); PLATELET COUNT 99 /CUMM (130-400); RBC DISTRIBUTION WIDTH 19.8 % (11.5-14.5); RED BLOOD CELL CT 2.51 /CUMM (4.20-5.40); WHITE BLOOD CELL COUNT 15.7 /CUMM (4.8-10.8)
[2016-05-04 06:08] LABS: GRANULOCYTE % 83.9 % (42.2-75.2)
--- NOTE | 2016-05-04 07:30 | PN- Housestaff ---
Subjective Follow-up For: Metastatic small cell lung cancer Tele-Events Since Last Visit: Patient comfortable this morning. No complaints. Vitals were stable this morning. Currently oxygen saturation 96-97% on 3 L oxygen. Review of Systems Constitutional: Reports: see HPI. Objective Last 24 Hrs of Vital Signs/I&O Vital Signs Date Time Temp Pulse Resp B/P Pulse O2 O2 Flow FiO2 Ox Delivery Rate 05/04 0000 Nasal 3.0L Cannula 05/03 2354 98.4 107 20 92/56 94 05/03 1845 99.2 110 16 90/60 94 Nasal 3.0L Cannula 05/03 1800 94 Nasal 3.0L Cannula 05/03 1600 94 Nasal 3.0L Cannula 05/03 1600 99.6 112 12 92/60 94 Nasal 3.0L Cannula 05/03 0800 95 Nasal 3.0L Cannula 05/03 0800 99.6 100 20 90/50 95 Nasal 3.0L Cannula Intake & Output 05/04 0800 05/04 0000 05/03 1600 Intake Total 200 600 480 Output Total 150 200 200 Balance 50 400 280 Intake, Oral 200 600 480 Output, Urine 150 200 200 Physical Exam General Appearance: No Acute Distress Other Physical Findings: General Exam: AAOx3, No acute distress, Skin: No rashes, no breakdown HEENT: PERRLA, EOMI Neck: Supple, No JVD No cervical lymphadenopathy CVS: Reg Rate, Normal S1,S2, No MGR Resp: Normal air entry, no ronchi/rales Abdomen: Soft, No tenderness, Normal Bowel Sounds, distended Neuro: Normal Speech, Strength 5/5 b/l x 4 extremities, Sensation intact, CN III -XII NL, Reflexes 2+ Extremities: No cyanosis, pedal edema Current Medications: Current Medications Sig/Olga Start time Last Medication Dose Route Stop Time Status Admin Acetaminophen 650 MG Q6P PRN 04/30 2115 AC PO Albuterol Sulfate 3 ML Q4P PRN 05/02 1345 AC 05/03 INH 1126 Atorvastatin Calcium 20 MG DAILY 05/01 1000 AC 05/03 PO 1142 Calcitriol 0.25 MCG DAILY 05/01 1000 AC 05/03 PO 1143 Calcium Carbonate 1,250 MG DAILY 05/01 1000 AC 05/03 PO 1142 Cholecalciferol 2,000 IU DAILY 05/01 1000 AC 05/03 PO 1143 Diphenhydramine HCl 1 AAMIR Q4 HRS NEEDED PRN 05/03 2014 AC 05/04 TOP 0135 Insulin Aspart 0 TIDAC 05/01 1200 AC 05/02 SC 1701 Lorazepam 0.5 MG TIDPRN PRN 04/30 2330 AC PO 05/07 2329 Magnesium Oxide 400 MG ONE ONE 05/03 0845 DC 05/03 PO 05/03 0846 1142 Magnesium Oxide 400 MG ONE ONE 05/03 0830 DC 05/03 PO 05/03 0831 1141 Morphine Sulfate 15 MG BID 05/01 1000 AC 05/03 PO 2051 Oxycodone/ 1 TAB Q6P PRN 04/30 2330 AC Acetaminophen PO Ropinirole HCl 1 MG BID 05/01 1000 AC 05/03 PO 2051 Tiotropium [place] 1 PUF DAILY 05/01 1000 AC 05/03 INH 1143 Last 24 Hrs of Lab/Madhu Results Last 24 Hrs of Labs/Mics: Laboratory Tests 05/04/16 0520: Anion Gap 4 L, Estimated GFR > 60, BUN/Creatinine Ratio 23.3, Magnesium 1.4 L, CBC w Diff NO MAN DIFF REQ, RBC 2.51 L, MCV 95.1, MCH 32.2 H, RDW 19.8 H, MPV 8.9, Gran % 83.9 H, Lymphocytes % 3.8 L, Monocytes % 5.7, Eosinophils % 6.5 H , Basophils % 0.1, Absolute Granulocytes 13.2 H, Absolute Lymphocytes 0.6 L, Absolute Monocytes 0.9 H, Absolute Eosinophils 1.0, Absolute Basophils 0, PUBS MCHC 33.8 05/03/16 1702: CBC w Diff NO MAN DIFF REQ, RBC 2.47 L, MCV 96.3, MCH 32.0 H, RDW 19.7 H, MPV 9.1, Gran % 85.7 H, Lymphocytes % 2.9 L, Monocytes % 6.6, Eosinophils % 4.6, Basophils % 0.2, Absolute Granulocytes 13.9 H, Absolute Lymphocytes 0.5 L, Absolute Monocytes 1.1 H, Absolute Eosinophils 0.7, Absolute Basophils 0, PUBS MCHC 33.2 Assessment/Plan Assessment: 70 y/o F with PMHx of metastatic small cell lung cancer on chemotherapy, COPD on 3 L NC and T2DM who presents with generalized weakness. #Metastatic small cell lung cancer: CT Abdomen/Pelvis demonstrating increasing metastatic disease of the liver. Current presentation with generalized weakness most likely secondary to deconditioning and progressive cancer. Per oncology, patient will need change of therapy and may be a candidate for nivolumab. However she will need to improve her performance status before further therapy. * Continue discussions regarding goal of care with emphasis on symptomatic management given her guarded prognosis. * Follow up with oncology as outpatient to discuss treatment options. #Chronic anemia: Baseline Hgb 8-10. Hemoglobin 8.1 Guaiac positive stools this admission, most likely from hemorrhoids given her history. #Hypotension: Continues to be hemodynamically stable with BPs running in the 90s /50s. * Continue to monitor off IVF. Consider starting maintenance fluids if BP further drops. Diet: Consistent Carbohydrate 3 Fluids: None Electrolytes: Replete to K > 4 and Mg > 2 DVT PPx: ALPs CODE: DNI Problem List: 1. Type 2 diabetes mellitus 2. Liver metastases 3. Hypotension 4. Metastatic lung cancer (metastasis from lung to other site) 5. Small cell lung cancer Pain Ratin Pain Location: Back Pain Goal: Pain 4 or less Pain Plan: [facility] [place] Percocet Tylenol Tomorrow's Labs & Rationales: none
[2016-05-04 09:17] VITALS: BP 94/54
--- NOTE | 2016-05-04 11:21 | PN- Pulmonary ---
Subjective HPI/Critical Care Issues: No acute events overnight. She remains afebrile and hemodynamically stable Patient seen and examined this morning. She is sitting up in bed and looks comfortable. Sleeping Objective Current Medications: Current Medications Sig/Olga Start time Last Medication Dose Route Stop Time Status Admin Acetaminophen 650 MG Q6P PRN 04/30 2115 AC PO Albuterol Sulfate 3 ML Q4P PRN 05/02 1345 AC 05/04 INH 1108 Atorvastatin Calcium 20 MG DAILY 05/01 1000 AC 05/04 PO 0927 Calcitriol 0.25 MCG DAILY 05/01 1000 AC 05/04 PO 0927 Calcium Carbonate 1,250 MG DAILY 05/01 1000 AC 05/04 PO 0927 Cholecalciferol 2,000 IU DAILY 05/01 1000 AC 05/04 PO 0927 Diphenhydramine HCl 1 AAMIR Q4 HRS NEEDED PRN 05/03 2015 AC 05/04 TOP 0135 Insulin Aspart 0 TIDAC 05/01 1200 AC 05/02 SC 1701 Lorazepam 0.5 MG TIDPRN PRN 04/30 2330 AC PO 05/07 2329 Morphine Sulfate 15 MG BID 05/01 1000 AC 05/04 PO 0927 Oxycodone/ 1 TAB Q6P PRN 04/30 2330 AC Acetaminophen PO Ropinirole HCl 1 MG BID 05/01 1000 AC 05/04 PO 0927 Tiotropium [place] 1 PUF DAILY 05/01 1000 AC 05/04 INH 0927 Vital Signs & I&O Last 24 Hrs of Vitals and I&O: Vital Signs Date Time Temp Pulse Resp B/P Pulse O2 O2 Flow FiO2 Ox Delivery Rate 05/04 1108 97 Nasal 3.0L Cannula 05/04 0917 97.7 106 20 94/54 95 Nasal 2.0L Cannula 05/04 0000 Nasal 3.0L Cannula 05/03 2354 98.4 107 20 92/56 94 05/03 1845 99.2 110 16 90/60 94 Nasal 3.0L Cannula 05/03 1800 94 Nasal 3.0L Cannula 05/03 1600 94 Nasal 3.0L Cannula 05/03 1600 99.6 112 12 92/60 94 Nasal 3.0L Cannula Intake & Output 05/04 1600 05/04 0800 05/04 0000 Intake Total 200 600 Output Total 150 200 Balance 50 400 Intake, Oral 200 600 Output, Urine 150 200 Laboratory Tests 05/04 05/03 0520 1702 Chemistry Sodium (137 - 145 mmol/L) 132 L Potassium (3.5 - 5.1 mmol/L) 4.2 Chloride (98 - 107 mmol/L) 98 Carbon Dioxide (22 - 30 mmol/L) 30 Anion Gap (5 - 16) 4 L BUN (7 - 17 mg/dL) 14 Creatinine (0.5 - 1.0 mg/dL) 0.6 Estimated GFR (>60 ml/min) > 60 BUN/Creatinine Ratio (7 - 25 %) 23.3 Magnesium (1.6 - 2.3 mg/dL) 1.4 L Hematology CBC w Diff NO MAN DIFF REQ NO MAN DIFF REQ WBC (4.8 - 10.8 /CUMM) 15.7 H 16.2 H RBC (4.20 - 5.40 /CUMM) 2.51 L 2.47 L Hgb (12.0 - 16.0 G/DL) 8.1 L 7.9 L Hct (37 - 47 %) 23.8 L 23.8 L MCV (81.0 - 99.0 FL) 95.1 96.3 MCH (27.0 - 31.0 PG) 32.2 H 32.0 H RDW (11.5 - 14.5 %) 19.8 H 19.7 H Plt Count (130 - 400 /CUMM) 99 L 102 L MPV (7.4 - 10.4 FL) 8.9 9.1 Gran % (42.2 - 75.2 %) 83.9 H 85.7 H Lymphocytes % (20.5 - 51.1 %) 3.8 L 2.9 L Monocytes % (1.7 - 9.3 %) 5.7 6.6 Eosinophils % (0 - 5 %) 6.5 H 4.6 Basophils % (0.0 - 2.0 %) 0.1 0.2 Absolute Granulocytes (1.4 - 6.5 /CUMM) 13.2 H 13.9 H Absolute Lymphocytes (1.2 - 3.4 /CUMM) 0.6 L 0.5 L Absolute Monocytes (0.10 - 0.60 /CUMM) 0.9 H 1.1 H Absolute Eosinophils (0.0 - 0.7 /CUMM) 1.0 0.7 Absolute Basophils (0.0 - 0.2 /CUMM) 0 0 PUBS MCHC (33.0 - 37.0 G/DL) 33.8 33.2 05/03 0430 Chemistry Sodium (137 - 145 mmol/L) 135 L Potassium (3.5 - 5.1 mmol/L) 4.2 Chloride (98 - 107 mmol/L) 101 Carbon Dioxide (22 - 30 mmol/L) 30 Anion Gap (5 - 16) 4 L BUN (7 - 17 mg/dL) 13 Creatinine (0.5 - 1.0 mg/dL) 0.7 Estimated GFR (>60 ml/min) > 60 BUN/Creatinine Ratio (7 - 25 %) 18.6 Magnesium (1.6 - 2.3 mg/dL) 1.6 Hematology CBC w Diff NO MAN DIFF REQ WBC (4.8 - 10.8 /CUMM) 15.2 H RBC (4.20 - 5.40 /CUMM) 2.37 L Hgb (12.0 - 16.0 G/DL) 7.7 L Hct (37 - 47 %) 22.7 L MCV (81.0 - 99.0 FL) 95.8 MCH (27.0 - 31.0 PG) 32.3 H RDW (11.5 - 14.5 %) 19.5 H Plt Count (130 - 400 /CUMM) 93 L MPV (7.4 - 10.4 FL) 9.0 Gran % (42.2 - 75.2 %) 85.0 H Lymphocytes % (20.5 - 51.1 %) 3.6 L Monocytes % (1.7 - 9.3 %) 6.0 Eosinophils % (0 - 5 %) 5.0 Basophils % (0.0 - 2.0 %) 0.4 Absolute Granulocytes (1.4 - 6.5 /CUMM) 12.9 H Absolute Lymphocytes (1.2 - 3.4 /CUMM) 0.5 L Absolute Monocytes (0.10 - 0.60 /CUMM) 0.9 H Absolute Eosinophils (0.0 - 0.7 /CUMM) 0.8 Absolute Basophils (0.0 - 0.2 /CUMM) 0.1 PUBS MCHC (33.0 - 37.0 G/DL) 33.7 Impression/Plan Impression/Plan Impression/Plan: Physical Exam General Appearance: Alert, Oriented X3, No Acute Distress Skin: Warm and Dry HEENT: Mucous Membr. moist/pink Neck: Supple Cardiovascular: Tachycardic Lungs: Clear to Auscultation Abdomen: Soft, No Tenderness, Distended, Positive Bowel Sounds Neurological: No Gross Focal Deficits Noted Extremities: No Clubbing, No Cyanosis, No Edema IMPRESSION Ms. Francois is a 70-year-old female with history of metastatic small cell lung cancer who presents with failure to thrive and decondition. CT of the abdomen and pelvis demonstrated progression of liver disease. She has progressed through her recent treatment of weekly paclitaxel. ISSUES WOrsening malignancy small cell ca New onset ascites Worsening liver failure Rec Cont current meds Not a candidate for heparin and no need to investigate new onset asicites REplace mag iv today Will follow Jeremías torres
[2016-05-04 16:49] VITALS: BP 96/58
[2016-05-05 00:23] VITALS: BP 102/60
--- NOTE | 2016-05-05 05:47 | PN- Housestaff ---
Subjective Follow-up For: - generalized weakness Subjective: The patient was comfortable. Did not have any complaints. Stated that she slept well last night. Vitals were stable overnight. She was afebrile. Discussed with her about the management plan, she did not seem to be interested. Review of Systems Constitutional: Reports: see HPI. Objective Last 24 Hrs of Vital Signs/I&O Vital Signs Date Time Temp Pulse Resp B/P Pulse O2 O2 Flow FiO2 Ox Delivery Rate 05/05 0023 98.3 117 20 102/60 95 05/05 0000 Nasal 3.0L Cannula 05/04 1649 99.5 112 18 96/58 93 Room Air 05/04 1108 97 Nasal 3.0L Cannula 05/04 0917 97.7 106 20 94/54 95 Nasal 2.0L Cannula 05/04 0800 93 Nasal 3.0L Cannula Intake & Output 05/05 0800 05/05 0000 05/04 1600 Intake Total 150 240 700 Output Total 125 300 250 Balance 25 -60 450 Intake, IV 30 100 Intake, Oral 120 240 600 Output, Urine 125 300 250 Physical Exam General Appearance: No Acute Distress Other Physical Findings: General Exam: AAOx3, No acute distress, Skin: No rashes, no breakdown HEENT: PERRLA, EOMI Neck: Supple, No JVD No cervical lymphadenopathy CVS: Reg Rate, Normal S1,S2, No MGR Resp: Normal air entry, no ronchi/rales Abdomen: Soft, No tenderness, Normal Bowel Sounds Neuro: Normal Speech, Strength 5/5 b/l x 4 extremities, Sensation intact, CN III -XII NL, Reflexes 2+ Extremities: No cyanosis, pedal edema Current Medications: Current Medications Sig/Olga Start time Last Medication Dose Route Stop Time Status Admin Acetaminophen 650 MG Q6P PRN 04/30 2115 AC PO Albuterol Sulfate 3 ML Q4P PRN 05/02 1345 AC 05/04 INH 1108 Atorvastatin Calcium 20 MG DAILY 05/01 1000 AC 05/04 PO 926 Calcitriol 0.25 MCG DAILY 05/01 1000 AC 05/04 PO 926 Calcium Carbonate 1,250 MG DAILY 05/01 1000 AC 05/04 PO 926 Cholecalciferol 2,000 IU DAILY 05/01 1000 AC 05/04 PO 926 Diphenhydramine HCl 1 AAMIR Q4 HRS NEEDED PRN 05/03 2014 AC 05/04 TOP 0135 Insulin Aspart 0 TIDAC 05/01 1200 AC 05/04 SC 1818 Lorazepam 0.5 MG TIDPRN PRN 04/30 2330 AC PO 05/07 2329 Magnesium Sulfate 1 GM Q2H 05/04 1230 DC 05/04 Dextrose/Water 100 ML IV 05/04 1629 1625 Morphine Sulfate 15 MG BID 05/01 1000 AC 05/04 PO 2231 Oxycodone/ 1 TAB Q6P PRN 04/30 2330 AC Acetaminophen PO Ropinirole HCl 1 MG BID 05/01 1000 AC 05/04 PO 2231 Tiotropium [place] 1 PUF DAILY 05/01 1000 AC 05/04 INH 0927 Last 24 Hrs of Lab/Madhu Results Last 24 Hrs of Labs/Mics: Laboratory Tests 05/05/16 0530: Sodium Pending, Potassium Pending, Chloride Pending, Carbon Dioxide Pending, Anion Gap Pending, BUN Pending, Creatinine Pending, BUN/Creatinine Ratio Pending , Magnesium Pending, CBC w Diff Pending, WBC Pending, RBC Pending, Hgb Pending, Hct Pending, MCV Pending, MCH Pending, RDW Pending, Plt Count Pending, MPV Pending, PUBS MCHC Pending Assessment/Plan Assessment: 70 y/o F with PMHx of metastatic small cell lung cancer on chemotherapy, COPD on 3 L NC and T2DM who presents with generalized weakness. #Metastatic small cell lung cancer: CT Abdomen/Pelvis demonstrating increasing metastatic disease of the liver. Current presentation with generalized weakness most likely secondary to deconditioning and progressive cancer. Per oncology, patient will need change of therapy and may be a candidate for nivolumab. However she will need to improve her performance status before further therapy. * Continue discussions regarding goal of care with emphasis on symptomatic management given her guarded prognosis. * Follow up with oncology as outpatient to discuss treatment options. #Chronic anemia: Baseline Hgb 8-10. Hemoglobin 8.1 Guaiac positive stools this admission, most likely from hemorrhoids given her history. #Hypotension: Continues to be hemodynamically stable with BPs running in the 90s /50s. * IV fluids. Diet: Consistent Carbohydrate 3 Fluids: None Electrolytes: Replete to K > 4 and Mg > 2 DVT PPx: ALPs CODE: DNI Problem List: 1. Type 2 diabetes mellitus 2. Liver metastases Pain Ratin Pain Location: Back Pain Goal: Pain 4 or less Pain Plan: Tylenol when necessary Tomorrow's Labs & Rationales: No labs necessary.
[2016-05-05 08:05] LABS: ABSOLUTE BASOPHIL COUNT 0.1 /CUMM (0.0-0.2); ABSOLUTE EOSINOPHIL COUNT 1.2 /CUMM (0.0-0.7); ABSOLUTE GRANULOCYTE CT 10.6 /CUMM (1.4-6.5); ABSOLUTE LYMPH COUNT 0.7 /CUMM (1.2-3.4); BASOPHIL % 0.7 % (0.0-2.0); EOSINOPHIL % 8.5 % (0-5); GRANULOCYTE % 78.6 % (42.2-75.2); HEMATOCRIT 22.9 % (37-47); MEAN CORPUSCULAR HGB 32.4 PG (27.0-31.0); MEAN CORPUSCULAR HGB CONC 33.7 G/DL (33.0-37.0); MEAN CORPUSCULAR VOLUME 96.3 FL (81.0-99.0); MEAN PLATELET VOLUME 9.4 FL (7.4-10.4); PLATELET COUNT 106 /CUMM (130-400); RBC DISTRIBUTION WIDTH 19.3 % (11.5-14.5); RED BLOOD CELL CT 2.38 /CUMM (4.20-5.40); WHITE BLOOD CELL COUNT 13.5 /CUMM (4.8-10.8)
[2016-05-05 08:52] VITALS: BP 94/60
[2016-05-05 10:11] VITALS: BP 100/64
--- NOTE | 2016-05-05 11:23 | PN- Oncology ---
Subjective Subjective: She feels a little better. Energy is a little bit improved. She has not had a bowel movement. She has not had any fever or chills. Review of Systems: Constitutional: Denies: chills, fever EENTM: Denies: blurred vision, double vision. Cardiovascular: Reports: peripheral edema. Denies: chest pain. Respiratory: Reports: cough, short of breath. Denies: hemoptysis. GI: Denies: diarrhea, bloody stool, changes in stool, vomiting. Musculoskeletal: Denies: back pain. All Other Systems: Reviewed and Negative Objective Vital Signs and I&Os Vital Signs Date Time Temp Pulse Resp B/P Pulse O2 O2 Flow FiO2 Ox Delivery Rate 05/05 1011 102 100/64 05/05 0852 98.8 103 20 94/60 93 Nasal 2.0L Cannula 05/05 0023 98.3 117 20 102/60 95 05/05 0000 Nasal 3.0L Cannula 05/04 1649 99.5 112 18 96/58 93 Room Air 05/04 1108 97 Nasal 3.0L Cannula Intake & Output 05/05 1600 05/05 0800 05/05 0000 05/04 1600 05/04 0800 05/04 0000 Intake Total 390 240 700 200 600 Output Total 125 300 250 150 200 Balance 265 -60 450 50 400 Intake, IV 30 100 Intake, Oral 360 240 600 200 600 Output, Urine 125 300 250 150 200 Physical Exam: General Appearance: no apparent distress, alert, awake, comfortable, on 3L NC Head: atraumatic Respiratory: normal breath sounds, chest non-tender, quiet respiration, crackles Cardiovascular: edema, tachycardia Gastrointestinal: normal bowel sounds, soft, no organomegaly, distention Extremities: 1+ bilateral lower extremity edema Neurologic/Psych: no motor/sensory deficits, awake, alert, oriented x 3 Cranial Nerves: normal hearing, normal speech Skin: warm/dry Current Medications: Current Medications Sig/Olga Start time Last Medication Dose Route Stop Time Status Admin Acetaminophen 650 MG Q6P PRN 04/30 2115 AC PO Albuterol Sulfate 3 ML Q4P PRN 05/02 1345 AC 05/04 INH 1108 Atorvastatin Calcium 20 MG DAILY 05/01 1000 AC 05/05 PO 1009 Calcitriol 0.25 MCG DAILY 05/01 1000 AC 05/05 PO 1009 Calcium Carbonate 1,250 MG DAILY 05/01 1000 AC 05/05 PO 1009 Cholecalciferol 2,000 IU DAILY 05/01 1000 AC 05/05 PO 1009 Diphenhydramine HCl 1 AAMIR Q4 HRS NEEDED PRN 05/03 2014 AC 05/04 TOP 0135 Insulin Aspart 0 TIDAC 05/01 1200 AC 05/05 SC 0903 Lorazepam 0.5 MG TIDPRN PRN 04/30 2330 AC PO 05/07 2329 Magnesium Sulfate 1 GM Q2H 05/04 1230 DC 05/04 Dextrose/Water 100 ML IV 05/04 1629 1625 Morphine Sulfate 15 MG BID 05/01 1000 AC 05/05 PO 1010 Oxycodone/ 1 TAB Q6P PRN 04/30 2330 AC Acetaminophen PO Ropinirole HCl 1 MG BID 05/01 1000 AC 05/05 PO 1009 Tiotropium [place] 1 PUF DAILY 05/01 1000 AC 05/05 INH 1009 Results Last 24 Hours of Lab Results: Laboratory Tests 05/05 0530 Chemistry Sodium (137 - 145 mmol/L) 132 L Potassium (3.5 - 5.1 mmol/L) 4.3 Chloride (98 - 107 mmol/L) 98 Carbon Dioxide (22 - 30 mmol/L) 28 Anion Gap (5 - 16) 6 BUN (7 - 17 mg/dL) 15 Creatinine (0.5 - 1.0 mg/dL) 0.6 Estimated GFR (>60 ml/min) > 60 BUN/Creatinine Ratio (7 - 25 %) 25.0 Magnesium (1.6 - 2.3 mg/dL) 1.6 Hematology CBC w Diff MAN DIFF ORDERED WBC (4.8 - 10.8 /CUMM) 13.5 H RBC (4.20 - 5.40 /CUMM) 2.38 L Hgb (12.0 - 16.0 G/DL) 7.7 L Hct (37 - 47 %) 22.9 L MCV (81.0 - 99.0 FL) 96.3 MCH (27.0 - 31.0 PG) 32.4 H RDW (11.5 - 14.5 %) 19.3 H Plt Count (130 - 400 /CUMM) 106 L MPV (7.4 - 10.4 FL) 9.4 Gran % (42.2 - 75.2 %) 78.6 H Lymphocytes % (20.5 - 51.1 %) 4.9 L Monocytes % (1.7 - 9.3 %) 7.3 Eosinophils % (0 - 5 %) 8.5 H Basophils % (0.0 - 2.0 %) 0.7 Absolute Granulocytes (1.4 - 6.5 /CUMM) 10.6 H Segmented Neutrophils (42.2 - 75.2 %) 69 Band Neutrophils (0.0 - 5.0 %) 13 H Absolute Lymphocytes (1.2 - 3.4 /CUMM) 0.7 L Lymphocytes (20.5 - 51.1 %) 4 L Monocytes (1.7 - 9.3 %) 4 Absolute Monocytes (0.10 - 0.60 /CUMM) 1.0 H Eosinophils (0 - 5.0 %) 10 H Absolute Eosinophils (0.0 - 0.7 /CUMM) 1.2 Absolute Basophils (0.0 - 0.2 /CUMM) 0.1 Platelet Estimate (ADEQUATE) DECREASED Hypochromic-Microcytic 2+ Poikilocytosis 2+ Anisocytosis 1+ PUBS MCHC (33.0 - 37.0 G/DL) 33.7 Assessment/Plan Assessment/Recommendations: Ms. Francois is a 70-year-old female with history of metastatic small cell lung cancer who presents with failure to thrive and decondition. On admission she was noted to have low grade fever, leukocytosis with 9% bands, and elevated bilirubin. CT of the abdomen and pelvis demonstrated progression of liver disease. She has progressed through her recent treatment of weekly paclitaxel. She is improving. She denies any new symptoms. She is still deconditioned. She refuses any placement if needed. Recommendations: 1. PT/OT 2. Follow up as outpatient Please call [phone] with any questions or concerns. Problem List: 1. Metastatic lung cancer (metastasis from lung to other site) 2. Small cell lung cancer
[2016-05-05 16:25] VITALS: BP 102/62
[2016-05-06 01:17] VITALS: BP 106/53
--- NOTE | 2016-05-06 06:02 | PN- Housestaff ---
Subjective Follow-up For: - lung mass Subjective: She was comfortable this morning. Still complains of shortness of breath, at rest. Oxygen saturation 94-95% on 3 L. And afebrile overnight. Review of Systems Constitutional: Reports: see HPI. Objective Last 24 Hrs of Vital Signs/I&O Vital Signs Date Time Temp Pulse Resp B/P Pulse O2 O2 Flow FiO2 Ox Delivery Rate 05/06 0117 98.3 114 20 106/53 97 Nasal 3.0L Cannula 05/06 0000 Nasal 3.0L Cannula 05/05 2100 97 Nasal 3.0L Cannula 05/05 1625 98.8 111 20 102/62 96 Nasal 3.0L Cannula 05/05 1600 Nasal 3.0L Cannula 05/05 1143 94 Nasal 3.0L Cannula 05/05 1011 102 100/64 05/05 0852 98.8 103 20 94/60 93 Nasal 2.0L Cannula 05/05 0800 94 Nasal 3.0L Cannula Intake & Output 05/06 0800 05/06 0000 05/05 1600 Intake Total 100 800 Output Total 80 400 Balance 20 400 Intake, IV 200 Intake, Oral 100 600 Number 3 Bowel Movements Output, Urine 80 400 Physical Exam General Appearance: No Acute Distress Other Physical Findings: General Exam: AAOx3, No acute distress, Skin: No rashes, no breakdown HEENT: PERRLA, EOMI Neck: Supple, No JVD No cervical lymphadenopathy CVS: Reg Rate, Normal S1,S2, No MGR Resp: Normal air entry, no ronchi/rales Abdomen: Soft, No tenderness, Normal Bowel Sounds Neuro: Normal Speech, Strength 5/5 b/l x 4 extremities, Sensation intact, CN III -XII NL, Reflexes 2+ Extremities: No cyanosis, pedal edema Current Medications: Current Medications Sig/Olga Start time Last Medication Dose Route Stop Time Status Admin Acetaminophen 650 MG Q6P PRN 04/30 2115 AC PO Albuterol Sulfate 3 ML Q4P PRN 05/02 1345 AC 05/05 INH 2100 Atorvastatin Calcium 20 MG DAILY 05/01 1000 AC 05/05 PO 1009 Calcitriol 0.25 MCG DAILY 05/01 1000 AC 05/05 PO 1009 Calcium Carbonate 1,250 MG DAILY 05/01 1000 AC 05/05 PO 1009 Cholecalciferol 2,000 IU DAILY 05/01 1000 AC 05/05 PO 1009 Diphenhydramine HCl 1 AAMIR Q4 HRS NEEDED PRN 05/03 2015 AC 05/04 TOP 0135 Insulin Aspart 0 TIDAC 05/01 1200 AC 05/05 SC 0903 Lorazepam 0.5 MG TIDPRN PRN 04/30 2330 AC PO 05/07 2329 Magnesium Sulfate 1 GM Q2H 05/05 1130 DC 05/05 Dextrose/Water 100 ML IV 05/05 1529 1340 Morphine Sulfate 15 MG BID 05/01 1000 AC 05/05 PO 2206 Oxycodone/ 1 TAB Q6P PRN 04/30 2330 AC Acetaminophen PO Ropinirole HCl 1 MG BID 05/01 1000 AC 05/05 PO 2206 Sodium Chloride 1,000 ML Q20H 05/05 1615 AC 05/05 IV 05/06 1214 1729 Tiotropium [place] 1 PUF DAILY 05/01 1000 AC 05/05 INH 1009 Last 24 Hrs of Lab/Madhu Results Last 24 Hrs of Labs/Mics: Laboratory Tests 05/06/16 0550: Sodium Pending, Potassium Pending, Chloride Pending, Carbon Dioxide Pending, Anion Gap Pending, BUN Pending, Creatinine Pending, BUN/Creatinine Ratio Pending Assessment/Plan Assessment: 70 y/o F with PMHx of metastatic small cell lung cancer on chemotherapy, COPD on 3 L NC and T2DM who presents with generalized weakness. #Metastatic small cell lung cancer: CT Abdomen/Pelvis demonstrating increasing metastatic disease of the liver. Current presentation with generalized weakness most likely secondary to deconditioning and progressive cancer. Per oncology, patient will need change of therapy and may be a candidate for nivolumab. However she will need to improve her performance status before further therapy. * Continue discussions regarding goal of care with emphasis on symptomatic management given her guarded prognosis. * Follow up with oncology as outpatient to discuss treatment options. #Chronic anemia: Baseline Hgb 8-10. Hemoglobin 8.1 Guaiac positive stools this admission, most likely from hemorrhoids given her history. #Hypotension: Continues to be hemodynamically stable with BPs running in the 90s /50s. * IV fluids. Diet: Consistent Carbohydrate 3 Fluids: None Electrolytes: Replete to K > 4 and Mg > 2 DVT PPx: ALPs CODE: DNI Problem List: 1. Diabetes mellitus type 2 2. Type 2 diabetes mellitus 3. S/P thoracotomy Pain Ratin Pain Location: back Pain Goal: Pain 4 or less Pain Plan: tylenol prn Tomorrow's Labs & Rationales: no labs necessary
[2016-05-06 08:02] VITALS: BP 110/58
--- NOTE | 2016-05-06 08:36 | PN- Oncology ---
Subjective Subjective: She feels better today. Breathing is about the same. She has not had any fever. She moved her bowel a few times yesterday. Review of Systems: Constitutional: Denies: chills, fever EENTM: Denies: blurred vision, double vision. Cardiovascular: Reports: peripheral edema. Denies: chest pain. Respiratory: Reports: cough, short of breath. Denies: hemoptysis. GI: Denies: diarrhea, bloody stool, changes in stool, vomiting. Musculoskeletal: Denies: back pain. All Other Systems: Reviewed and Negative. Objective Vital Signs and I&Os Vital Signs Date Time Temp Pulse Resp B/P Pulse O2 O2 Flow FiO2 Ox Delivery Rate 05/06 0812 94 Nasal 3.0L Cannula 05/06 0802 97.5 100 20 110/58 95 Nasal 3.0L Cannula 05/06 0117 98.3 114 20 106/53 97 Nasal 3.0L Cannula 05/06 0000 Nasal 3.0L Cannula 05/05 2100 97 Nasal 3.0L Cannula 05/05 1625 98.8 111 20 102/62 96 Nasal 3.0L Cannula 05/05 1600 Nasal 3.0L Cannula 05/05 1143 94 Nasal 3.0L Cannula 05/05 1011 102 100/64 05/05 0852 98.8 103 20 94/60 93 Nasal 2.0L Cannula Intake & Output 05/06 1600 05/06 0800 05/06 0000 05/05 1600 05/05 0800 05/05 0000 Intake Total 430 100 800 390 240 Output Total 80 400 125 300 Balance 430 20 400 265 -60 Intake, IV 430 200 30 Intake, Oral 100 600 360 240 Number 3 Bowel Movements Output, Urine 80 400 125 300 Physical Exam: General Appearance: no apparent distress, alert, awake, comfortable, on 3L NC Head: atraumatic Respiratory: normal breath sounds, chest non-tender, quiet respiration, crackles Cardiovascular: edema, tachycardia Gastrointestinal: normal bowel sounds, soft, no organomegaly, distention Extremities: 1+ bilateral lower extremity edema Neurologic/Psych: no motor/sensory deficits, awake, alert, oriented x 3 Cranial Nerves: normal hearing, normal speech Skin: warm/dry Current Medications: Current Medications Sig/Olga Start time Last Medication Dose Route Stop Time Status Admin Acetaminophen 650 MG Q6P PRN 04/30 2114 AC PO Albuterol Sulfate 3 ML Q4P PRN 05/02 1345 AC 05/05 INH 2100 Atorvastatin Calcium 20 MG DAILY 05/01 1000 AC 05/05 PO 1009 Calcitriol 0.25 MCG DAILY 05/01 1000 AC 05/05 PO 1009 Calcium Carbonate 1,250 MG DAILY 05/01 1000 AC 05/05 PO 1009 Cholecalciferol 2,000 IU DAILY 05/01 1000 AC 05/05 PO 1009 Diphenhydramine HCl 1 AAMIR Q4 HRS NEEDED PRN 05/03 2015 AC 05/04 TOP 0135 Insulin Aspart 0 TIDAC 05/01 1200 AC 05/05 SC 0903 Lorazepam 0.5 MG TIDPRN PRN 04/30 2330 AC PO 05/07 2329 Magnesium Sulfate 1 GM Q2H 05/05 1130 DC 05/05 Dextrose/Water 100 ML IV 05/05 1529 1340 Morphine Sulfate 15 MG BID 05/01 1000 AC 05/05 PO 2206 Oxycodone/ 1 TAB Q6P PRN 04/30 2330 AC Acetaminophen PO Ropinirole HCl 1 MG BID 05/01 1000 AC 05/05 PO 2206 Sodium Chloride 1,000 ML Q20H 05/05 1615 AC 05/05 IV 05/06 1214 1729 Tiotropium [place] 1 PUF DAILY 05/01 1000 AC 05/05 INH 1009 Results Last 24 Hours of Lab Results: Laboratory Tests 05/06 0550 Chemistry Sodium Pending Potassium Pending Chloride Pending Carbon Dioxide Pending Anion Gap Pending BUN Pending Creatinine Pending BUN/Creatinine Ratio Pending Assessment/Plan Assessment/Recommendations: Ms. Francois is a 70-year-old female with history of metastatic small cell lung cancer who presents with failure to thrive and decondition. On admission she was noted to have low grade fever, leukocytosis with 9% bands, and elevated bilirubin. CT of the abdomen and pelvis demonstrated progression of liver disease. She has progressed through her recent treatment of weekly paclitaxel. She continues to improve but dyspnea is still an issues. This is likely related to underlying malignancy. We will need to discuss options with the patient as an outpatient. Given her worsening performance status, it will be difficult to treat her aggressively. Recommendations: 1. PT/OT 2. Follow up as outpatient Please call [phone] with any questions or concerns. Problem List: 1. COPD (chronic obstructive pulmonary disease) 2. Metastatic lung cancer (metastasis from lung to other site) 3. Small cell lung cancer
[2016-05-06 16:28] VITALS: BP 98/56
[2016-05-06 23:42] VITALS: BP 90/60
--- NOTE | 2016-05-07 07:19 | PN- Housestaff ---
Subjective Follow-up For: - Lung cancer Subjective: Patient comfortable this morning. Vitals were stable. Pt left AMA, and forms signed by the pt(kept in the chart). Witness Dr. Mesa. NO change in medications as per Dr. Kerr. Verbally confirmed in the am. She was comfortable this am. No complaints. Vitals were stable overnight. Discussed w/ Dr. Leija Review of Systems Constitutional: Reports: see HPI. Objective Last 24 Hrs of Vital Signs/I&O Vital Signs Date Time Temp Pulse Resp B/P Pulse O2 O2 Flow FiO2 Ox Delivery Rate 05/07 0000 Nasal 3.0L Cannula 05/06 2342 98.6 113 18 90/60 95 Room Air 05/06 2020 97 Nasal 3.0L Cannula 05/06 1736 102 05/06 1628 98.5 112 16 98/56 96 Nasal 3.0L Cannula 05/06 1600 94 Nasal 3.0L Cannula 05/06 0900 94 Nasal 3.0L Cannula 05/06 0812 94 Nasal 3.0L Cannula 05/06 0802 97.5 100 20 110/58 95 Nasal 3.0L Cannula Intake & Output 05/07 0800 05/07 0000 05/06 1600 Intake Total 240 740 600 Output Total 300 200 250 Balance -60 540 350 Intake, IV 20 Intake, Oral 240 720 600 Number 1 Bowel Movements Output, Urine 300 200 250 Physical Exam General Appearance: No Acute Distress Other Physical Findings: General Exam: AAOx3, No acute distress, Skin: No rashes, no breakdown HEENT: PERRLA, EOMI Neck: Supple, No JVD No cervical lymphadenopathy CVS: Reg Rate, Normal S1,S2, No MGR Resp: Normal air entry, no ronchi/rales Abdomen: Soft, No tenderness, Normal Bowel Sounds Neuro: Normal Speech, Strength 5/5 b/l x 4 extremities, Sensation intact, CN III -XII NL, Reflexes 2+ Extremities: No cyanosis, pedal edema Current Medications: Current Medications Sig/Olga Start time Last Medication Dose Route Stop Time Status Admin Acetaminophen 650 MG Q6P PRN 04/30 2115 AC PO Albuterol Sulfate 3 ML Q4P PRN 05/02 1345 AC 05/06 INH 2024 Atorvastatin Calcium 20 MG DAILY 05/01 1000 AC 05/06 PO 09 Calcitriol 0.25 MCG DAILY 05/01 1000 AC 05/06 PO 0916 Calcium Carbonate 1,250 MG DAILY 05/01 1000 AC 05/06 PO 0916 Cholecalciferol 2,000 IU DAILY 05/01 1000 AC 05/06 PO 0916 Diphenhydramine HCl 1 AAMIR Q4 HRS NEEDED PRN 05/03 2015 AC 05/04 TOP 0135 Insulin Aspart 0 TIDAC 05/01 1200 AC 05/05 SC 0903 Lorazepam 0.5 MG TIDPRN PRN 04/30 2330 AC PO 05/07 2329 Morphine Sulfate 15 MG BID 05/01 1000 AC 05/06 PO 2122 Oxycodone/ 1 TAB Q6P PRN 04/30 2330 AC Acetaminophen PO Ropinirole HCl 1 MG BID 05/01 1000 AC 05/06 PO 2122 Sodium Chloride 1,000 ML Q20H 05/05 1615 DC 05/05 IV 05/06 1214 1729 Tiotropium [place] 1 PUF DAILY 05/01 1000 AC 05/06 INH 0916 Last 24 Hrs of Lab/Madhu Results Last 24 Hrs of Labs/Mics: Laboratory Tests 05/07/16 0615: Sodium Pending, Potassium Pending, Chloride Pending, Carbon Dioxide Pending, Anion Gap Pending, BUN Pending, Creatinine Pending, BUN/Creatinine Ratio Pending Assessment/Plan Assessment: 70 y/o F with PMHx of metastatic small cell lung cancer on chemotherapy, COPD on 3 L NC and T2DM who presents with generalized weakness. #Metastatic small cell lung cancer: CT Abdomen/Pelvis demonstrating increasing metastatic disease of the liver. Current presentation with generalized weakness most likely secondary to deconditioning and progressive cancer. Per oncology, patient will need change of therapy and may be a candidate for nivolumab. However she will need to improve her performance status before further therapy. * Continue discussions regarding goal of care with emphasis on symptomatic management given her guarded prognosis. * Follow up with oncology as outpatient to discuss treatment options. #Chronic anemia: Baseline Hgb 8-10. Hemoglobin 8.1 Guaiac positive stools this admission, most likely from hemorrhoids given her history. #Hypotension: Continues to be hemodynamically stable with BPs running in the 90s /50s. * IV fluids. Diet: Consistent Carbohydrate 3 Fluids: None Electrolytes: Replete to K > 4 and Mg > 2 DVT PPx: ALPs CODE: DNI Problem List: 1. Diabetes mellitus type 2 2. Type 2 diabetes mellitus 3. Liver metastases 4. Metastatic lung cancer (metastasis from lung to other site) 5. Small cell lung cancer Pain Ratin Pain Location: Abdomen Pain Goal: Pain 4 or less Pain Plan: Tylenol when necessary Tomorrow's Labs & Rationales: No labs necessary. The patient to be discharged.
[2016-05-07 08:32] VITALS: BP 96/60
--- NOTE | 2016-05-07 08:38 | PN- Oncology ---
Subjective Subjective: She feels a little better. She denies any nausea or vomiting. She has work a little with PT but has been only sitting on the side of the bed. She has no fever or chills. Review of Systems: Constitutional: Denies: chills, fever EENTM: Denies: blurred vision, double vision. Cardiovascular: Reports: peripheral edema. Denies: chest pain. Respiratory: Reports: cough, short of breath. Denies: hemoptysis. GI: Denies: diarrhea, bloody stool, changes in stool, vomiting. All Other Systems: Reviewed and Negative. Objective Vital Signs and I&Os Vital Signs Date Time Temp Pulse Resp B/P Pulse O2 O2 Flow FiO2 Ox Delivery Rate 05/07 0832 97.7 102 18 96/60 95 Nasal 3.0L Cannula 05/07 0759 95 Nasal 3.0L Cannula 05/07 0000 Nasal 3.0L Cannula 05/06 2342 98.6 113 18 90/60 95 Room Air 05/06 2020 97 Nasal 3.0L Cannula 05/06 1736 102 05/06 1628 98.5 112 16 98/56 96 Nasal 3.0L Cannula 05/06 1600 94 Nasal 3.0L Cannula 05/06 0900 94 Nasal 3.0L Cannula Intake & Output 05/07 1600 05/07 0800 05/07 0000 05/06 1600 05/06 0800 05/06 0000 Intake Total 240 740 600 430 100 Output Total 300 200 250 80 Balance -60 540 350 430 20 Intake, IV 20 430 Intake, Oral 240 720 600 100 Number 1 3 Bowel Movements Output, Urine 300 200 250 80 Physical Exam: General Appearance: no apparent distress, alert, awake, comfortable, on 3L NC Head: atraumatic Respiratory: normal breath sounds, chest non-tender, quiet respiration, crackles Cardiovascular: edema, tachycardia Gastrointestinal: normal bowel sounds, soft, no organomegaly, distention Extremities: 1+ bilateral lower extremity edema Neurologic/Psych: no motor/sensory deficits, awake, alert, oriented x 3 Cranial Nerves: normal hearing, normal speech Skin: warm/dry Current Medications: Current Medications Sig/Olga Start time Last Medication Dose Route Stop Time Status Admin Acetaminophen 650 MG Q6P PRN 04/30 2115 AC PO Albuterol Sulfate 3 ML Q4P PRN 05/02 1345 AC 05/07 INH 0756 Atorvastatin Calcium 20 MG DAILY 05/01 1000 AC 05/06 PO 0916 Calcitriol 0.25 MCG DAILY 05/01 1000 AC 05/06 PO 0916 Calcium Carbonate 1,250 MG DAILY 05/01 1000 AC 05/06 PO 0916 Cholecalciferol 2,000 IU DAILY 05/01 1000 AC 05/06 PO 0916 Diphenhydramine HCl 1 AAMIR Q4 HRS NEEDED PRN 05/03 2014 AC 05/04 TOP 0135 Insulin Aspart 0 TIDAC 05/01 1200 AC 05/05 SC 0903 Lorazepam 0.5 MG TIDPRN PRN 04/30 2330 AC PO 05/07 2329 Morphine Sulfate 15 MG BID 05/01 1000 AC 05/06 PO 2122 Oxycodone/ 1 TAB Q6P PRN 04/30 2330 AC Acetaminophen PO Ropinirole HCl 1 MG BID 05/01 1000 AC 05/06 PO 212 Sodium Chloride 1,000 ML Q20H 05/05 1615 DC 05/05 IV 05/06 1214 1729 Tiotropium [place] 1 PUF DAILY 05/01 1000 AC 05/06 INH 0916 Results Last 24 Hours of Lab Results: Laboratory Tests 05/07 0615 Chemistry Sodium (137 - 145 mmol/L) 134 L Potassium (3.5 - 5.1 mmol/L) 4.1 Chloride (98 - 107 mmol/L) 97 L Carbon Dioxide (22 - 30 mmol/L) 30 Anion Gap (5 - 16) 7 BUN (7 - 17 mg/dL) 15 Creatinine (0.5 - 1.0 mg/dL) 0.7 Estimated GFR (>60 ml/min) > 60 BUN/Creatinine Ratio (7 - 25 %) 21.4 Assessment/Plan Assessment/Recommendations: Ms. Francois is a 70-year-old female with history of metastatic small cell lung cancer who presents with failure to thrive and decondition. On admission she was noted to have low grade fever, leukocytosis with 9% bands, and elevated bilirubin. CT of the abdomen and pelvis demonstrated progression of liver disease. She has progressed through her recent treatment of weekly paclitaxel. She is clinically improved. She refused any placement for rehab. Her family reports being able to take care of her 06/10 at home. I discussed with the family regarding the overall goals of care and what Ms. Francois's ultimate goals are with her condition. I reinforced that cure is not likely and that I will focus prolonging life with QOL. I again told the patient and family that Ms. Francois needs to improve on her PS prior to being able to get further therapy. Recommendations: 1. PT/OT 2. Transfuse for hgb >8 prior to discharge 3. Follow up as outpatient Please call [phone] with any questions or concerns. Problem List: 1. Metastatic lung cancer (metastasis from lung to other site) 2. Liver metastases 3. Small cell lung cancer
[2016-05-07 09:40] LABS: ABSOLUTE BASOPHIL COUNT 0.1 /CUMM (0.0-0.2); ABSOLUTE EOSINOPHIL COUNT 1.7 /CUMM (0.0-0.7); ABSOLUTE GRANULOCYTE CT 6.6 /CUMM (1.4-6.5); ABSOLUTE LYMPH COUNT 0.5 /CUMM (1.2-3.4); ABSOLUTE MONOCYTE COUNT 0.9 /CUMM (0.10-0.60); BASOPHIL % 0.5 % (0.0-2.0); EOSINOPHIL % 17.6 % (0-5); GRANULOCYTE % 67.9 % (42.2-75.2); HEMATOCRIT 24.5 % (37-47); MEAN CORPUSCULAR HGB 32.4 PG (27.0-31.0); MEAN CORPUSCULAR VOLUME 95.4 FL (81.0-99.0); MEAN PLATELET VOLUME 9.3 FL (7.4-10.4); PLATELET COUNT 120 /CUMM (130-400); RBC DISTRIBUTION WIDTH 18.7 % (11.5-14.5); RED BLOOD CELL CT 2.56 /CUMM (4.20-5.40); WHITE BLOOD CELL COUNT 9.7 /CUMM (4.8-10.8)
--- NOTE | 2016-05-07 12:30 | Patient Discharge Instructions ---
Discharge Instructions General Discharge Information You were seen/treated for: 1. Lung cancer Special Instructions: 1. Please see your PCP within one week of discharge. 2. Please see you Oncologist within one week. 3. No changes in medications were made as per Dr. Nash instructions. Please take all your medications as suggested previously. Acute Coronary Syndrome Inclusion Criteria At DC or during hospital stay patient has or had the following: ACS DIAGNOSIS No Discharge Core Measures Meds if any: Prescribed or Continued at Discharge Meds if any: NOT Prescribed or Continued at Discharge Congestive Heart Failure Inclusion Criteria At DC or during hospital stay patient has or had the following: CHF DIAGNOSIS No Discharge Core Measures Meds if any: Prescribed or Continued at Discharge Meds if any: NOT Prescribed or Continued at Discharge Cerebrovascular accident Inclusion Criteria At DC or during hospital stay patient has or had the following: CVA/TIA Diagnosis No Discharge Core Measures Meds if any: Prescribed or Continued at Discharge Meds if any: NOT Prescribed or Continued at Discharge Venous thromboembolism Inclusion Criteria VTE Diagnosis No VTE Type NONE VTE Confirmed by (Test) NONE Discharge Core Measures - Per Current guidelines, there needs to be overlap - treatment for the first 5 days of Warfarin therapy. - If discharged on Warfarin prior to 5 days of - overlap therapy, the patient will need to be - assessed for post discharge needs including - *Post discharge parental anticoagulation - *Warfarin and/or parental anticoagulation education - *Follow up date to check INR post discharge At least 5 days overlap therapy as Inpatient No Meds if any: Prescribed or Continued at Discharge Note: Overlap Therapy is Warfarin and Anticoagulant Meds if any: NOT Prescribed or Continued at Discharge
--- NOTE | 2016-05-07 14:35 | PN- Att Addend ---
Attending Addendum Attending Brief Note No new issues patient still weak, vital signs are stable, are not last H&H stable hemoglobin of 8 oncologist suggested if the hemorrhoid was less than 7 to transfuse her in residence at the long discussion with the patient and her she still wishes no short-term rehabilitation which was recommended to wants to go home for those reasons we'll allow her to sign out AGAINST MEDICAL ADVICE to follow up with oncology as an outpatient in the near future will have home care and home physical therapy Current Medications Sig/Olga Start time Last Medication Dose Route Stop Time Status Admin Acetaminophen 650 MG Q6P PRN 04/30 2115 AC PO Albuterol Sulfate 3 ML Q4P PRN 05/02 1345 AC 05/07 INH 0756 Atorvastatin Calcium 20 MG DAILY 05/01 1000 AC 05/07 PO 0953 Calcitriol 0.25 MCG DAILY 05/01 1000 AC 05/07 PO 0953 Calcium Carbonate 1,250 MG DAILY 05/01 1000 AC 05/07 PO 0953 Cholecalciferol 2,000 IU DAILY 05/01 1000 AC 05/07 PO 0952 Diphenhydramine HCl 1 AAMIR Q4 HRS NEEDED PRN 05/03 2015 AC 05/04 TOP 0135 Insulin Aspart 0 TIDAC 05/01 1200 AC 05/05 SC 0903 Lorazepam 0.5 MG TIDPRN PRN 04/30 2330 AC PO 05/07 2329 Morphine Sulfate 15 MG BID 05/01 1000 AC 05/07 PO 0951 Oxycodone/ 1 TAB Q6P PRN 04/30 2330 AC Acetaminophen PO Patient Medication 1 ED .STK-MED ONE 05/07 1335 VT Teaching ED 05/07 1336 Ropinirole HCl 1 MG BID 05/01 1000 AC 05/07 PO 0953 Tiotropium [place] 1 PUF DAILY 05/01 1000 AC 05/07 INH 0951 Laboratory Tests 05/07/16 0917: CBC w Diff MAN DIFF ORDERED, RBC 2.56 L, MCV 95.4, MCH 32.4 H, RDW 18.7 H, MPV 9.3, Gran % 67.9, Lymphocytes % 5.0 L, Monocytes % 9.0, Eosinophils % 17.6 H, Basophils % 0.5, Absolute Granulocytes 6.6 H, Segmented Neutrophils 64, Band Neutrophils 4, Absolute Lymphocytes 0.5 L, Lymphocytes 8 L, Monocytes 7, Absolute Monocytes 0.9 H, Eosinophils 17 H, Absolute Eosinophils 1.7, Absolute Basophils 0.1, Nucleated RBCs 1 H, Platelet Estimate VERIFIED BY SMEAR, Hypochromic-Microcytic 1+, Anisocytosis 1+, PUBS MCHC 34.0 05/07/16 0615: Anion Gap 7, Estimated GFR > 60, BUN/Creatinine Ratio 21.4 Vital Signs Date Time Temp Pulse Resp B/P Pulse O2 O2 Flow FiO2 Ox Delivery Rate 05/07 0832 97.7 102 18 96/60 95 Nasal 3.0L Cannula 05/07 0800 94 Nasal 3.0L Cannula 05/07 0759 95 Nasal 3.0L Cannula 05/07 0000 Nasal 3.0L Cannula 05/06 2342 98.6 113 18 90/60 95 Room Air 05/06 2020 97 Nasal 3.0L Cannula 05/06 1736 102 05/06 1628 98.5 112 16 98/56 96 Nasal 3.0L Cannula 05/06 1600 94 Nasal 3.0L Cannula Intake & Output 05/07 1600 05/07 0800 05/07 0000 Intake Total 480 240 740 Output Total 300 300 200 Balance 180 -60 540 Intake, IV 20 Intake, Oral 480 240 720 Number 1 1 Bowel Movements Output, Urine 300 300 200
--- NOTE | 2016-05-27 14:27 | Discharge Summary ---
Visit Information Visit Dates Admission Date: 04/30/16 Discharge Date: 05/07/16 Hospital Course Course Attending Physician: MARY KNOX MD Primary Care Physician: MARY KNOX MD Consulting Request: Consulting Specialty: Critical Care (and oncology) Consulting Physician: Drs. 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 Was seen by physical therapy and recommended short-term rehabilitation. The patient refused, was explained the need for it by the oncologist and the medical team but the patient decided to go home AGAINST MEDICAL ADVICE on the to be followed by the visiting nurses physical therapy and follow with oncologist Complications: None Allergies: Coded Allergies: adhesive tape (BLISTERS 05/17/15) heparin (UNKNOWN 05/17/15) Significant Procedures: SERVICE DATE: 05/14/16-1529 EXAM TYPE: CAT - CTA CHEST-PULMONARY EMBOLISM EXAMINATION: CT ANGIOGRAM OF THE CHEST WITH AND WITHOUT CONTRAST (CT PULMONARY ANGIOGRAM FOR PE) CLINICAL INFORMATION: Shortness of breath. COMPARISON: Radiograph from earlier today. CT from 04/23/2016. TECHNIQUE: Prior to contrast administration, noncontrast localization images were obtained. Subsequently, multidetector volumetric imaging was performed from the thoracic inlet to below the diaphragms following the administration of 95 mL Optiray 320 intravenous contrast. No contrast reaction reported Sagittal, coronal, and MIP oblique sagittal reformatted images were obtained on the CT workstation, uploaded to PACS, and reviewed. Total exam dose-length product 337 mGy-cm FINDINGS: QUALITY OF STUDY/CONTRAST BOLUS: Satisfactory. PULMONARY ARTERIES: No central or segmental pulmonary emboli. Postsurgical changes consistent with prior left upper lobectomy. THORACIC AORTA: No aneurysm or dissection. LUNG: The central airways are patent. Postsurgical changes status post left upper lobectomy. Near complete consolidation throughout the left lower lobe. There are bronchograms are present. Minimal aerated lung remains at the left base. There is also pleural thickening noted with a small pleural effusion. There is increased patchy opacity within the right upper lobe and right middle lobe when compared to the prior study. Mild centrilobular emphysema noted. No pneumothorax or pleural effusion on the right. MEDIASTINUM: There is leftward shift of the mediastinum. Small pericardial effusion. Coronary artery calcifications are present. There is a prominent pretracheal lymph node which is similar to prior. This measures 1.8 x 1.7 cm. No evidence of septal bowing or right heart strain. CHEST WALL/AXILLA: No axillary or internal mammary lymphadenopathy. Anasarca. OSSEOUS STRUCTURES: No acute or suspicious osseous abnormality. Degenerative changes throughout the spine. UPPER ABDOMEN: Small volume of ascites. Hypoattenuating lesions are seen throughout the liver, consistent with known metastatic disease. The known adrenal lesions are not well-visualized. No reflux of contrast into the hepatic veins to suggest elevated right heart pressures. IMPRESSION: 1. No pulmonary embolism. 2. Increased patchy opacities in the right middle lobe and upper lobe most consistent with infectious process. 3. Increased small pericardial effusion. 4. Postsurgical changes status post left upper lobectomy. Worsening consolidation of the left lower lobe with minimal remaining aerated lung at the lung base. Small pleural effusion has increased from prior. 5. Metastatic liver lesions again noted. Enlarged mediastinal lymph node again noted. VTE: negative SERVICE DATE: 05/15/16 EXAM TYPE: RAD - XRY-PORTABLE CHEST XRAY EXAMINATION: XR PORTABLE CHEST CLINICAL INFORMATION: Shortness of breath and fever. COMPARISON: Chest x-ray and CTA chest 05/14/2016. TECHNIQUE: Portable AP view of the chest was obtained. FINDINGS: There is complete opacification of left hemithorax with ipsilateral mediastinal shift. There are post postoperative jj seen in the left suprahilar region. The right lung is expanded with increased vascular markings probably from redistribution. Some patchy opacities seen in the right upper lobe. A right subclavian port catheter tip remains in mid SVC. Heart size cannot be evaluated. No gross bony abnormality seen. IMPRESSION: Persistent opacification of left hemithorax with ipsilateral mediastinal shift. Recent CT chest revealed left upper lobectomy changes with worsening consolidation of left lower lobe. Pertinent Lab Results: 04/30/16 1705: Urine Color KALEY, Urine Clarity HAZY H, Urine pH 5.5, Ur Specific [place] >= 1.030, Urine Protein 30 H, Urine Ketones NEG, Urine Nitrite POS H, Urine Bilirubin POS@ICTO H, Urine Urobilinogen 1.0, Ur Leukocyte Esterase NEG, Ur Microscopic SEDIMENT EXAMINED, Urine RBC RARE, Ur Epithelial Cells MANY H, Urine Hemoglobin NEG, Urine Glucose NEG 04/30/16 1430: Anion Gap 8, Estimated GFR > 60, BUN/Creatinine Ratio 23.3, Glucose 122 H, Lactic Acid 2.4 H, Calcium 7.8 L, Total Bilirubin 2.8 H, AST 56 H, ALT 29, Alkaline Phosphatase 473 H, Troponin I < 0.01, Total Protein 5.3 L, Albumin 2.3 L, Globulin 3.0, Albumin/Globulin Ratio 0.8 L, Amylase < 30 L, Lipase 92, CBC w Diff MAN DIFF ORDERED, RBC 3.16 L, MCV 94.6, MCH 31.6 H, RDW 19.3 H, MPV 9.3, Gran % 80.3 H, Lymphocytes % 2.4 L, Monocytes % 12.1 H, Eosinophils % 4.3, Basophils % 0.9, Absolute Granulocytes 15.2 H, Segmented Neutrophils 78 H, Band Neutrophils 8 H, Absolute Lymphocytes 0.5 L, Lymphocytes 2 L, Monocytes 6, Absolute Monocytes 2.3 H, Eosinophils 6 H, Absolute Eosinophils 0.8, Absolute Basophils 0.2, Anisocytosis 1+, PUBS MCHC 33.4 05/01/16 0945: Fluid WBC 58 H, Fld Total RBCs Counted 139 H 05/01/16 0945: Lymphocytes 26, % Normal PMNs 14, Misc Hematology Test 54, Fluid Glucose 87, Fluid Total Protein < 2.0, Fluid Albumin < 1.0, Fluid LDH 593, Fluid Amylase < 30 05/01/16 0430: Anion Gap 6, Estimated GFR > 60, Glucose 74, Calcium 7.2 L, Phosphorus 3.8, Magnesium 1.5 L, Total Bilirubin 2.2 H, AST 47 H, ALT 32, Albumin 2.2 L, Prealbumin 4.7 L, CBC w Diff MAN DIFF ORDERED, RBC 2.67 L, MCV 95.2, MCH 31.6 H, RDW 19.3 H, MPV 9.2, Gran % 89.6 H, Lymphocytes % 1.6 L, Monocytes % 4.8, Eosinophils % 3.9, Basophils % 0.1, Absolute Granulocytes 13.8 H, Segmented Neutrophils 81 H, Band Neutrophils 9 H, Absolute Lymphocytes 0.2 L, Lymphocytes 2 L, Monocytes 2, Absolute Monocytes 0.7 H, Eosinophils 6 H, Absolute Eosinophils 0.6, Absolute Basophils 0, Platelet Estimate DECREASED, Polychromasia 1+, Poikilocytosis 1+, Basophilic Stippling 1+, Ovalocytes 1+, Stomatocytes FEW, PUBS MCHC 33.3, Fld Total RBCs Counted 100 04/30/16 2300: Lactic Acid 1.1 05/02/16 0435: Anion Gap 5, Estimated GFR > 60, Glucose 103 H, Calcium 7.5 L, Phosphorus 3.6, Magnesium 1.5 L, Total Bilirubin 2.0 H, AST 29, ALT 30, Albumin 2.0 L, CBC w Diff MAN DIFF ORDERED, RBC 2.57 L, MCV 95.3, MCH 32.1 H, RDW 19.1 H, MPV 9.0, Gran % 86.5 H, Lymphocytes % 2.9 L, Monocytes % 6.0, Eosinophils % 4.5, Basophils % 0.1, Absolute Granulocytes 14.0 H, Segmented Neutrophils 85 H, Band Neutrophils 7 H, Absolute Lymphocytes 0.5 L, Lymphocytes 3 L, Monocytes 1 L, Absolute Monocytes 1.0 H, Eosinophils 3, Absolute Eosinophils 0.7, Absolute Basophils 0, Metamyelocytes 1, Platelet Estimate DECREASED, Polychromasia 1+, Poikilocytosis 1+, Ovalocytes 1+, PUBS MCHC 33.7, Fld Total RBCs Counted 100 Microbiology 05/01 1110 STOOL: Clostridium difficile Toxin A & B - COMP 05/07/16 0917: CBC w Diff MAN DIFF ORDERED, RBC 2.56 L, MCV 95.4, MCH 32.4 H, RDW 18.7 H, MPV 9.3, Gran % 67.9, Lymphocytes % 5.0 L, Monocytes % 9.0, Eosinophils % 17.6 H, Basophils % 0.5, Absolute Granulocytes 6.6 H, Segmented Neutrophils 64, Band Neutrophils 4, Absolute Lymphocytes 0.5 L, Lymphocytes 8 L, Monocytes 7, Absolute Monocytes 0.9 H, Eosinophils 17 H, Absolute Eosinophils 1.7, Absolute Basophils 0.1, Nucleated RBCs 1 H, Platelet Estimate VERIFIED BY SMEAR, Hypochromic-Microcytic 1+, Anisocytosis 1+, PUBS MCHC 34.0 05/07/16 0615: Anion Gap 7, Estimated GFR > 60, BUN/Creatinine Ratio 21.4 Disposition Summary Disposition Principal Diagnosis: Failure to thrive Metastatic lung cancer Hypertension Weakness Additional Diagnosis: Lung cancer with metastasis to the liver COPD on home oxygen Discharge Disposition: home AMA Discharge Instructions General Discharge Information Code Status: Do Not Intubate Patient's Diet: As tolerated Patient's Activity: As tolerated Follow-Up Instructions/Appts: Follow-up with oncologist in medicine and home health services Medications at Discharge Discharge Medications: Continue taking these medications: Ropinirole HCl (Requip) 1 MG TABLET 1 Tablet ORAL TWICE DAILY Comments: Last Taken: 05/07/16 Time: 9:50 AM Calcium Carbonate (Calcium) 600 MG (1,500 MG) TABLET 1 Tablet ORAL DAILY Comments: Last Taken: 05/07/16 Time: 9:50 AM Metformin HCl (Metformin HCl) 1,000 MG TABLET 1 Tablet ORAL TWICE DAILY Qty = 180 Comments: NOT GIVEN IN HOSPITAL Lorazepam (Lorazepam) 0.5 MG TABLET 1 Tablet ORAL THREE TIMES DAILY as needed for SLEEP Qty = 60 Comments: NOT GIVEN IN HOSPITAL Hydrocodone/Chlorphen P-Stirex (Hydrocodone-Chlorphen ER Susp) 10 MG-8 MG/5 ML MANDO.ER.12H 5 Milliliters ORAL Q6H as needed for COUGH Qty = 230 Comments: NOT GIVEN IN HOSPITAL Dapagliflozin Propanediol (Farxiga) 10 MG TABLET 1 Tablet ORAL DAILY Qty = 30 Comments: NOT GIVEN IN HOSPITAL Oxycodone HCl/Acetaminophen (Oxycodone-Acetaminophen 10-325) 10 MG-325 MG TABLET 1 Tablet ORAL Q6H as needed for PAIN Qty = 120 Comments: NOT GIVEN IN HOSPTIAL Pantoprazole Sodium (Pantoprazole Sodium) 40 MG TABLET.DR 1 Tablet ORAL DAILY Qty = 90 Comments: NOT GIVEN IN HOSPITAL Fentanyl (Fentanyl) 50 MCG/HOUR PATCH.TD72 1 Patch On the skin Every 3 days Qty = 10 Comments: NOT GIVEN IN HOSPITAL Saxagliptin (Onglyza) 5 MG TABLET 1 Tablet ORAL DAILY Qty = 90 Comments: NOT GIVEN IN HOSPITAL Acetaminophen (Tylenol Arthritis) 650 MG TABLET.ER 1 Tablet ORAL as needed for PAIN Comments: NOT GIVEN IN HOSPITAL Albuterol Sulfate (Proair Hfa) 90 MCG HFA.AER.AD 2 Puff Inhale through mouth EVERY 4-6 HOURS NEEDED as needed for SOB Comments: NOT GIVEN IN HOSPITAL Atorvastatin Calcium (Lipitor) 20 MG TABLET 1 Tablet ORAL DAILY Comments: Last Taken: 05/07/16 Time: 9:50 AM Calcitriol (Calcitriol) 0.25 MCG CAPSULE 1 Capsule ORAL DAILY Comments: Last Taken: 05/07/16 Time: 9:50 AM Cholecalciferol (Vitamin D3) (Vitamin D3) 2,000 UNIT CAPSULE 1 Capsule ORAL DAILY Comments: Last Taken:05/07/16 Time:9:50 AM Lisinopril (Lisinopril) 5 MG TABLET 1 Tablet ORAL DAILY Comments: NOT GIVEN IN HOSPITAL Morphine Sulfate (Ms Contin) 15 MG TABLET.ER 1 Tablet ORAL TWICE DAILY Comments: Last Taken: 05/07/16 Time: 9:50 AM Potassium Chloride (Potassium Chloride) 20 MEQ TAB.ER.PRT 1 Tablet ORAL DAILY Comments: NOT GIVEN IN HOSPITAL Tiotropium [place] (Spiriva) 18 MCG CAP.W.DEV 1 Capsule Inhale through mouth DAILY Comments: Last Taken:05/07/16 Time:9:50 AM Copies To: SARAH BETH OWENS,[facility]; LISETTE OWENS,MARY Attending MD Review Statement Documenting Attending: MARY KNOX MD
== END 2016-05-07 18:30 | disposition home health service (06) | DRG 436 ==
LOC: ENRESERVTM → CANRESERV → ENRESERVDT → ERH 14:01 → CRI 18:19 → 2NB 18:19 → ERHI 18:19 → ENPENDDIS 18:19 → CRI 22:20 → 2NB 05-03 18:56
PROVIDERS: Dermatology; Internal Medicine Endocrinology, Diabetes & Metabolism; Internal Medicine Hematology & Oncology; Physician Assistant; ADMIT Internal Medicine
PROC: 0W9G3ZX Drainage of Peritoneal Cavity, Percutaneous Approach, Diagnostic (ICD-10-PCS; principal; 2016-05-01)
DX: C78.7 Secondary malignant neoplasm of liver and intrahepatic bile duct (principal); C34.90 Malignant neoplasm of unspecified part of unspecified bronchus or lung; Z99.81 Dependence on supplemental oxygen; K72.90 Hepatic failure, unspecified without coma; J44.9 Chronic obstructive pulmonary disease, unspecified; R62.7 Adult failure to thrive
CPT/HCPCS: 2NBP; 87075; CCU; 36415; 74177; 81001; 82436; 87040; 87086; 87804; 87804-59; 88305; 93005; 93010; 96365; 97110-GO; 97161-GP; 97530-GO; 99291; J0131; J0696; J7060; P9047

== ENCOUNTER 2016-05-14 13:24 | Observation (INO) | payer OTHER, MEDICARE ==
[~2016-05-14] VITALS: Ht 162.6 cm; Wt 84.0 kg
--- NOTE | 2016-05-14 13:34 | ED GENERAL ADULT ---
History of Present Illness General Chief Complaint: Dyspnea (COPD, CHF, Other) Stated Complaint: SOB Source: patient, family, old records Exam Limitations: no limitations Vital Signs & Intake/Output Vital Signs & Intake/Output Vital Signs Date Time Temp Pulse Resp B/P Pulse O2 O2 Flow FiO2 Ox Delivery Rate 05/14 1934 97.5 115 18 91/47 92 Nasal 3.0L Cannula 05/14 1851 98.8 76 22 95/54 92 Nasal 3.0L Cannula 05/14 1800 98.9 108 20 99/47 93 Nasal 3.0L Cannula 05/14 1732 98.9 108 20 92/48 92 Nasal 2.0L Cannula 05/14 1635 97.9 110 20 93/47 93 Nasal 3.0L Cannula 05/14 1620 98.9 112 20 90/44 94 Nasal 3.0L Cannula 05/14 1500 91 Nasal 3.0L Cannula 05/14 1450 99.8 116 20 94/52 96 Room Air 05/14 1428 100.2 05/14 1346 100.5 05/14 1329 100.5 110 22 89/54 94 Nasal 3.0L Cannula Allergies Coded Allergies: adhesive tape (BLISTERS 05/17/15) heparin (UNKNOWN 05/17/15) Reconcile Medications Acetaminophen (Tylenol Arthritis) 650 MG TABLET.ER 1 TAB PO PRN PAIN ( Reported) Albuterol Sulfate (Proair Hfa) 90 MCG HFA.AER.AD 2 PUF INH Q4-6 PRN PRN SOB ( Reported) Atorvastatin Calcium (Lipitor) 20 MG TABLET 1 TAB PO DAILY CHOLESTEROL ( Reported) Calcitriol 0.25 MCG CAPSULE 1 CAP PO DAILY LOW VIT D AND CALCIUM (Reported) Calcium Carbonate (Calcium) 600 MG (1,500 MG) TABLET 1 TAB PO DAILY SUPPLEMENT (Reported) Cholecalciferol (Vitamin D3) (Vitamin D3) 2,000 UNIT CAPSULE 1 CAP PO DAILY SUPPLEMENT (Reported) Dapagliflozin Propanediol (Farxiga) 10 MG TABLET 1 TAB PO DAILY DM (Reported) Fentanyl 50 MCG/HOUR PATCH.TD72 1 PAT TOP Q3D PAIN (Reported) Hydrocodone/Chlorphen P-Stirex (Hydrocodone-Chlorphen ER Susp) 10 MG-8 MG/5 ML MANDO.ER.12H 5 ML PO Q6H PRN COUGH (Reported) Lisinopril 5 MG TABLET 1 TAB PO DAILY BP (Reported) Lorazepam 0.5 MG TABLET 1 TAB PO TID PRN SLEEP (Reported) Metformin HCl 1,000 MG TABLET 1 TAB PO BID DM (Reported) Morphine Sulfate (Ms Contin) 15 MG TABLET.ER 1 TAB PO BID PAIN (Reported) Oxycodone HCl/Acetaminophen (Oxycodone-Acetaminophen 10-325) 10 MG-325 MG TABLET 1 TAB PO Q6H PRN PAIN (Reported) Pantoprazole Sodium 40 MG TABLET.DR 1 TAB PO DAILY GI (Reported) Potassium Chloride 20 MEQ TAB.ER.PRT 1 TAB PO DAILY LOW POTASSIUM (Reported) Ropinirole HCl (Requip) 1 MG TABLET 1 TAB PO BID RESTLESS LEGS (Reported) Saxagliptin (Onglyza) 5 MG TABLET 1 TAB PO DAILY DM (Reported) Tiotropium [place] (Spiriva) 18 MCG CAP.W.DEV 1 CAP INH DAILY COPD (Reported) Triage Note: 70 YO FEMALE TO ER BY AMBULANCE. PER PTS VISING NURSE PT WAS CONFUSED THIS AM. PT ALERT TO SELF AND PLACE BUT NOT DATE AT THIS TIME. PT HX OF LUNCH CA WITH METS. PT C/O FEELING WEAK. PT HAD CHEMO 3 WEEKS AGO AND IS DUE TO HAVE CHEMO ON THURSDAY. PT TACHYCARDIC, BP 89/54. TEMP 100.5 AT THIS TIME. PT HAS PORT IN R CHEST WALL. Triage Nurses Notes Reviewed? yes Onset: Gradual Duration: worse persistent since (2 days) Timing: recent history Injury Environment: home Severity: moderate Severity Numbers: 8 Modifying Factors: Worsens With: movement. HPI: Patient is a 70-year-old female with history of lung cancer presenting to the emergency department complaining of increasing shortness of breath, malaise worsening over the past 2-3 days. Patient was recently admitted to the hospital for hypotension, fever, questionable sepsis and discharged 3 days ago. Per family she is then having decreased by mouth intake, generalized weakness and feels like she can't get up out of bed. Shortness of breath even with 3 L nasal cannula. Family does not want hospice. Patient denying any abdominal pain. They recorded fevers today with a MAXIMUM TEMPERATURE of 101.3. Denies any urinary frequency or urgency or dysuria. Last time patient was admitted she developed anasarca, they report that the lower extremity swelling has been improving but still present. Denies any diarrhea. No vomiting. No chest pain. No palpitations. (ELADIO STOKES) Past History Travel History Traveled to [place] past 21 day No Medical History Any Pertinent Medical History? 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 No (ELADIO STOKES) Review of Systems Review of Systems Constitutional: Reports: fever, malaise. Comments Review of systems: See HPI, All other systems negative. Constitutional, no weight loss HEENT: No visual changes no sore throat no congestion Cardiovascular: No chest pain ,palpitation , orthopnea or ankle swelling Skin, no jaundice no rashes Respiratory: Positive dyspnea an episode of hemoptysis today. GI: No nausea no vomiting : No dysuria No hematuria Muscle skeletal: no back pain, no neck pain, Neurologic: No numbness no headache Psych: No stress anxiety or depression,. Heme/endocrine: No bruising no bleeding no polyuria or polydipsia Immunology: No splenectomy or history of AIDS (ELADIO STOKES) Physical Exam Physical Exam General Appearance: comfortable, thin Comments: Thin, cachectic person in no acute distress HEENT: Normal EENT exam, extraocular motion intact, no nystagmus. Pupils equally round and reactive to light and accommodation. Nose is atraumatic. External auditory canal and Tympanic membranes clear. Pharynx normal. No swelling or edema. Dry oral mucosa. Neck: Supple, no lymphadenopathy, normal range of motion without pain or tenderness Back: Nontender, no CVA tenderness. Full range of motion Cardiovascular: Regular rate and rhythms no murmurs rubs or gallops, normal JVP Respiratory: Chest nontender. No respiratory distress.breath sounds diminished to auscultation bilaterally, left more than right.. Port in place over the right chest. Abdomen: Soft, nontender nondistended, no appreciable organomegaly. Normal bowel sounds. No ascites Extremity: 3+ pitting edema enlarged ovaries bilaterally. No calf tenderness bilaterally. Pedal pulses are 1+ bilaterally. Neuro: Alert oriented x3, motor sensory normal, cranial nerves II through XII grossly intact. Skin: No appreciable rash on exposed skin, skin is warm and dry. Psych: Mood and affect is normal, memory and judgment is normal. Core Measures ACS in differential dx? Yes CVA/TIA Diagnosis: No (LETICIA DIAL,LEADIO) Core Measures Severe Sepsis Present: No Septic Shock Present: No (JILLIAN SÁNCHEZ,CISCO Chiu) Progress Differential Diagnoses I considered the following diagnoses in my evaluation of the patient: Dehydration, ocular abnormality, pneumonia, bronchitis, pulmonary embolus, influenza, strep, sepsis, UTI, symptomatic anemia Plan of Care: Orders Procedure Date/time Status Consistent Carbohydrate 3 05/15 B Active TRC EVALUATION (GEN) 05/14 190 Active OXYGEN SETUP (GEN) 05/14 190 Active PT Evaluate & Treat 05/14 190 Active Saline Lock 05/14 190 Active Pathway - chart 05/14 190 Active House Staff 05/14 1909 Active Code Status 05/14 1909 Active FingerStick- Glucose 05/14 1839 Active Add-on Test (ER Only) 05/[address] in observation 05/14 1729 Active Code Status 05/14 1729 Complete Patient Data 05/14 1720 Active BLOOD PRODUCT PICKUP 05/14 1540 Active LEUKOCYTE POOR (PACKED CELLS) 05/14 1530 Active TYPE & SCREEN (NOT X-MATCH) 05/14 1444 Active Intake & Output 05/14 1443 Active PARTIAL THROMBOPLASTIN TIME 05/14 1333 Complete PROTHROMBIN TIME 05/14 1333 Complete LACTIC ACID 05/14 1333 Complete EKG 05/14 1333 Active Telemetry/Footwear Sales Leader 05/14 1332 Active RAPID VIRAL INFLUENZA A 05/14 1332 Complete CULTURE,URINE 05/14 1332 Active THROAT CULTURE W/QUICK STREP 05/14 1332 Active BLOOD CULTURE 05/14 1332 Active URINALYSIS 05/14 1332 Complete TROPONIN LEVEL 05/14 1332 Complete COMPREHENSIVE METABOLIC PANEL 05/14 1332 Complete CBC WITHOUT DIFFERENTIAL 05/14 1332 Complete VTE Mechanical Prophylaxis 05/14 UNK Active Vital Signs 05/14 UNK Active Intake & Output 05/14 UNK Active Hemoccult 05/14 UNK Active Current Medications Sig/Olga Start time Last Medication Dose Stop Time Status Admin Atorvastatin Calcium 20 MG 1700 05/15 1700 AC (Lipitor) Tiotropium [place] 1 PUF DAILY 05/15 1000 AC (Spiriva) Omeprazole 40 MG DAILY AC 05/15 0700 AC (Prilosec) Morphine Sulfate 15 MG BID 05/14 2199 AC (Ms Contin) Ropinirole HCl 1 MG BID 05/14 2199 AC (Requip) Acetaminophen 500 MG Q6P PRN 05/14 1914 AC (Tylenol) Insulin Aspart 0 TIDAC 05/14 1914 AC (NovoLOG) Lorazepam 0.5 MG TID PRN 05/14 1914 AC (Ativan) 05/21 1913 Ondansetron HCl 4 MG Q6P PRN 05/14 1914 AC (Zofran) Oxycodone/ 1 TAB Q6P PRN 05/14 191 AC Acetaminophen (Percocet) Sodium Chloride 1,000 ML .[id number] 05/14 1900 AC (Normal Saline 0.9%) Ceftazidime 1,000 MG Q12H 05/14 1800 AC (Fortaz) Vancomycin HCl 1,000 MG Q24H 05/14 1800 AC Dextrose/Water 250 ML (D5W) Laboratory Tests 05/14/16 1834: Urinalysis LIGHT H, Urine Color YEL, Urine Clarity HAZY H, Urine pH 6.0, Ur Specific [place] 1.020, Urine Protein NEG, Urine Ketones NEG, Urine Nitrite NEG, Urine Bilirubin NEG, Urine Urobilinogen 0.2, Ur Leukocyte Esterase NEG, Ur Microscopic SEDIMENT EXAMINED, Urine RBC RARE, Urine WBC RARE, Ur Epithelial Cells FEW, Urine Bacteria FEW H, Urine Mucus FEW, Micro UA Comment BUDDING YEAST H, Urine Hemoglobin NEG, Urine Glucose NEG 05/14/16 1633: Lactic Acid Cancelled 05/14/16 1410: Lactic Acid 1.4 05/14/16 1410: Anion Gap 6, Estimated GFR 49 L, BUN/Creatinine Ratio 24.5, Glucose 101 H, Calcium 8.4, Total Bilirubin 2.0 H, AST 18, ALT 24, Alkaline Phosphatase 492 H , Troponin I 0.01, Total Protein 5.2 L, Albumin 2.0 L, Globulin 3.2, Albumin/ Globulin Ratio 0.6 L, PT 21.0 H, INR 2.01 H, APTT 45 H, CBC w Diff MAN DIFF ORDERED, RBC 2.08 L, MCV 97.1, MCH 32.6 H, RDW 21.6 H, MPV 8.2, Gran % 76.5 H, Lymphocytes % 3.0 L, Monocytes % 7.7, Eosinophils % 12.8 H, Basophils % 0 L, Absolute Granulocytes 10.2 H, Segmented Neutrophils 73, Band Neutrophils 6 H, Absolute Lymphocytes 0.4 L, Lymphocytes 2 L, Monocytes 6, Absolute Monocytes 1.0 H, Eosinophils 13 H, Absolute Eosinophils 1.7, Absolute Basophils 0, Platelet Estimate VERIFIED BY SMEAR, Polychromasia 1+, Poikilocytosis 1+, Anisocytosis 1+, Ovalocytes 1+, Stomatocytes 1+, PUBS MCHC 33.6 Microbiology 05/14 1833 URINE ROUT: Urine Culture - RECD 05/14 1833 NASOPHARYN: Influenza Virus A & B Rapid Smear - COMP 05/14 1400 BLOOD: Blood Culture - RECD 05/14 1400 BLOOD: Blood Culture - RECD Diagnostic Imaging: Viewed by Me: CT Scan. Discussed w/RAD: CT Scan. Radiology Impression: TIENT: LUDY QUEEN PRESENT AGE: 70 PATIENT ACCOUNT NO: [id number] : 47 LOCATION: [facility] ORDERING PHYSICIAN: ELADIO DIAL SERVICE DATE: 05/14/16 EXAM TYPE: RAD - XRY-PORTABLE CHEST XRAY EXAMINATION: XR PORTABLE CHEST CLINICAL INFORMATION: Fevers. Shortness of breath. COMPARISON: Multiple priors, most recently 04/30/2016. TECHNIQUE: Portable AP view of the chest was obtained. FINDINGS: Right chest wall port remains in place. Surgical clips overlie the left hemithorax. There is persistent volume loss of the left lung with near complete opacification of the left hemithorax. Leftward mediastinal shift. This is similar. The right lung is clear. No pneumothorax or pleural effusion on the right. IMPRESSION: Similar appearance to previous. Left lung volume loss with near complete opacification of the left hemithorax. The right lung is clear. DICTATED BY: SARAH GAINES MD DATE/TIME DICTATED:05/14/161423 BABY SITTER:JA DATE/TIME TRANSCRIBED:05/14/161423 CONFIDENTIAL, DO NOT COPY WITHOUT APPROPRIATE AUTHORIZATION. <Electronically signed in Other Vendor System> SIGNED BY: SARAH GAINES MD 05/14/16 1432, PATIENT: LUDY QUEEN PRESENT AGE: 70 PATIENT ACCOUNT NO : [id number] : 47 LOCATION: [facility] ORDERING PHYSICIAN: ELADIO DIAL SERVICE DATE: 05/14/16 EXAM TYPE: CAT - CTA CHEST-PULMONARY EMBOLISM EXAMINATION: CT ANGIOGRAM OF THE CHEST WITH AND WITHOUT CONTRAST (CT PULMONARY ANGIOGRAM FOR PE) CLINICAL INFORMATION: Shortness of breath. COMPARISON: Radiograph from earlier today. CT from 04/23/2016. TECHNIQUE: Prior to contrast administration, noncontrast localization images were obtained. Subsequently, multidetector volumetric imaging was performed from the thoracic inlet to below the diaphragms following the administration of 95 mL Optiray 320 intravenous contrast. No contrast reaction reported Sagittal, coronal, and MIP oblique sagittal reformatted images were obtained on the CT workstation, uploaded to PACS, and reviewed. Total exam dose-length product 337 mGy-cm FINDINGS: QUALITY OF STUDY/CONTRAST BOLUS: Satisfactory. PULMONARY ARTERIES: No central or segmental pulmonary emboli. Postsurgical changes consistent with prior left upper lobectomy. THORACIC AORTA: No aneurysm or dissection. LUNG: The central airways are patent. Postsurgical changes status post left upper lobectomy. Near complete consolidation throughout the left lower lobe. There are bronchograms are present. Minimal aerated lung remains at the left base. There is also pleural thickening noted with a small pleural effusion. There is increased patchy opacity within the right upper lobe and right middle lobe when compared to the prior study. Mild centrilobular emphysema noted. No pneumothorax or pleural effusion on the right. MEDIASTINUM: There is leftward shift of the mediastinum. Small pericardial effusion. Coronary artery calcifications are present. There is a prominent pretracheal lymph node which is similar to prior. This measures 1.8 x 1.7 cm. No evidence of septal bowing or right heart strain. CHEST WALL/AXILLA: No axillary or internal mammary lymphadenopathy. Anasarca. OSSEOUS STRUCTURES: No acute or suspicious osseous abnormality. Degenerative changes throughout the spine. UPPER ABDOMEN: Small volume of ascites. Hypoattenuating lesions are seen throughout the liver, consistent with known metastatic disease. The known adrenal lesions are not well-visualized. No reflux of contrast into the hepatic veins to suggest elevated right heart pressures. IMPRESSION: 1. No pulmonary embolism. 2. Increased patchy opacities in the right middle lobe and upper lobe most consistent with infectious process. 3. Increased small pericardial effusion. 4. Postsurgical changes status post left upper lobectomy. Worsening consolidation of the left lower lobe with minimal remaining aerated lung at the lung base. Small pleural effusion has increased from prior. 5. Metastatic liver lesions again noted. Enlarged mediastinal lymph node again noted. VTE: negative DICTATED BY: SARAH GAINES MD DATE/TIME DICTATED:05/14/161619 Initial ED EKG: sinus tachycardia 123, ventricular premature complex present, low voltage throughout, nonspecific T abnormality is Hand-Off Endorsed To: CISCO WALSH DO Endorsed Time: 1557 Pending: CT, labs Comments: 05/14/2016 2:56:26 PM on arrival patient noted chest, oxygen level around 90% on 3 L without moving. She does have diminished lung sounds bilaterally more on the left. History of lobectomy. Cannot exclude PE. Patient will have CBC, CMP, lactate, blood cultures 2, patient will go for CTA, EKG performed, somewhat to previous. Patient patient family do not want hospice at this time. They want a full workup. Patient is a full code. Patient will receive a neb treatment on arrival. We will also assess for for anemia. 05/14/2016 3:57:24 PM H&H is low compared to discharge levels. Patient will receive IV transfusion. Patient going for CTA to rule out pulmonary embolus. No change with breathing treatment. Patient will be signed over to Dr. Garg's for further care secondary to critical nature of this patient. Patient is hypotensive, tachycardic and febrile. Cannot exclude sepsis. Source unclear at this time. (LETICIA DIAL,ELADIO) Differential Diagnoses I considered the following diagnoses in my evaluation of the patient: (CISCO WALSH DO) Departure Departure Time of Disposition: 1819 Condition: Stable Referrals: LISETTE MD,MARY (PCP/Family) Departure Forms: Customer Survey General Discharge Information (ELADIO STOKES) Departure Disposition: STILL A PATIENT Clinical Impression Primary Impression: Anemia Secondary Impressions: Hypotension Comments 05/14/16 3 pm The patient was signed out to me by JAYRO Huang. She is hypotensive, short of breath, and significantly anemic. She is being placed in observation to the ICU. I paged Dr. Kerr. Discussion about end-of-life care to be pursued. Observation Note Spoke With: MARY KERR MD Place Patient In: Non-ED OBS Care Area Rationale for Observation: My rational for observation is as follows [blood transfusion, strict I's and O's , bronchodilator therapy, consider IV antibiotics, consider IV steroids, discussion for end-of-life care to be pursued.]. PA/SOAP SLABBER Co-Sign Statement Statement: ED Attending supervision documentation- [x] I saw and evaluated the patient. I have also reviewed all the pertinent lab results and diagnostic results. I agree with the findings and the plan of care as documented in the PA's/SOAP SLABBER's documentation. [] I have reviewed the ED Record and agree with the PA's/SOAP SLABBER's documentation. [] Additions or exceptions (if any) to the PAs/SOAP SLABBER's note and plan are summarized below: [] (CISCO WALSH DO) Critical Care Note Critical Care Note Critical Care Time: 75-104 min (ELADIO STOKES)
--- NOTE | 2016-05-14 13:46 | NUR ---
PORT IN RCW ACCESSED WITH .75 INCH. PT TOLERATED WELL
[2016-05-14 14:29] LABS: ABSOLUTE BASOPHIL COUNT 0 /CUMM (0.0-0.2); ABSOLUTE EOSINOPHIL COUNT 1.7 /CUMM (0.0-0.7); ABSOLUTE GRANULOCYTE CT 10.2 /CUMM (1.4-6.5); ABSOLUTE LYMPH COUNT 0.4 /CUMM (1.2-3.4); BASOPHIL % 0 % (0.0-2.0); EOSINOPHIL % 12.8 % (0-5); GRANULOCYTE % 76.5 % (42.2-75.2); HEMATOCRIT 20.2 % (37-47); MEAN CORPUSCULAR HGB 32.6 PG (27.0-31.0); MEAN CORPUSCULAR HGB CONC 33.6 G/DL (33.0-37.0); MEAN CORPUSCULAR VOLUME 97.1 FL (81.0-99.0); MEAN PLATELET VOLUME 8.2 FL (7.4-10.4); PLATELET COUNT 149 /CUMM (130-400); RBC DISTRIBUTION WIDTH 21.6 % (11.5-14.5); RED BLOOD CELL CT 2.08 /CUMM (4.20-5.40); WHITE BLOOD CELL COUNT 13.3 /CUMM (4.8-10.8)
--- NOTE | 2016-05-14 14:32 | RADIOLOGY REPORT ---
EXAMINATION: XR PORTABLE CHEST CLINICAL INFORMATION: Fevers. Shortness of breath. COMPARISON: Multiple priors, most recently 04/30/2016. TECHNIQUE: Portable AP view of the chest was obtained. FINDINGS: Right chest wall port remains in place. Surgical clips overlie the left hemithorax. There is persistent volume loss of the left lung with near complete opacification of the left hemithorax. Leftward mediastinal shift. This is similar. The right lung is clear. No pneumothorax or pleural effusion on the right. IMPRESSION: Similar appearance to previous. Left lung volume loss with near complete opacification of the left hemithorax. The right lung is clear.
--- NOTE | 2016-05-14 14:38 | NUR ---
CRITICAL TEST RESULTS [id number] LUDY QUEEN 70 F TESTS AND RESULTS: HGB 6.8, HCT 20.2 Results received and read back by: ZEKE ZAMORA Results received date and time: 05/14/16 1438 The following provider was notified of the results, and read the results back: JAYRO Lynne Notified date and time: 05/14/16 at 1438
[2016-05-14 14:46] LABS: PTT 45 SEC (25-37)
--- NOTE | 2016-05-14 14:54 | NUR ---
RT CALLED FOR NEB TX
--- NOTE | 2016-05-14 14:59 | NUR ---
TYPE AND SCREEN DRAWN AND SENT. RT AT BEDSIDE FOR NEB TREATMENT
--- NOTE | 2016-05-14 15:30 | NUR ---
ASSUMED CARE, BLOOD ORDER BICYCLE TAXI DRIVER PLACED, STAFF LOOKING FOR SECOND LINE AT THIS TIME. PT TO GO TO CT PRIOR TO BLOOD TRANSFUSION
--- NOTE | 2016-05-14 16:34 | CT SCAN REPORT ---
EXAMINATION: CT ANGIOGRAM OF THE CHEST WITH AND WITHOUT CONTRAST (CT PULMONARY ANGIOGRAM FOR PE) CLINICAL INFORMATION: Shortness of breath. COMPARISON: Radiograph from earlier today. CT from 04/23/2016. TECHNIQUE: Prior to contrast administration, noncontrast localization images were obtained. Subsequently, multidetector volumetric imaging was performed from the thoracic inlet to below the diaphragms following the administration of 95 mL Optiray 320 intravenous contrast. No contrast reaction reported Sagittal, coronal, and MIP oblique sagittal reformatted images were obtained on the CT workstation, uploaded to PACS, and reviewed. Total exam dose-length product 337 mGy-cm FINDINGS: QUALITY OF STUDY/CONTRAST BOLUS: Satisfactory. PULMONARY ARTERIES: No central or segmental pulmonary emboli. Postsurgical changes consistent with prior left upper lobectomy. THORACIC AORTA: No aneurysm or dissection. LUNG: The central airways are patent. Postsurgical changes status post left upper lobectomy. Near complete consolidation throughout the left lower lobe. There are bronchograms are present. Minimal aerated lung remains at the left base. There is also pleural thickening noted with a small pleural effusion. There is increased patchy opacity within the right upper lobe and right middle lobe when compared to the prior study. Mild centrilobular emphysema noted. No pneumothorax or pleural effusion on the right. MEDIASTINUM: There is leftward shift of the mediastinum. Small pericardial effusion. Coronary artery calcifications are present. There is a prominent pretracheal lymph node which is similar to prior. This measures 1.8 x 1.7 cm. No evidence of septal bowing or right heart strain. CHEST WALL/AXILLA: No axillary or internal mammary lymphadenopathy. Anasarca. OSSEOUS STRUCTURES: No acute or suspicious osseous abnormality. Degenerative changes throughout the spine. UPPER ABDOMEN: Small volume of ascites. Hypoattenuating lesions are seen throughout the liver, consistent with known metastatic disease. The known adrenal lesions are not well-visualized. No reflux of contrast into the hepatic veins to suggest elevated right heart pressures. IMPRESSION: 1. No pulmonary embolism. 2. Increased patchy opacities in the right middle lobe and upper lobe most consistent with infectious process. 3. Increased small pericardial effusion. 4. Postsurgical changes status post left upper lobectomy. Worsening consolidation of the left lower lobe with minimal remaining aerated lung at the lung base. Small pleural effusion has increased from prior. 5. Metastatic liver lesions again noted. Enlarged mediastinal lymph node again noted. VTE: negative
--- NOTE | 2016-05-14 16:38 | NUR ---
PACKED RED CELLS INFUSING AT THIS TIME OVER 3.5 HOURS. INFUSING AT 100ML/HR. PT TOLERATED WELL . PT REQUESTING SOMETHING TO DRINK, PER DR WALSH PT IS ALLOWED TO HAVE FLUIDS AND FOOD , PT DOES NOT WANT FOOD AT THIS TIME.
--- NOTE | 2016-05-14 17:34 | NUR ---
PT REPOSITIONED ON BED BY STAFF FOR COMPLAINTS OF BEING UNCOMFORTABLE AT THIS TIME. BLOOD CONTINUES TO INFUSE AT 100 ML/HR.
--- NOTE | 2016-05-14 18:03 | NUR ---
VANCO INFUSING AT THIS TIME AT 250 ML/HR TO PORT IN R SIDE CHEST, BLOOD CONTINUES TO INFUSE R WRIST . PT MEDICATED WITH FORTAZ PER ORDER
--- NOTE | 2016-05-14 18:43 | NUR ---
HOUSE STAFF AT BEDSIDE , FS 134.
--- NOTE | 2016-05-14 18:44 | NUR ---
PT VOIDED 340 CC DARK YELLOW URINE ON BED FLEMING, FAMILY REMAINS AT BEDSIDE , PT TOLERATING FLUIDS WITH NO PROBLEMS.
--- NOTE | 2016-05-14 18:53 | NUR ---
HOUSE STAFF REMAINS AT BEDSIDE, PT AWARE THAT SHE WILL BE HELD IN THE ER AT THIS TIME , STAFF TO PLACE PT IN HOSPITAL BED . BP 95/54 HR 92, AFEBRILE T 98.5 AND O2 SAT 92 % ON 3L VIA NC.
--- NOTE | 2016-05-14 18:59 | History & Physical ---
PARMINDER OWENS,LOIS 05/14/16 6258: General Information and HPI MD Statement: I have seen and personally examined LUDY QUEEN and documented this H&P. The patient is a 70 year old F who was BIBA for fever, weakness, and confusion. Source of Information: patient, family, old records Exam Limitations: no limitations History of Present Illness: 70-year-old female with past medical history of COPD on 3 liters of oxygen, adenocarcinoma of lung, status post left upper lobectomy 3 years prior to the admission with a recurrence 15 months prior to admission, treated with radiation therapy and chemotherapy, which she continues to receive, currently on a three week on/one week off regimen, most recently 2 weeks prior to admission, via a Port-A-Cath that was renewed in her right upper chest today, came into the emergency department with complaints of fever, weakness, mild confusion. She was recently discharged from [facility] on 04/28/2016 after being treated for strep throat, neutropenia, hypomagnesemia, hyperbilirubinemia. According to patient and patient's family, she was progressively weak since her discharge but was unable to raise her legs, was very tired since this morning. She also had fever starting yesterday, maximum of 101.4F. This morning, her respiratory rate was noticed to be high in she was found to be saturating at 90% on 3 L/m oxygen. On questioning, she also reported cough that has been worsening, with yellow sputum production. Her family had called her physician who suggested her to be taken to the emergency room right away. She admitted to having decreased appetite. Her swelling of her legs is almost the same, no redness or pain on moving the legs. She however does not have much mobility in the baseline. Of note, family did mention that she was a little confused this morning but she didn't appear to be confused at all during the whole interview. She denies rashes, chest pain, palpitations, headache, abdominal pain, nausea, vomiting, changes in bowel or bladder habit, recent wound, recent travel, any sick contacts, She denies rashes, chest pain, palpitations, headache, abdominal pain, nausea, vomiting, changes in bowel or bladder habit, recent wound, recent travel, any sick contacts. Allergies/Medications Allergies: Coded Allergies: adhesive tape (BLISTERS 05/17/15) heparin (UNKNOWN 05/17/15) Home Med list Acetaminophen (Tylenol Arthritis) 650 MG TABLET.ER 1 TAB PO PRN PAIN ( Reported) Albuterol Sulfate (Proair Hfa) 90 MCG HFA.AER.AD 2 PUF INH Q4-6 PRN PRN SOB ( Reported) Atorvastatin Calcium (Lipitor) 20 MG TABLET 1 TAB PO DAILY CHOLESTEROL ( Reported) Calcitriol 0.25 MCG CAPSULE 1 CAP PO DAILY LOW VIT D AND CALCIUM (Reported) Calcium Carbonate (Calcium) 600 MG (1,500 MG) TABLET 1 TAB PO DAILY SUPPLEMENT (Reported) Cholecalciferol (Vitamin D3) (Vitamin D3) 2,000 UNIT CAPSULE 1 CAP PO DAILY SUPPLEMENT (Reported) Dapagliflozin Propanediol (Farxiga) 10 MG TABLET 1 TAB PO DAILY DM (Reported) Fentanyl 50 MCG/HOUR PATCH.TD72 1 PAT TOP Q3D PAIN (Reported) Hydrocodone/Chlorphen P-Stirex (Hydrocodone-Chlorphen ER Susp) 10 MG-8 MG/5 ML MANDO.ER.12H 5 ML PO Q6H PRN COUGH (Reported) Lisinopril 5 MG TABLET 1 TAB PO DAILY BP (Reported) Lorazepam 0.5 MG TABLET 1 TAB PO TID PRN SLEEP (Reported) Metformin HCl 1,000 MG TABLET 1 TAB PO BID DM (Reported) Morphine Sulfate (Ms Contin) 15 MG TABLET.ER 1 TAB PO BID PAIN (Reported) Oxycodone HCl/Acetaminophen (Oxycodone-Acetaminophen 10-325) 10 MG-325 MG TABLET 1 TAB PO Q6H PRN PAIN (Reported) Pantoprazole Sodium 40 MG TABLET.DR 1 TAB PO DAILY GI (Reported) Potassium Chloride 20 MEQ TAB.ER.PRT 1 TAB PO DAILY LOW POTASSIUM (Reported) Ropinirole HCl (Requip) 1 MG TABLET 1 TAB PO BID RESTLESS LEGS (Reported) Saxagliptin (Onglyza) 5 MG TABLET 1 TAB PO DAILY DM (Reported) Tiotropium [place] (Spiriva) 18 MCG CAP.W.DEV 1 CAP INH DAILY COPD (Reported) Past History Travel History Traveled to [place] past 21 day No Medical History Neurological: NONE EENT: NONE Cardiovascular: HYPOTENSION Respiratory: COPD, O2 DEPENDENT AT 3L LUNG CA Gastrointestinal: diverticulitis, GERD, SMALL BOWEL OBSTRUCTION Hepatic: NONE Renal: NONE Musculoskeletal: NONE Psychiatric: NONE Endocrine: diabetes Blood Disorders: NONE Cancer(s): adenocarcinoma in 2013, with recurrence diagnosed in December 2014 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 History of MRSA: No History of VRE: No History of CDIFF: No Isolation History: Standard Pneumonia Vaccine: 04/25/19 Influenza Vaccine: 04/25/19 Surgical History Surgical History: hip replacement (right hip September 2013), hysterectomy, status post left upper lobectomy December 2012 status post lysis of adhesions for small bowel obstruction March 2012 Past Family/Social History Family History Relations & Conditions if any Relation not specified for: Diabetes mellitus FH: breast cancer Psychosocial History Services at Home: Primary Language: Icelandic Functional Ability ADLs Independent: eating, toileting. Needs Assist: dressing, bathing. Ambulation: walker Review of Systems Review of Systems Constitutional: Reports: see HPI, fever, malaise, weakness. Denies: chills, diaphoresis. EENTM: Reports: no symptoms. Cardiovascular: Reports: edema, peripheral edema. Denies: chest pain, palpitations, syncope. Respiratory: Reports: see HPI, cough, short of breath, sputum production. Denies: hemoptysis , stridor, wheezing. GI: Reports: no symptoms. Genitourinary: Reports: no symptoms. Musculoskeletal: Reports: no symptoms. Skin: Reports: no symptoms. Neurological/Psychological: Reports: no symptoms. Hematologic/Endocrine: Reports: no symptoms. All Other Systems: Reviewed and Negative Post Menopausal: Yes Exam & Diagnostic Data Last 24 Hrs of Vital Signs/I&O Vital Signs Date Time Temp Pulse Resp B/P Pulse O2 O2 Flow FiO2 Ox Delivery Rate 05/14 1851 98.8 76 22 95/54 92 Nasal 3.0L Cannula 05/14 1800 98.9 108 20 99/47 93 Nasal 3.0L Cannula 05/14 1732 98.9 108 20 92/48 92 Nasal 2.0L Cannula 05/14 1635 97.9 110 20 93/47 93 Nasal 3.0L Cannula 05/14 1620 98.9 112 20 90/44 94 Nasal 3.0L Cannula 05/14 1500 91 Nasal 3.0L Cannula 05/14 1450 99.8 116 20 94/52 96 Room Air 05/14 1428 100.2 05/14 1346 100.5 05/14 1329 100.5 110 22 89/54 94 Nasal 3.0L Cannula Intake & Output 05/14 1600 05/14 0800 05/14 0000 Intake Total 1000 Output Total Balance 1000 Intake, IV 1000 Patient 68.039 kg Weight Physical Exam General Appearance Alert, Oriented X3, Cooperative, No Acute Distress, cachetic Skin No Rashes, No Breakdown, No Significant Lesion HEENT Atraumatic, PERRLA, EOMI, Mucous Membr. moist/pink Neck Supple, No JVD, No thryomegaly Lymphatic Cervical nl Cardiovascular Regular Rate Lungs crackles heard over right side, left sided surgical scar present posteriorly (lobectomy) Abdomen Normal Bowel Sounds, Soft, No Tenderness Neurological Normal Speech, Normal Tone, Sensation Intact, motor power decreased over feet b/l Extremities b/l pitting edema present upto hip Vascular Normal Pulses, Pulses Symmetrical, difficult to feel pulse due to edema Last 24 Hrs of Labs/Madhu: Laboratory Tests 05/14/16 1834: Urinalysis LIGHT H, Urine Color YEL, Urine Clarity HAZY H, Urine pH 6.0, Ur Specific Burton 1.020, Urine Protein NEG, Urine Ketones NEG, Urine Nitrite NEG, Urine Bilirubin NEG, Urine Urobilinogen 0.2, Ur Leukocyte Esterase NEG, Ur Microscopic SEDIMENT EXAMINED, Urine RBC RARE, Urine WBC RARE, Ur Epithelial Cells FEW, Urine Bacteria FEW H, Urine Mucus FEW, Micro UA Comment BUDDING YEAST H, Urine Hemoglobin NEG, Urine Glucose NEG 05/14/16 1633: Lactic Acid Cancelled 05/14/16 1410: Lactic Acid 1.4 05/14/16 1410: Anion Gap 6, Estimated GFR 49 L, BUN/Creatinine Ratio 24.5, Glucose 101 H, Calcium 8.4, Total Bilirubin 2.0 H, AST 18, ALT 24, Alkaline Phosphatase 492 H , Troponin I 0.01, Total Protein 5.2 L, Albumin 2.0 L, Globulin 3.2, Albumin/ Globulin Ratio 0.6 L, PT 21.0 H, INR 2.01 H, APTT 45 H, CBC w Diff MAN DIFF ORDERED, RBC 2.08 L, MCV 97.1, MCH 32.6 H, RDW 21.6 H, MPV 8.2, Gran % 76.5 H, Lymphocytes % 3.0 L, Monocytes % 7.7, Eosinophils % 12.8 H, Basophils % 0 L, Absolute Granulocytes 10.2 H, Segmented Neutrophils 73, Band Neutrophils 6 H, Absolute Lymphocytes 0.4 L, Lymphocytes 2 L, Monocytes 6, Absolute Monocytes 1.0 H, Eosinophils 13 H, Absolute Eosinophils 1.7, Absolute Basophils 0, Platelet Estimate VERIFIED BY SMEAR, Polychromasia 1+, Poikilocytosis 1+, Anisocytosis 1+, Ovalocytes 1+, Stomatocytes 1+, PUBS MCHC 33.6 Microbiology 05/14 1833 URINE ROUT: Urine Culture - RECD 05/14 1833 NASOPHARYN: Influenza Virus A & B Rapid Smear - RECD 05/14 1399 BLOOD: Blood Culture - RECD 05/14 1399 BLOOD: Blood Culture - RECD Diagnostic Data EKG Results Sinus tachycardia with rate 123, QTC 372, QRS 82, RI 124, 1 PVC seen in the anterior leads V1 and V2 V3, no ST-T changes compared to previous EKG. CXR Results IMPRESSION: Similar appearance to previous. Left lung volume loss with near complete opacification of the left hemithorax. The right lung is clear. DICTATED BY: SARAH GAINES MD DATE/TIME DICTATED:05/14/161423 KAIWHAKAHAERE:CHÁVEZ DATE/TIME TRANSCRIBED:05/14/161423 [address] Results CT CHEST: IMPRESSION: 1. No pulmonary embolism. 2. Increased patchy opacities in the right middle lobe and upper lobe most consistent with infectious process. 3. Increased small pericardial effusion. 4. Postsurgical changes status post left upper lobectomy. Worsening consolidation of the left lower lobe with minimal remaining aerated lung at the lung base. Small pleural effusion has increased from prior. 5. Metastatic liver lesions again noted. Enlarged mediastinal lymph node again noted. VTE: negative DICTATED BY: SARAH GAINES MD DATE/TIME DICTATED:05/14/161619 KAIWHAKAHAERE:RAD.CHÁVEZ DATE/TIME TRANSCRIBED:05/14/161619 Assessment/Plan Assessment: 70-year-old female with past medical history of COPD on 3 liters of oxygen, adenocarcinoma of lung, status post left upper lobectomy 3 years prior to the admission with a recurrence 15 months prior to admission, treated with radiation therapy and chemotherapy, which she continues to receive, currently on a three week on/one week off regimen, most recently 2 weeks prior to admission, via a Port-A-Cath that was renewed in her right upper chest today, came into the emergency department with complaints of fever, weakness, mild confusion. She was found to be hypotensive in the emergency department with blood pressure 89/54, tachycardic at 110, tachypneic at 22 with a temperature maximum of 100.5 and receiving oxygen via nasal cannula with saturation 94% 3L/min O2. She is being admitted to the ICU for management of following issues: Respiratory #Acute respiratory failure, secondary to anemia and pneumonia, possible gram- negative -Patient is saturating well above 90% via nasal cannula at 3 L/m -Continue the same with target saturation above 88% -She is receiving 1 unit of PRBC -CAT scan of chest shows right-sided pneumonia -We'll start with IV ceftaz, as she was recently discharged from the hospital and might have picked up hospital-acquired pneumonia, possibly gram-negative -[facility], [facility] Infectious disease -We'll follow-up panculture -Her now, she fits the criteria for sepsis, has radiological signs of pneumonia -Starting empirically on IV ceftaz, as she was recently discharged from the hospital and might have picked up hospital-acquired pneumonia, possibly gram- negative -We'll narrow antibiotics according to culture reports Cardiovascular -She has a history of hypotension -We will continue monitoring her cardiovascular status closely, given her current symptoms Hematology #Anemia Her hemoglobin currently is 6.8 compared to 8.3 on 05/07/2016 when she was in the hospital here last week. -She is getting 1 unit of PRBC -We will get a CBC after the blood transfusion, and transfuse if hemoglobin is less than 8 -Follow up iron studies -Consider GI consultation and scoping tomorrow Oncology #History of lung cancer, status post lobectomy, chemotherapy -Follows Dr. Garces, and receives chemotherapy 3 weeks on, 3 weeks off -Consultation with Dr. Murrieta requested for the morning -We'll consider CAT scan of abdomen and pelvis if deemed necessary. Will discuss with Oncologist Alimentary -Consistent carbohydrate 3 diet ordered -Accu-Cheks ordered 3 times a day and at bedtime -Insulin sliding scale ordered Metabolic -Slightly hyponatremic with sodium 134, creatinine is above her baseline at 1.1, alkaline phosphatase is 492, total bilirubin is 2.0, lactic acid is 1.4. -We'll replete electrolytes accordingly Neurologic -She was oriented to time place and person when examined by us -She does have weakness of her lower limbs correlating to the metastatic bone lesions in her spine Diet: CC3 DVT prophylaxis: Mechanical, as the patient has low hemoglobin and might be bleeding internally CODE STATUS: DO NOT INTUBATE, OK for chest compression As Ranked By This Provider Problem List: 1. Chronic anemia 2. Metastatic lung cancer (metastasis from lung to other site) 3. Sepsis 4. Pneumonia 5. Diabetes mellitus type 2 6. Hypercholesterolemia 7. Hypotension 8. Type 2 diabetes mellitus 9. S/P thoracotomy Core Measures/Miscellaneous Acute Coronary Syndrome ACS Diagnosis: No Cerebrovascular Accident CVA/TIA Diagnosis: No Congestive Heart Failure CHF Diagnosis: No Venous Thromboembolism VTE Risk Factors: Age > 40, Cancer/chemo/oth therapy VTE Prophylaxis Ordered Inpt: Mechanical (ALPS/TEDS) No Mech VTE prophylaxis d/t: No contraindications No VTE Pharm Prophylaxis d/t: Active bleeding, Medical contraindication VTE Diagnosis: No VTE Type: NONE VTE Confirmed by (Test): NONE Severe Sepsis Severe Sepsis Present: No BC x2: Yes Lactic Acid x2: Yes Septic Shock Septic Shock Present: No BC x2: Yes Lactic Acid: Yes IV ABX Broad Spectrum: Yes Focused Exam Completed: Yes NS/LR 30ml/kg w/in 3hrs: Yes Miscellaneous Documentation Attending Case Discussed With: MARY KNOX MD Primary Care Physician: MARY KNOX MD Patient sees these Specialists Oncology Level of Patient Care: Critical Care (CRI) ORTEGA FRANKLIN 05/14/162121: Resident Review Statement Resident Statement: examined this patient, agreed with photo intern, discussed with family, reviewed EMR data (avail), reviewed images, amended to note Other Findings: Patient is a 70-year-old female with a history that is significant past medical history of COPD on 3 liters of oxygen , adenocarcinoma of lung, status post left upper lobectomy 3 years prior to the admission with a recurrence 15 months prior to admission, treated with radiation therapy and chemotherapy, which she continues to receive, currently on a three week on/one week off regimen, most recently 3 weeks prior to admission, via a Port-A-Cath that was inserted in her right upper chest at the time of her recurrence. Patient was recently discharged AMA from the hospital 7 days ago. According to patient and patient's family, she was progressively weak since her discharge but was unable to raise her legs, was very tired since this morning. She also had fever starting yesterday, maximum of 101.4F. Latest echocardiogram was done on this month that showed ejection fraction more than 60%, RSVP =48. Stool guaiac negative in ED Problem list: -Sepsis secondary to hospital-acquired pneumonia. -Hypotension most likely secondary to the underlying acute anemia and infection -Stage IV small cell lung cancer on chemotherapy. -Leukocytosis with bandemia. -Thrombocytopenia. -Transaminitis, elevated INR -SHOSHANA, chronic Hyponatremia Plan: -Admit the patient to the ICU -Vitals every shift, strict FILIPPO's -Panculture, continue IV vancomycin and ceftazidime. -IV @ 150 mL/h normal saline -Keep blood pressure above SBP 90 -Keep H&H above 8. CBC every 12hr. -Guaiac all stool. -Magnesium and phosphate -Hold off antihypertensive medication. -Hold metformin, Accu-Chek, insulin sliding scale -Repeat ICU bundle and CBC in the morning for evaluation. -Pain pathway -Oncology consultation in A.m -DVT prophylaxis: Alps -Patient agree for central line if needed. -DNI. -DNI.
--- NOTE | 2016-05-14 19:11 | NUR ---
ASSUMED CARE OF PT PER MESERET VARGAS. PT RESTING IN RM WITH RR, WILL CONTINUE TO MONITOR.
--- NOTE | 2016-05-14 19:33 | NUR ---
PT MOVED TO HOSPITAL BED, FAMILY AT BEDSIDE, VSS RECHECKED. WILL CONTINUE TO MONITOR
--- NOTE | 2016-05-14 19:50 | NUR ---
GRANDDAUGHTER (ESVIN) [phone]/ (DONI) [phone]
--- NOTE | 2016-05-14 19:52 | NUR ---
PTS BS CHECKED AND 134 ACCORDING TO SLIDING SCALE PT HAS NO CHANGE AND INSULIN IS NOT NEEDED.
--- NOTE | 2016-05-14 20:14 | NUR ---
THIS RN SPOKE WITH DIRECTOR OF SERVICES ORTEGA, THIS RN INFORMED DIRECTOR OF SERVICES THAT PTS MANUAL BP IS 80/48. DIRECTOR OF SERVICES ORTEGA STATED THAT A BOLUS OF 250NS SHOULD INFUSE AND TO CHANGE THE SPEED OF THE NS LITER 1 INFUSING AT 75ML/HR TO 150ML/HR.
[2016-05-14 21:30] LABS: ABSOLUTE BASOPHIL COUNT 0 /CUMM (0.0-0.2); ABSOLUTE EOSINOPHIL COUNT 1.5 /CUMM (0.0-0.7); ABSOLUTE GRANULOCYTE CT 9.8 /CUMM (1.4-6.5); ABSOLUTE LYMPH COUNT 0.4 /CUMM (1.2-3.4); ABSOLUTE MONOCYTE COUNT 1.1 /CUMM (0.10-0.60); BASOPHIL % 0.1 % (0.0-2.0); EOSINOPHIL % 11.6 % (0-5); GRANULOCYTE % 76.3 % (42.2-75.2); HEMATOCRIT 24.6 % (37-47); MEAN CORPUSCULAR HGB 32.4 PG (27.0-31.0); MEAN CORPUSCULAR HGB CONC 33.7 G/DL (33.0-37.0); MEAN CORPUSCULAR VOLUME 96.3 FL (81.0-99.0); MEAN PLATELET VOLUME 8.1 FL (7.4-10.4); PLATELET COUNT 136 /CUMM (130-400); RBC DISTRIBUTION WIDTH 19.6 % (11.5-14.5); RED BLOOD CELL CT 2.56 /CUMM (4.20-5.40); WHITE BLOOD CELL COUNT 12.8 /CUMM (4.8-10.8)
--- NOTE | 2016-05-14 21:34 | NUR ---
THIS RN SPOKE WITH PLANT ATTENDANT OR ASSISTANT OPERATOR PACHECO WHO STATED THAT THE NS LITER #1 INFUSING AT 150ML/HR SHOULD INFUSE A BOLUS AND TO START ANOTHER LITER #2 AT 150ML/HR.
--- NOTE | 2016-05-14 21:39 | NUR ---
THIS RN PAGED RESPIATORY FOR A BREATHING TREATMENT, PER PT SHE IS HAVING A HARD TIME BREATHING.
--- NOTE | 2016-05-14 21:52 | NUR ---
LAB CALLED [facility]IN STATED "WE ARE RUNNING A CBC WITH A DIFF AND WILL BE SENDING IT SOON".
--- NOTE | 2016-05-14 22:12 | NUR ---
PT MEDICATED WITH 15MG MS CONTIN AND 1MG REQUIP PER EMAR.
--- NOTE | 2016-05-14 22:28 | NUR ---
PT MEDICATED WITH 500MG TLYENOL PO TAB FOR FEVER 100.4.
--- NOTE | 2016-05-14 22:53 | NUR ---
THIS RN PLACED PT ON BEDPAN.
--- NOTE | 2016-05-14 23:01 | NUR ---
PT VOIDED IN BEDPAN 500ML.
--- NOTE | 2016-05-14 23:50 | NUR ---
THIS RN PAGED AND SPOKE WITH SULFIDE HEAD OPERATOR PACHECO ABOUT PTS CONDITION AND VITAL SIGNS. THIS RN ASKED THAT THE INTERNS COME DOWN TO THE ER WHERE THE PT IS BEING HELD AND ASSESS THE PT SINCE THE BOLUS'S OF NS ARE NOT BRINGING THE PTS BP HIGHER.
--- NOTE | 2016-05-15 00:10 | NUR ---
RESIDENT THROP DOWN AND IN RM FOR ASSESSMENT.
--- NOTE | 2016-05-15 02:24 | NUR ---
THIS RN RECHECKED VITAL SIGNS, ENLISTED ADVISOR PACHECO CONTACTED AND INFORMED THAT PTS 02 SAT ON 3L NC WHILE PT IS SLEEPING IS 82%. ENLISTED ADVISOR PACHECO STATED TO THIS RN THAT THIS RN TITRATE THE 02NC TO 3.5L AND PTS 02 SAT INCREASED TO 895.
[2016-05-15 05:24] LABS: ABSOLUTE BASOPHIL COUNT 0 /CUMM (0.0-0.2); ABSOLUTE EOSINOPHIL COUNT 1.2 /CUMM (0.0-0.7); ABSOLUTE GRANULOCYTE CT 9.2 /CUMM (1.4-6.5); ABSOLUTE LYMPH COUNT 0.3 /CUMM (1.2-3.4); BASOPHIL % 0 % (0.0-2.0); EOSINOPHIL % 10.5 % (0-5); HEMATOCRIT 23.5 % (37-47); MEAN CORPUSCULAR HGB 32.6 PG (27.0-31.0); MEAN CORPUSCULAR HGB CONC 33.5 G/DL (33.0-37.0); MEAN CORPUSCULAR VOLUME 97.2 FL (81.0-99.0); MEAN PLATELET VOLUME 8.9 FL (7.4-10.4); PLATELET COUNT 124 /CUMM (130-400); RBC DISTRIBUTION WIDTH 19.8 % (11.5-14.5); RED BLOOD CELL CT 2.42 /CUMM (4.20-5.40); WHITE BLOOD CELL COUNT 11.7 /CUMM (4.8-10.8)
[2016-05-15 05:37] LABS: GRANULOCYTE % 78.5 % (42.2-75.2)
--- NOTE | 2016-05-15 06:02 | NUR ---
PT MEDICATED WITH 1G FORTAZ PER EMAR.
--- NOTE | 2016-05-15 06:43 | NUR ---
PT VOIDED ON BED FLEMING 400ML. PT MEDICATED WITH 40MG PRILOSEC PER EMAR.
--- NOTE | 2016-05-15 06:46 | NUR ---
PT HAVING A HARD TIME BREATHING AFTER USING THE BED FLEMING AND LYING SUPINE FOR A BOOST IN THE BED, THIS RN PAGED RESPIRATORY AND MANAGER STUDENT SERVICES THROP FOR BREATHING TREATMENT.
--- NOTE | 2016-05-15 06:55 | NUR ---
RESPIATORY AT BEDSIDE FOR TREATMENT.
--- NOTE | 2016-05-15 06:57 | NUR ---
RESPIATORY SUGGESTS TO LEAVE NON REBREATHER ON PT UNTIL PTS 02 SATURATION INCREASES. PT ON NON REBREATHER AT 100% 02 SAT 95%.
--- NOTE | 2016-05-15 08:10 | RADIOLOGY REPORT ---
EXAMINATION: XR PORTABLE CHEST CLINICAL INFORMATION: Shortness of breath and fever. COMPARISON: Chest x-ray and CTA chest 05/14/2016. TECHNIQUE: Portable AP view of the chest was obtained. FINDINGS: There is complete opacification of left hemithorax with ipsilateral mediastinal shift. There are post postoperative jj seen in the left suprahilar region. The right lung is expanded with increased vascular markings probably from redistribution. Some patchy opacities seen in the right upper lobe. A right subclavian port catheter tip remains in mid SVC. Heart size cannot be evaluated. No gross bony abnormality seen. IMPRESSION: Persistent opacification of left hemithorax with ipsilateral mediastinal shift. Recent CT chest revealed left upper lobectomy changes with worsening consolidation of left lower lobe. There is vascular redistribution resulting increased vascularity in the right lung. Some patchy opacities seen in the right upper lobe and is unchanged to the CT a chest. No change in right port catheter tip in SVC.
--- NOTE | 2016-05-15 08:12 | NUR ---
Physical Therapy. PT consult received and chart reviewed. Pt currently in OBS in ED, scheduled to transfer to ICU. Pt currently w/ unstable respiratory status and not appropriate for PT evaluation at this time. PT will f/u as appropriate.
--- NOTE | 2016-05-15 08:24 | NUR ---
0700 CARE OF PATIENT ASSUMED. PT STATES SHE FEELS A BIT BETTER AFTER MOVING TO THE BED. PENDING EVAL FROM RESIDENT 0715 DR. ZURITA EVALUATED PT, ORDERED XRAY AND EKG 0745 XRAY AND EKG DONE. SR ON MONITOR. QING ROGERS STARTED 0800 HR FLUCTUATING FROM 105 TO 135.
--- NOTE | 2016-05-15 08:46 | Cons- Oncology ---
General Information and HPI Consulting Request Date of Consult: 05/15/16 Requested By: MARY KNOX MD Reason for Consult: lung cancer, fever Source of Information: patient, old records Exam Limitations: no limitations History of Present Illness: Ms. Francois is a 70-year-old female with history of neuroendocrine/small cell lung cancer, adenocarcinoma lung cancer, and COPD on 3 L presents with fever, weakness, and failure to thrive. She states she was feeling okay at home until yesterday when she was having more difficulty with weakness and fever. She was recently discharged from [facility] on 04/28/2016. She has not done much at home since coming home. She has not ambulate much. She spend most of her days lying down. She currently reports shortness of breath and fever. In the ED she was noted to be febrile and hypotensive. Blood pressure was in the 80s for systolic. CTA of the chest demonstrated no PE. She did have increased patchy opacities in the right middle lobe and uppler lobe. She had an increased small pericardial effusion. She does have enlarged mediastinal lymph node. Allergies/Medications Allergies: Coded Allergies: adhesive tape (BLISTERS 05/17/15) heparin (UNKNOWN 05/17/15) Home Med List: Acetaminophen (Tylenol Arthritis) 650 MG TABLET.ER 1 TAB PO PRN PAIN ( Reported) Albuterol Sulfate (Proair Hfa) 90 MCG HFA.AER.AD 2 PUF INH Q4-6 PRN PRN SOB ( Reported) Atorvastatin Calcium (Lipitor) 20 MG TABLET 1 TAB PO DAILY CHOLESTEROL ( Reported) Calcitriol 0.25 MCG CAPSULE 1 CAP PO DAILY LOW VIT D AND CALCIUM (Reported) Calcium Carbonate (Calcium) 600 MG (1,500 MG) TABLET 1 TAB PO DAILY SUPPLEMENT (Reported) Cholecalciferol (Vitamin D3) (Vitamin D3) 2,000 UNIT CAPSULE 1 CAP PO DAILY SUPPLEMENT (Reported) Dapagliflozin Propanediol (Farxiga) 10 MG TABLET 1 TAB PO DAILY DM (Reported) Fentanyl 50 MCG/HOUR PATCH.TD72 1 PAT TOP Q3D PAIN (Reported) Hydrocodone/Chlorphen P-Stirex (Hydrocodone-Chlorphen ER Susp) 10 MG-8 MG/5 ML MANDO.ER.12H 5 ML PO Q6H PRN COUGH (Reported) Lisinopril 5 MG TABLET 1 TAB PO DAILY BP (Reported) Lorazepam 0.5 MG TABLET 1 TAB PO TID PRN SLEEP (Reported) Metformin HCl 1,000 MG TABLET 1 TAB PO BID DM (Reported) Morphine Sulfate (Ms Contin) 15 MG TABLET.ER 1 TAB PO BID PAIN (Reported) Oxycodone HCl/Acetaminophen (Oxycodone-Acetaminophen 10-325) 10 MG-325 MG TABLET 1 TAB PO Q6H PRN PAIN (Reported) Pantoprazole Sodium 40 MG TABLET.DR 1 TAB PO DAILY GI (Reported) Potassium Chloride 20 MEQ TAB.ER.PRT 1 TAB PO DAILY LOW POTASSIUM (Reported) Ropinirole HCl (Requip) 1 MG TABLET 1 TAB PO BID RESTLESS LEGS (Reported) Saxagliptin (Onglyza) 5 MG TABLET 1 TAB PO DAILY DM (Reported) Tiotropium [place] (Spiriva) 18 MCG CAP.W.DEV 1 CAP INH DAILY COPD (Reported) Current Medications: Current Medications Sig/Olga Start time Last Medication Dose Route Stop Time Status Admin Acetaminophen 1,000 MG ONCE ONE 05/15 0015 DC 05/15 N/A 1 UNIT IV 05/15 0029 0011 Acetaminophen 0 .STK-MED ONE 05/15 0007 DC IV Acetaminophen 500 MG ONCE ONE 05/14 2345 CAN IV 05/14 2346 Acetaminophen 500 MG Q6P PRN 05/14 1915 AC 05/14 PO 2229 Acetaminophen 1,000 MG ONCE ONE 05/14 1345 DC 05/14 N/A 1 UNIT IV 05/14 1359 1346 Acetaminophen 0 .STK-MED ONE 05/14 1341 DC IV Albuterol Sulfate 3 ML ONCE ONE 05/15 0700 DC 05/15 INH 05/15 0701 0814 Albuterol Sulfate 3 ML ONCE ONE 05/14 2145 DC 03 INH 05/14 2146 2143 Albuterol Sulfate 3 ML ONCE ONE 05/14 1430 DC 03/ INH 05/14 1431 1500 Atorvastatin Calcium 20 MG 1700 05/15 1700 AC PO Ceftazidime 1,000 MG Q12H 05/15 0600 AC 05/15 IV 0602 Ceftazidime 0 .STK-MED ONE 05/15 0600 DC .ROUTE Ceftazidime 1,000 MG Q12H 05/14 1800 DC IV Ceftazidime 0 .STK-MED ONE 05/14 1753 DC .ROUTE Ceftazidime 1,000 MG ONCE ONE 05/14 1745 DC 03 IV 05/14 1746 1758 Insulin Aspart 0 TIDAC 05/14 1915 AC 05/15 SC 0813 Ipratropium [place] 2.5 ML ONCE ONE 05/15 0700 DC 05/15 INH 05/15 0701 0814 Ipratropium [place] 2.5 ML ONCE ONE 05/14 2145 DC 05/14 INH 05/14 2146 2144 Ipratropium [place] 2.5 ML ONCE ONE 05/14 1430 DC 03 INH 05/14 1431 1500 Lorazepam 0.5 MG TID PRN 05/14 1915 AC PO 05/21 1914 Magnesium Sulfate 0 .STK-MED ONE 05/15 0742 DC .ROUTE Magnesium Sulfate 1 GM Q2H 05/15 0630 AC 05/15 Dextrose/Water 100 ML IV 05/15 1029 0745 Morphine Sulfate 0 .STK-MED ONE 05/14 2210 DC PO Morphine Sulfate 15 MG BID 05/14 2200 AC 05/14 PO 2212 Omeprazole 40 MG DAILY AC 05/15 0700 AC 05/15 PO 0643 Omeprazole 0 .STK-MED ONE 05/15 0635 DC PO Ondansetron HCl 4 MG Q6P PRN 05/14 191 AC IV Oxycodone/ 1 TAB Q6P PRN 05/14 191 AC Acetaminophen PO Ropinirole HCl 1 MG BID 05/14 2200 AC 05/14 PO 2212 Sodium Chloride 1,000 ML BOLUS ONE 05/14 2215 DC 05/15 IV 05/14 2314 0011 Sodium Chloride 500 ML BOLUS ONE 05/14 2130 DC 05/14 IV 05/14 2229 2200 Sodium Chloride 250 ML BOLUS ONE 05/14 2030 DC 05/14 IV 05/14 212 2029 Sodium Chloride 1,000 ML .Q6H40M 05/14 1900 AC 05/15 IV 0430 Sodium Chloride 1,000 ML BOLUS ONE 05/14 1345 DC 05/14 IV 05/14 1544 1346 Tiotropium [place] 1 PUF DAILY 05/15 1000 AC INH Vancomycin HCl 1,000 MG DAILY 05/15 1000 AC Dextrose/Water 250 ML IV Vancomycin HCl 1,000 MG Q24H 05/14 1800 DC Dextrose/Water 250 ML IV Vancomycin HCl 0 .STK-MED ONE 05/14 1752 DC .ROUTE Vancomycin HCl 1,000 MG ONCE ONE 05/14 1745 DC 05/14 Dextrose/Water 250 ML IV 05/14 8776 1758 Review of Systems Review of Systems Constitutional: Reports: fever, malaise, weakness. Denies: chills. Cardiovascular: Reports: edema, orthopena, peripheral edema. Denies: chest pain. Respiratory: Reports: cough, short of breath. GI: Denies: diarrhea. Genitourinary: Denies: dysuria. Skin: Denies: rash. 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 Needs Assist: dressing, bathing. Ambulation: walker Exam & Diagnostic Data Vital Signs and I&O Vital Signs Date Time Temp Pulse Resp B/P Pulse O2 O2 Flow FiO2 Ox Delivery Rate 05/15 0810 94 Non 100% ReBreather 05/15 0800 96.9 135 24 107/58 95 Non 10L ReBreather 05/15 0656 97.4 140 24 125/79 95 Non 100% ReBreather / 0540 97.5 101 18 93/54 94 Nasal 2.0L Cannula / 0430 97.2 102 18 94/52 94 Nasal 3.5L Cannula 05/15 0330 98.5 106 18 93/51 94 Nasal 2.0L Cannula / 0223 98.0 104 20 88/46 89 Nasal 3.5L Cannula / 0128 99.3 / 0118 99.3 110 20 84/46 95 Nasal 2.0L Cannula / 0012 100.5 03/ 0011 100.5 03/01 2330 100.5 118 20 84/44 94 Nasal 2.0L Cannula 05/14 2250 92/55 05/14 2239 100.0 109 20 86/50 93 Nasal 3.0L Cannula 05/14 2204 100.4 119 20 80/42 94 Nasal 3.0L Cannula 05/14 2146 93 Nasal 3.0L Cannula 05/14 211 80/50 05/14 2030 109 20 95/51 98 Nasal 3.0L Cannula 05/14 2004 80/48 05/14 2000 99.8 111 20 85/50 94 Nasal 3.0L Cannula 05/14 1934 97.5 115 18 91/47 92 Nasal 3.0L Cannula 05/14 1851 98.8 76 22 95/54 92 Nasal 3.0L Cannula 05/14 1800 98.9 108 20 99/47 93 Nasal 3.0L Cannula 05/14 1732 98.9 108 20 92/48 92 Nasal 2.0L Cannula 05/14 1635 97.9 110 20 93/47 93 Nasal 3.0L Cannula 05/14 1620 98.9 112 20 90/44 94 Nasal 3.0L Cannula 05/14 1500 91 Nasal 3.0L Cannula 05/14 1450 99.8 116 20 94/52 96 Room Air 05/14 1428 100.2 05/14 1346 100.5 05/14 1329 100.5 110 22 89/54 94 Nasal 3.0L Cannula Intake & Output 05/15 1600 05/15 0800 05/15 0000 Intake Total 250 Output Total 400 840 Balance -400 -590 Intake, IV 250 Output, Urine 400 840 Physical Exam General Appearance: alert, anxious, comfortable, on NRB Head: atraumatic, normal appearance Eyes: Bilateral: PERRL. Ears, Nose, Throat: normal pharynx Respiratory: normal breath sounds, chest non-tender, no respiratory distress Cardiovascular: edema, tachycardia Gastrointestinal: normal bowel sounds, soft, non-tender Back: normal inspection Extremities: pedal edema Skin: rash Lymphatic: no anterior cervical rancho Last 48 Hours of Lab Results: Laboratory Tests 05/15 05/15 0510 0030 Chemistry Sodium (137 - 145 mmol/L) 137 Potassium (3.5 - 5.1 mmol/L) 4.2 Chloride (98 - 107 mmol/L) 106 Carbon Dioxide (22 - 30 mmol/L) 26 Anion Gap (5 - 16) 5 BUN (7 - 17 mg/dL) 22 H Creatinine (0.5 - 1.0 mg/dL) 0.9 Estimated GFR (>60 ml/min) > 60 Glucose (65 - 99 mg/dL) 97 Lactic Acid Cancelled Calcium (8.4 - 10.2 mg/dL) 7.6 L Phosphorus (2.5 - 4.5 mg/dL) 4.2 Magnesium (1.6 - 2.3 mg/dL) 1.1 L Total Bilirubin (0.2 - 1.3 mg/dL) 1.9 H AST (14 - 36 U/L) 18 ALT (9 - 52 U/L) 27 Albumin (3.5 - 5.0 g/dL) 1.8 L Hematology CBC w Diff NO MAN DIFF REQ WBC (4.8 - 10.8 /CUMM) 11.7 H RBC (4.20 - 5.40 /CUMM) 2.42 L Hgb (12.0 - 16.0 G/DL) 7.9 L Hct (37 - 47 %) 23.5 L MCV (81.0 - 99.0 FL) 97.2 MCH (27.0 - 31.0 PG) 32.6 H RDW (11.5 - 14.5 %) 19.8 H Plt Count (130 - 400 /CUMM) 124 L MPV (7.4 - 10.4 FL) 8.9 Gran % (42.2 - 75.2 %) 78.5 H Lymphocytes % (20.5 - 51.1 %) 2.7 L Monocytes % (1.7 - 9.3 %) 8.3 Eosinophils % (0 - 5 %) 10.5 H Basophils % (0.0 - 2.0 %) 0 L Absolute Granulocytes (1.4 - 6.5 /CUMM) 9.2 H Absolute Lymphocytes (1.2 - 3.4 /CUMM) 0.3 L Absolute Monocytes (0.10 - 0.60 /CUMM) 1.0 H Absolute Eosinophils (0.0 - 0.7 /CUMM) 1.2 Absolute Basophils (0.0 - 0.2 /CUMM) 0 PUBS MCHC (33.0 - 37.0 G/DL) 33.5 0305/14 1713 6740 Hematology CBC w Diff MAN DIFF ORDERED WBC (4.8 - 10.8 /CUMM) 12.8 H RBC (4.20 - 5.40 /CUMM) 2.56 L Hgb (12.0 - 16.0 G/DL) 8.3 L Hct (37 - 47 %) 24.6 L MCV (81.0 - 99.0 FL) 96.3 MCH (27.0 - 31.0 PG) 32.4 H RDW (11.5 - 14.5 %) 19.6 H Plt Count (130 - 400 /CUMM) 136 MPV (7.4 - 10.4 FL) 8.1 Gran % (42.2 - 75.2 %) 76.3 H Lymphocytes % (20.5 - 51.1 %) 3.2 L Monocytes % (1.7 - 9.3 %) 8.8 Eosinophils % (0 - 5 %) 11.6 H Basophils % (0.0 - 2.0 %) 0.1 Absolute Granulocytes (1.4 - 6.5 /CUMM) 9.8 H Segmented Neutrophils (42.2 - 75.2 %) 60 Band Neutrophils (0.0 - 5.0 %) 15 H Absolute Lymphocytes (1.2 - 3.4 /CUMM) 0.4 L Lymphocytes (20.5 - 51.1 %) 4 L Monocytes (1.7 - 9.3 %) 6 Absolute Monocytes (0.10 - 0.60 /CUMM) 1.1 H Eosinophils (0 - 5.0 %) 14 H Absolute Eosinophils (0.0 - 0.7 /CUMM) 1.5 Absolute Basophils (0.0 - 0.2 /CUMM) 0 Metamyelocytes (0.0 - 1.0 %) 1 Platelet Estimate (ADEQUATE) ADEQUATE Polychromasia 1+ Hypochromic-Microcytic 2+ Anisocytosis 1+ Macrocytic Cells 1+ PUBS MCHC (33.0 - 37.0 G/DL) 33.7 Urines Urinalysis LIGHT H Urine Color (YEL,AMB,STR) YEL Urine Clarity (CLEAR) HAZY H Urine pH (5.0 - 8.0) 6.0 Ur Specific [place] (1.001 - 1.035) 1.020 Urine Protein (NEG,<30 MG/DL) NEG Urine Ketones (NEG) NEG Urine Nitrite (NEG) NEG Urine Bilirubin (NEG) NEG Urine Urobilinogen (0.1 - 1.0 EU/dl) 0.2 Ur Leukocyte Esterase (NEG) NEG Ur Microscopic SEDIMENT EXAMINED Urine RBC (0 - 5 /HPF) RARE Urine WBC (0 - 2 /HPF) RARE Ur Epithelial Cells (NONE,FEW) FEW Urine Bacteria (NEG/NONE) FEW H Urine Mucus (FEW,NONE) FEW Micro UA Comment BUDDING YEAST H Urine Hemoglobin (NEG) NEG Urine Glucose (N MG/DL) NEG 05/14 05/14 05/14 1633 1410 1410 Chemistry Sodium (137 - 145 mmol/L) 134 L Potassium (3.5 - 5.1 mmol/L) 4.6 Chloride (98 - 107 mmol/L) 101 Carbon Dioxide (22 - 30 mmol/L) 27 Anion Gap (5 - 16) 6 BUN (7 - 17 mg/dL) 27 H Creatinine (0.5 - 1.0 mg/dL) 1.1 H Estimated GFR (>60 ml/min) 49 L BUN/Creatinine Ratio (7 - 25 %) 24.5 Glucose (65 - 99 mg/dL) 101 H Lactic Acid (0.7 - 2.1 mmol/L) Cancelled 1.4 Calcium (8.4 - 10.2 mg/dL) 8.4 Phosphorus (2.5 - 4.5 mg/dL) 4.1 Magnesium (1.6 - 2.3 mg/dL) 1.3 L Iron (37 - 170 ug/dL) 52 TIBC (265 - 497 ug/dL) 142 L Ferritin (11.1 - 264 ng/mL) > 1000.0 H Total Bilirubin (0.2 - 1.3 mg/dL) 2.0 H AST (14 - 36 U/L) 18 ALT (9 - 52 U/L) 24 Alkaline Phosphatase (<127 U/L) 492 H Troponin I (< 0.11 ng/ml) 0.01 Total Protein (6.3 - 8.2 g/dL) 5.2 L Albumin (3.5 - 5.0 g/dL) 2.0 L Globulin (1.9 - 4.2 gm/dL) 3.2 Albumin/Globulin Ratio (1.1 - 2.2 %) 0.6 L Coagulation PT (9.4 - 12.5 SEC) 21.0 H INR (0.90 - 1.19) 2.01 H APTT (25 - 37 SEC) 45 H Hematology CBC w Diff MAN DIFF ORDERED WBC (4.8 - 10.8 /CUMM) 13.3 H RBC (4.20 - 5.40 /CUMM) 2.08 L Hgb (12.0 - 16.0 G/DL) 6.8 *L Hct (37 - 47 %) 20.2 L MCV (81.0 - 99.0 FL) 97.1 MCH (27.0 - 31.0 PG) 32.6 H RDW (11.5 - 14.5 %) 21.6 H Plt Count (130 - 400 /CUMM) 149 MPV (7.4 - 10.4 FL) 8.2 Gran % (42.2 - 75.2 %) 76.5 H Lymphocytes % (20.5 - 51.1 %) 3.0 L Monocytes % (1.7 - 9.3 %) 7.7 Eosinophils % (0 - 5 %) 12.8 H Basophils % (0.0 - 2.0 %) 0 L Absolute Granulocytes (1.4 - 6.5 /CUMM) 10.2 H Segmented Neutrophils (42.2 - 75.2 %) 73 Band Neutrophils (0.0 - 5.0 %) 6 H Absolute Lymphocytes (1.2 - 3.4 /CUMM) 0.4 L Lymphocytes (20.5 - 51.1 %) 2 L Monocytes (1.7 - 9.3 %) 6 Absolute Monocytes (0.10 - 0.60 /CUMM) 1.0 H Eosinophils (0 - 5.0 %) 13 H Absolute Eosinophils (0.0 - 0.7 /CUMM) 1.7 Absolute Basophils (0.0 - 0.2 /CUMM) 0 Platelet Estimate (ADEQUATE) VERIFIED BY SMEAR Polychromasia 1+ Poikilocytosis 1+ Anisocytosis 1+ Ovalocytes 1+ Stomatocytes 1+ PUBS MCHC (33.0 - 37.0 G/DL) 33.6 Imaging/Other Studies: CTA 05/14/2016 1. No pulmonary embolism. 2. Increased patchy opacities in the right middle lobe and upper lobe most consistent with infectious process. 3. Increased small pericardial effusion. 4. Postsurgical changes status post left upper lobectomy. Worsening consolidation of the left lower lobe with minimal remaining aerated lung at the lung base. Small pleural effusion has increased from prior. 5. Metastatic liver lesions again noted. Enlarged mediastinal lymph node again noted. Assessment/Plan Assessment: Mrs. Walls is a 70-year-old female metastatic lung cancer (adenocarcinoma/ neuroendocrine/small) who has recently progressed on weekly paclitaxel. She has been hospitalized 3 times in the last several months. She presents with weakness and pneumonia for this admission. CTA demonstrates pneumonia in the RML and RUL. She has significant disease burden. She is currently being treated for pneumonia. Given her progression and multiple admission, her performance status has significantly decreased. It is becoming unlikely for her to tolerate any therapy. I have approached hospice with her but she declined it for now. I will continue to discuss goals of care with her and her family. Recommendations: 1. Continue current antibiotic coverage 2. Continue respiratory support 3. Continue discussion on goals of care 4. Follow up as outpatient Problem List: 1. Pneumonia 2. Liver metastases 3. Metastatic lung cancer (metastasis from lung to other site) 4. Small cell lung cancer 5. Generalized weakness Other Findings/Comments: Please call [phone] with any questions or concerns Consult Acknowledgment - Thank you for your consult request.
--- NOTE | 2016-05-15 08:48 | NUR ---
NEEL ORDERED PER PT REQUEST.
--- NOTE | 2016-05-15 09:26 | NUR ---
PT PLACED ON 3L VIA NC SO SHE CAN EAT HER JELLO. PT TOLERATED THAT FOR APPROX 5 MINUTES. SPO2 DECREASED TO 78% WITH INCREASED WORK OF BREATHING. PT PLACED BACK ON NRB ON 10L. WILL CONTINUE TO MONITOR
--- NOTE | 2016-05-15 10:05 | Cons- CRCU ---
See Addendum General Information and HPI Consulting Request Date of Consult: 05/15/16 Requested By: med team History of Present Illness: 70-year-old female with past medical history of COPD on 3 liters of oxygen, adenocarcinoma of lung, status post left upper lobectomy 3 years prior to the admission with a recurrence 15 months prior to admission, treated with radiation therapy and chemotherapy, which she continues to receive, currently on a three week on/one week off regimen, most recently 2 weeks prior to admission, via a Port-A-Cath that was renewed in her right upper chest today, came into the emergency department with complaints of fever, weakness, mild confusion. She was recently discharged from [facility] on 04/28/2016 after being treated for strep throat, neutropenia, hypomagnesemia, hyperbilirubinemia. According to patient and patient's family, she was progressively weak since her discharge but was unable to raise her legs, was very tired since this morning. She also had fever starting yesterday, maximum of 101.4F. This morning, her respiratory rate was noticed to be high in she was found to be saturating at 90% on 3 L/m oxygen. On questioning, she also reported cough that has been worsening, with yellow sputum production. Her family had called her physician who suggested her to be taken to the emergency room right away. She admitted to having decreased appetite. Her swelling of her legs is almost the same, no redness or pain on moving the legs. She however does not have much mobility in the baseline. She denies rashes, chest pain, palpitations, headache, abdominal pain, nausea, vomiting, changes in bowel or bladder habit, recent wound, recent travel, any sick contacts, She denies rashes, chest pain, palpitations, headache, abdominal pain, nausea, vomiting, changes in bowel or bladder habit, recent wound, recent travel, any sick contacts. Review of Systems Constitutional: Reports: see HPI, fever, malaise, weakness. Denies: chills, diaphoresis. EENTM: Reports: no symptoms. Cardiovascular: Reports: edema, peripheral edema. Denies: chest pain, palpitations, syncope. Respiratory: Reports: see HPI, cough, short of breath, sputum production. Denies: hemoptysis , stridor, wheezing. GI: Reports: no symptoms. Genitourinary: Reports: no symptoms. Musculoskeletal: Reports: no symptoms. Skin: Reports: no symptoms. Neurological/Psychological: Reports: no symptoms. Hematologic/Endocrine: Reports: no symptoms. All Other Systems: Reviewed and Negative Post Menopausal: Yes Allergies/Medications Allergies: Coded Allergies: adhesive tape (BLISTERS 05/17/15) heparin (UNKNOWN 05/17/15) Home Med List: Acetaminophen (Tylenol Arthritis) 650 MG TABLET.ER 1 TAB PO PRN PAIN ( Reported) Albuterol Sulfate (Proair Hfa) 90 MCG HFA.AER.AD 2 PUF INH Q4-6 PRN PRN SOB ( Reported) Atorvastatin Calcium (Lipitor) 20 MG TABLET 1 TAB PO DAILY CHOLESTEROL ( Reported) Calcitriol 0.25 MCG CAPSULE 1 CAP PO DAILY LOW VIT D AND CALCIUM (Reported) Calcium Carbonate (Calcium) 600 MG (1,500 MG) TABLET 1 TAB PO DAILY SUPPLEMENT (Reported) Cholecalciferol (Vitamin D3) (Vitamin D3) 2,000 UNIT CAPSULE 1 CAP PO DAILY SUPPLEMENT (Reported) Dapagliflozin Propanediol (Farxiga) 10 MG TABLET 1 TAB PO DAILY DM (Reported) Fentanyl 50 MCG/HOUR PATCH.TD72 1 PAT TOP Q3D PAIN (Reported) Hydrocodone/Chlorphen P-Stirex (Hydrocodone-Chlorphen ER Susp) 10 MG-8 MG/5 ML MANDO.ER.12H 5 ML PO Q6H PRN COUGH (Reported) Lisinopril 5 MG TABLET 1 TAB PO DAILY BP (Reported) Lorazepam 0.5 MG TABLET 1 TAB PO TID PRN SLEEP (Reported) Metformin HCl 1,000 MG TABLET 1 TAB PO BID DM (Reported) Morphine Sulfate (Ms Contin) 15 MG TABLET.ER 1 TAB PO BID PAIN (Reported) Oxycodone HCl/Acetaminophen (Oxycodone-Acetaminophen 10-325) 10 MG-325 MG TABLET 1 TAB PO Q6H PRN PAIN (Reported) Pantoprazole Sodium 40 MG TABLET.DR 1 TAB PO DAILY GI (Reported) Potassium Chloride 20 MEQ TAB.ER.PRT 1 TAB PO DAILY LOW POTASSIUM (Reported) Ropinirole HCl (Requip) 1 MG TABLET 1 TAB PO BID RESTLESS LEGS (Reported) Saxagliptin (Onglyza) 5 MG TABLET 1 TAB PO DAILY DM (Reported) Tiotropium [place] (Spiriva) 18 MCG CAP.W.DEV 1 CAP INH DAILY COPD (Reported) Review of Systems Review of Systems Constitutional: Reports: see HPI. 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 Needs Assist: dressing, bathing. Ambulation: walker Exam & Diagnostic Data Last 24 Hrs of Vital Signs/I&O Vital Signs Date Time Temp Pulse Resp B/P Pulse O2 O2 Flow FiO2 Ox Delivery Rate / 0859 96.8 124 24 102/55 95 Non ReBreather 03/02 0810 94 Non 100% ReBreather 03/02 0800 96.9 135 24 107/58 95 Non ReBreather 03/02 0656 97.4 140 24 125/79 95 Non 100% ReBreather 03/02 0540 97.5 101 18 93/54 94 Nasal 2.0L Cannula 03/ 0430 97.2 102 18 94/52 94 Nasal 3.5L Cannula 03/ 0330 98.5 106 18 93/51 94 Nasal 2.0L Cannula 03/02 0223 98.0 104 20 88/46 89 Nasal 3.5L Cannula 03/02 0128 99.3 03/02 0118 99.3 110 20 84/46 95 Nasal 2.0L Cannula 03/02 0012 100.5 03/02 0011 100.5 03/ 2330 100.5 118 20 84/44 94 Nasal 2.0L Cannula / 2250 92/55 03/01 2239 100.0 109 20 86/50 93 Nasal 3.0L Cannula / 2204 100.4 119 20 80/42 94 Nasal 3.0L Cannula 05/146 93 Nasal 3.0L Cannula 05/15 2115 80/50 05/14 2030 109 20 95/51 98 Nasal 3.0L Cannula 05/14 2004 80/48 05/14 2000 99.8 111 20 85/50 94 Nasal 3.0L Cannula 05/14 1934 97.5 115 18 91/47 92 Nasal 3.0L Cannula 05/14 1851 98.8 76 22 95/54 92 Nasal 3.0L Cannula 05/14 1800 98.9 108 20 99/47 93 Nasal 3.0L Cannula 05/14 1732 98.9 108 20 92/48 92 Nasal 2.0L Cannula 05/14 1635 97.9 110 20 93/47 93 Nasal 3.0L Cannula 05/14 1620 98.9 112 20 90/44 94 Nasal 3.0L Cannula 05/14 1500 91 Nasal 3.0L Cannula 05/14 1450 99.8 116 20 94/52 96 Room Air 05/14 1428 100.2 05/14 1346 100.5 05/14 1329 100.5 110 22 89/54 94 Nasal 3.0L Cannula Intake & Output 05/15 1600 05/15 0800 05/15 0000 Intake Total 250 Output Total 125 400 840 Balance -125 -400 -590 Intake, IV 250 Output, Urine 125 400 840 Last 48 Hrs of Labs/Madhu: Laboratory Tests 05/15/16 0510: Anion Gap 5, Estimated GFR > 60, Glucose 97, Calcium 7.6 L, Phosphorus 4.2, Magnesium 1.1 L, Total Bilirubin 1.9 H, AST 18, ALT 27, Albumin 1.8 L, CBC w Diff NO MAN DIFF REQ, RBC 2.42 L, MCV 97.2, MCH 32.6 H, RDW 19.8 H, MPV 8.9, Gran % 78.5 H, Lymphocytes % 2.7 L, Monocytes % 8.3, Eosinophils % 10.5 H, Basophils % 0 L, Absolute Granulocytes 9.2 H, Absolute Lymphocytes 0.3 L, Absolute Monocytes 1.0 H, Absolute Eosinophils 1.2, Absolute Basophils 0, PUBS MCHC 33.5 05/15/16 0030: Lactic Acid Cancelled 05/14/162114: CBC w Diff MAN DIFF ORDERED, RBC 2.56 L, MCV 96.3, MCH 32.4 H, RDW 19.6 H, MPV 8.1, Gran % 76.3 H, Lymphocytes % 3.2 L, Monocytes % 8.8, Eosinophils % 11.6 H, Basophils % 0.1, Absolute Granulocytes 9.8 H, Segmented Neutrophils 60 , Band Neutrophils 15 H, Absolute Lymphocytes 0.4 L, Lymphocytes 4 L, Monocytes 6, Absolute Monocytes 1.1 H, Eosinophils 14 H, Absolute Eosinophils 1.5, Absolute Basophils 0, Metamyelocytes 1, Platelet Estimate ADEQUATE, Polychromasia 1+, Hypochromic-Microcytic 2+, Anisocytosis 1+, Macrocytic Cells 1 +, PUBS MCHC 33.7 05/14/16 1834: Urinalysis LIGHT H, Urine Color YEL, Urine Clarity HAZY H, Urine pH 6.0, Ur Specific Elma 1.020, Urine Protein NEG, Urine Ketones NEG, Urine Nitrite NEG, Urine Bilirubin NEG, Urine Urobilinogen 0.2, Ur Leukocyte Esterase NEG, Ur Microscopic SEDIMENT EXAMINED, Urine RBC RARE, Urine WBC RARE, Ur Epithelial Cells FEW, Urine Bacteria FEW H, Urine Mucus FEW, Micro UA Comment BUDDING YEAST H, Urine Hemoglobin NEG, Urine Glucose NEG 05/14/16 1633: Lactic Acid Cancelled 05/14/16 1410: Lactic Acid 1.4 05/14/16 1410: Anion Gap 6, Estimated GFR 49 L, BUN/Creatinine Ratio 24.5, Glucose 101 H, Calcium 8.4, Phosphorus 4.1, Magnesium 1.3 L, Iron 52, TIBC 142 L, Ferritin > 1000.0 H, Total Bilirubin 2.0 H, AST 18, ALT 24, Alkaline Phosphatase 492 H, Troponin I 0.01, Total Protein 5.2 L, Albumin 2.0 L, Globulin 3.2, Albumin/ Globulin Ratio 0.6 L, PT 21.0 H, INR 2.01 H, APTT 45 H, CBC w Diff MAN DIFF ORDERED, RBC 2.08 L, MCV 97.1, MCH 32.6 H, RDW 21.6 H, MPV 8.2, Gran % 76.5 H, Lymphocytes % 3.0 L, Monocytes % 7.7, Eosinophils % 12.8 H, Basophils % 0 L, Absolute Granulocytes 10.2 H, Segmented Neutrophils 73, Band Neutrophils 6 H, Absolute Lymphocytes 0.4 L, Lymphocytes 2 L, Monocytes 6, Absolute Monocytes 1.0 H, Eosinophils 13 H, Absolute Eosinophils 1.7, Absolute Basophils 0, Platelet Estimate VERIFIED BY SMEAR, Polychromasia 1+, Poikilocytosis 1+, Anisocytosis 1+, Ovalocytes 1+, Stomatocytes 1+, PUBS MCHC 33.6 Microbiology 05/14 1834 NASOPHARYN: Influenza Virus A & B Rapid Smear - COMP Assessment/Plan Impression/Plan: IMPRESSION: 1. No pulmonary embolism. 2. Increased patchy opacities in the right middle lobe and upper lobe most consistent with infectious process. 3. Increased small pericardial effusion. 4. Postsurgical changes status post left upper lobectomy. Worsening consolidation of the left lower lobe with minimal remaining aerated lung at the lung base. Small pleural effusion has increased from prior. 5. Metastatic liver lesions again noted. Enlarged mediastinal lymph node again noted. VTE: negative Mrs. Walls is a 70-year-old female metastatic lung cancer (adenocarcinoma/ neuroendocrine/small) who has recently progressed on weekly paclitaxel. She has been hospitalized 3 times in the last several months. She presents with weakness and pneumonia for this admission. CTA demonstrates pneumonia in the RML and RUL. She has significant disease burden. Issues SIg malignancy which is progressing Sig Sepsis with pna Liver failure with liver mets with ascites and anasarca Worsening overall status REC Cont present care Vanco cefaz for now No need to tap the abd Sputum culture IVF with normal saline Low sodium diet Lactulose unless she has diarrhea Prob poor Consult Acknowledgment - Thank you for your consult request.
--- NOTE | 2016-05-15 10:53 | PN- Resident CRCU ---
Subjective HPI/CRCU Issues: Patient initially for sepsis, acute on chronic respiratory failure, anemia. Patient remained in the emergency department overnight. She was lying comfortably in her bed, with oxygen being delivered via nasal cannula, was able to speak in half sentences without distress. No complaints, vitals have remained unstable due to decreased heart rate and tachycardia. After morning rounds, patient started having increased shortness of breath, saturation went down to 80s while on oxygen being delivered via nasal cannula. Position, mask with a rebreather bag did not help the situation. Was put on BiPAP after knowing ABG (severe resp acidosis) by RT Sellers. See notes below. Objective Vital Signs & I&O Last 8 Hrs of Vitals and I&O: Vital Signs Date Time Temp Pulse Resp B/P Pulse O2 O2 Flow FiO2 Ox Delivery Rate 05/15 1600 85 Non 100% ReBreather 03/02 1445 134 88 03/02 1430 84 Non 100% ReBreather 03/02 1430 98.6 136 34 110/62 84 Non 100% ReBreather 03/02 1420 92 Non 100% ReBreather 03/02 1325 134 91 03/02 1250 Non 100% ReBreather 03/02 1109 97.3 114 24 95/55 95 Non 100% ReBreather 03/02 1000 97.2 115 24 90/51 95 Non 100% ReBreather 03/02 0859 96.8 124 24 102/55 95 Non ReBreather 03/02 0810 94 Non 100% ReBreather 03/02 0800 96.9 135 24 107/58 95 Non ReBreather 03/02 0656 97.4 140 24 125/79 95 Non 100% ReBreather 03/02 0540 97.5 101 18 93/54 94 Nasal 2.0L Cannula 03/02 0430 97.2 102 18 94/52 94 Nasal 3.5L Cannula 03/02 0330 98.5 106 18 93/51 94 Nasal 2.0L Cannula 03/02 0223 98.0 104 20 88/46 89 Nasal 3.5L Cannula 03/02 0128 99.3 03/02 0118 99.3 110 20 84/46 95 Nasal 2.0L Cannula 05/15 0012 100.5 05/15 0011 100.5 05/14 2330 100.5 118 20 84/44 94 Nasal 2.0L Cannula 05/14 2250 92/55 05/14 2239 100.0 109 20 86/50 93 Nasal 3.0L Cannula 05/14 2204 100.4 119 20 80/42 94 Nasal 3.0L Cannula 05/14 2146 93 Nasal 3.0L Cannula 05/14 211 80/50 05/14 2030 109 20 95/51 98 Nasal 3.0L Cannula 05/14 2004 80/48 05/14 2001 99.8 111 20 85/50 94 Nasal 3.0L Cannula 05/14 1934 97.5 115 18 91/47 92 Nasal 3.0L Cannula 05/14 1851 98.8 76 22 95/54 92 Nasal 3.0L Cannula 05/14 1800 98.9 108 20 99/47 93 Nasal 3.0L Cannula Intake & Output 05/15 1600 05/15 0800 05/15 0000 Intake Total 250 Output Total 125 400 840 Balance -125 -400 -590 Intake, IV 250 Output, Urine 125 400 840 Patient 84.935 kg Weight Exam General Appearance: alert, awake, anxious, cachetic, mild distress Other Physical Findings: Skin No Rashes, No Breakdown, No Significant Lesion HEENT Atraumatic, PERRLA, EOMI, Mucous Membr. moist/pink Neck Supple, No JVD, No thryomegaly Lymphatic Cervical nl Cardiovascular Regular Rate Lungs crackles heard over right side, left sided surgical scar present posteriorly (lobectomy) Abdomen Normal Bowel Sounds, Soft, No Tenderness Neurological Normal Speech, Normal Tone, Sensation Intact, motor power decreased over feet b/l Extremities b/l pitting edema present upto hip Vascular Normal Pulses, Pulses Symmetrical, difficult to feel pulse due to edema Central Line Site: Port-A-Cath over R side of her chest Need for Catheter: chemothera py IV Drips IV Drips: IVF NS Current Medications: Current Medications Sig/Olga Start time Last Medication Dose Route Stop Time Status Admin Acetaminophen 1,000 MG ONCE ONE 05/15 0015 DC 05/15 N/A 1 UNIT IV 05/15 0029 0011 Acetaminophen 0 .STK-MED ONE 05/15 6 DC IV Acetaminophen 500 MG ONCE ONE 05/14 2345 CAN IV 05/14 2346 Acetaminophen 500 MG Q6P PRN 05/14 1915 AC 05/14 PO 2229 Albuterol Sulfate 3 ML EVERY 4 HRS/AWAKE 05/15 1600 AC 05/15 INH 1752 Albuterol Sulfate 0 .STK-MED ONE 05/15 1248 DC INH Albuterol Sulfate 3 ML ONCE ONE 05/15 0700 DC 05/15 INH 05/15 0701 0814 Albuterol Sulfate 3 ML ONCE ONE 05/14 2145 DC 05/14 INH 05/14 2146 2143 Atorvastatin Calcium 20 MG 1700 05/15 1700 AC PO Ceftazidime 1,000 MG Q12H 05/15 0600 AC 05/15 IV 0602 Ceftazidime 0 .STK-MED ONE 05/15 0600 DC .ROUTE Ceftazidime 1,000 MG Q12H 05/14 1800 DC IV Ceftazidime 0 .STK-MED ONE 05/14 1753 DC .ROUTE Insulin Aspart 0 TIDAC 05/14 1915 AC 05/15 SC 1215 Ipratropium Fleming 2.5 ML ONCE ONE 05/15 0700 DC 05/15 INH 05/15 0701 0814 Ipratropium Fleming 2.5 ML ONCE ONE 05/14 2145 DC 05/14 INH 05/14 2146 2144 Lactulose 0 .STK-MED ONE 05/15 1114 DC PO Lactulose 20 GM BID 05/15 1026 AC 05/15 PO 1114 Lorazepam 1 MG Q4P PRN 05/15 1500 AC IV Lorazepam 0.5 MG TID PRN 05/14 1915 AC PO 05/21 1914 Magnesium Sulfate 0 .STK-MED ONE 05/15 0955 DC .ROUTE Magnesium Sulfate 0 .STK-MED ONE 05/15 0742 DC .ROUTE Magnesium Sulfate 1 GM Q2H 05/15 0630 DC 05/15 Dextrose/Water 100 ML IV 05/15 1029 0955 Morphine Sulfate 2 MG Q4P PRN 05/15 1445 AC 05/15 IV 1623 Morphine Sulfate 0 .STK-MED ONE 05/15 1302 DC .ROUTE Morphine Sulfate 1 MG Q4P PRN 05/15 1300 DC 05/15 IV 1310 Morphine Sulfate 0 .STK-MED ONE 05/15 1245 DC PO Morphine Sulfate 0 .STK-MED ONE 05/14 2210 DC PO Morphine Sulfate 15 MG BID 05/14 2200 AC 05/14 PO 2212 Omeprazole 40 MG DAILY AC 05/15 0700 AC 05/15 PO 0643 Omeprazole 0 .STK-MED ONE 05/15 0635 DC PO Ondansetron HCl 4 MG Q6P PRN 05/14 1915 AC IV Oxycodone/ 1 TAB Q6P PRN 05/14 1915 AC Acetaminophen PO Ropinirole HCl 1 MG BID 05/14 2200 AC 05/15 PO 1045 Sodium Chloride 1,000 ML BOLUS ONE 05/14 2215 DC 05/15 IV 05/14 2314 0011 Sodium Chloride 500 ML BOLUS ONE 05/14 2130 DC 05/14 IV 05/14 2229 2200 Sodium Chloride 250 ML BOLUS ONE 05/14 2030 DC 05/14 IV 05/14 2129 2029 Sodium Chloride 1,000 ML .Q6H40M 05/14 1900 AC 05/15 IV 1601 Tiotropium Fleming 1 PUF DAILY 05/15 1000 AC 05/15 INH 1045 Vancomycin HCl 1,000 MG DAILY 05/15 1000 AC 05/15 Dextrose/Water 250 ML IV 1022 Vancomycin HCl 1,000 MG Q24H 05/14 1800 DC Dextrose/Water 250 ML IV Vancomycin HCl 0 .STK-MED ONE 05/14 1752 DC .ROUTE Vancomycin HCl 1,000 MG ONCE ONE 05/14 1745 DC 05/14 Dextrose/Water 250 ML IV 05/14 1844 1758 CXR Findings: CXR AFTER this AM resp distress: IMPRESSION: Persistent opacification of left hemithorax with ipsilateral mediastinal shift. Recent CT chest revealed left upper lobectomy changes with worsening consolidation of left lower lobe. There is vascular redistribution resulting increased vascularity in the right lung. Some patchy opacities seen in the right upper lobe and is unchanged to the CT a chest. No change in right port catheter tip in SVC. 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:JA DATE/TIME TRANSCRIBED:05/15/16757 Impression/Plan Impression/Problem List Impression: 70-year-old female with past medical history of COPD on 3 liters of oxygen, adenocarcinoma of lung, status post left upper lobectomy 3 years prior to the admission with a recurrence 15 months prior to admission, treated with radiation therapy and chemotherapy, which she continues to receive, currently on a three week on/one week off regimen, most recently 2 weeks prior to admission, via a Port-A-Cath that was renewed in her right upper chest today, came into the emergency department with complaints of fever, weakness, mild confusion. She was found to be hypotensive in the emergency department with blood pressure 89/54, tachycardic at 110, tachypneic at 22 with a temperature maximum of 100.5 and receiving oxygen via nasal cannula with saturation 94% 3L/min O2. She is being admitted to the ICU for management of following issues: Respiratory #Acute respiratory failure, secondary to anemia and pneumonia, possible gram- negative -Patient was saturating well above 90% via nasal cannula at 3 L/m this AM -Target saturation still being above 88% -CAT scan of chest shows right-sided pneumonia -Continue IV ceftaz, for possible hospital scquired pneumonia, possibly gram- negative bacteria -TRC, nebs #Acute on chronic respiratory failure -This morning after being followed-up by me in pre-round, I was called by nursing staff that she is having tachycardia and tachypnea. -NC was changed to mask with rebreather, but was not able to maintain SpO2 or normalize HR, RR -ABG drawn showed severe resp acidosis pH7.14, 68,69,23,87 at 100 rebreather mask -patient was explained and put on BiPAP by respiratory therapist which seemed to help regulate her HR and BP to some extent but she did NOT want to keep the BiPAP despite knowing that it helps. -Family also explained about her critical condition and plan of care in case if her condition detoriates. -patient transported to ICU and rest of the event noted as in event note. Patient was made DNR/DNI/no pressors. -patient later chose to have BiPAP an was put on BiPAP. -SBP in ICU was unstable Infectious disease -We'll follow-up panculture -For now, she fits the criteria for sepsis, has radiological signs of pneumonia -COntinue empirically on IV ceftaz, as she was recently discharged from the hospital and might have picked up hospital-acquired pneumonia, possibly gram- negative bacteria -We'll narrow antibiotics according to culture reports Cardiovascular -She has a history of hypotension, but her BP has remained unstable. -SBP in the ICU was in 70s, and she chose not be on pressor support, so IVF rate was increased, while being careful about overloading her. -We will continue monitoring her cardiovascular status closely, given her current symptoms Hematology #Anemia Her hemoglobin on presentation 05/15/16 was 6.8 compared to 8.3 on 05/07/2016 when she was in the hospital here last week. It is 7.9 today after one unit of PRBC. -Follow up iron studies -Will consider GI consultation and scoping if H/h further detoriates Oncology #History of lung cancer, status post lobectomy, chemotherapy -Follows Dr. Garces, and receives chemotherapy 3 weeks on, 3 weeks off -Consultation with Dr. 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 Diet: CC3 DVT prophylaxis: Mechanical, as the patient has low hemoglobin and might be bleeding internally CODE STATUS: Plan of care discussed with family today, after proving detailed information. Patient's code status has been made DNR/DNI/no pressors. Problem List: 1. Anemia 2. Metastatic lung cancer (metastasis from lung to other site) 3. Sepsis 4. Pneumonia 5. Type 2 diabetes mellitus 6. Liver metastases 7. S/P thoracotomy Pain Ratin Pain Plan: prn Tomorrow's Labs & Rationales: icu bundle, cbc Plan DVT/Prophylaxis: mechanical
--- NOTE | 2016-05-15 11:10 | NUR ---
VANCOMYCIN INFUSING. NS TO BE STARTED AT RATE CHANGE TO 100 ML/HR.
--- NOTE | 2016-05-15 12:18 | NUR ---
PT REPOSITIONED PER REQUEST THEN BECAME SOB, PT REPORTS FEELING SOB DESPITE 100% NONREBREATHER. BEEPER 203 PAGED.
--- NOTE | 2016-05-15 12:30 | NUR ---
PER MOD DR. VARELA,IS OFF ALTHOUGH NOT ACCORDING TO ALANNAH SO CONTACTED BEEPER 021, RTC PLACED, RESP CALLED WILL GIVE ALBUTEROL NEB.
--- NOTE | 2016-05-15 12:34 | PN- Att Addend ---
Attending Addendum Attending Brief Note 70-year-old white female who returned home and not doing well still short of breath again getting increasingly worse visiting nurse of the patient and suggested her to come to the ER patient was seen by oncology and pulmonary. I had a discussion with the and explained the poor prognosis that the patient is suffering and to consider comfort care with hospice and he will talk to the family and let me know later on. In the meantime will be on observation status Vital Signs Date Time Temp Pulse Resp B/P Pulse O2 O2 Flow FiO2 Ox Delivery Rate 05/15 1109 97.3 114 24 95/55 95 Non 100% ReBreather 03/ 1000 97.2 115 24 90/51 95 Non 100% ReBreather / 0859 96.8 124 24 102/55 95 Non ReBreather / 0810 94 Non 100% ReBreather 03/ 0800 96.9 135 24 107/58 95 Non ReBreather 03/ 0656 97.4 140 24 125/79 95 Non 100% ReBreather / 0540 97.5 101 18 93/54 94 Nasal 2.0L Cannula / 0430 97.2 102 18 94/52 94 Nasal 3.5L Cannula / 0330 98.5 106 18 93/51 94 Nasal 2.0L Cannula / 0223 98.0 104 20 88/46 89 Nasal 3.5L Cannula / 0128 99.3 03/ 0118 99.3 110 20 84/46 95 Nasal 2.0L Cannula 03/ 0012 100.5 03/ 0011 100.5 03/ 2330 100.5 118 20 84/44 94 Nasal 2.0L Cannula / 2250 92/55 /01 2239 100.0 109 20 86/50 93 Nasal 3.0L Cannula / 2204 100.4 119 20 80/42 94 Nasal 3.0L Cannula 05/14 2146 93 Nasal 3.0L Cannula 05/15 2115 80/50 / 2030 109 20 95/51 98 Nasal 3.0L Cannula /2004 80/48 /2000 99.8 111 20 85/50 94 Nasal 3.0L Cannula 05/14 1934 97.5 115 18 91/47 92 Nasal 3.0L Cannula 05/14 1851 98.8 76 22 95/54 92 Nasal 3.0L Cannula 05/14 1800 98.9 108 20 99/47 93 Nasal 3.0L Cannula 05/14 1732 98.9 108 20 92/48 92 Nasal 2.0L Cannula 05/14 1635 97.9 110 20 93/47 93 Nasal 3.0L Cannula 05/14 1620 98.9 112 20 90/44 94 Nasal 3.0L Cannula 05/14 1500 91 Nasal 3.0L Cannula 05/14 1450 99.8 116 20 94/52 96 Room Air 05/14 1428 100.2 05/14 1346 100.5 05/14 1329 100.5 110 22 89/54 94 Nasal 3.0L Cannula Laboratory Tests 05/15/16 0510: Anion Gap 5, Estimated GFR > 60, Glucose 97, Calcium 7.6 L, Phosphorus 4.2, Magnesium 1.1 L, Total Bilirubin 1.9 H, AST 18, ALT 27, Albumin 1.8 L, CBC w Diff NO MAN DIFF REQ, RBC 2.42 L, MCV 97.2, MCH 32.6 H, RDW 19.8 H, MPV 8.9, Gran % 78.5 H, Lymphocytes % 2.7 L, Monocytes % 8.3, Eosinophils % 10.5 H, Basophils % 0 L, Absolute Granulocytes 9.2 H, Absolute Lymphocytes 0.3 L, Absolute Monocytes 1.0 H, Absolute Eosinophils 1.2, Absolute Basophils 0, PUBS MCHC 33.5 05/15/16 0030: Lactic Acid Cancelled 05/14/16 2115: CBC w Diff MAN DIFF ORDERED, RBC 2.56 L, MCV 96.3, MCH 32.4 H, RDW 19.6 H, MPV 8.1, Gran % 76.3 H, Lymphocytes % 3.2 L, Monocytes % 8.8, Eosinophils % 11.6 H, Basophils % 0.1, Absolute Granulocytes 9.8 H, Segmented Neutrophils 60 , Band Neutrophils 15 H, Absolute Lymphocytes 0.4 L, Lymphocytes 4 L, Monocytes 6, Absolute Monocytes 1.1 H, Eosinophils 14 H, Absolute Eosinophils 1.5, Absolute Basophils 0, Metamyelocytes 1, Platelet Estimate ADEQUATE, Polychromasia 1+, Hypochromic-Microcytic 2+, Anisocytosis 1+, Macrocytic Cells 1 +, PUBS MCHC 33.7 03/01/17 183: Urinalysis LIGHT H, Urine Color YEL, Urine Clarity HAZY H, Urine pH 6.0, Ur Specific Emmons 1.020, Urine Protein NEG, Urine Ketones NEG, Urine Nitrite NEG, Urine Bilirubin NEG, Urine Urobilinogen 0.2, Ur Leukocyte Esterase NEG, Ur Microscopic SEDIMENT EXAMINED, Urine RBC RARE, Urine WBC RARE, Ur Epithelial Cells FEW, Urine Bacteria FEW H, Urine Mucus FEW, Micro UA Comment BUDDING YEAST H, Urine Hemoglobin NEG, Urine Glucose NEG 05/14/16 1633: Lactic Acid Cancelled 05/14/16 1410: Lactic Acid 1.4 05/14/16 1410: Anion Gap 6, Estimated GFR 49 L, BUN/Creatinine Ratio 24.5, Glucose 101 H, Calcium 8.4, Phosphorus 4.1, Magnesium 1.3 L, Iron 52, TIBC 142 L, Ferritin > 1000.0 H, Total Bilirubin 2.0 H, AST 18, ALT 24, Alkaline Phosphatase 492 H, Troponin I 0.01, Total Protein 5.2 L, Albumin 2.0 L, Globulin 3.2, Albumin/ Globulin Ratio 0.6 L, PT 21.0 H, INR 2.01 H, APTT 45 H, CBC w Diff MAN DIFF ORDERED, RBC 2.08 L, MCV 97.1, MCH 32.6 H, RDW 21.6 H, MPV 8.2, Gran % 76.5 H, Lymphocytes % 3.0 L, Monocytes % 7.7, Eosinophils % 12.8 H, Basophils % 0 L, Absolute Granulocytes 10.2 H, Segmented Neutrophils 73, Band Neutrophils 6 H, Absolute Lymphocytes 0.4 L, Lymphocytes 2 L, Monocytes 6, Absolute Monocytes 1.0 H, Eosinophils 13 H, Absolute Eosinophils 1.7, Absolute Basophils 0, Platelet Estimate VERIFIED BY SMEAR, Polychromasia 1+, Poikilocytosis 1+, Anisocytosis 1+, Ovalocytes 1+, Stomatocytes 1+, PUBS MCHC 33.6 Microbiology Date/Time Procedure - Status Source Growth 05/14 2136 Respiratory Culture - ORD LOWER RESP 05/14 2136 Gram Stain - ORD LOWER RESP 05/14 1833 Urine Culture - RES URINE ROUT 05/14 1833 Influenza Virus A & B Rapid Smear - COMP NASOPHARYN 05/14 1400 Blood Culture - RES BLOOD Orders Procedure Date/time Status Consistent Carbohydrate 3 05/15 L Active Consistent Carbohydrate 3 05/15 B Complete EKG 05/15 0735 Active ICU LAB BUNDLE 05/15 0500 Complete CBC WITHOUT DIFFERENTIAL 05/15 0500 Complete TRC EVALUATION (GEN) 05/15 UNK Active AEROSOL (GEN) 05/15 UNK Complete LOWER RESPIRATORY CULTURE 05/14 2137 Active Add-on Test (ER Only) 05/15 2055 Active Turn and Reposition 05/14 2044 Active Teach/Educate 05/14 2044 Active Skin Integrity Protocol 05/14 2044 Active Skin/Pressure Ulcer Assess (Sk 05/14 2044 Active Precautions 05/14 2044 Active Pain Treatment and Response 05/14 2044 Active Nutritional Intake, Monitor 05/14 2044 Active Isolation 05/14 2044 Active Patient Care Conference 05/14 2044 Active Activity/Ambulation 05/14 2044 Active CBC WITHOUT DIFFERENTIAL 05/14 2022 Complete TRC EVALUATION (GEN) 05/14 1909 Active OXYGEN SETUP (GEN) 05/14 1909 Active PT Evaluate & Treat 05/14 190 Active Saline Lock 05/14 1909 Active Pathway - chart 05/14 1909 Active House Staff 05/14 1909 Active Code Status 05/14 1909 Active FingerStick- Glucose 05/14 1839 Active Add-on Test (ER Only) 05/[address] in observation 05/14 1729 Active Code Status 05/14 1729 Complete Patient Data 05/14 1720 Active BLOOD PRODUCT PICKUP 05/14 1540 Active LEUKOCYTE POOR (PACKED CELLS) 05/14 1530 Active TYPE & SCREEN (NOT X-MATCH) 05/14 1444 Complete Intake & Output 05/14 1443 Active TOTAL IRON BINDING CAPACITY 05/14 1410 Complete PHOSPHORUS 05/14 1410 Complete MAGNESIUM 05/14 1410 Complete FERRITIN 05/14 1410 Complete SERUM IRON 05/14 1410 Complete PARTIAL THROMBOPLASTIN TIME 05/14 1333 Complete PROTHROMBIN TIME 05/14 1333 Complete LACTIC ACID 05/14 1333 Complete EKG 05/14 1333 Active Telemetry/Spool Sander 05/14 1332 Active RAPID VIRAL INFLUENZA A 05/14 1332 Complete CULTURE,URINE 05/14 1332 Active THROAT CULTURE W/QUICK STREP 05/14 1332 Active BLOOD CULTURE 05/14 1332 Active URINALYSIS 05/14 1332 Complete TROPONIN LEVEL 05/14 1332 Complete COMPREHENSIVE METABOLIC PANEL 05/14 1332 Complete CBC WITHOUT DIFFERENTIAL 05/14 1332 Complete Lab Add-on Test 05/14 UNK Active VTE Mechanical Prophylaxis 05/14 UNK Active Vital Signs 05/14 UNK Active Intake & Output 05/14 UNK Active Hemoccult 05/14 UNK Active
--- NOTE | 2016-05-15 12:47 | NUR ---
PT BECOMING MORE ANXIOUS, MORE SOB RESP AT BEDSIDE, BUT LEFT, RN AT BEDSIDE, SON SL BELIGERANT AFTER ARGUMENT WITH FATHER, PT ANXIOUS, RESP AGAIN AT BEDSIDE, PT REFUSING MS CONTIN NOW AFTER ASKING FOR IT.
--- NOTE | 2016-05-15 13:09 | NUR ---
PT SON AND AT BEDSIDE. PT REMAINS TACHYPNEIC DESPITE BREATHING TREATMENT. MEDICATED WITH 1 MG MORPHINE PER ALANNAH BEEPER 021.
--- NOTE | 2016-05-15 13:12 | NUR ---
pt has bed assignment 110. rn notified.
--- NOTE | 2016-05-15 13:30 | NUR ---
REPORT GIVEN TO PATITO, WILL CALL DISTRIBUTION IN 15 MINUTES.
--- NOTE | 2016-05-15 13:42 | NUR ---
DISTRIBUTION BOOKED. DISTRIBUTION INFORMED THAT PT WILL BE GOING UP IN A HOSPITAL BED.
--- NOTE | 2016-05-15 14:00 | NUR ---
CONT TO AWAIT DISTRIBUTION. RESP HAS NOW LEFT, CALL WHEN READY TO TRANSPORT.
--- NOTE | 2016-05-15 14:07 | Event Note ---
Event Note Event Note: 1330: Had a detailed discussion with the family as the patient is in respiratory distress and the plans of care. Family was explained about patient's critical condition and guarded prognosis. They seem to understand. 1407: Called to discuss plans of care with Dr Augustine Aguillon. He did not shredder picker so I left a voicemail for him to call back or visit. After the patient was moved to [facility] ICU physically, since the patient was continuing to have resp distress, Dr Aguillon had a family meeting in my, Fred Sifuentes's presence where the patient's decided to change her code status to DNR/DNI, including NO pressors after careful/detailed discussion. Code status changed accordingly.
[2016-05-15 14:30] VITALS: BP 110/62
--- NOTE | 2016-05-15 14:51 | NUR ---
PHYSICAL THERAPY: Patient was transported to ICU bed 110 from ER; Attempted to see patient this P.M. Patient continues to be experiencing respiratory distress and is not appropriate for P.T. evaluation at this time. Will f/u as appropriate tomorrow.
--- NOTE | 2016-05-15 16:56 | NUR ---
Patient arrived to floor via bed from ER accompanied by RN on cable weaver at approx 1420. Pt was transferred to the ICU bed and repositioned for comfort. She is alert and oriented x's 3-anxious- Able to follow commands and can answer questions appropriately however answers are on word due to patients respiratory status. ST on tele monitor. HR= 120-130's. SBP ranging from 80-100's and pt denies any chest pain. + pulses however pedal pulses are diminished. She is currently on a 100% non rebreather and O2 sats are ranging from 84-88%- Upon arrival to floor O2 sats were as low as 71% taking approx 15 minutes to recover. She was placed on Bi-pap per her request however was unable to tolerate for longer than 5 minutes and was then placed back on NRB. Lungs are very diminished. She is short of breath at rest- respiratory rate of 26-34. Receiving IV morphine as needed. Any slight movement she will desaturate to the low 80's. She is on 3l NC dependant at home. Abdomen is soft and non tender with + bowel sounds. She reports poor po intake- denies any nausea or vomiting. She has not voided since arrival to ICU however per ER report- she was using the bedpan since she refused a clemons catheter. Generalized edema is noted- +3 BLE and +1 BUE- No areas of pressure injury. NS is infusing at 150mls/hr through her RCW port which was accessed 05/14 with a #20 gauge 3/[address] Aguillon was at the bedside to discuss POC with family and code status was changed to a DNR/DNI with no IV pressors to maintain her BP. ? transition to comfort care or hospice care if condition continues to decline. No s/s of pain are noted at this time and she was previously medicated with IV morphine. WIll continue to closely monitor patient.
[2016-05-16] VITALS: BP 84/58
[2016-05-16 06:09] LABS: ABSOLUTE BASOPHIL COUNT 0.1 /CUMM (0.0-0.2); ABSOLUTE EOSINOPHIL COUNT 0.7 /CUMM (0.0-0.7); ABSOLUTE GRANULOCYTE CT 23.9 /CUMM (1.4-6.5); ABSOLUTE LYMPH COUNT 0.8 /CUMM (1.2-3.4); ABSOLUTE MONOCYTE COUNT 1.9 /CUMM (0.10-0.60); BASOPHIL % 0.2 % (0.0-2.0); EOSINOPHIL % 2.4 % (0-5); GRANULOCYTE % 87.5 % (42.2-75.2); MEAN CORPUSCULAR HGB 32.9 PG (27.0-31.0); MEAN CORPUSCULAR HGB CONC 33.1 G/DL (33.0-37.0); MEAN CORPUSCULAR VOLUME 99.4 FL (81.0-99.0); MEAN PLATELET VOLUME 8.1 FL (7.4-10.4); RBC DISTRIBUTION WIDTH 20.9 % (11.5-14.5)
[2016-05-16 06:35] LABS: PLATELET COUNT 194 /CUMM (130-400)
[2016-05-16 07:04] LABS: HEMATOCRIT 29.8 % (37-47); WHITE BLOOD CELL COUNT 27.3 /CUMM (4.8-10.8)
--- NOTE | 2016-05-16 07:30 | PN- Resident CRCU ---
PARMINDER OWENS,LOIS 05/16/16 0730: Subjective HPI/CRCU Issues: Patient lethargic, with unstable vitals. RR high, SBP in 60s-70s, cyanotic, taking oxygen via mask, denied BiPAP. 24 Hour Events: Patient did not want to be kept on BiPAP, so she asked it to be removed immediately after her went out of the room, despite knowing that it could make her more short of breath and make her overall condition worse. Objective Exam General Appearance: cachetic, lethargic, severe distress Other Physical Findings: Skin No Rashes, No Breakdown, No Significant Lesion HEENT Atraumatic, PERRLA, EOMI, Mucous Membr. moist/pink Neck Supple, No JVD, No thryomegaly Lymphatic Cervical nl Cardiovascular Regular Rate Lungs crackles heard over right side, left sided surgical scar present posteriorly (lobectomy) Abdomen Normal Bowel Sounds, Soft, No Tenderness Neurological Normal Speech, Normal Tone, Sensation Intact, motor power decreased over feet b/l Extremities b/l pitting edema present upto hip, cyanosis Vascular Normal Pulses, Pulses Symmetrical, difficult to feel pulse due to edema Nutrition Nutrition: NPO Current Medications: Current Medications Sig/Olga Start time Last Medication Dose Route Stop Time Status Admin Acetaminophen 500 MG Q6P PRN 05/14 1915 DC 05/14 PO 2229 Albuterol Sulfate 3 ML EVERY 4 HRS/AWAKE 05/15 1600 DCD 05/16 INH 0845 Atorvastatin Calcium 20 MG 1700 05/15 1700 DC PO Calcium Gluconate 1 GM ONCE ONE 05/16 0630 CAN Sodium Chloride 100 ML IV 05/16 0729 Ceftazidime 1,000 MG Q12H 05/15 0600 DC 05/16 IV 0622 Insulin Aspart 0 TIDAC 05/14 1915 DC 05/15 SC 1215 Lactulose 20 GM BID 05/15 1026 DC 05/15 PO 1114 Lorazepam 1 MG Q2P PRN 05/16 0630 DCD 05/16 IV 1127 Lorazepam 1 MG Q4P PRN 05/15 1500 DC 05/16 IV 0203 Lorazepam 0.5 MG TID PRN 05/14 1915 DC PO 08 1914 Magnesium Sulfate 1 GM Q2H 05/15 2115 DC 05/15 Dextrose/Water 100 ML IV 05/16 0114 2335 Morphine Sulfate 2 MG Q2P PRN 05/16 0630 DCD 05/16 IV 1117 Morphine Sulfate 2 MG Q4P PRN 05/15 1445 DC 05/15 IV 2159 Morphine Sulfate 15 MG BID 05/14 2200 DC 05/14 PO 2212 Omeprazole 40 MG DAILY AC 05/15 0700 DC 05/15 PO 0643 Ondansetron HCl 4 MG Q6P PRN 05/14 1915 DCD IV Oxycodone/ 1 TAB Q6P PRN 05/14 1915 DC Acetaminophen PO Ropinirole HCl 1 MG BID 05/14 2200 DC 05/15 PO 1045 Scopolamine HBr 1 PAT Q72H 05/16 0900 DCD 05/16 TOP 1117 Sodium Chloride 1,000 ML .Q6H40M 05/14 1900 DC 05/15 IV 1601 Tiotropium [place] 1 PUF DAILY 05/15 1000 DCD 05/15 INH 1045 Vancomycin HCl 1,000 MG DAILY 05/15 1000 DC 05/15 Dextrose/Water 250 ML IV 1022 Impression/Plan Impression/Problem List Impression: 70-year-old female with past medical history of COPD on 3 liters of oxygen, adenocarcinoma of lung, status post left upper lobectomy 3 years prior to the admission with a recurrence 15 months prior to admission, treated with radiation therapy and chemotherapy, which she continues to receive, currently on a three week on/one week off regimen, most recently 2 weeks prior to admission, via a Port-A-Cath that was renewed in her right upper chest today, came into the emergency department with complaints of fever, weakness, mild confusion. She was found to be hypotensive in the emergency department with blood pressure 89/54, tachycardic at 110, tachypneic at 22 with a temperature maximum of 100.5 and receiving oxygen via nasal cannula with saturation 94% 3L/min O2. Patient was very lethardic when I saw her this morning. She was breathing via face mask but not saturating above 90%. SBP was in 70s. Patient had received ativan and morphine early this AM. Also, since she is not on BiPAP by her choice , and is a DNI, so next level of respiratory support is not possible. Family meeting was held immediately with her (next to kin and POA), and her PCP /attending Dr Randall Kerr, after which, she was made to comfort care. After sometime (please see event note for details), was declared. Problem List: 1. Sepsis Pain Ratin Tomorrow's Labs & Rationales: - Plan DVT/Prophylaxis: jamshid FINNEGAN MD,[facility] 05/16/161817: Objective Vital Signs & I&O Last 8 Hrs of Vitals and I&O: Intake & Output 05/16 1600 Intake Total Output Total Balance Patient 185 lb Weight Attending MD Review Statement Attending Sign Off Attending Cosign Statement: I have: examined this patient, reviewed avalbl EMR data, personally reviewd images, discussd w/resident/PA/AQUATICS MANAGER, discussed mgmt plan w/yuridia, discussed mgmt plan w/CM, discussed mgmt plan w/pt, agreed w/resident/PA/AQUATICS MANAGER. 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 Diet: CC3 DVT prophylaxis: Mechanical, as the patient has low hemoglobin and might be bleeding internally CODE STATUS: Plan of care discussed with family today, after proving detailed information. Patient's code status has been made DNR/DNI/no pressors. Plan DVT/Prophylaxis: jamshid FINNEGAN MD,[facility] 05/16/161817: Objective Vital Signs & I&O Last 8 Hrs of Vitals and I&O: Intake & Output 05/16 1600 Intake Total Output Total Balance Patient 185 lb Weight Attending MD Review Statement Attending Sign Off Attending Cosign Statement: I have: examined this patient, reviewed avalbl EMR data, personally reviewd images, discussd w/resident/PA/AQUATICS MANAGER, discussed mgmt plan w/yuridia, discussed mgmt plan w/CM, discussed mgmt plan w/pt, agreed w/resident/PA/AQUATICS MANAGER. Other Findings: Seen and examined Pt is terminal on comfort care Will cont comfort care
[2016-05-16 08:00] VITALS: BP 66/40
--- NOTE | 2016-05-16 08:00 | NUR ---
Patient is unarousable and unresponsive- receiving IV ativan and morphine for comfort and respiratory distress. ST on tele monitor, HR= 120-130's, SBP: 60's- conservative measures only which include no IV pressors. Currently on a 100% non rebreather and O2 sat is ranging from 82-84%- lungs diminished- she was suctioned for a small amount of thick white secretions. Abdomen is soft with + bowel sounds- NPO due to mental status, Hair in place draining clear avelina urine with low output- approx 5mls/hr. No areas of pressure injury are noted- +3 BLE edema- +1generalized edema. No s/s of pain are currently noted- NS continues to infuse @150mls/hr- Family remains at the bedside with family and plan is for comfort measures only- They are awaiting family members from [place]. Will continue to monitor patient.
--- NOTE | 2016-05-16 08:51 | PN- Oncology ---
Subjective Subjective: She is unresponsive this morning. There were talks of family wanting to transition to comfort measures only. Review of Systems: Unable to obtain do mental status Objective Vital Signs and I&Os Vital Signs Date Time Temp Pulse Resp B/P Pulse O2 O2 Flow FiO2 Ox Delivery Rate 05/16 0400 88 Non 100% ReBreather 05/16 0000 87 Non 100% ReBreather 05/16 0000 97.6 107 20 84/58 89 Non 100% ReBreather 05/15 2000 Non 100% ReBreather 05/15 1753 85 Non 100% ReBreather 05/15 1600 85 Non 100% ReBreather 05/15 1445 134 88 05/15 1430 84 Non 100% ReBreather 05/15 1430 98.6 136 34 110/62 84 Non 100% ReBreather 05/15 1420 92 Non 100% ReBreather 05/15 1325 134 91 / 1250 Non 100% ReBreather 05/15 1109 97.3 114 24 95/55 95 Non 100% ReBreather 05/15 1000 97.2 115 24 90/51 95 Non 100% ReBreather 05/15 0859 96.8 124 24 102/55 95 Non ReBreather Intake & Output 05/16 1600 05/16 0800 / 0000 / 1600 05/15 0800 / 0000 Intake Total 1210 1110 250 Output Total 100 150 125 400 840 Balance 1110 960 -125 -400 -590 Intake, IV 1210 1110 250 Intake, Oral 0 0 Number 0 0 Bowel Movements Output, Urine 100 150 125 400 840 Patient 84.935 kg Weight Physical Exam General Appearance: unresponsive Respiratory: normal breath sounds, chest non-tender, on NRB Cardiovascular: regular rate/rhythm Abdomen: normal bowel sounds, soft Extremities: diffuse edema Neurologic/Psychiatric: unresponsive Skin: cool to touch Current Medications: Current Medications Sig/Olga Start time Last Medication Dose Route Stop Time Status Admin Acetaminophen 500 MG Q6P PRN 05/14 1915 AC 05/14 PO 2229 Albuterol Sulfate 3 ML EVERY 4 HRS/AWAKE 05/15 1600 AC 05/15 INH 2040 Albuterol Sulfate 0 .STK-MED ONE 05/15 1248 DC INH Atorvastatin Calcium 20 MG 1700 05/15 1700 AC PO Calcium Gluconate 1 GM ONCE ONE 05/16 0630 DC Sodium Chloride 100 ML IV 05/16 0729 Ceftazidime 1,000 MG Q12H 05/15 0600 AC 05/16 IV 0622 Insulin Aspart 0 TIDAC 05/14 191 AC 05/15 SC 1215 Lactulose 0 .STK-MED ONE 05/15 1114 DC PO Lactulose 20 GM BID 05/15 1026 AC 05/15 PO 1114 Lorazepam 1 MG Q2P PRN 05/16 0630 AC 05/16 IV 0623 Lorazepam 1 MG Q4P PRN 05/15 1500 DC 05/16 IV 0203 Lorazepam 0.5 MG TID PRN 05/14 1915 AC PO 05/21 1914 Magnesium Sulfate 1 GM Q2H 05/15 2115 DC 05/15 Dextrose/Water 100 ML IV 05/16 0114 2335 Magnesium Sulfate 0 .STK-MED ONE 05/15 0955 DC .ROUTE Magnesium Sulfate 1 GM Q2H 05/15 0630 DC 05/15 Dextrose/Water 100 ML IV 05/15 1029 0955 Morphine Sulfate 2 MG Q2P PRN 05/16 0630 AC 05/16 IV 0622 Morphine Sulfate 2 MG Q4P PRN 05/15 1445 DC 05/15 IV 2159 Morphine Sulfate 0 .STK-MED ONE 05/15 1302 DC .ROUTE Morphine Sulfate 1 MG Q4P PRN 05/15 1300 DC 05/15 IV 1310 Morphine Sulfate 0 .STK-MED ONE 05/15 1245 DC PO Morphine Sulfate 15 MG BID 05/14 2200 AC 05/14 PO 2212 Omeprazole 40 MG DAILY AC 05/15 0700 AC 05/15 PO 0643 Ondansetron HCl 4 MG Q6P PRN 05/14 191 AC IV Oxycodone/ 1 TAB Q6P PRN 05/14 1915 AC Acetaminophen PO Ropinirole HCl 1 MG BID 05/14 2200 AC 05/15 PO 1045 Sodium Chloride 1,000 ML .Q6H40M 05/14 1900 AC 05/15 IV 1601 Tiotropium [place] 1 PUF DAILY 05/15 1000 AC 05/15 INH 1045 Vancomycin HCl 1,000 MG DAILY 05/15 1000 AC 05/15 Dextrose/Water 250 ML IV 1022 Results Last 24 Hours of Lab Results: Laboratory Tests 05/16 05/15 05/15 0500 1725 1305 Blood Gas pH (7.35 - 7.45 PH) 7.14 *L pCO2 (35 - 45 TORR) 68 *H pO2 (80 - 100 TORR) 69 L HCO3 (21 - 28 MEQ/L) 23 ABG O2 Sat (Measured) (>96.0 %) 87.0 L Carboxyhemoglobin (1.5 - 5.0 %) 0.3 L O2 Concentration % 100% O2 Delivery Method MERI MASK Chemistry Sodium (137 - 145 mmol/L) 142 138 Potassium (3.5 - 5.1 mmol/L) 3.7 4.9 Chloride (98 - 107 mmol/L) 116 H 105 Carbon Dioxide (22 - 30 mmol/L) 21 L 25 Anion Gap (5 - 16) 5 9 BUN (7 - 17 mg/dL) 20 H 23 H Creatinine (0.5 - 1.0 mg/dL) 0.9 1.0 Estimated GFR (>60 ml/min) > 60 55 L Glucose (65 - 99 mg/dL) 99 134 H Calcium (8.4 - 10.2 mg/dL) 5.8 *L 8.0 L Phosphorus (2.5 - 4.5 mg/dL) 5.0 H 6.2 H Magnesium (1.6 - 2.3 mg/dL) 1.4 L 1.4 L Total Bilirubin (0.2 - 1.3 mg/dL) 1.2 1.8 H AST (14 - 36 U/L) 24 20 ALT (9 - 52 U/L) 25 26 Albumin (3.5 - 5.0 g/dL) 1.4 L 2.0 L Hematology CBC w Diff MAN DIFF ORDERED WBC (4.8 - 10.8 /CUMM) 27.3 H RBC (4.20 - 5.40 /CUMM) 3.00 L Hgb (12.0 - 16.0 G/DL) 9.9 L Hct (37 - 47 %) 29.8 L MCV (81.0 - 99.0 FL) 99.4 H MCH (27.0 - 31.0 PG) 32.9 H RDW (11.5 - 14.5 %) 20.9 H Plt Count (130 - 400 /CUMM) 194 MPV (7.4 - 10.4 FL) 8.1 Gran % (42.2 - 75.2 %) 87.5 H Lymphocytes % (20.5 - 51.1 %) 2.8 L Monocytes % (1.7 - 9.3 %) 7.1 Eosinophils % (0 - 5 %) 2.4 Basophils % (0.0 - 2.0 %) 0.2 Absolute Granulocytes (1.4 - 6.5 /CUMM) 23.9 H Segmented Neutrophils (42.2 - 75.2 %) 86 H Band Neutrophils (0.0 - 5.0 %) 11 H Absolute Lymphocytes (1.2 - 3.4 /CUMM) 0.8 L Lymphocytes (20.5 - 51.1 %) 3 L Absolute Monocytes (0.10 - 0.60 /CUMM) 1.9 H Absolute Eosinophils (0.0 - 0.7 /CUMM) 0.7 Absolute Basophils (0.0 - 0.2 /CUMM) 0.1 Platelet Estimate (ADEQUATE) ADEQUATE Hypochromic-Microcytic 1+ Anisocytosis 1+ PUBS MCHC (33.0 - 37.0 G/DL) 33.1 Miscellaneous Phlebotomy Draw Site LEFT RADIAL Assessment/Plan Assessment/Recommendations: Mrs. 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 She was noted to have pneumonia on CTA. She has severe acidosis with her hypercapneic respiratory failure. She was placed on BiPAP. Per the ICU team, she has refused BiPAP. She is now unresponsive this morning. She has significantly worsen this morning. Per ICU team, family did not want any aggressive invasive or non-invasive measure. RECOMMENDATION: 1. Continue supportive care with current level of care including antibiotic and BiPAP prn 2. Discuss with family on goals of care, comfort measures only? Please call [phone] with any questions Problem List: 1. Liver metastases 2. Metastatic lung cancer (metastasis from lung to other site) 3. Small cell lung cancer
--- NOTE | 2016-05-16 10:43 | Event Note ---
Event Note Event Note: The patient's CODE STATUS is being changed to comfort measures. Dr. Kerr spoke with patient's , and family members, explaining the current condition and very poor prognosis. End-of-life care conversation was carried out and requested Dr. Kerr to change her CODE STATUS to comfort measures. Me, Dr. Jackson were also present in the room during the entire conversation.
--- NOTE | 2016-05-16 11:38 | Event Note ---
Event Note Event Note: I was called by the nursing staff who did not notice any pulse. I went in with my senior resident Dr Jackson and assessed. She did not have heart beat, spontaneous respiration, superficial or deep tendon reflexes, no pupillary reflexes. She had peripheral cyanosis. After careful examination, was declared at 1132 hrs. Family members (including her ) were persent in the room during the time of examination and declaration. vocational examiner's office was not contacted as she was here for more than 24 hours, and the cause of is natural and predictable given her condition. This was all communicated to the family members.
--- NOTE | 2016-05-16 11:38 | NUR ---
Physical Therapy. 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 Pt not appropriate for skilled PT at this time. PT will not follow.
--- NOTE | 2016-05-16 11:58 | NUR ---
At 1055- patient was made comfort care measures only- Family remains at the bedside with family- Comfort cart was provided and pastoral care in to see patient. Awaiting additional family to visit patient. Dr. Kerr in to see patient. At 1120- patient was placed on 4L nc, IVF were d/c and pt was medicated with IV morphine and ativan per order. Patient appears comfortable- Respiratory rate 18, breathing shallow- no s/s of distress or pain noted at this time. At 1132, patient was pronounced by house staff to have - arrangements discussed with pts daughter.
--- NOTE | 2016-05-16 12:39 | Discharge Summary ---
See Addendum Visit Information Visit Dates Admission Date: 05/14/16 Discharge Date: 05/16/2016 Hospital Course Course Attending Physician: MARY KERR MD Primary Care Physician: MARY KERR MD Consulting Request: Consulting Specialty: Hematology/Oncology Consulting Physician: Dr Mili Lucero Reason for Consult: Lung cancer s/p lobectomy Hospital Course: Ms Francois was a 70-year-old female with past medical history of COPD on 3 liters of oxygen, adenocarcinoma of lung, status post left upper lobectomy 3 years prior to the admission with a recurrence 15 months prior to admission, treated with radiation therapy and chemotherapy, which she was still receiving, most recently 2 weeks prior to admission, via a Port-A-Cath in her right upper chest, had come to the emergency department with complaints of fever max 101.4*F , progressive weakness, and confusion. On questioning, she admitted to having cough with yellowish sputum production. She denied any rashes, chest pain, palpitations, headache, abdominal pain, nausea, vomiting, changes in bowel or bladder habit, recent wound, recent travel, any sick contacts. She was found to be hypotensive in the emergency department with blood pressure 89/54, tachycardic at 110, tachypneic at 22 with a temperature maximum of 100.5 and oxygen saturation of 94% while on nasal cannula at 3L/min O2. Her lab results were significant for leucocytosis, severe anemia, increased creatinine, deranged liver function test, increased INR, low albumin. X-ray of her chest and CT of chest showed evidence of pneumonia on right side, pleural effusion, worsening consolidation of left lower lobe, metastatic liver lesions, and enlarged mediastinal lymph node. Patient was admitted in the ICU service for the following issues: #Acute respiratory failure, secondary to anemia and pneumonia (sepsis) She received one unit of PRBC for anemia, and IV antibiotics, oxygen via BiPAP initially (later switched to nasal canula per patient's wishes), total respiratory care and nebulizations, electrolyte supplementation, Patient was very lethardic when I saw her this morning. She was breathing via face mask but not saturating above 90%. SBP was in 70s. Patient had received ativan and morphine early this AM. Also, since she is not on BiPAP by her choice , and is a DNI, so next level of respiratory support is not possible. Family meeting was held immediately with her (next to kin and POA), and her PCP /attending Dr Mary Kerr, after which, she was made to comfort care. I was called by the nursing staff who did not notice any pulse. I went in with my senior resident Dr Jackson and assessed. She did not have heart beat, spontaneous respiration, superficial or deep tendon reflexes, no pupillary reflexes. She had peripheral cyanosis. After careful examination, was declared at 1132 hrs. Family members (including her ) were persent in the room during the time of examination and declaration. Attending physician also notified. Allergies: Coded Allergies: adhesive tape (BLISTERS 05/17/15) heparin (UNKNOWN 05/17/15) Pertinent Lab Results: On admission: 05/14/16 1834: Urinalysis LIGHT H, Urine Color YEL, Urine Clarity HAZY H, Urine pH 6.0, Ur Specific [place] 1.020, Urine Protein NEG, Urine Ketones NEG, Urine Nitrite NEG, Urine Bilirubin NEG, Urine Urobilinogen 0.2, Ur Leukocyte Esterase NEG, Ur Microscopic SEDIMENT EXAMINED, Urine RBC RARE, Urine WBC RARE, Ur Epithelial Cells FEW, Urine Bacteria FEW H, Urine Mucus FEW, Micro UA Comment [place] H, Urine Hemoglobin NEG, Urine Glucose NEG Arterial blood gas: pH 7.14, PCO2 68, PCO2 69, HCO3 23, oxygen saturation measured 87, carboxyhemoglobin 0.3, oxygen concentration 100%, oxygen delivery method rebreather mask. 05/14/16 1410: Lactic Acid 1.4 05/14/16 1410: Anion Gap 6, Estimated GFR 49 L, BUN/Creatinine Ratio 24.5, Glucose 101 H, Calcium 8.4, Total Bilirubin 2.0 H, AST 18, ALT 24, Alkaline Phosphatase 492 H , Troponin I 0.01, Total Protein 5.2 L, Albumin 2.0 L, Globulin 3.2, Albumin/ Globulin Ratio 0.6 L, PT 21.0 H, INR 2.01 H, APTT 45 H, CBC w Diff MAN DIFF ORDERED, RBC 2.08 L, MCV 97.1, MCH 32.6 H, RDW 21.6 H, MPV 8.2, Gran % 76.5 H, Lymphocytes % 3.0 L, Monocytes % 7.7, Eosinophils % 12.8 H, Basophils % 0 L, Absolute Granulocytes 10.2 H, Segmented Neutrophils 73, Band Neutrophils 6 H, Absolute Lymphocytes 0.4 L, Lymphocytes 2 L, Monocytes 6, Absolute Monocytes 1.0 H, Eosinophils 13 H, Absolute Eosinophils 1.7, Absolute Basophils 0, Platelet Estimate VERIFIED BY SMEAR, Polychromasia 1+, Poikilocytosis 1+, Anisocytosis 1+, Ovalocytes 1+, Stomatocytes 1+, PUBS MCHC 33.6 Microbiology 05/14 1833 URINE ROUT: Urine Culture - RECD 05/14 1833 NASOPHARYN: Influenza Virus A & B Rapid Smear - RECD 05/14 1399 BLOOD: Blood Culture - RECD 05/14 1399 BLOOD: Blood Culture - RECD Diagnostic Data EKG Results Sinus tachycardia with rate 123, QTC 372, QRS 82, MS 124, 1 PVC seen in the anterior leads V1 and V2 V3, no ST-T changes compared to previous EKG. CXR Results IMPRESSION: Similar appearance to previous. Left lung volume loss with near complete opacification of the left hemithorax. The right lung is clear. DICTATED BY: SARAH GAINES MD DATE/TIME DICTATED:05/14/161423 DENTAL PATIENT COORDINATOR:CHÁVEZ DATE/TIME TRANSCRIBED:05/14/1614[address] CHEST: IMPRESSION: 1. No pulmonary embolism. 2. Increased patchy opacities in the right middle lobe and upper lobe most consistent with infectious process. 3. Increased small pericardial effusion. 4. Postsurgical changes status post left upper lobectomy. Worsening consolidation of the left lower lobe with minimal remaining aerated lung at the lung base. Small pleural effusion has increased from prior. 5. Metastatic liver lesions again noted. Enlarged mediastinal lymph node again noted. VTE: negative DICTATED BY: ISACC GAINES MDED DATE/TIME DICTATED:05/14/161619 DENTAL PATIENT COORDINATOR:CHÁVEZ DATE/TIME TRANSCRIBED:05/14/161619 CXR on 05/15/16: IMPRESSION: Persistent opacification of left hemithorax with ipsilateral mediastinal shift. Recent CT chest revealed left upper lobectomy changes with worsening consolidation of left lower lobe. There is vascular redistribution resulting increased vascularity in the right lung. Some patchy opacities seen in the right upper lobe and is unchanged to the CT a chest. No change in right port catheter tip in SVC. DICTATED BY: HARIKA DAVIES MD DATE/TIME DICTATED:05/15/16757 DENTAL PATIENT COORDINATOR:JA DATE/TIME TRANSCRIBED:05/15/16757 Disposition Summary Disposition Principal Diagnosis: Acute hypoxic respiratory failure, sepsis, secondary to pneumonia Additional Diagnosis: History of metastatic lung cancer status post lobectomy and undergoing chemotherapy, COPD Discharge Disposition: Discharge Instructions General Discharge Information Code Status: Comfort Care Only Patient's Diet: - Patient's Activity: - Follow-Up Instructions/Appts: - Copies To: SIVAN OWENS,DEANNA Briseno; SARAH BETH OWENS,PATRICK KERR MD,MARY
--- NOTE | 2016-05-16 12:57 | PN- Att Addend ---
Attending Addendum Attending Brief Note Patient doing very poorly. Dr. Aguillon had a discussion with the family yesterday about the poor prognosis. Patient was made DNR/DNI dismounted patient sill continue doing poorly. Then I spoke to the family and the patient was made comfort care. Later on patient with the family at her bedside
== END 2016-05-16 11:32 | disposition expired ==
LOC: ENRESERVTM → ENRESERVDT → ERH 13:24 → ERHI 17:29 → EDBEDREQ 18:09 → CRI 05-15 14:12
PROVIDERS: Internal Medicine Hematology & Oncology; Physician Assistant; ADMIT Internal Medicine
DX: A41.9 Sepsis, unspecified organism (principal); C34.90 Malignant neoplasm of unspecified part of unspecified bronchus or lung; Z51.5 Encounter for palliative care; J18.9 Pneumonia, unspecified organism; J96.90 Respiratory failure, unspecified, unspecified whether with hypoxia or hypercapnia; J44.9 Chronic obstructive pulmonary disease, unspecified; I95.9 Hypotension, unspecified; D64.9 Anemia, unspecified
CPT/HCPCS: 1263; 1288; 1328; 1342; 1425; 1530; 6020; 81001; 82436; 86920; 87040; 87070; 87086; 87804; 87804-59; 93005; 93010; 96361; 96365; 96366; 96374; 96375; 96376; 99291; G0378; J0131; J0610; J0713; J3370; J7040; J7060; P9016